=== PATIENT | female | born 1985 | race Caucasian/White ===

== ENCOUNTER 2019-05-19 08:50 | Emergency (ER) | payer SELFPAY ==
--- OUTSIDE RECORDS SUMMARY | 2019-05-19 08:54 | XMS REPORT ---
:1985 [facility] Address [address] [place] [address] Care Team Providers Name Role Phone UNKNOWN, REFFERING Primary Care Provider Unavailable PRISCA GARCIA Unavailable Unavailable Problems This patient has no known problems. Allergies, Adverse Reactions, Alerts This patient has no known allergies or adverse reactions. Medications This patient has no known medications. Results Test Description Test Time Test Comments Text Results Atomic Results Result Comments RPR, Qual 2017-03-08 22:11:00 Test Item Value Reference Range Comments RPR (test code=RPR) Non-Reactive Non-Reactive Thyroid Stimulating Hormone (TSH)2017-03-08 09:46:00 Test Item Value Reference Range Comments TSH (test code=TSH) 0.79 mIU/mL 0.270-4.200
--- NOTE | 2019-05-19 09:57 | EDPHYS ---
Physician Documentation [facility] Name: Charis Padgett Age: 33 yrs Sex: Female : 1985 Arrival Date: 05/19/2019 Time: 08:54 Bed 11 Private MD: ED Physician Ramiro Oviedo HPI: 05/19 09:51 This 33 yrs old Female presents to ER via Ambulatory with complaints of Rash. snw 09:51 The patient's rash thought to be caused by Dermatitis. The rash is located on the right snw clavicle, left clavicle, anterior aspect of right upper chest and anterior aspect of left upper chest and up posterior neck. The rash can be described as erythematous. Onset: The symptoms/episode began/occurred suddenly, 2 day(s) ago, and became persistent. Associated signs and symptoms: Pertinent positives: itching. Severity of symptoms: At their worst the symptoms were mild in the emergency department the symptoms are unchanged. Treatment given at home: Benadryl. It is unknown whether or not the patient has had similar symptoms in the past. The patient has not recently seen a physician. no new meds, products, foods. 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 - Social history:: Smoking status: Patient uses tobacco products, smokes one-half pack cigarettes per day. - Ebola Screening: : No symptoms or risks identified at this time. ROS: 09:51 Constitutional: Negative for fever, chills, and weight loss, Eyes: Negative for injury, snw pain, redness, and discharge, ENT: Negative for injury, pain, and discharge, Neck: Negative for injury, pain, and swelling, Cardiovascular: Negative for chest pain, palpitations, and edema, Respiratory: Negative for shortness of breath, cough, wheezing, and pleuritic chest pain, Abdomen/GI: Negative for abdominal pain, nausea, vomiting, diarrhea, and constipation, Back: Negative for injury and pain, : Negative for injury, bleeding, discharge, and swelling, MS/Extremity: Negative for injury and deformity, Neuro: Negative for headache, weakness, numbness, tingling, and seizure, Psych: Negative for depression, anxiety, suicide ideation, homicidal ideation, and hallucinations. 09:51 Skin: Positive for rash. Exam: 09:54 Constitutional: This is a well developed, well nourished patient who is awake, alert, snw and in no acute distress. Head/Face: Normocephalic, atraumatic. Eyes: Pupils equal round and reactive to light, extra-ocular motions intact. Lids and lashes normal. Conjunctiva and sclera are non-icteric and not injected. Cornea within normal limits. Periorbital areas with no swelling, redness, or edema. ENT: Nares patent. No nasal discharge, no septal abnormalities noted. Tympanic membranes are normal and external auditory canals are clear. Oropharynx with no redness, swelling, or masses, exudates, or evidence of obstruction, uvula midline. Mucous membranes moist. Neck: Trachea midline, no thyromegaly or masses palpated, and no cervical lymphadenopathy. Supple, full range of motion without nuchal rigidity, or vertebral point tenderness. No Meningismus. Chest/axilla: Normal chest wall appearance and motion. Nontender with no deformity. No lesions are appreciated. Cardiovascular: Regular rate and rhythm with a normal S1 and S2. No gallops, murmurs, or rubs. Normal PMI, no JVD. No pulse deficits. Respiratory: Lungs have equal breath sounds bilaterally, clear to auscultation and percussion. No rales, rhonchi or wheezes noted. No increased work of breathing, no retractions or nasal flaring. Abdomen/GI: Soft, non-tender, with normal bowel sounds. No distension or tympany. No guarding or rebound. No evidence of tenderness throughout. Back: No spinal tenderness. No costovertebral tenderness. Full range of motion. MS/ Extremity: Pulses equal, no cyanosis. Neurovascular intact. Full, normal range of motion. Neuro: Awake and alert, GCS 15, oriented to person, place, time, and situation. Cranial nerves II-XII grossly intact. Motor strength 5/5 in all extremities. Sensory grossly intact. Cerebellar exam normal. Normal gait. Psych: Awake, alert, with orientation to person, place and time. Behavior, mood, and affect are within normal limits. 09:54 Skin: Appearance: normal except for affected area, rash a mild rash is noted, rash can be described as erythematous, on the upper chest and posterior neck. Vital Signs: 09:02 BP 142 / 84; Pulse 82; Resp 16 S; Temp 98.5(O); Pulse Ox 99% on R/A; Pain 0/10; aa5 MDM: 09:47 Patient medically screened. snw 09:55 Data reviewed: vital signs, nurses notes. Data interpreted: Pulse oximetry: on room air snw is 99 %. Interpretation: normal. Counseling: I had a detailed discussion with the patient and/or guardian regarding: the historical points, exam findings, and any diagnostic results supporting the discharge/admit diagnosis, the presence of at least one elevated blood pressure reading (>120/80) during this emergency department visit, the need for outpatient follow up, to return to the emergency department if symptoms worsen or persist or if there are any questions or concerns that arise at home. Response to treatment: There is no appreciated change of the patient's symptoms at this time. Special discussion: Based on the history and exam findings, there is no indication for further emergent testing or inpatient evaluation. I discussed with the patient/guardian the need to see the data services developer for further evaluation of the symptoms. I discussed with the patient/guardian the need to see the primary care provider for further evaluation of the symptoms. Administered Medications: No medications were administered Disposition: 11:40 Co-signature as Attending Physician, Ramiro Oviedo MD. rn Disposition: 05/19/19 09:56 Discharged to Home. Impression: Irritant contact dermatitis. - Condition is Stable. - Discharge Instructions: Contact Dermatitis, Hypertension. - Prescriptions for Pepcid 20 mg Oral Tablet - take 1 tablet by ORAL route every 12 hours for 10 days; 20 tablet. Zyrtec 10 mg Oral Tablet - take 1 tablet by ORAL route once daily As needed; 20 tablet. - Work release form, Medication Reconciliation Form, Thank You Letter, Antibiotic Education, Prescription Opioid Use form. - Follow up: Private Physician; When: 2 - 3 days; Reason: Recheck today's complaints, Continuance of care, Re-evaluation by your physician. Signatures: Samara Messer, BENCH EXAMINER-C BENCH EXAMINER-Csnw Ramiro Oviedo MD MD rn Calderon, Audri, RN RN aa5 Corrections: (The following items were deleted from the chart) 10:06 09:56 05/19/2019 09:56 Discharged to Home. Impression: Irritant contact dermatitis. aa5 Condition is Stable. Forms are Medication Reconciliation Form, Thank You Letter, Antibiotic Education, Prescription Opioid Use. Follow up: Private Physician; When: 2 - 3 days; Reason: Recheck today's complaints, Continuance of care, Re-evaluation by your physician. snw
--- NOTE | 2019-05-19 09:57 | ER ---
Nurse's Notes [facility] Name: Charis Padgett Age: 33 yrs Sex: Female : 1985 Arrival Date: 05/19/2019 Time: 08:54 Bed 11 Private MD: Diagnosis: Irritant contact dermatitis Presentation: 05/19 09:01 Presenting complaint: Patient states: rash to chest and neck that began 2 days ago. Pt aa5 states "it's itchy and burning". Transition of care: patient was not received from another setting of care. Onset of symptoms was April 2019. Risk Assessment: Do you want to hurt yourself or someone else? Patient reports no desire to harm self or others. Initial Sepsis Screen: Does the patient meet any 2 criteria? No. Patient's initial sepsis screen is negative. Does the patient have a suspected source of infection? No. Patient's initial sepsis screen is negative. Care prior to arrival: None. 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 - Social history:: Smoking status: Patient uses tobacco products, smokes one-half pack cigarettes per day. - Ebola Screening: : No symptoms or risks identified at this time. Screenin:05 Abuse screen: Denies threats or abuse. Nutritional screening: No deficits noted. aa5 Tuberculosis screening: No symptoms or risk factors identified. Fall Risk None identified. Assessment: 09:05 General: Appears comfortable, Behavior is calm, cooperative. Pain: Denies pain. Neuro: aa5 Level of Consciousness is awake, alert, obeys commands, Oriented to person, place, time, situation. Cardiovascular: Patient's skin is warm and dry. Respiratory: Airway is patent Respiratory effort is even, unlabored, Respiratory pattern is regular, symmetrical. GI: No signs and/or symptoms were reported involving the gastrointestinal system. : No signs and/or symptoms were reported regarding the genitourinary system. EENT: No signs and/or symptoms were reported regarding the EENT system. Derm: Skin is pink, warm \\T\\ dry. Rash noted that is red, raised, on chest and neck Pt c/o itching and burning sensation to rash. Musculoskeletal: Range of motion: intact in all extremities. 10:05 Reassessment: Patient is alert, oriented x 3, equal unlabored respirations, skin aa5 warm/dry/pink. Vital Signs: 09:02 BP 142 / 84; Pulse 82; Resp 16 S; Temp 98.5(O); Pulse Ox 99% on R/A; Pain 0/10; aa5 ED Course: 08:54 Patient arrived in ED. as 09:00 Samara Messer F[facility]-C [facility]. snw 09:00 Ramiro Oviedo MD is Attending Physician. snw 09:02 Triage completed. aa5 09:02 Arm band placed on. aa5 09:02 Patient has correct armband on for positive identification. aa5 09:03 Crystal Sosa, RN is Primary Nurse. aa5 10:05 No provider procedures requiring assistance completed. Patient did not have IV access aa5 during this emergency room visit. Administered Medications: No medications were administered Outcome: 09:56 Discharge ordered by MD. snw 10:05 Discharged to home ambulatory. aa5 10:05 Condition: stable 10:05 Discharge instructions given to patient, Instructed on discharge instructions, follow up and referral plans. medication usage, Demonstrated understanding of instructions, follow-up care, medications, Prescriptions given X 2. 10:06 Patient left the ED. aa5 Signatures: Samara Messer FNP-C FNP-Mercedes Chowdhury as Crystal Sosa, RN RN aa5
== END 2019-05-19 10:06 | disposition home or self-care (01) ==
LOC: ER 08:50
DX: L24.9 Irritant contact dermatitis, unspecified cause (principal); Z88.0 Allergy status to penicillin; F17.210 Nicotine dependence, cigarettes, uncomplicated
CPT/HCPCS: 99282

== ENCOUNTER 2019-08-03 05:06 | Emergency (ER) | payer SELFPAY ==
[2019-08-03] MEDS ORDERED: IBUPROFEN 200 MG TAB PO ONE (06:19)
[2019-08-03] MEDS ORDERED: dexAMETHasone 4 MG TAB ONE (06:20)
--- NOTE | 2019-08-03 07:07 | ER ---
Nurse's Notes [facility] Name: Charis Padgett Age: 34 yrs Sex: Female : 1985 Arrival Date: 08/03/2019 Time: 05:09 Bed 15 Private MD: Diagnosis: Acute pharyngitis Presentation: 08/03 05:15 Presenting complaint: Patient states: I woke up about 3 hours ago and was having neck jb4 pain and trouble swallowing, the neck pain radiates to the middle of my upper back between my shoulders. 05:15 Transition of care: patient was not received from another setting of care. Onset of jb4 symptoms was August 03, 2019. Risk Assessment: Do you want to hurt yourself or someone else? Patient reports no desire to harm self or others. Initial Sepsis Screen: Does the patient meet any 2 criteria? No. Patient's initial sepsis screen is negative. Does the patient have a suspected source of infection? No. Patient's initial sepsis screen is negative. Care prior to arrival: None. 05:15 Method Of Arrival: Ambulatory jb4 05:15 Acuity: KALYANI 4 jb4 Historical: - Allergies: 05:15 Amoxicillin; jb4 05:15 PENICILLINS; jb4 05:15 peanuts; jb4 05:15 onions; jb4 - Home Meds: 05:15 None [Active]; jb4 - PMHx: 05:15 Anxiety; cervical CA; jb4 - PSHx: 05:15 (2011); Tubal ligation; Tonsillectomy; jb4 - Immunization history:: Adult Immunizations up to date. - Social history:: Smoking status: Patient uses tobacco products, smokes one-half pack cigarettes per day, Patient uses alcohol, occasionally. - Ebola Screening: : No symptoms or risks identified at this time. Screenin:15 Abuse screen: Denies threats or abuse. Nutritional screening: No deficits noted. jb4 Tuberculosis screening: No symptoms or risk factors identified. Fall Risk None identified. Assessment: 05:15 General: Appears in no apparent distress. comfortable, Behavior is calm, cooperative, jb4 appropriate for age. Pain: Complains of pain in neck Pain radiates to left scapular area, right scapular area and thoracic area Pain currently is 9 out of 10 on a pain scale. Pain began 3 hours ago. Neuro: Level of Consciousness is awake, alert, obeys commands, Oriented to person, place, time, situation. Cardiovascular: Patient's skin is warm and dry. Respiratory: Airway is patent Respiratory effort is even, unlabored, Respiratory pattern is regular, symmetrical. GI: No deficits noted. No signs and/or symptoms were reported involving the gastrointestinal system. : No deficits noted. No signs and/or symptoms were reported regarding the genitourinary system. EENT: Throat is clear is pink with gag reflex present. Derm: Skin is intact, Skin is pink, warm \T\ dry. Musculoskeletal: Circulation, motion, and sensation intact. Range of motion: intact in all extremities. 06:15 Reassessment: Patient appears in no apparent distress at this time. Patient and/or jb4 family updated on plan of care and expected duration. Pain level reassessed. Patient is alert, oriented x 3, equal unlabored respirations, skin warm/dry/pink. 07:01 Reassessment: Patient appears in no apparent distress at this time. Patient and/or jb4 family updated on plan of care and expected duration. Pain level reassessed. Patient is alert, oriented x 3, equal unlabored respirations, skin warm/dry/pink. 07:05 General: Appears in no apparent distress. comfortable, Behavior is calm, cooperative, rb1 appropriate for age. Pain: Complains of pain in neck Pain radiates to down her back Pain currently is 7 out of 10 on a pain scale. Neuro: Level of Consciousness is awake, alert, obeys commands, Oriented to person, place, time, situation. Cardiovascular: Capillary refill < 3 seconds is brisk in bilateral fingers. Respiratory: Airway is patent Respiratory effort is even, unlabored, Respiratory pattern is regular, symmetrical. Derm: Skin is pink, warm \T\ dry. Vital Signs: 05:15 BP 124 / 91; Pulse 73; Resp 16; Temp 97.6(TE); Pulse Ox 100% on R/A; Weight 65.77 kg [facility] (R); Height 5 ft. 2 in. (157.48 cm) (R); Pain 9/10; 06:30 BP 121 / 91; Pulse 67; Resp 16; Pulse Ox 100% on R/A; jb4 05:15 Body Mass Index 26.52 (65.77 kg, 157.48 cm) jb4 ED Course: 05:09 Patient arrived in ED. ds1 05:15 Arm band placed on right wrist. jb4 05:15 Patient has correct armband on for positive identification. Bed in low position. Call jb4 light in reach. Side rails up X 1. Pulse ox on. NIBP on. 05:16 Butch Rosenbaum, RN is Primary Nurse. jb4 05:31 Triage completed. jb4 05:50 Roger Ramirez PA is PHCP. jr8 05:50 Trevor Stauffer MD is Attending Physician. jr8 06:18 [place] Screen Profile Sent. jb4 06:18 Strep Sent. jb4 07:20 No provider procedures requiring assistance completed. Patient did not have IV access rb1 during this emergency room visit. Administered Medications: 06:27 Not Given (Patient Refused): Decadron 10 mg PO once jb4 06:28 Drug: Ibuprofen 600 mg Route: PO; jb4 06:56 Follow up: Response: No adverse reaction jb4 Outcome: 07:06 Discharge ordered by . jr8 07:19 Patient left the ED. rb1 07:20 Discharged to home ambulatory, with significant other. rb1 07:20 Condition: stable 07:20 Discharge instructions given to patient, Instructed on discharge instructions, follow up and referral plans. medication usage, Demonstrated understanding of instructions, follow-up care, medications, Prescriptions given X 1. Signatures: Jennifer Rosenthal ds1 Roger Ramirez PA PA jr8 Adilene Apodaca, RN RN rb1 Butch Rosenbaum, RN RN jb4
--- NOTE | 2019-08-03 07:07 | EDPHYS ---
Physician Documentation [facility] Name: Charis Padgett Age: 34 yrs Sex: Female : 1985 Arrival Date: 08/03/2019 Time: 05:09 Bed 15 Private MD: ED Physician Trevor Stauffer HPI: 08/03 06:10 This 34 yrs old Female presents to ER via Ambulatory with complaints of sore jr8 throat. 06:10 The patient presents with sore throat. The patient describes throat pain as raw, jr8 scratchy. Onset: The symptoms/episode began/occurred this morning. Severity of symptoms: At their worst the symptoms were moderate, in the emergency department the symptoms have improved. Modifying factors: the symptoms are aggravated by swallowing. Associated signs and symptoms: Pertinent negatives chest pain, cough, diarrhea, earache, fever, flu-like symptoms, headache. Pt reports onset of throat pain this morning at 0100, denies cough. Has someone living in household who has mono or is "carrier" for mono. Pt states throat pain aggravated with swallowing. Historical: - Allergies: 05:15 Amoxicillin; jb4 05:15 PENICILLINS; jb4 05:15 peanuts; jb4 05:15 onions; jb4 - Home Meds: 05:15 None [Active]; jb4 - PMHx: 05:15 Anxiety; cervical CA; jb4 - PSHx: 05:15 (2011); Tubal ligation; Tonsillectomy; jb4 - Immunization history:: Adult Immunizations up to date. - Social history:: Smoking status: Patient uses tobacco products, smokes one-half pack cigarettes per day, Patient uses alcohol, occasionally. - Ebola Screening: : No symptoms or risks identified at this time. ROS: 06:10 Constitutional: Negative for fever, chills, and weight loss, Eyes: Negative for injury, jr8 pain, redness, and discharge, Cardiovascular: Negative for chest pain, palpitations, and edema, Respiratory: Negative for shortness of breath, cough, wheezing, and pleuritic chest pain, Abdomen/GI: Negative for abdominal pain, nausea, vomiting, diarrhea, and constipation, Back: Negative for injury and pain, MS/Extremity: Negative for injury and deformity, Skin: Negative for injury, rash, and discoloration, Neuro: Negative for headache, weakness, numbness, tingling, and seizure. 06:10 ENT: Positive for sore throat, Negative for difficulty swallowing, difficulty handling secretions, hoarseness. 06:10 Neck: Negative for injury or acute deformity, mass, pain with movement, bony tenderness. Exam: 06:10 Constitutional: This is a well developed, well nourished patient who is awake, alert, jr8 and in no acute distress. Head/Face: Normocephalic, atraumatic. Eyes: Pupils equal round and reactive to light, extra-ocular motions intact. Lids and lashes normal. Conjunctiva and sclera are non-icteric and not injected. Cornea within normal limits. Periorbital areas with no swelling, redness, or edema. Chest/axilla: Normal chest wall appearance and motion. Nontender with no deformity. No lesions are appreciated. Cardiovascular: Regular rate and rhythm with a normal S1 and S2. No gallops, murmurs, or rubs. Normal PMI, no JVD. No pulse deficits. Respiratory: Lungs have equal breath sounds bilaterally, clear to auscultation and percussion. No rales, rhonchi or wheezes noted. No increased work of breathing, no retractions or nasal flaring. Abdomen/GI: Soft, non-tender, with normal bowel sounds. No distension or tympany. No guarding or rebound. No evidence of tenderness throughout. Back: No spinal tenderness. No costovertebral tenderness. Full range of motion. MS/ Extremity: Pulses equal, no cyanosis. Neurovascular intact. Full, normal range of motion. Neuro: Awake and alert, GCS 15, oriented to person, place, time, and situation. Cranial nerves II-XII grossly intact. Motor strength 5/5 in all extremities. Sensory grossly intact. Cerebellar exam normal. Normal gait. 06:10 ENT: Posterior pharynx: is normal, airway is patent, no erythema, no exudate, no peritonsilar mass, no pooling of secretions, no swelling. 06:10 Neck: Lymph nodes: lymphadenopathy is appreciated, anterior cervical nodes, posterior cervical nodes. Vital Signs: 05:15 BP 124 / 91; Pulse 73; Resp 16; Temp 97.6(TE); Pulse Ox 100% on R/A; Weight 65.77 kg jb4 (R); Height 5 ft. 2 in. (157.48 cm) (R); Pain 9/10; 06:30 BP 121 / 91; Pulse 67; Resp 16; Pulse Ox 100% on R/A; jb4 05:15 Body Mass Index 26.52 (65.77 kg, 157.48 cm) jb4 MDM: 05:59 Patient medically screened. jr8 07:04 Data reviewed: nurses notes, lab test result(s), and as a result, I will discharge jr8 patient. Data interpreted: Pulse oximetry: on room air is 100 %. Interpretation: normal. Counseling: I had a detailed discussion with the patient and/or guardian regarding: the historical points, exam findings, and any diagnostic results supporting the discharge/admit diagnosis, lab results. Medication response: motrin. Response to treatment: the patient's symptoms have markedly improved after treatment. ED course: Pt states she feels better with the motrin. Recommended increased fluid intake, sleep with fan off at night. Given return precautions, motrin and tylenol at home. 08/03 06:02 Order name: Strep; Complete Time: 06:42 8 08/03 06:02 Order name: [place] Screen Profile; Complete Time: 06:59 8 08/03 06:45 Order name: Throat Culture EDMS Administered Medications: 06:27 Not Given (Patient Refused): Decadron 10 mg PO once jb4 06:28 Drug: Ibuprofen 600 mg Route: PO; 4 06:56 Follow up: Response: No adverse reaction jb4 Disposition: 08/04 02:04 Co-signature as Attending Physician, Trevor Stauffer MD I agree with the assessment and [facility] plan of care. Disposition: 08/03/19 07:06 Discharged to Home. Impression: Acute pharyngitis. - Condition is Stable. - Discharge Instructions: Pharyngitis. - Prescriptions for Tessalon Perles 100 mg Oral Capsule - take 1 capsule by ORAL route every 8 hours As needed; 15 capsule. - Medication Reconciliation Form, Thank You Letter form. - Follow up: Private Physician; When: As needed; Reason: Recheck today's complaints, Re-evaluation by your physician. - Problem is new. - Symptoms have improved. Signatures: Dispatcher [employer] EDMS Roger Ramirez PA SD jr8 Adilene Apodaca RN RN rb1 Butch Rosenbaum RN RN jb4 Trevor Stauffer MD MD tw4 Corrections: (The following items were deleted from the chart) 08/03 07:19 07:06 08/03/2019 07:06 Discharged to Home. Impression: Acute pharyngitis. Condition is rb1 Stable. Forms are Medication Reconciliation Form, Thank You Letter, Antibiotic Education, Prescription Opioid Use. Follow up: Private Physician; When: As needed; Reason: Recheck today's complaints, Re-evaluation by your physician. Problem is new. Symptoms have improved. jr8
[2019-08-03 07:49] VITALS: TEMP 97.6; O2SAT 100
[2019-08-03 07:50] VITALS: BP 121/91
== END 2019-08-03 07:19 | disposition home or self-care (01) ==
LOC: ER 05:06
DX: J02.9 Acute pharyngitis, unspecified (principal); Z88.0 Allergy status to penicillin; Z88.1 Allergy status to other antibiotic agents; Z91.010 Allergy to peanuts; Z91.018 Allergy to other foods; F17.210 Nicotine dependence, cigarettes, uncomplicated
CPT/HCPCS: 36415; 86308; 87070; 87081; 99284; J8540

== ENCOUNTER 2019-12-18 11:46 | Emergency (ER) | payer SELFPAY ==
--- OUTSIDE RECORDS SUMMARY | 2019-12-18 11:48 | XMS REPORT ---
:1985 Author Organization [facility] Address [address] [place] [address] [address] [place] [address] Care Team Providers Name Role Phone UNKNOWN, [...]
--- NOTE | 2019-12-18 12:32 | ER ---
Nurse's Notes [facility] Name: Charis Padgett Age: 34 yrs Sex: Female : 1985 Arrival Date: 12/18/2019 Time: 11:49 Bed 23 Private MD: Diagnosis: Acute upper respiratory infection, unspecified Presentation: 12/18 12:00 Presenting complaint: Patient states: i was having cough last night, sore throat, fever mg2 and chest pain today. t-max 100.5. Transition of care: patient was not received from another setting of care. Onset of symptoms was December 17, 2019. Risk Assessment: Do you want to hurt yourself or someone else? Patient reports no desire to harm self or others. Initial Sepsis Screen: Does the patient meet any 2 criteria? No. Patient's initial sepsis screen is negative. Does the patient have a suspected source of infection? No. Patient's initial sepsis screen is negative. Care prior to arrival: None. 12:00 Method Of Arrival: Ambulatory mg2 12:00 Acuity: KALYANI 4 mg2 Triage Assessment: 12:30 General: Behavior is calm, cooperative. mg2 [employer]OR[employer]SE: 12:30 lmp unknown mg2 Historical: - Allergies: 12:06 NKA; mg2 - Home Meds: 12:06 None [Active]; mg2 - PMHx: 12:06 None; mg2 - PSHx: 12:06 ; mg2 - Immunization history:: Flu vaccine status is unknown. - Coronavirus screen:: The patient has NOT traveled to [place] in the past 14 days. Proceed with normal triage process as indicated. - Social history:: Smoking status: unknown. - Ebola Screening: : No symptoms or risks identified at this time. Screenin:06 Abuse screen: Denies threats or abuse. Denies injuries from another. Nutritional mg2 screening: No deficits noted. Tuberculosis screening: No symptoms or risk factors identified. Fall Risk No IV (0 pts). Assessment: 12:30 General: Appears in no apparent distress. comfortable. Pain: Complains of pain in chest mg2 and throat. Neuro: Level of Consciousness is awake, alert, obeys commands, Oriented to person, place, time, situation. Cardiovascular: Capillary refill < 3 seconds Patient's skin is warm and dry. Respiratory: Reports cough that is. Respiratory: Breath sounds are clear bilaterally. GI: No signs and/or symptoms were reported involving the gastrointestinal system. : No signs and/or symptoms were reported regarding the genitourinary system. EENT: Reports sore throat. Derm: Skin is intact, is healthy with good turgor, Skin is pink, warm \T\ dry. normal. Musculoskeletal: Circulation, motion, and sensation intact. Capillary refill < 3 seconds. Vital Signs: 12:02 Pulse 97; Resp 18; Temp 98.4; Pulse Ox 99% on R/A; Weight 73.03 kg; Height 5 ft. 3 in. mg2 (160.02 cm); 13:07 BP 120 / 78; Pulse 80; Resp 18; Temp 98; Pulse Ox 100% on R/A; mg2 12:02 Body Mass Index 28.52 (73.03 kg, 160.02 cm) mg2 ED Course: 11:49 Patient arrived in ED. mr 11:51 Jenny Holloway FNP-C is [facility]. kb 11:51 Berhane Rodriguez MD is Attending Physician. kb 11:56 Teofilo Paula, RN is Primary Nurse. mg2 12:02 Triage completed. mg2 12:03 Arm band placed on. mg2 12:05 Flu and/or RSV swab sent to lab. Strep swab sent to lab. jp3 12:15 Strep Sent. jp3 12:15 Flu Sent. jp3 12:30 Patient has correct armband on for positive identification. mg2 12:30 No provider procedures requiring assistance completed. Patient did not have IV access mg2 during this emergency room visit. 13:06 EKG done, by windshield technician. reviewed by Jenny KAUFMAN. at1 Administered Medications: No medications were administered Outcome: 12:32 Discharge ordered by MD. kb 13:07 Discharged to home ambulatory, with family. mg2 13:07 Condition: stable 13:07 Discharge instructions given to patient, Instructed on discharge instructions, follow up and referral plans. Demonstrated understanding of instructions, follow-up care. 13:09 Patient left the ED. mg2 Signatures: Jenny Holloway FNP-C FNP-Nicholas Lady Mcdonald Amanda, fitter's assistant EKG Tat1 Teofilo Paula, MARGO RN mg2 Natanael Yeh jp3
--- NOTE | 2019-12-18 12:33 | EDPHYS ---
Physician Documentation [facility] Name: Charis Padgett Age: 34 yrs Sex: Female : 1985 Arrival Date: 12/18/2019 Time: 11:49 Bed 23 Private MD: ED Physician Berhane Rodriguez HPI: 12/18 12:13 This 34 yrs old Female presents to ER via Ambulatory with complaints of Flu kb Symptoms. 12:13 The patient or guardian reports cough, flu symptoms, low-grade fever, myalgias. Onset: kb The symptoms/episode began/occurred this morning. Severity of symptoms: At their worst the symptoms were mild, moderate, in the emergency department the symptoms are unchanged. Modifying factors: The symptoms are alleviated by nothing, the symptoms are aggravated by nothing. Associated signs and symptoms: Pertinent positives: fever, sore throat. The patient has not experienced similar symptoms in the past. The patient has not recently seen a physician. 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 - Coronavirus screen:: The patient has NOT traveled to [place] in the past 14 days. Proceed with normal triage process as indicated. - Social history:: Smoking status: unknown. - Ebola Screening: : No symptoms or risks identified at this time. ROS: 12:10 Neck: Negative for injury, pain, and swelling, Cardiovascular: Negative for chest pain, kb palpitations, and edema, Abdomen/GI: Negative for abdominal pain, nausea, vomiting, diarrhea, and constipation, Back: Negative for injury and pain, MS/Extremity: Negative for injury and deformity, Skin: Negative for injury, rash, and discoloration, Neuro: Negative for headache, weakness, numbness, tingling, and seizure. 12:10 Constitutional: Positive for body aches, fever, malaise. 12:10 ENT: Positive for sore throat. 12:10 Respiratory: Positive for cough. Exam: 12:10 Constitutional: This is a well developed, well nourished patient who is awake, alert, kb and in no acute distress. Head/Face: Normocephalic, atraumatic. ENT: Nares patent. No nasal discharge, no septal abnormalities noted. Tympanic membranes are normal and external auditory canals are clear. Oropharynx with no redness, swelling, or masses, exudates, or evidence of obstruction, uvula midline. Mucous membranes moist. Neck: Trachea midline, no thyromegaly or masses palpated, and no cervical lymphadenopathy. Supple, full range of motion without nuchal rigidity, or vertebral point tenderness. No Meningismus. Chest/axilla: Normal chest wall appearance and motion. Nontender with no deformity. No lesions are appreciated. Cardiovascular: Regular rate and rhythm with a normal S1 and S2. No gallops, murmurs, or rubs. Normal PMI, no JVD. No pulse deficits. Respiratory: Lungs have equal breath sounds bilaterally, clear to auscultation and percussion. No rales, rhonchi or wheezes noted. No increased work of breathing, no retractions or nasal flaring. Abdomen/GI: Soft, non-tender, with normal bowel sounds. No distension or tympany. No guarding or rebound. No evidence of tenderness throughout. Skin: Warm, dry with normal turgor. Normal color with no rashes, no lesions, and no evidence of cellulitis. MS/ Extremity: Pulses equal, no cyanosis. Neurovascular intact. Full, normal range of motion. Neuro: Awake and alert, GCS 15, oriented to person, place, time, and situation. Cranial nerves II-XII grossly intact. Motor strength 5/5 in all extremities. Sensory grossly intact. Cerebellar exam normal. Normal gait. 12:47 ECG was reviewed by the Attending Physician. kb Vital Signs: 12:02 Pulse 97; Resp 18; Temp 98.4; Pulse Ox 99% on R/A; Weight 73.03 kg; Height 5 ft. 3 in. mg2 (160.02 cm); 13:07 BP 120 / 78; Pulse 80; Resp 18; Temp 98; Pulse Ox 100% on R/A; mg2 12:02 Body Mass Index 28.52 (73.03 kg, 160.02 cm) mg2 MDM: 11:56 Patient medically screened. kb 12:11 Data reviewed: vital signs, nurses notes. Data interpreted: Pulse oximetry: on room air kb is 99 %. Interpretation: normal. 12:31 Counseling: I had a detailed discussion with the patient and/or guardian regarding: the kb historical points, exam findings, and any diagnostic results supporting the discharge/admit diagnosis, lab results, the need for outpatient follow up, a family practitioner, to return to the emergency department if symptoms worsen or persist or if there are any questions or concerns that arise at home. 12/18 12:01 Order name: Flu; Complete Time: 12:31 kb 12/18 12:01 Order name: Strep; Complete Time: 12:31 kb 12/18 12:18 Order name: Urine Dipstick--Ancillary (enter results) [facility] 12/18 12:18 Order name: Urine --Ancillary (enter results) [facility] 12/18 12:37 Order name: EKG; Complete Time: 12:39 kb 12/18 12:37 Order name: Throat Culture [facility] 12/18 12:01 Order name: Urine Dipstick-Ancillary (obtain specimen); Complete Time: 12:11 kb 12/18 12:37 Order name: EKG - Nurse/Tech; Complete Time: 12:52 kb EC:47 Rate is 86 beats/min. Rhythm is regular. Right axis deviation noted. OK interval is kb normal at 140 msec. QRS interval is normal at 82 msec. QT interval is normal at 368 msec. Administered Medications: No medications were administered Disposition: 14:18 Co-signature as Attending Physician, Berhane Rodriguez MD I agree with the assessment and kdr plan of care. Disposition: 12/18/19 12:32 Discharged to Home. Impression: Acute upper respiratory infection, unspecified. - Condition is Stable. - Discharge Instructions: Upper Respiratory Infection, Adult, Pegz-[id number], Viral Respiratory Infection, [id number]. - Medication Reconciliation Form, Thank You Letter, Antibiotic Education, Prescription Opioid Use, Work release form form. - Follow up: Emergency Department; When: As needed; Reason: Worsening of condition. Follow up: Private Physician; When: 2 - 3 days; Reason: Recheck today's complaints, Continuance of care, Re-evaluation by your physician. Signatures: Dispatcher [employer] [facility] Jenny Holloway, UPHOLSTERER HELPER-C Berhane Vásquez MD MD [facility] Teofilo Paula RN RN mg2 Corrections: (The following items were deleted from the chart) 13:09 12:32 12/18/2019 12:32 Discharged to Home. Impression: Acute upper respiratory mg2 infection, unspecified. Condition is Stable. Forms are Medication Reconciliation Form, Thank You Letter, Antibiotic Education, Prescription Opioid Use. Follow up: Emergency Department; When: As needed; Reason: Worsening of condition. Follow up: Private Physician; When: 2 - 3 days; Reason: Recheck today's complaints, Continuance of care, Re-evaluation by your physician. kb
[2019-12-18 12:57] LABS: Urine Blood NEGATIVE (NEG); Urine Glucose NEGATIVE (NEG); Urine Protein NEGATIVE (NEG); Urine pH 7.5 (5.0-7.0)
--- NOTE | 2019-12-19 07:53 | EKG ---
Test Date: 2019-12-18 Test Time: 12:43:00 Psychiatric Nurse: LEIA MEASUREMENT RESULTS: Intervals: Rate: 86 CO: 140 QRSD: 82 QT: 368 QTc: 440 [place]: P: 60 CO: 140 QRS: 92 T: 36 INTERPRETIVE STATEMENTS: Normal sinus rhythm Rightward axis Borderline ECG No previous ECG available for comparison Electronically Signed On 12-19-19 07:51:50 MRI TECH by Marcel Calixto
== END 2019-12-18 13:09 | disposition home or self-care (01) ==
LOC: ER 11:46
DX: J06.9 Acute upper respiratory infection, unspecified (principal)
CPT/HCPCS: 81003; 81025; 87070; 87081; 87804; 93005; 99283

== ENCOUNTER 2019-12-28 17:47 | Emergency (ER) | payer SELFPAY ==
--- OUTSIDE RECORDS SUMMARY | 2019-12-28 17:49 | XMS REPORT ---
:1985 [facility] [address] [place] [address] Care Team Providers Name Role Phone UNKNOWN, [...]
--- NOTE | 2019-12-28 18:44 | EDPHYS ---
Physician Documentation [facility] Name: Charis Padgett Age: 34 yrs Sex: Female : 1985 Arrival Date: 12/28/2019 Time: 17:48 Bed 14 Private MD: LUDY Physician Benjie Hilliard HPI: 12/27 18:10 This 34 yrs old Female presents to ER via Ambulatory with complaints of jr8 Cough, Wheezing > 1 Year. 18:10 The patient or guardian reports cough, that is intermittent, described as mild, with no jr8 sputum, difficulty breathing. Onset: The symptoms/episode began/occurred gradually, 1 week(s) ago, and became worse and became persistent. Severity of symptoms: At their worst the symptoms were moderate, in the emergency department the symptoms are unchanged. Modifying factors: The symptoms are alleviated by nothing, the symptoms are aggravated by exertion. Associated signs and symptoms: The patient has no apparent associated signs or symptoms. The patient has not experienced similar symptoms in the past. The patient has been recently seen by a physician:. 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 - Social history:: Smoking status: Patient reports the use of cigarette tobacco products, smokes one-half pack cigarettes per day. ROS: 18:11 Eyes: Negative for injury, pain, redness, and discharge, ENT: Negative for injury, jr8 pain, and discharge, Neck: Negative for injury, pain, and swelling, Cardiovascular: Negative for chest pain, palpitations, and edema, Abdomen/GI: Negative for abdominal pain, nausea, vomiting, diarrhea, and constipation, Back: Negative for injury and pain, MS/Extremity: Negative for injury and deformity, Skin: Negative for injury, rash, and discoloration, Neuro: Negative for headache, weakness, numbness, tingling, and seizure. 18:11 Respiratory: Positive for cough, shortness of breath, wheezing. Exam: 18:11 Eyes: Pupils equal round and reactive to light, extra-ocular motions intact. Lids and jr8 lashes normal. Conjunctiva and sclera are non-icteric and not injected. Cornea within normal limits. Periorbital areas with no swelling, redness, or edema. ENT: Nares patent. No nasal discharge, no septal abnormalities noted. Tympanic membranes are normal and external auditory canals are clear. Oropharynx with no redness, swelling, or masses, exudates, or evidence of obstruction, uvula midline. Mucous membranes moist. Neck: Trachea midline, no thyromegaly or masses palpated, and no cervical lymphadenopathy. Supple, full range of motion without nuchal rigidity, or vertebral point tenderness. No Meningismus. Cardiovascular: Regular rate and rhythm with a normal S1 and S2. No gallops, murmurs, or rubs. Normal PMI, no JVD. No pulse deficits. Respiratory: Lungs have equal breath sounds bilaterally, clear to auscultation and percussion. No rales, rhonchi or wheezes noted. No increased work of breathing, no retractions or nasal flaring. Abdomen/GI: Soft, non-tender, with normal bowel sounds. No distension or tympany. No guarding or rebound. No evidence of tenderness throughout. Back: No spinal tenderness. No costovertebral tenderness. Full range of motion. Skin: Warm, dry with normal turgor. Normal color with no rashes, no lesions, and no evidence of cellulitis. MS/ Extremity: Pulses equal, no cyanosis. Neurovascular intact. Full, normal range of motion. Neuro: Awake and alert, GCS 15, oriented to person, place, time, and situation. Cranial nerves II-XII grossly intact. Motor strength 5/5 in all extremities. Sensory grossly intact. Cerebellar exam normal. Normal gait. Vital Signs: 17:53 BP 116 / 92; Pulse 101; Resp 18 S; Temp 99.1; Pulse Ox 98% on R/A; Weight 72.57 kg; iw Height 5 ft. 2 in. (157.48 cm); 18:50 BP 127 / 98; Pulse 85; Resp 16 S; Pulse Ox 99% on R/A; ca1 17:53 Body Mass Index 29.26 (72.57 kg, 157.48 cm) iw MDM: 17:59 Patient medically screened. jr8 18:41 Data reviewed: vital signs, nurses notes, radiologic studies, plain films. Data jr8 interpreted: Pulse oximetry: on room air is 98 %. Interpretation: normal. Counseling: I had a detailed discussion with the patient and/or guardian regarding: the historical points, exam findings, and any diagnostic results supporting the discharge/admit diagnosis, radiology results, the need for outpatient follow up, a family practitioner, to return to the emergency department if symptoms worsen or persist or if there are any questions or concerns that arise at home. 18:42 ED course: No identified pneumonia on CXR. Patient has had continued symptoms for 10 jr8 days now with worsening. Low grade fever and tachycardic. Will put on zithromax for atypical infection . 18:45 ED course: [facility] database was accessed. No narcotic prescriptions found. Safe to [facility] give cough medicine at this time. 12/27 17:59 Order name: XRAY Chest Pa And Lat (2 Views) jr8 Administered Medications: 18:50 Drug: Tussionex Pennkinetic ER 5 ml Route: PO; ca1 19:03 Follow up: Response: Medication administered at discharge. ca1 18:54 Not Given (Patient ): predniSONE 40 mg PO once jr8 18:56 Drug: Decadron 10 mg Route: IM; Site: right gluteus; ca1 19:03 Follow up: Response: Medication administered at discharge. ca1 Disposition: 12/28 07:19 Co-signature as Attending Physician, Benjie Hilliard MD I agree with the assessment and rosalind plan of care. Disposition: 12/28/19 18:43 Discharged to Home. Impression: Acute bacterial bronchitis. - Condition is Stable. - Discharge Instructions: Acute Bronchitis, Adult. - Prescriptions for Prednisone 20 mg Oral Tablet - take 1 tablet by ORAL route once daily for 5 days; 5 tablet. Zithromax Z- Kobe 250 mg Oral Tablet - take 1 tablet by ORAL route as directed for 5 days Day 1 - take two (2) tablets one time. Day 2, 3, 4 , 5 take one (1) tablet once daily.; 6 tablet. Guaifenesin AC 10- 100 mg/5 mL Oral Liquid - take 10 milliliter by ORAL route every 4 hours As needed; 240 milliliter. - Medication Reconciliation Form, Thank You Letter, Antibiotic Education, Prescription Opioid Use form. - Follow up: Private Physician; When: 1 week; Reason: Recheck today's complaints, Continuance of care, Re-evaluation by your physician. - Problem is new. - Symptoms have improved. Signatures: Dispatcher [employer] Benjie Colbert MD MD cha Williams, Irene, RN RN iw Roger Ramirez PA PA jr8 Mónica Lawton RN RN ca1 Corrections: (The following items were deleted from the chart) 12/27 18:55 17:55 Allergies: NKA; iw ca1 19:06 18:43 12/28/2019 18:43 Discharged to Home. Impression: Acute bacterial bronchitis. ca1 Condition is Stable. Forms are Medication Reconciliation Form, Thank You Letter, Antibiotic Education, Prescription Opioid Use. Follow up: Private Physician; When: 1 week; Reason: Recheck today's complaints, Continuance of care, Re-evaluation by your physician. Problem is new. Symptoms have improved. jr8
--- NOTE | 2019-12-28 18:44 | ER ---
Nurse's Notes [facility] Name: Charis Padgett Age: 34 yrs Sex: Female : 1985 Arrival Date: 12/28/2019 Time: 17:48 Bed 14 Private MD: Diagnosis: Acute bacterial bronchitis Presentation: 12/27 17:53 Chief complaint: Patient states: was seen here a couple weeks ago, cough is worse, iw can't breathe, worse at night, was not given any prescriptions. Coronavirus screen: The patient has NOT traveled to [place] in the past 14 days. Proceed with normal triage procedures. Ebola Screen: Patient negative for fever greater than or equal to 101.5 degrees Fahrenheit, and additional compatible Ebola Virus Disease symptoms Patient denies exposure to infectious person. Patient denies travel to an Ebola-affected area in the 21 days before illness onset. No symptoms or risks identified at this time. Initial Sepsis Screen: Does the patient meet any 2 criteria? No. Patient's initial sepsis screen is negative. Does the patient have a suspected source of infection? No. Patient's initial sepsis screen is negative. Risk Assessment: Do you want to hurt yourself or someone else? Patient reports no desire to harm self or others. 17:53 Method Of Arrival: Ambulatory iw 17:53 Acuity: KALYANI 4 iw 18:14 Onset of symptoms was December 28, 2019. ca1 Triage Assessment: 18:15 Respiratory: Onset: The symptoms/episode began/occurred Respiratory: No deficits noted. 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 - Social history:: Smoking status: Patient reports the use of cigarette tobacco products, smokes one-half pack cigarettes per day. Screenin:05 Abuse screen: Denies threats or abuse. Denies injuries from another. Nutritional ca1 screening: No deficits noted. Tuberculosis screening: No symptoms or risk factors identified. Fall Risk None identified. Assessment: 18:05 General: Appears in no apparent distress. comfortable, Behavior is calm, cooperative, ca1 appropriate for age. Pain: Denies pain. Neuro: Level of Consciousness is awake, alert, obeys commands, Oriented to person, place, time, situation, Appropriate for age. Cardiovascular: Heart tones S1 S2 present Capillary refill < 3 seconds Patient's skin is warm and dry. Rhythm is sinus rhythm. Respiratory: Reports cough that is productive, since a week ago Airway is patent Respiratory effort is even, unlabored, Respiratory pattern is regular, symmetrical, Breath sounds are clear bilaterally. GI: Abdomen is round non-distended, Bowel sounds present X 4 quads. Abd is soft and non tender X 4 quads. : No signs and/or symptoms were reported regarding the genitourinary system. EENT: No signs and/or symptoms were reported regarding the EENT system. Derm: Skin is intact, is healthy with good turgor, Skin is pink, warm \T\ dry. Musculoskeletal: Circulation, motion, and sensation intact. Capillary refill < 3 seconds. 18:50 Reassessment: Patient appears in no apparent distress at this time. Patient is alert, ca1 oriented x 3, equal unlabored respirations, skin warm/dry/pink. Vital Signs: 17:53 BP 116 / 92; Pulse 101; Resp 18 S; Temp 99.1; Pulse Ox 98% on R/A; Weight 72.57 kg; iw Height 5 ft. 2 in. (157.48 cm); 18:50 BP 127 / 98; Pulse 85; Resp 16 S; Pulse Ox 99% on R/A; ca1 17:53 Body Mass Index 29.26 (72.57 kg, 157.48 cm) iw ED Course: 17:48 Patient arrived in ED. as 17:55 Triage completed. iw 17:55 Arm band placed on. iw 17:59 Roger Ramirez PA is PHCP. jr8 17:59 Benjie Hilliard MD is Attending Physician. jr8 18:05 Patient has correct armband on for positive identification. Bed in low position. Call ca1 light in reach. Side rails up X 1. Pulse ox on. NIBP on. Warm blanket given. 18:05 No provider procedures requiring assistance completed. ca1 18:06 Mónica Lawton, RN is Primary Nurse. ca1 18:34 XRAY Chest Pa And Lat (2 Views) In Process Unspecified. EDMS 19:00 Patient did not have IV access during this emergency room visit. ca1 Administered Medications: 18:50 Drug: Tussionex Pennkinetic ER 5 ml Route: PO; ca1 19:03 Follow up: Response: Medication administered at discharge. ca1 18:54 Not Given (Patient ): predniSONE 40 mg PO once jr8 18:56 Drug: Decadron 10 mg Route: IM; Site: right gluteus; ca1 19:03 Follow up: Response: Medication administered at discharge. ca1 Outcome: 18:43 Discharge ordered by . jr8 19:00 Discharged to home ambulatory, with significant other. ca1 19:00 Condition: stable 19:00 Discharge instructions given to patient, Instructed on discharge instructions, follow up and referral plans. medication usage, Demonstrated understanding of instructions, follow-up care, medications, Prescriptions given X 2. 19:06 Patient left the ED. ca1 Signatures: Dispatcher [employer] EDMS Mercedes Benites Irene, RN RN iw Roger Ramirez PA PA jr8 Mónica Lawton RN RN ca1 Corrections: (The following items were deleted from the chart) 18:55 17:55 Allergies: NKA; iw ca1
[2019-12-28] MEDS ORDERED: dexAMETHasone 4 MG/ML VIAL ONE (19:01)
[2019-12-28] MEDS ORDERED: HYDROCODONE/CHLORPHEN 5 ML/OSYR ONE (19:01)
--- NOTE | 2019-12-28 19:16 | RAD REPORT ---
EXAM DESCRIPTION: RAD - Chest Pa And Lat (2 Views) - 12/28/2019 6:29 pm CLINICAL HISTORY: COUGH Chest pain. COMPARISON: Chest Single View dated 05/23/2016 FINDINGS: Mild interstitial pulmonary opacities are present bilaterally which may represent bronchit is or viral pneumonitis. No focal consolidation seen to indicate bacterial pneumonia. The heart is no rmal in size. No displaced fractures. Subtle upper thoracic dextroscoliosis.
[2019-12-28 19:48] VITALS: BP 127/98; O2SAT 99
[2019-12-28 19:49] VITALS: TEMP 99.1
== END 2019-12-28 19:06 | disposition home or self-care (01) ==
LOC: ER 17:47
DX: J20.8 Acute bronchitis due to other specified organisms (principal); Z88.8 Allergy status to other drugs, medicaments and biological substances; F17.210 Nicotine dependence, cigarettes, uncomplicated
CPT/HCPCS: 71046; 96372; 99284

== ENCOUNTER 2020-02-29 13:21 | Emergency (ER) | payer SELFPAY ==
--- OUTSIDE RECORDS SUMMARY | 2020-02-29 13:22 | XMS REPORT ---
:1985 Author Organization [facility] t Address [address] [place] [address] [address] [place] [address] Care Team Providers Name Role Phone UNKNOWN Primary Care Provider Unavailable Lucas GARCIA Unavailable Unavailable Problems This patient has no known problems. Allergies, Adverse Reactions, Alerts This patient has no known allergies or adverse reactions. Medications This patient has no known medications. Results Test Description Test Time Test Comments Text Results Atomic Results Result Comments RPR, Qual 2017-03-08 22:11:00 Test Item Value Reference Range Comments RPR (test code = RPR) Non-Reactive Non-Reactive Thyroid Stimulating Hormone (TSH)2017-03-08 09:46:00 Test Item Value Reference Range Comments TSH (test code = TSH) 0.79 mIU/mL 0.270-4.200
[2020-02-29 14:40] LABS: Urine Blood TRACE (NEG); Urine Glucose NEGATIVE (NEG); Urine Protein NEGATIVE (NEG); Urine pH 5.5 (5.0-7.0)
[2020-02-29] MEDS ORDERED: CYCLOBENZAPRINE 10 MG TAB ONE (14:44)
[2020-02-29] MEDS ORDERED: KETOROLAC 30 MG/ML INJ ONE (14:45)
--- NOTE | 2020-02-29 15:34 | ER ---
Nurse's Notes [facility] Name: Charis Padgett Age: 34 yrs Sex: Female : 1985 Arrival Date: 02/29/2020 Time: 13:22 Bed 6 Private MD: Diagnosis: Low back pain Presentation: 02/28 13:57 Chief complaint: Patient states: LEFT LUMBAR SCIATIC PATTERN PAIN TO LEFT KNEE. bp Coronavirus screen: Proceed with normal triage. Ebola Screen: No symptoms or risks identified at this time. Initial Sepsis Screen: Does the patient meet any 2 criteria? No. Patient's initial sepsis screen is negative. Does the patient have a suspected source of infection? No. Patient's initial sepsis screen is negative. Risk Assessment: Do you want to hurt yourself or someone else? Patient reports no desire to harm self or others. Onset of symptoms is unknown. 13:57 Method Of Arrival: Wheelchair bp 13:57 Acuity: KALYANI 4 bp Triage Assessment: 13:59 General: Appears in no apparent distress. comfortable, Behavior is cooperative, bp appropriate for age, anxious. Pain: Complains of pain in left low back. EENT: No deficits noted. Neuro: Level of Consciousness is awake, alert, obeys commands, Oriented to person, place, time, situation, Appropriate for age. Cardiovascular: No deficits noted. Respiratory: No deficits noted. GI: GI: Abdomen is obese. : No signs and/or symptoms were reported regarding the genitourinary system. Derm: No deficits noted. Musculoskeletal: Circulation, motion, and sensation intact. Range of motion: intact in all extremities. Historical: - Allergies: 13:59 Prednisone; bp - Home Meds: 13:59 None [Active]; bp - PMHx: 13:59 None; bp - Immunization history:: Adult Immunizations up to date. - Social history:: Smoking status: Patient reports the use of cigarette tobacco products, unknown amount. Screenin:06 Abuse screen: Denies threats or abuse. Denies injuries from another. Nutritional bp screening: No deficits noted. Tuberculosis screening: No symptoms or risk factors identified. Fall Risk None identified. Assessment: 14:06 General: SEE TRIAGE NOTE. bp 15:17 Reassessment: Patient appears in no apparent distress at this time. Patient and/or iw family updated on plan of care and expected duration. Pain level reassessed. Patient is alert, oriented x 3, equal unlabored respirations, skin warm/dry/pink. 15:42 Reassessment: PT D/C HOME AMBULATORY, DX WITH LOW BACK PAIN. Neuro: Level of bp Consciousness is awake, alert, obeys commands, Oriented to Appropriate for age Gait is steady. Vital Signs: 13:57 BP 132 / 94; Pulse 94; Resp 17; Temp 97.5; Pulse Ox 97% ; Weight 68.04 kg; Height 5 ft. bp 2 in. (157.48 cm); 15:42 BP 125 / 89; Pulse 87; Resp 16; Temp 97.5; Pulse Ox 98% ; bp 13:57 Body Mass Index 27.44 (68.04 kg, 157.48 cm) bp ED Course: 13:22 Patient arrived in ED. ag5 13:56 Sha Hudson, MARGO is Primary Nurse. bp 13:56 Benjie Willingham PA is PHCP. cp 13:56 Ramiro Oviedo MD is Attending Physician. cp 13:58 Triage completed. bp 14:05 Arm band placed on. bp 14:06 Patient has correct armband on for positive identification. Bed in low position. Call bp light in reach. Side rails up X2. 15:42 No provider procedures requiring assistance completed. Patient did not have IV access bp during this emergency room visit. Administered Medications: 14:15 Drug: TORadol 60 mg Route: IM; Site: right gluteus; bp 15:41 Follow up: Response: Pain is decreased bp 14:15 Drug: Flexeril 10 mg Route: PO; bp 15:41 Follow up: Response: Pain is decreased bp 15:35 Drug: traMADol 50 mg Route: PO; bp 15:41 Follow up: Response: Pain is decreased bp Outcome: 15:33 Discharge ordered by MD. cp 15:42 Discharged to home ambulatory. bp 15:42 Condition: stable 15:42 Discharge instructions given to patient, Instructed on discharge instructions, follow up and referral plans. medication usage, Demonstrated understanding of instructions, follow-up care, medications, Prescriptions given X 3. 15:43 Patient left the ED. bp Signatures: Marie Haynes RN RN Benjie Willingham PA PA cp Peltier, Brian, RN RN Violeta Fernández ag5
--- NOTE | 2020-02-29 15:34 | EDPHYS ---
Physician Documentation [facility] Name: Charis Padgett Age: 34 yrs Sex: Female : 1985 Arrival Date: 02/29/2020 Time: 13:22 Bed 6 Private MD: ED Physician Ramiro Oviedo HPI: 02/28 14:10 This 34 yrs old Female presents to ER via Wheelchair with complaints of Back cp Pain. 14:10 The patient presents with pain that is acute. The symptoms are located in the left low cp back. 14:10 Onset: The symptoms/episode began/occurred 3 day(s) ago. cp 14:10 The pain radiates to the left upper leg. Associated signs and symptoms: Pertinent cp negatives: abdominal pain, chest pain, constipation, dysuria, fever, incontinence, numbness, tingling, urinary retention, weakness. The problem was sustained from unknown cause. Modifying factors: the patient symptoms are aggravated by movement, walking. Historical: - Allergies: 13:59 Prednisone; bp - Home Meds: 13:59 None [Active]; bp - PMHx: 13:59 None; bp - Immunization history:: Adult Immunizations up to date. - Social history:: Smoking status: Patient reports the use of cigarette tobacco products, unknown amount. ROS: 14:15 Constitutional: Negative for body aches, chills, fever, poor PO intake. cp 14:15 Eyes: Negative for injury, pain, redness, and discharge. cp Exam: 14:20 Constitutional: The patient appears in no acute distress, alert, awake, non-toxic, well cp developed, well nourished. 14:20 Head/Face: Normocephalic, atraumatic. cp 14:20 Eyes: Periorbital structures: appear normal, Conjunctiva: normal, no exudate, no injection, Sclera: no appreciated abnormality, Lids and lashes: appear normal, bilaterally. 14:20 ENT: External ear(s): are unremarkable, Nose: is normal, Mouth: is normal, Posterior pharynx: Airway: no evidence of obstruction, patent. 14:20 Neck: ROM/movement: is normal, is supple, without pain, no range of motions limitations. 14:20 Chest/axilla: Inspection: normal. 14:20 Cardiovascular: Rate: normal, Rhythm: regular. 14:20 Respiratory: the patient does not display signs of respiratory distress, Respirations: normal, no use of accessory muscles, no retractions. 14:20 Abdomen/GI: Exam negative for discomfort, distension, guarding, Inspection: abdomen appears normal. 14:20 Back: pain, that is moderate, of the left low back, ROM is painful. 14:20 Neuro: Motor: moves all fours, strength is normal, Sensation: is normal, Deep tendon reflexes are 2+ (normal) in the right patellar, right Achilles, left patellar and left Achilles. Vital Signs: 13:57 BP 132 / 94; Pulse 94; Resp 17; Temp 97.5; Pulse Ox 97% ; Weight 68.04 kg; Height 5 ft. bp 2 in. (157.48 cm); 15:42 BP 125 / 89; Pulse 87; Resp 16; Temp 97.5; Pulse Ox 98% ; bp 13:57 Body Mass Index 27.44 (68.04 kg, 157.48 cm) bp MDM: 13:59 Patient medically screened. cp 15:33 Data reviewed: vital signs, nurses notes, lab test result(s), and as a result, I will cp discharge patient. 15:33 Counseling: I had a detailed discussion with the patient and/or guardian regarding: the cp historical points, exam findings, and any diagnostic results supporting the discharge/admit diagnosis, lab results, the need for outpatient follow up, a family practitioner, to return to the emergency department if symptoms worsen or persist or if there are any questions or concerns that arise at home. 02/28 14:38 Order name: Urine Dipstick--Ancillary (enter results); Complete Time: 15:22 eb 02/28 15:22 Interpretation: Normal except: UBLD TRACE. cp 02/28 14:38 Order name: Urine --Ancillary (enter results); Complete Time: 15:22 eb 02/28 13:59 Order name: Urine Dipstick-Ancillary (obtain specimen); Complete Time: 14:35 cp 02/28 13:59 Order name: Urine Test (obtain specimen); Complete Time: 14:35 cp Administered Medications: 14:15 Drug: TORadol 60 mg Route: IM; Site: right gluteus; bp 15:41 Follow up: Response: Pain is decreased bp 14:15 Drug: Flexeril 10 mg Route: PO; bp 15:41 Follow up: Response: Pain is decreased bp 15:35 Drug: traMADol 50 mg Route: PO; bp 15:41 Follow up: Response: Pain is decreased bp Disposition: 17:29 Co-signature as Attending Physician, Ramiro Oviedo MD. rn Disposition: 02/29/20 15:33 Discharged to Home. Impression: Low back pain. - Condition is Stable. - Discharge Instructions: Back Pain, Adult, Back Exercises. - Prescriptions for Cyclobenzaprine 10 mg Oral Tablet - take 1 tablet by ORAL route every 8 hours As needed; 20 tablet. Diclofenac Sodium 75 mg Oral Tablet, Delayed Release (E.C.) - take 1 tablet by ORAL route 2 times per day; 20 tablet. Tramadol 50 mg Oral Tablet - take 1 tablet by ORAL route every 8 hours as needed; 12 tablet. - Medication Reconciliation Form, Thank You Letter, Antibiotic Education, Prescription Opioid Use form. - Follow up: Private Physician; When: 2 - 3 days; Reason: Recheck today's complaints. - Problem is new. - Symptoms have improved. Signatures: Dispatcher [employer] EDRamiro Vargas MD MD rn Benjie Willingham PA PA cp Peltier, Brian, RN RN bp Corrections: (The following items were deleted from the chart) 15:43 15:33 02/29/2020 15:33 Discharged to Home. Impression: Low back pain. Condition is bp Stable. Forms are Medication Reconciliation Form, Thank You Letter, Antibiotic Education, Prescription Opioid Use. Follow up: Private Physician; When: 2 - 3 days; Reason: Recheck today's complaints. Problem is new. Symptoms have improved. cp
[2020-02-29] MEDS ORDERED: TRAMADOL HCL 50 MG TAB ONE (15:44)
[2020-02-29 16:40] VITALS: TEMP 97.5
[2020-02-29 16:41] VITALS: BP 125/89; O2SAT 98
== END 2020-02-29 15:43 | disposition home or self-care (01) ==
LOC: ER 13:21
DX: M54.5 Low back pain (principal); Z72.0 Tobacco use; Z88.8 Allergy status to other drugs, medicaments and biological substances
CPT/HCPCS: 81003; 81025; 96372; 99283

== ENCOUNTER 2021-01-31 19:58 | Emergency (ER) | payer OTHER ==
--- OUTSIDE RECORDS SUMMARY | 2021-01-31 20:02 | XMS REPORT | Continuity of Care Document ---
:1985 Author Organization [facility] t Address [address] [place] [address] Care Team Providers Name Role Phone UNKNOWN Primary Care Physician Unavailable Doctor Unassigned, Name Attending Clinician Unavailable Madhav VALDEZ Attending Clinician Lucas GARCIA Attending Clinician Unavailable Lucas GARCIA Admitting Clinician Unavailable Problems This patient has no known problems. Allergies, Adverse Reactions, Alerts This patient has no known allergies or adverse reactions. Medications This patient has no known medications. Procedures This patient has no known procedures. Encounters Start End Encounter Admission Attending Care Care Encounter Source Date/Time Date/Time Type Type Clinicians Facility Department ID 2021-01-26 2021-01-26 Orders Doctor SHAZIA [id number] 00:00:00 00:00:00 Only UnassignedDAVID [id number] [place] [id number] 2020-12-22 2020-12-22 Orders Doctor SHAZIA [id number] 00:00:00 00:00:00 Only UnassignedDAVID [id number] [place] [id number] 2020-08-06 2020-08-06 Letter Doctor SHAZIA [id number] 00:00:00 00:00:00 (Out) Unassigned, DAVID [id number] [place] [id number] 2020-08-06 2020-08-06 Letter Doctor SHAZIA [id number] 00:00:00 00:00:00 (Out) Unassigned, DAVID [id number] [place] [facility] [id number] 2019-07-07 2019-07-07 Emergency Corey, [facility] [id number] 11:16:20 12:14:00 Doc [place] [id number] [place] [id number] [place] [id number] Results Test Description Test Time Test Comments Results Result Comments Source RPR, Qual 2017-03-08 22:11:00 Test Item Value Reference Range Interpretation Comme nts RPR (test code = RPR) Non-Reactive Non-Reactive N Thyroid Stimulating Hormone (TSH)2017-03-08 09:46:00 Test Item Value Reference Range Interpretation Comments TSH (test code = TSH) 0.79 mIU/mL 0.270-4.200 N
--- NOTE | 2021-01-31 23:23 | ER ---
Nurse's Notes [facility] Name: Charis Padgett Age: 35 yrs Sex: Female : 1985 Arrival Date: 01/31/2021 Time: 20:03 Bed Waiting Private MD: Diagnosis: Presentation: 01/31 20:21 Chief complaint: Patient states: 7 teeth pulled today around 1100. 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 Entire body pain for 3 hours. Feels hot/cold, + nausea. Coronavirus screen: Client denies travel out of the [place] in the last 14 days. At this time, the client does not indicate any symptoms associated with coronavirus-19. Ebola Screen: Patient denies travel to an Ebola-affected area in the 21 days before illness onset. Initial Sepsis Screen: Does the patient meet any 2 criteria? HR > 90 bpm. No. Patient's initial sepsis screen is negative. Does the patient have a suspected source of infection? Yes: Other: tooth. Risk Assessment: Do you want to hurt yourself or someone else? Patient reports no desire to harm self or others. Onset of symptoms was January 31, 2021. 20:21 Method Of Arrival: Ambulatory ll1 20:21 Acuity: KALYANI 4 ll1 Historical: - Allergies: 20:24 Prednisone; ll1 20:24 peanuts; ll1 - PMHx: 20:24 None; ll1 - PSHx: 20:24 ; ll1 - Immunization history:: Flu vaccine is not up to date. - Social history:: Smoking status: Patient reports the use of cigarette tobacco products, denies chronic smoking, but will smoke occasionally. Vital Signs: 20:21 BP 143 / 101; Pulse 105; Resp 18; Temp 98.4; Pulse Ox 95% ; Weight 86.18 kg; Height 5 ll1 ft. 2 in. (157.48 cm); Pain 9/10; 20:21 Body Mass Index 34.75 (86.18 kg, 157.48 cm) ll1 ED Course: 20:03 Patient arrived in ED. cf2 20:24 Triage completed. ll1 20:25 Arm band placed on Patient notified of wait time. ll1 22:30 Patient's name was called from ER lobby. No response. bb 23:22 Patient's name was called from ER Music Messenger (MM). No response. Unable to locate patient. Will bb disposition as left without being seen by a provider. Administered Medications: No medications were administered Outcome: 23:23 Patient left the ED. bb Signatures: Naye Youssef RN RN bb Lauryn Etienne cf2 Connie Lama RN RN ll1
[2021-01-31 23:53] VITALS: BP 143/101; TEMP 98.4; O2SAT 95
== END 2021-01-31 23:23 | disposition left against medical advice (07) ==
LOC: ER 19:58
DX: K08.89 Other specified disorders of teeth and supporting structures (principal); F17.210 Nicotine dependence, cigarettes, uncomplicated; Z53.21 Procedure and treatment not carried out due to patient leaving prior to being seen by health care provider
CPT/HCPCS: 99281

== ENCOUNTER 2021-11-04 15:49 | Emergency (ER) | payer OTHER ==
--- OUTSIDE RECORDS SUMMARY | 2021-11-04 15:53 | XMS REPORT | Continuity of Care Document ---
:1985 Author Organization [facility] t Address [address] [place] [address] Dr. Roberts. [address] [place] [address] Care Team Providers Name Role Phone UNKNOWN Primary Care Physician Unavailable ERNIE K.H. Attending Clinician Unavailable Sudhakar ARAGON, L Attending Clinician Unavailable Ernie VALDEZ, K.H. Attending Clinician Doctor Unassigned, Name Attending Clinician Unavailable Madhav VALDEZ Attending Clinician Lucas GARCIA Attending Clinician Unavailable Lucas GARCIA Admitting Clinician Unavailable Payers Payer Name Policy Type Policy Number Effective Date Expiration Date S ty [facility] [id number] 2020 00:00:00 Problems Condition Condition Condition Status Onset Resolution Last Treating Co mments Source Name Details Category Date Date Treatment Clinician Date No known No known Disease Unive rs active active ity of problems problems [facility] Allergies, Adverse Reactions, Alerts Allergy Allergy Status Severity Reaction(s) Onset Inactive Treating Comm ents Source Name Type Date Date Clinician Peanut Propensi Active Anaphylaxis 2017-0 Onions- Un amber ty to 6-23 uncooked ity of adverse 00:00: - rash [place] reaction 00 Medical s Branch PEANUT DRUG Active Anaphylaxis 2017-0 Unive rs INGREDI 6-23 ity of 00:00: [place] 00 Medical Branch Social History Social Habit Start Date Stop Date Quantity Comments Source Exposure to Not sure [facility] SARS-CoV-2 (event) Medica l Branch Tobacco use and 2021-02-02 2021-02-02 Never used Univers y [facility] exposure 00:00:00 00:00:00 Medical Branch Sex Assigned At [birth year] [facility] 00:00:00 00:00:00 Medical Branch Smoking Status Start Date Stop Date Source Unknown if ever smoked [facility] Current some day smoker 2021-02-02 00:00:00 [facility] Medications Ordered Filled Start Stop Current Ordering Indication Dosage Frequency Signature Comments Components Source Medication Medication Date Date Medication? Clinician (SIG) Name Name buPROPion Yes 150mg Take 150 Uni vers SR 4-07 mg by ity of (WELLBUTRIN 13:56: mouth 2 Reginaldo as SR) 150 mg 12 (two) Medical SR tablet times Branch daily. buPROPion Yes 150mg Take 150 Uni vers SR 4-07 mg by ity of (WELLBUTRIN 13:56: mouth 2 Reginaldo as SR) 150 mg 12 (two) Medical SR tablet times Branch daily. buPROPion Yes 150mg Take 150 Uni vers SR 4-07 mg by ity of (WELLBUTRIN 13:56: mouth 2 Reginaldo as SR) 150 mg 12 (two) Medical SR tablet times Branch daily. methocarbam 2018- No 500mg 500 mg, U nivers ol 07-07 Oral, ity of (ROBAXIN) 17:45: 16:50 ONCE, 1 [place] tablet 500 [place] :00 dose, Mon Medi franca mg 07/07/19 at Branch 1245, VARINDER ketorolac 2018- No 30mg 30 mg, Unive rs (TORADOL) 07-07 Intramuscu ity of injection 17:45: 16:50 lar, ONCE, [place] 30 mg 00 :00 1 dose, Medical 07/07/19 Branch at 1245, VARINDER
Fa culty member approving Restricted medication : KOTA LEE methocarbam Yes [id number] 500mg Take 1 Univers ol 07-07 tablet by ity of (ROBAXIN) 00:00: mouth 4 [place] 500 mg 00 (four) Medical tablet times Branch daily. methocarbam Yes [id number] 500mg Take 1 Univers ol 07-07 tablet by ity of (ROBAXIN) 00:00: mouth 4 [place] 500 mg 00 (four) Medical tablet times Branch daily. methocarbam Yes [id number] 500mg Take 1 Univers ol 9-09 tablet by ity of (ROBAXIN) 00:00: mouth 4 [place] 500 mg 00 (four) Medical tablet times Branch daily. methocarbam Yes [id number] 500mg Take 1 Univers ol 9-09 tablet by ity of (ROBAXIN) 00:00: mouth 4 [place] 500 mg 00 (four) Medical tablet times Branch daily. methocarbam Yes [id number] 500mg Take 1 Univers ol 9-09 tablet by ity of (ROBAXIN) 00:00: mouth 4 [place] 500 mg 00 (four) Medical tablet times Branch daily. methocarbam 2020- No [id number] 500mg Take 1 Univers ol 9-09 04-07 tablet by ity of (ROBAXIN) 00:00: 00:00 mouth 4 [place] 500 mg 00 :00 (four) Medical tablet times Branch daily. methocarbam 2020- No [id number] 500mg Take 1 Univers ol 9- 04-07 tablet by ity of (ROBAXIN) 00:00: 00:00 mouth 4 [place] 500 mg 00 :00 (four) Medical tablet times Branch daily. predniSONE 2018- No [id number] 40mg Take 2 Univers 20 mg - 09-15 tablets by ity of tablet 00:00: 04:59 mouth [place] 00 :00 daily for Medical 5 days. Branch Vital Signs Vital Name Observation Time Observation Value Comments Source Systolic blood 2021-02-02 13:54:00 123 mm[Hg] [facility] Diastolic blood 2021-02-02 13:54:00 88 mm[Hg] Unive [facility] Heart rate 2021-02-02 13:54:00 81 /min [facility] Respiratory rate 2021-02-02 13:54:00 19 /min [facility] [place] [place] Body height 2021-02-02 13:54:00 158.8 cm [facility] Body weight 2021-02-02 13:54:00 85.684 kg [facility] BMI 2021-02-02 13:54:00 34.00 kg/m2 [facility] Oxygen saturation in 2021-02-02 13:54:00 98 /min University of Arterial blood by [facility] Pulse oximetry Branch Systolic blood 2019-07-07 16:13:00 132 mm[Hg] Univer sity of pressure [facility] Diastolic blood 2019-07-07 16:13:00 83 mm[Hg] Unive rsity of pressure [place] [facility] Heart rate 2019-07-07 16:13:00 99 /min Universi ty of [place] [facility] Body temperature 2019-07-07 16:13:00 36.72 Renetta Univ ersity of [place] [facility] Respiratory rate 2019-07-07 16:13:00 20 /min Univ ersity of [place] [facility] Body height 2019-07-07 16:13:00 160 cm Universi [facility] [place] [facility] Body weight 2019-07-07 16:13:00 68.04 kg Universi [facility] [place] [facility] BMI 2019-07-07 16:13:00 26.57 kg/m2 Universi ty [facility] [place] [facility] Oxygen saturation in 2019-07-07 16:13:00 100 /min University of Arterial blood by [facility] Pulse oximetry Branch Systolic blood 2019-07-07 16:13:00 132 mm[Hg] Univer sity of pressure [place] [facility] Diastolic blood 2019-07-07 16:13:00 83 mm[Hg] Unive rsity of pressure [facility] Heart rate 2019-07-07 16:13:00 99 /min Universi ty [facility] [place] [facility] Body temperature 2019-07-07 16:13:00 36.72 Renetta Univ ersity of [place] [facility] Respiratory rate 2019-07-07 16:13:00 20 /min Univ ersity of [place] [facility] Body height 2019-07-07 16:13:00 160 cm [facility]i [facility] [place] [facility] Body weight 2019-07-07 16:13:00 68.04 kg Universi ty [facility] [place] [facility] BMI 2019-07-07 16:13:00 26.57 kg/m2 [facility]i [facility] [place] [facility] Oxygen saturation in 2019-07-07 16:13:00 100 /min University of Arterial blood by [facility] Pulse oximetry Branch Procedures Procedure Date / Time Performed Performing Clinician [facility] e REFERRAL- 2021-01-26 05:01:00 Doctor Unassigned, No [facility] [place] REQUEST/RESPONSE Name Medical Branch REFERRAL- 2020-12-22 06:01:00 Doctor Unassigned, No [facility] [place] REQUEST/RESPONSE Name [facility] Branch NOTICE OF PRIVACY 2019-07-07 16:09:09 Doctor Unassigned, No [facility] PRACTICES Name [facility] Branch Encounters Start End Encounter Admission Attending Care Care Encounter Source Date/Time Date/Time Type Type Clinicians Facility Department ID 2021-03-16 2021-03-16 Outpatient Macho [facility] [id number] Univers 09:00:00 09:00:00 SENDIL [id number] ity [facility] 2021-03-16 2021-03-16 [facility] [id number] Univers 09:00:00 09:00:00 SENDIL ity [facility] 2021-03-14 2021-03-14 Telephone Sudhakar Taylor [id number] Univers 00:00:00 00:00:00 , Bryanna Gomez [id number] ity [id number] [phone] [address] 2021-03-01 2021-03-01 Outpatient Macho [facility] [id number] Univers 08:00:00 08:00:00 SENDIL [id number] ity [facility] 2021-03-01 2021-03-01 Outpatient Macho [facility] [id number] Univers 08:00:00 08:00:00 SENDIL ity [facility] 2021-02-02 2021-02-02 [facility] [id number] Univers 08:12:10 09:56:16 Visit Sendil Gricelda Duron [id number] ity [id number] Professio [phone] Wa dical [facility]9 [facility] 2021-02-02 2021-02-02 Outpatient Macho [facility] [id number] Univers 09:00:00 09:00:00 SENDIL ity [facility] 2021-02-02 2021-02-02 Outpatient Macho [facility] [id number] Univers 08:30:00 08:30:00 SENDIL [id number] ity of [facility] 2021-01-26 2021-01-26 Orders Doctor SHAZIA [id number] Univers 00:00:00 00:00:00 Only Unassigned, DAVID [id number] ity of [facility] [id number] Reginaldo as [phone] [address] 2021-01-26 2021-01-26 Orders Doctor SHAZIA [id number] 00:00:00 00:00:00 Only Unassigned, DAVID [id number] [facility] [id number] [facility] 2020-12-22 2020-12-22 Orders Doctor SHAZIA [id number] Univers 00:00:00 00:00:00 Only Unassigned, DAVID [id number] ity of [facility] [id number] Reg[place]do as [phone] [address] 2020-12-22 2020-12-22 Orders Doctor SHAZIA [id number] 00:00:00 00:00:00 Only Unassigned, DAVID [id number] [facility] [id number] 2020-08-06 2020-08-06 Letter Doctor SHAZIA Kaba.[id number] Univers 00:00:00 00:00:00 (Out) Unassigned, DAVID [id number] ity of [facility] [id number] Reginaldo as [phone] [address] 2020-08-06 2020-08-06 Letter Doctor SHAZIA Kaba.[id number] Univers 00:00:00 00:00:00 (Out) Unassigned, DAVID [id number] ity of [facility] [id number] Reg[place]do as [phone] [address] 2020-08-06 2020-08-06 Letter Doctor SHAZIA Kaba.[id number] 00:00:00 00:00:00 (Out) Unassigned, DAVID [id number] [facility] [id number] 2020-08-06 2020-08-06 Letter Doctor SHAZIA [id number] 00:00:00 00:00:00 (Out) Unassigned, DAVID [id number] [place] [facility] [id number] 2019-07-07 2019-07-07 [facility] [id number] Univers 11:16:20 12:14:00 Kota [place]erton [id number] i ty of [place] [id number] [facility] [phone] [place] [id number] [place] 2019-07-07 2019-07-07 Emergency [facility] [id number] 11:16:20 12:14:00 Kot[place]ris [place] [id number] [place] [id number] [place] [id number] [id number] Results Test Description Test Time Test Comments Results Result Comments Source RPR, Qual 2017-03-08 22:11:00 Test Item Value Reference Range Interpretation Comme nts RPR (test code = RPR) Non-Reactive Non-Reactive N Thyroid Stimulating Hormone (TSH)2017-03-08 09:46:00 Test Item Value Reference Range Interpretation Comments TSH (test code = TSH) 0.79 mIU/mL 0.270-4.200 N
[2021-11-04 19:17] LABS: SARS-COV-2 RT PCR POSITIVE (NEGATIVE)
--- NOTE | 2021-11-04 20:20 | ER ---
Nurse's Notes [facility] Name: Charis Padgett Age: 36 yrs Sex: Female : 1985 Arrival Date: 11/04/2021 Time: 15:59 Bed 15 Private MD: Diagnosis: SARS-associated coronavirus as the cause of diseases classified elsewhere Presentation: 11/04 16:35 Chief complaint: Chief complaint: Patient states: i have been feeling bad for 3 days. tw2 fever with bodyaches and sweats as well. cough and congestion. 16:36 Coronavirus screen: chills, congestion, cough unrelated to allergies, fever, nausea, tw2 runny nose, Client presents with at least one sign or symptom that may indicate coronavirus-19. Standard/surgical mask placed on the client. Provider contacted for isolation considerations. Ebola Screen: Patient denies travel to an Ebola-affected area in the 21 days before illness onset. Initial Sepsis Screen: Does the patient meet any 2 criteria? No. Patient's initial sepsis screen is negative. Does the patient have a suspected source of infection? No. Patient's initial sepsis screen is negative. Risk Assessment: Do you want to hurt yourself or someone else? Patient reports no desire to harm self or others. Onset of symptoms was November 04, 2021. 16:36 Method Of Arrival: Ambulatory tw2 16:36 Acuity: KALYANI 4 tw2 Triage Assessment: 16:39 General: Appears in no apparent distress. Behavior is. Pain: Complains of pain in body tw2 aches. 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 - Social history:: Smoking status: Reported history of juuling and/or vaping. Screenin:27 Abuse screen: Denies threats or abuse. Nutritional screening: No deficits noted. tw2 Tuberculosis screening: No symptoms or risk factors identified. Fall Risk None identified. Vital Signs: 16:36 BP 142 / 94; Pulse 95; Resp 16; Temp 97.0(TE); Pulse Ox 100% on R/A; tw2 ED Course: 15:59 Patient arrived in ED. am2 16:37 Triage completed. tw2 16:39 Arm band placed on. tw2 16:42 Benjie Willingham PA is PHCP. cp 16:42 Cara Randle MD is Attending Physician. cp 17:48 Strep Sent. tw2 19:25 Albino Porter, RN is Primary Nurse. mr2 20:00 Patient has correct armband on for positive identification. Call light in reach. mr2 20:00 No provider procedures requiring assistance completed. Patient did not have IV access mr2 during this emergency room visit. Administered Medications: 22:44 Not Given (Patient Refused): Tessalon Perle (benzonatate) 200 mg PO once; may give if mr2 not Outcome: 20:20 Discharge ordered by MD. cp 23:14 Discharged to home ambulatory. mr2 23:14 Condition: stable 23:14 Discharge instructions given to patient, Instructed on medication usage, Prescriptions given X 1. 23:15 Patient left the ED. mr2 Signatures: Benjie Willingham PA PA cp Lawanda Rodrigues RN RN tw2 Aliyah Lakhani am2 Albino Porter RN RN mr2 Corrections: (The following items were deleted from the chart) 16:37 16:35 Chief complaint: tw2 tw2
--- NOTE | 2021-11-04 20:20 | EDPHYS ---
Physician Documentation [facility] Name: Charis Padgett Age: 36 yrs Sex: Female : 1985 Arrival Date: 11/04/2021 Time: 15:59 Bed 15 Private MD: ED Physician Cara Randle HPI: 11/04 17:00 This 36 yrs old Female presents to ER via Ambulatory with complaints of Fever, chills, cp sweats, bodyaches. 17:00 The patient reports fever, not measured (subjective). Onset: The symptoms/episode cp began/occurred 3 day(s) ago. Associated signs and symptoms: Pertinent positives: chills, cough, headache, sore throat, body aches, Pertinent negatives: abdominal pain, chest pain, diarrhea, vomiting. Severity of symptoms: in the emergency department the symptoms are unchanged despite home interventions. 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 - Social history:: Smoking status: Reported history of juuling and/or vaping. ROS: 17:05 Constitutional: Positive for body aches, chills, Negative for fever, poor PO intake. cp 17:05 Eyes: Negative for injury, pain, redness, and discharge. cp 17:05 ENT: Positive for sore throat, Negative for drainage from ear(s), ear pain, difficulty swallowing, difficulty handling secretions. 17:05 Neck: Negative for pain with movement, pain at rest, stiffness. 17:05 Respiratory: Positive for cough, "sounds productive", Negative for shortness of breath, wheezing. 17:05 Abdomen/GI: Negative for abdominal pain, vomiting, diarrhea, constipation. 17:05 : Negative for urinary symptoms. 17:05 Skin: Negative for rash. 17:05 Neuro: Positive for headache, Negative for altered mental status, weakness. 17:05 All other systems are negative. Exam: 17:10 Constitutional: The patient appears in no acute distress, alert, awake, cp non-diaphoretic, non-toxic, well developed, well nourished. 17:10 Head/Face: Normocephalic, atraumatic. cp 17:10 Eyes: Periorbital structures: appear normal, Conjunctiva: normal, no exudate, no injection, Sclera: no appreciated abnormality, Lids and lashes: appear normal, bilaterally. 17:10 ENT: External ear(s): are unremarkable, Ear canal(s): are normal, clear, TM's: dullness, bilaterally, Nose: is normal, Mouth: Lips: moist, Oral mucosa: moist, Posterior pharynx: Airway: no evidence of obstruction, patent, Tonsils: with erythema, no enlargement, no exudate, erythema, that is mild, exudate, is not appreciated. 17:10 Neck: ROM/movement: is normal, is supple, no meningismus, no nuchal rigidity. 17:10 Chest/axilla: Inspection: normal. 17:10 Cardiovascular: Rate: normal, Rhythm: regular. 17:10 Respiratory: the patient does not display signs of respiratory distress, Respirations: normal, no use of accessory muscles, no retractions, labored breathing, is not present, Breath sounds: decreased breath sounds, are not appreciated, stridor, is not appreciated, + upper airway congestion. wheezing: is not appreciated. 17:10 Abdomen/GI: Exam negative for discomfort, distension, guarding, Inspection: abdomen appears normal. 17:10 Back: CVA tenderness, is absent. 17:10 Neuro: Orientation: to person, place \\T\\ time. Mentation: is normal, Motor: moves all fours, strength is normal, Sensation: is normal. Vital Signs: 16:36 BP 142 / 94; Pulse 95; Resp 16; Temp 97.0(TE); Pulse Ox 100% on R/A; tw2 MDM: 18:00 Differential diagnosis: viral Infection, bacterial infection, bronchitis, pneumonia cp UTI, gastroenteritis, meningitis. 19:34 Patient medically screened. cp 20:20 Data reviewed: vital signs, nurses notes, lab test result(s). cp 20:20 Counseling: I had a detailed discussion with the patient and/or guardian regarding: the cp historical points, exam findings, and any diagnostic results supporting the discharge/admit diagnosis, lab results, to return to the emergency department if symptoms worsen or persist or if there are any questions or concerns that arise at home. ED course: VSS. Patient appears non-toxic and no signs of respiratory distress. Will discharge to home for continued monitoring and to quarantine. 11/04 16:43 Order name: COVID-19/FLU A+B (Document "Date of Onset" if Symptomatic) cp 11/04 16:43 Order name: Strep cp 11/04 16:44 Order name: COVID-19/FLU A+B; Complete Time: 19:26 EDMS 11/04 19:27 Interpretation: Reviewed. cp 11/04 16:44 Order name: Group A Streptococcus Rapid Sc; Complete Time: 19:26 EDMS 11/04 18:17 Order name: Throat Culture EDMS Administered Medications: 22:44 Not Given (Patient Refused): Tessalon Perle (benzonatate) 200 mg PO once; may give if mr2 not Disposition Summary: 11/04/21 20:20 Discharge Ordered Location: Home cp Problem: new cp Symptoms: have improved cp Condition: Stable cp Diagnosis - SARS-associated coronavirus as the cause of diseases classified elsewhere cp Followup: cp - With: Private Physician - When: 2 - 3 days - Reason: Worsening of condition Discharge Instructions: - Discharge Summary Sheet cp - Aspirin and Your Heart cp - COVID-19 cp - Things to Know about the COVID-19 Pandemic - [facility] cp - 10 Things You Can Do to Manage Your COVID-19 Symptoms at Home - [facility] cp - Form - Return To Work cp - COVID-19: Quarantine vs. Isolation - [facility] cp - Prevent the Spread of COVID-19 if You Are Sick - [facility] cp Forms: - Medication Reconciliation Form cp - Thank You Letter cp - Antibiotic Education cp - Prescription Opioid Use cp Prescriptions: - Ibuprofen 800 mg Oral Tablet - take 1 tablet by ORAL route every 8 hours As needed take with food; 30 tablet; cp Refills: 0, Product Selection Permitted - Tessalon Perles 100 mg Oral Capsule - take 2 capsule by ORAL route every 8 hours As needed; 20 capsule; Refills: 0, cp Product Selection Permitted - Lidocaine Viscous - take 5 milliliter by ORAL route every 4-6 hours As needed; 1 bottle; Refills: cp 0, Product Selection Permitted Addendum: 11/06/2021 16:23 Co-signature as Attending Physician, Cara Randle MD I agree with the assessment and s p3 plan of care. 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
[2021-11-04 23:29] VITALS: BP 142/94; TEMP 97; O2SAT 100
== END 2021-11-04 23:15 | disposition home or self-care (01) ==
LOC: ER 15:49
DX: U07.1 COVID-19 (principal); Z88.0 Allergy status to penicillin; Z88.1 Allergy status to other antibiotic agents; Z91.010 Allergy to peanuts; F17.290 Nicotine dependence, other tobacco product, uncomplicated
CPT/HCPCS: 87070; 87081; 0240U; 99283

== ENCOUNTER 2022-01-14 18:40 | Emergency (ER) | payer OTHER ==
--- OUTSIDE RECORDS SUMMARY | 2022-01-14 19:14 | XMS REPORT | Continuity of Care Document ---
:1985 Author Organization [facility] t Address [address] [place] [address] Dr. [address]. [address] [place] [address] Care Team Providers Name Role Phone UNKNOWN Primary Care Physician Unavailable Eusebia KLEIN.Erich Attending Clinician Unavailable Sudhakar ARAGON, L Attending Clinician Unavailable Dakota VALDEZ, K.H. Attending Clinician Doctor Unassigned, Name Attending Clinician Unavailable Madhav VALDEZ Attending Clinician Lucas GARCIA Attending Clinician Unavailable Lucas GARCIA Admitting Clinician Unavailable Payers Payer Name Policy Type Policy Number Effective Date Expiration Date S ty [facility] STAR [id number] 2020 00:00:00 Problems Condition Condition Condition Status Onset Resolution Last Treating Co mments Source Name Details Category Date Date Treatment Clinician Date No known No known Disease Unive rs active active ity of problems problems [facility] Allergies, Adverse Reactions, Alerts Allergy Allergy Status [...] Quantity Comments Source Exposure to Not sure [facility] SARS-CoV-2 (event) Medica l Branch Tobacco use and 2021-02-02 2021-02-02 [facility]00 Medical Branch Sex Ass[birth year] At [birth year] [facility] 00:00:00 00:00:00 Medical Branch Smoking Status Start Date Stop Date Source Unknown if ever smoked [facility] Current some day smoker 2021-02-02 00:00:00 [facility] Medications Ordered Filled Start Stop Current Ordering [...] Restricted medication : KOTA LEE methocarbam Yes [id number] 500mg Take 1 Univers ol 07-07 tablet by ity of (ROBAXIN) 00:00: mouth 4 [place] 500 mg 00 (four) Medical tablet times Branch daily. methocarbam Yes [id number] 500mg Take 1 Univers ol 07-07 tablet by ity of (ROBAXIN) 00:00: mouth 4 [place] 500 mg 00 (four) Medical tablet times Branch daily. methocarbam Yes [id number] 500mg Take 1 Univers ol 9-09 tablet by ity of (ROBAXIN) 00:00: mouth 4 [place] 500 mg 00 (four) Medical tablet times Branch daily. methocarbam Yes [id number] 500mg Take 1 Univers ol 9-09 tablet by ity of (ROBAXIN) 00:00: mouth 4 [place] 500 mg 00 (four) Medical tablet times Branch daily. methocarbam Yes [id number] 500mg Take 1 Univers ol 9-09 tablet by ity of (ROBAXIN) 00:00: mouth 4 [place] 500 mg 00 (four) Medical tablet times Branch daily. methocarbam 2020- No [id number] 500mg Take 1 Univers ol 9-09 04-07 tablet by ity of (ROBAXIN) 00:00[place] 00[place] :00 (four) Medical tablet times Branch daily. methocarbam 2020- No [id number] 500mg Take 1 Univers ol 9- 04-07 tablet by ity of (ROBAXIN) 00:00[place] 00[place] 00 :00 (four) Medical tablet times Branch daily. predniSONE 2018- No [id number] 40mg Take 2 Univers 20 mg - 09-15 tablets by ity of tablet 00:00: 04:59 mouth [place] 00 :00 daily for Medical 5 days. Branch Vital Signs Vital Name Observation Time Observation Value Comments Source Systolic blood 2021-02-02 13:54:00 123 mm[Hg] Univer s[facility] Diastolic blood 2021-02-02 13:54:00 88 mm[Hg] [facility] Heart rate 2021-02-02 13:54:00 81 /min [facility] Respiratory rate 2021-02-02 13:54:00 19 /min [facility] Body height 2021-02-02 13:54:00 158.8 cm [facility] Body weight 2021-02-02 13:54:00 85.684 kg [facility] BMI 2021-02-02 13:54:00 34.00 kg/m2 [facility] Oxygen saturation in 2021-02-02 13:54:00 98 /min University of Arterial blood by [facility] Pulse oximetry Branch Systolic blood 2019-07-07 16:13:00 132 mm[Hg] Univer sity of pressure [place] [facility] Diastolic blood 2019-07-07 16:13:00 83 mm[Hg] Unive rsity [facility] [place] [facility] Heart rate 2019-07-07 16:13:00 99 /min [facility] [place] [facility] Body temperature 2019-07-07 16:13:00 36.72 Renetta [facility] [place] [facility] Respiratory rate 2019-07-07 16:13:00 20 /min [facility] [place] [facility] Body height 2019-07-07 16:13:00 160 cm [facility] [place] [facility] Body weight 2019-07-07 16:13:00 68.04 kg [facility] [place] [facility] BMI 2019-07-07 16:13:00 26.57 kg/m2 [facility] [place] [facility] Oxygen saturation in 2019-07-07 16:13:00 100 /min [facility] of Arterial blood by [facility] Pulse oximetry Branch Systolic blood 2019-07-07 16:13:00 132 mm[Hg] Univer sity [facility] [place] [facility] Diastolic blood 2019-07-07 16:13:00 83 mm[Hg] Unive rsity [facility] [place] [facility] Heart rate 2019-07-07 16:13:00 99 /min [facility] [place] [facility] Body temperature 2019-07-07 16:13:00 36.72 Renetta [facility] [place] [facility] Respiratory rate 2019-07-07 16:13:00 20 /min [facility] [place] [facility] Body height 2019-07-07 16:13:00 160 cm [facility] [place] [facility] Body weight 2019-07-07 16:13:00 68.04 kg [facility] [place] [facility] BMI 2019-07-07 16:13:00 26.57 kg/m2 [facility] [place] [facility] Oxygen saturation in 2019-07-07 16:13:00 100 /min [facility] Arterial blood by [facility] Pulse oximetry Branch Procedures Procedure Date / Time Performed Performing Clinician [facility] e REFERRAL- 2021-01-26 05:01:00 Doctor Unassigned, No [facility] [place] REQUEST/RESPONSE Name Medical Branch REFERRAL- 2020-12-22 06:01:00 Doctor Unassigned, No [facility] [place] REQUEST/RESPONSE Name [facility] Branch NOTICE OF PRIVACY 2019-07-07 16:09:09 Doctor Unassigned, No [facility] PRACTICES Name [facility] Branch Encounters Start End Encounter Admission Attending Care Care Encounter Source Date/Time Date/Time Type Type Clinicians Facility Department ID 2021-03-16 2021-03-16 Outpatient Macho [facility] [id number] Univers 09:00:00 09:00:00 SENDIL [id number] ity [facility] 2021-03-16 2021-03-16 Outpatient Macho [facility] [id number] Univers 09:00:00 09:00:00 SENDIL ity [place] [facility] 2021-03-14 2021-03-14 Telephone Sudhakar Taylor [id number] Univers 00:00:00 00:00:00 , Bryanna Gomez [id number] [id number] [address] 2021-03-01 2021-03-01 Outpatient Macho [facility] [id number] Univers 08:00:00 08:00:00 SENDIL [id number] ity [facility] 2021-03-01 2021-03-01 Outpatient Macho [facility] [id number] Univers 08:00:00 08:00:00 SENDIL ity [facility] 2021-02-02 2021-02-02 [facility] [id number] Univers 08:12:10 09:56:16 Visit Sendil Gricelda Duron [id number] ity [place] Professio [phone] Nh dical [address] 2021-02-02 2021-02-02 Outpatient Macho [facility] [id number] Univers 09:00:00 09:00:00 SENDIL ity [facility] 2021-02-02 2021-02-02 Outpatient Macho [facility] [id number] Univers 08:30:00 08:30:[id number] it[address] of [facility] 2021-01-26 2021-01-26 Orders Doctor MCCRAY [id number] Univers 00:00:00 00:00:00 Only Unassigned, DAVID [id number] ity of [place] [facility] [id number] Reginaldo as [phone] [address] 2021-01-26 2021-01-26 Orders Doctor SHAZIA [id number] 00:00:00 00:00:00 Only Unassigned, DAVID [id number] [place] [id number] [id number] [facility] 2020-12-22 2020-12-22 Orders Doctor SHAZIA [id number] Univers 00:00:00 00:00:00 Only Unassigned, DAVID [id number] ity of [place] [facility] [id number] Reginaldo as [phone] [address] 2020-12-22 2020-12-22 Orders Doctor SHAZIA [id number] 00:00:00 00:00:00 Only Unassigned, DAVID [id number] [place] 4.2.7.2.686 [id number] 2020-08-06 2020-08-06 Letter Doctor MCCRAY [id number] 00:00:00 00:00:00 (Out) Unassigned, DAVID [id number] [place] [id number] [id number] 2020-08-06 2020-08-06 Letter Doctor SHAZIA Kaba.[id number] Univers 00:00:00 00:00:00 (Out) Unassigned, DAVID [id number] ity of [place] [facility] 4.2.7.2.686 Reginaldo as [phone] [address] 2020-08-06 2020-08-06 Letter Doctor SHAZIA Kaba.[id number] Univers 00:00:00 00:00:00 (Out) Unassigned, DAVID [id number] ity of [place] [facility] [id number] Reginaldo as [phone] [facility] 044 Branch 2020-08-06 2020-08-06 Letter Doctor SHAZIA [id number] 00:00:00 00:00:00 (Out) Unassigned, DAVID [id number] [place] [facility] [id number] [id number] 2019-07-07 2019-07-07 Emergency [facility] [id number] 11:16:20 12:14:00 Kota Duron [id number] [place] 4.2.7.2.686 [place] [id number] 2019-07-07 2019-07-07 [facility] [id number] [facility] 11:16:20 12:14:00 Kota Duron [id number] i ty of [place] 4.2.7.2.686 [facility] [phone] [address] Results Test Description Test Time Test Comments Results Result Comments Source SARS-CoV-2 (COVID-19), RT-PCR/TMA 2022-01-14 08:18:51 Test Item Value Reference Range Interpretation Comme nts SARS-CoV-2 INTERPRETATION NEGATIVE SEE NOTE S ARS-CoV-2 RNA NOT (test code = 30468) DETECTED Negative results do not preclude SARS-C oV-2 infection and should notbe us ed as the sole basis for patie nt management decisions. Nega tiveresults must be combined wit h clinical observations, p atient history,and epidemiological information. Optimum specime n types and timingfor peak viral levels during infectio ns caused by SARS-CoV-2 have notbeen determined. Col lection of multiple specim ens or types ofspecimens may be necessary to detect virus. I mproper specimencollect ion and handling, sequence variab ility under primers/probes, or organism present below t he limit of detection may l ead to falsenegative r esults. Positive and negative pr edictive values oftesting are h ighly dependent on prevalence. Fal se negative testresults are more likely when prevalence is h igh. EFFECTIVE 01/09/2022, SPU JEANE SPECIMENS CAN NO LONGER BE TE STED WITHTHIS ORDER CODE. FO R SALIVA, ORAL FLUID TESTING A ND SPECIMENREQUIRE MENTS, PLEASE REFER TO ORDER CODE 3509. SOURCE (test code = 80843) NOT SPECIFIED Note: Methodology is Dixie Laurie Real-Time RT-PC R. The expected result or ref erence range is NEGATIVE (Not D etected). For more information reg arding COVID-19 testing to incl ude clinicalinforma tion, methodology detail, intende d use, FDA authorization a ndrecommended fact sheets for lavonne ents or healthcare providers, see [facility] Announcement: S ARS-CoV-2 (COVID-19) by N MICHAEL at URL below (note,fact shee ts are provided by method given in report:https:// www.[employer]/cl inicians/client -communications/ Alternatively, see downloadable PDF fact sheet at:https://www. [employer]/COVID- 19-RT-PCR UNLESS OTHERWISE INDICATED, ALL TESTING PERFORMED ATCLINICAL PATH [facility] LABORATORIES, [facility]. [address] [place] [address] 4 LABORATORY DIRE CTOR: BERENICE ANN M.D. CLIA NUMBER [id number] [place]. [id number] SARS-CoV-2 (COVID-19), RT-PCR/[id number] 06:38:45 Test Item Value Reference Interpretation Comments Range SARS-CoV-2 NEGATIVE SEE NOTE SARS-CoV-2 RNA NOT INTERPRETATION DETECTEDNegat francoise (test code = 34334) results do not preclude SARS-CoV-2 infe ction and should notb e used as the sole bas is for patient managem ent decisions. Negativeresults must be combined with c linical observations, p atient history,and epidemiological information. Op timum specimen types and timingfor peak viral levels during infections caus ed by SARS-CoV-2 have notbeen determined. Col lection of multiple spe cimens or types ofspec imens may be necessar y to detect virus. I mproper specimencollect ion and handling, seque nce variability und er primers/probes, or organism presen t below the limit of de tection may lead to falsenegative r esults. Positive and ne gative predictive valu es oftesting are h ighly dependent on prevalence. Fal se negative testre sults are more likely when prevalence is h igh. EFFECTIVE 01/09, SPUTUM SPECIMEN S CAN NO LONGER BE TESTE D WITHTHIS ORDER CODE. FOR SALIVA, ORA L FLUID TESTING AND SPECIMENREQUIRE MENTS, PLEASE REFER TO ORDER CODE 3509. SOURCE (test code = NASOPHARYNGEAL Note: [place] [address]) Dixie Laurie Bernadine l-Time RT-PCR. The exp ected result or ref erence range is NEGATI VE (Not Detected). For more information reg arding COVID-19 testin g to include clinicalinforma tion, methodology det ail, intended use, F DA authorization andrecommended fact sheets for lavonne ents or healthcare prov iders, see [employer] Announcement: SARS-CoV-2 (COV ID-19) by NAAT at URL below (note,fact shee ts are provided by met hod given in report:https:// www.[employer].com/clinici ans/clie nt-communicatio ns/ Alternatively, see downloadable PD F fact sheet at:https://www. [employer]/COVID-19-RT -PCR UNLESS OTHERW ISE INDICATED, ALL TESTING PERFORMED [facility] NICND PATHOLOGY LABOR [facility] [employer] [address] [place] [address] 4 LABORATORY DI MICHAEL: Jonathan GUEVARAIA NUMBTiago R [id number] CAP [place]CREDITATION N O. [id number] RPR, [id number] 22:11:00 Test Item Value Reference Range Interpretation Comments RPR (test code = RPR) Non-Reactive Non-Reactive N Thyroid Stimulating Hormone (TSH)2017-03-08 09:46:00 Test Item Value Reference Range Interpretation Comments TSH (test code = TSH) 0.79 mIU/mL 0.270-4.200 N
[2022-01-14 21:10] LABS: SARS-COV-2 RT PCR NEGATIVE (NEGATIVE)
--- NOTE | 2022-01-14 22:03 | ER ---
Nurse's Notes [facility] Name: Charis Padgett Age: 36 yrs Sex: Female : 1985 Arrival Date: 01/14/2022 Time: 18:43 Bed Waiting Private MD: Diagnosis: Viral illness;myalgias Presentation: 01/14 19:20 Chief complaint: Patient states: sore throat, fever, nausea, diarrhea, and body aches x vg1 3 days. Coronavirus screen: Vaccine status: Patient reports receiving the 2nd dose of the covid vaccine. Client denies travel out of the [place] in the last 14 days. diarrhea, fever, muscle pain, Client presents with at least one sign or symptom that may indicate coronavirus-19. Standard/surgical mask placed on the client. Ebola Screen: Patient negative for fever greater than or equal to 101.5 degrees Fahrenheit, and additional compatible Ebola Virus Disease symptoms. Initial Sepsis Screen: Does the patient meet any 2 criteria? No. Patient's initial sepsis screen is negative. Does the patient have a suspected source of infection? No. Patient's initial sepsis screen is negative. Risk Assessment: Do you want to hurt yourself or someone else? Patient reports no desire to harm self or others. Onset of symptoms was January 11, 2022. 19:20 Method Of Arrival: Ambulatory vg1 19:20 Acuity: KALYANI 4 vg1 Triage Assessment: 19:21 General: Appears in no apparent distress. uncomfortable, Behavior is calm, cooperative. vg1 Pain: Complains of pain in generalize body. EENT: Throat is reddened. 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 - Social history:: Smoking status: Patient denies any tobacco usage or history of. Screenin:12 Abuse screen: Denies threats or abuse. Denies injuries from another. Nutritional ld1 screening: No deficits noted. Tuberculosis screening: No symptoms or risk factors identified. Fall Risk None identified. Assessment: 22:11 Reassessment: See triage assessment. Respiratory: Airway is patent Respiratory effort ld1 is even, unlabored, Respiratory pattern is regular, symmetrical, Breath sounds are clear bilaterally. Vital Signs: 19:20 BP 111 / 82; Pulse 82; Resp 16; Temp 98.1; Pulse Ox 100% ; Weight 90.72 kg; Height 5 vg1 ft. 2 in. (157.48 cm); Pain 8/10; 22:11 BP 116 / 88; Pulse 79; Resp 17; Pulse Ox 100% on R/A; ld1 19:20 Body Mass Index 36.58 (90.72 kg, 157.48 cm) vg1 ED Course: 18:43 Patient arrived in ED. ja2 18:51 Vinod Gonzales DO is Attending Physician. ms3 19:21 Triage completed. vg1 19:21 Arm band placed on. vg1 19:27 COVID swab sent to lab. Flu and/or RSV swab sent to lab. Strep swab sent to lab. vg1 21:58 Dru Wong MD is Referral Physician. ms3 22:12 Patient has correct armband on for positive identification. Call light in reach. Pulse ld1 ox on. NIBP on. Door closed. Noise minimized. 22:12 No provider procedures requiring assistance completed. Patient did not have IV access ld1 during this emergency room visit. Administered Medications: No medications were administered Outcome: 22:02 Discharge ordered by . ms3 22:12 Discharged to home ambulatory. ld1 22:12 Condition: stable 22:12 Discharge instructions given to patient, Instructed on discharge instructions, follow up and referral plans. Demonstrated understanding of instructions, follow-up care. 22:12 Patient left the ED. ld1 Signatures: Saundra Valverde RN RN vg1 Vinod Gonzales DO DO ms3 Rosenda Proctor RN RN ld1 Suzi Brothers Corrections: (The following items were deleted from the chart) 19:24 19:21 Allergies: Amoxicillin; vg1 vg1 19:24 19:21 Allergies: peanuts; vg1 vg1 19:24 19:21 Allergies: PENICILLINS; vg1 vg1 19:24 19:21 Allergies: Prednisone; vg1 vg1
--- NOTE | 2022-01-14 22:03 | EDPHYS ---
Physician Documentation [facility] Name: Charis Padgett Age: 36 yrs Sex: Female : 1985 Arrival Date: 01/14/2022 Time: 18:43 Bed Waiting Private MD: ED Physician Vinod Gonzales HPI: 01/14 19:30 This 36 yrs old Female presents to ER via Ambulatory with complaints of Sore Throat, ms3 Fever, Nausea, Pain All Over. 19:30 The patient presents with sore throat. The patient describes throat pain as constant. ms3 Onset: The symptoms/episode began/occurred last night. Severity of symptoms: At their worst the symptoms were moderate, in the emergency department the symptoms are unchanged. Modifying factors: The symptoms are alleviated by nothing, the symptoms are aggravated by nothing. Associated signs and symptoms: Pertinent positives: flu-like symptoms. 6-year-old female presents for sore throat, dry cough, body aches that are rated an 8/10 that began last night. Patient denies alleviating or inciting factors. Patient states she took taxis clear medication without relief. Patient states her son does have flu a.. 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 - Social history:: Smoking status: Patient denies any tobacco usage or history of. ROS: 19:30 Neck: Negative for injury, pain, and swelling, Cardiovascular: Negative for chest pain, ms3 and palpitations. Abdomen/GI: Negative for abdominal pain, nausea, vomiting, diarrhea, and constipation, MS/Extremity: Negative for injury and deformity, Skin: Negative for injury, rash, and discoloration. 19:30 Constitutional: Positive for body aches, chills, fever. 19:30 Cardiovascular: Positive for 19:30 Cardiovascular: 19:30 Respiratory: Positive for cough. 19:30 All other systems are negative. Exam: 19:30 Constitutional: This is a well developed, well nourished patient who is awake, alert, ms3 and in no acute distress. Head/Face: Normocephalic, atraumatic. Neck: Trachea midline, no cervical lymphadenopathy. Supple, full range of motion without nuchal rigidity, or vertebral point tenderness. No Meningismus. Chest/axilla: Normal chest wall appearance and motion. Nontender with no deformity. Cardiovascular: Regular rate and rhythm with a normal S1 and S2. No gallops, murmurs, or rubs. Normal PMI, no JVD. No pulse deficits. Respiratory: Lungs have equal breath sounds bilaterally, clear to auscultation and percussion. No rales, rhonchi or wheezes noted. No increased work of breathing, no retractions or nasal flaring. Abdomen/GI: Soft, non-tender, with normal bowel sounds. No distension or tympany. No guarding or rebound. No evidence of tenderness throughout. Skin: Warm, dry with normal turgor. Normal color with no rashes, no lesions, and no evidence of cellulitis. MS/ Extremity: Pulses equal, no cyanosis. Neurovascular intact. Full, normal range of motion. Psych: Awake, alert, with orientation to person, place and time. Behavior, mood, and affect are within normal limits. Vital Signs: 19:20 BP 111 / 82; Pulse 82; Resp 16; Temp 98.1; Pulse Ox 100% ; Weight 90.72 kg; Height 5 vg1 ft. 2 in. (157.48 cm); Pain 8/10; 22:11 BP 116 / 88; Pulse 79; Resp 17; Pulse Ox 100% on R/A; ld1 19:20 Body Mass Index 36.58 (90.72 kg, 157.48 cm) vg1 MDM: 19:06 Patient medically screened. ms3 19:30 Differential diagnosis: Allergic rhinitis, upper respiratory infection, COVID vs Flu. ms3 22:02 Data reviewed: vital signs, nurses notes, lab test result(s). Counseling: I had a ms3 detailed discussion with the patient and/or guardian regarding: the historical points, exam findings, and any diagnostic results supporting the discharge/admit diagnosis, lab results, the need for outpatient follow up, to return to the emergency department if symptoms worsen or persist or if there are any questions or concerns that arise at home. 01/14 19:07 Order name: COVID-19/FLU A+B (Document "Date of Onset" if Symptomatic) ms3 01/14 19:08 Order name: COVID-19/FLU A+B; Complete Time: 21:39 EDMS 01/14 19:18 Order name: Strep; Complete Time: 21:39 vg1 01/14 20:50 Order name: Throat Culture EDMS Administered Medications: No medications were administered Disposition Summary: 01/14/22 22:02 Discharge Ordered Location: Home ms3 Condition: Stable ms3 Diagnosis - Viral illness ms3 - myalgias ms3 Followup: ms3 - With: Dru Wong MD - When: 2 - 3 days - Reason: Discharge Instructions: - Discharge Summary Sheet ld1 Forms: - Medication Reconciliation Form ms3 - Thank You Letter ms3 - Antibiotic Education ms3 - Prescription Opioid Use ms3 - Work release form ld1 Signatures: Dispatcher [employer] EDMS Saundra Valverde RN RN vg1 Vinod Gonzales DO DO ms3 Corrections: (The following items were deleted from the chart) 19:24 19:21 Allergies: Amoxicillin; vg1 vg1 19:24 19:21 Allergies: peanuts; vg1 vg1 19:24 19:21 Allergies: PENICILLINS; vg1 vg1 19:24 19:21 Allergies: Prednisone; vg1 vg1
[2022-01-14 22:26] VITALS: TEMP 98.1; O2SAT 100
[2022-01-14 22:27] VITALS: BP 116/88
== END 2022-01-14 22:12 | disposition home or self-care (01) ==
LOC: ER 18:40
DX: B34.9 Viral infection, unspecified (principal); Z20.822 Contact with and (suspected) exposure to COVID-19; F32.A Depression, unspecified; Z91.018 Allergy to other foods
CPT/HCPCS: 87070; 87081; 0240U; 99283

== ENCOUNTER 2022-03-16 08:04 | Emergency (ER) | payer OTHER ==
--- OUTSIDE RECORDS SUMMARY | 2022-03-16 08:07 | XMS REPORT | Continuity of Care Document ---
:1985 Author Organization [facility] t Address [address] [place] [address] Care Team Providers Name Role Phone UNKNOWN Primary Care Physician Unavailable ERNIE K.HAyanna Attending Clinician Unavailable Sudhakar RAAGON, L Attending Clinician Unavailable Ernie VALDEZ, K.H. Attending Clinician Doctor Unassigned, Name Attending Clinician Unavailable Madhav VALDEZ Attending Clinician Lucas GARCIA Attending Clinician Unavailable Lucas GARCIA Admitting Clinician Unavailable Payers Payer Name Policy Type Policy Number Effective Date Expiration Date Sarah crawford [facility] [id number] 2020 00:00:00 Problems Condition Condition Condition Status Onset Resolution Last Treating Co mments Source Name Details Category Date Date Treatment Clinician Date No known No known Disease Unive rs active active ity of problems problems [facility] Allergies, Adverse Reactions, Alerts Allergy Allergy Status Severity Reaction(s) Onset Inactive Treating Comm ents Source Name Type Date Date Clinician Peanut Propensi Active Anaphylaxis Onions- Un amber ty to 6-23 uncooked ity of adverse 00:00: - rash [place] reaction 00 Medical s Branch PEANUT DRUG Active Anaphylaxis Unive rs INGREDI 6-23 ity of 00:00: [place] 00 Medical Branch Social History Social Habit Start Date Stop Date Quantity Comments Source Exposure to Not sure [facility] SARS-CoV-2 (event) Medica l Branch Tobacco use and 2021-02-02 2021-02-02 Never used [facility] exposure 00:00:00 00:00:00 Medical Branch Sex Ass[birth year] [facility] 00:00:00 00:00:00 Medical Branch Smoking Status Start Date Stop Date Source Unknown if ever smoked [facility] Current some day smoker 2021-02-02 00:00:00 [facility] Medications Ordered Filled Start Stop Current [...] mg 07/07/19 at Branch 1245, VARINDER ketorolac 2019- No 30mg 30 mg, Unive rs (TORADOL) 07-07 Intramuscu ity of injection 17:45: 16:50 [place], ONCE, [place] 30 mg 00 :00 1 dose, Medical 07/07/19 Branch at 1245, VARINDER
Fa culty member approving Restricted medication : KOTA LEE methocarbam Yes [id number] 500mg Take 1 Univers ol 07-07 tablet by ity of (ROBAXIN) 00:00: mouth 4 [place] 500 mg 00 (four) Medical tablet times Branch daily. methocarbam Yes [id number] 500mg Take 1 Univers ol 07-07 tablet by ity of (ROBAXIN) 00:00: mouth 4 [place] 500 mg 00 (four) Medical tablet times Branch daily. methocarbam Yes [id number] 500mg Take 1 Univers ol 9-09 tablet by ity of (ROBAXIN) 00:00: mouth 4 [place] 500 mg 00 (four) Medical tablet times Branch daily. methocarbam 2018- Yes [id number] 500mg Take 1 Univers ol 9-09 tablet by ity of (ROBAXIN) 00:00: mouth 4 [place] 500 mg 00 (four) Medical tablet times Branch daily. methocarbam 2018- Yes [id number] 500mg Take 1 Univers ol 9-09 tablet by ity of (ROBAXIN) 00:00: mouth 4 [place] 500 mg 00 (four) Medical tablet times Branch daily. methocarbam 2020- No [id number] 500mg Take 1 Univers ol 9-09 04-07 tablet by ity of (ROBAXIN) 00:00: 00:00 [place] 4 [place] 500 [place] 00 :00 (four) Medical tablet times Branch daily. methocarbam 2020- No [id number] 500mg Take 1 Univers ol - 04-07 tablet by ity of (ROBAXIN) 00:00: 00:[place] 500 [place] 00 :00 (four) Medical tablet times Branch daily. predniSONE 2019- No [id number] 40mg Take 2 Univers 20 mg 07-07 09-15 tablets by ity of tablet 00:00: 04:59 mouth [place] 00 :00 daily for Medical 5 days. Branch Vital Signs Vital Name Observation Time Observation Value Comments Source Systolic blood 2021-02-02 13:54:00 123 mm[Hg] [facility] [place] [facility] Diastolic blood 2021-02-02 13:54:00 88 mm[Hg] [facility] [place] Heart rate 2021-02-02 13:54:00 81 /min [facility] Respiratory rate 2021-02-02 13:54:00 19 /min [facility] [place] [facility] Body height 2021-02-02 13:54:00 158.8 cm [facility] Body weight 2021-02-02 13:54:00 85.684 kg [facility] BMI 2021-02-02 13:54:00 34.00 kg/m2 [facility] Oxygen saturation in 2021-02-02 13:54:00 98 /min University of Arterial blood by [facility] Pulse oximetry Branch Systolic blood 2019-07-07 16:13:00 132 mm[Hg] Univer sity of pressure [facility] Diastolic blood 2019-07-07 16:13:00 83 mm[Hg] Unive rsity of pressure [facility] Heart rate 2019-07-07 16:13:00 99 /min [facility] [place] [facility] Body temperature 2019-07-07 16:13:00 36.72 Renetta Univ ers[facility] [place] [facility] Respiratory rate 2019-07-07 16:13:00 20 /min Univ [facility] [place] [facility] Body height 2019-07-07 16:13:00 160 cm [facility] [place] [facility] Body weight 2019-07-07 16:13:00 68.04 kg [facility] [place] [facility] BMI 2019-07-07 16:13:00 26.57 kg/m2 [facility] [place] [facility] Oxygen saturation in 2019-07-07 16:13:00 100 /min University of Arterial blood by [facility] Pulse oximetry Branch Systolic blood 2019-07-07 16:13:00 132 mm[Hg] Univer sity of pressure [facility] Diastolic blood 2019-07-07 16:13:00 83 mm[Hg] Unive rsity of pressure [facility] Heart rate 2019-07-07 16:13:00 99 /min [facility] [place] [facility] Body temperature 2019-07-07 16:13:00 36.72 Renetta Univ [facility] [place] [facility] Respiratory rate 2019-07-07 16:13:00 20 /min Univ [facility] [place] [facility] Body height 2019-07-07 16:13:00 160 cm [facility] [place] [facility] Body weight 2019-07-07 16:13:00 68.04 kg [facility] [place] [facility] BMI 2019-07-07 16:13:00 26.57 kg/m2 [facility] [place] [facility] Oxygen saturation in 2019-07-07 16:13:00 100 /min University of Arterial blood by [facility] Pulse oximetry Branch Procedures Procedure Date / Time Performed Performing Clinician [facility] e REFERRAL- 2021-01-26 05:01:00 Doctor Unassigned, No [facility] Name Medical Branch REFERRAL- 2020-12-22 06:01:00 Doctor Unassigned, No Júnior [facility] REQUEST/RESPONSE Name Medical Branch NOTICE OF PRIVACY 2019-07-07 16:09:09 Doctor Unassigned, No Univ [facility] PRACTICES Name Medical Branch Encounters Start End Encounter Admission Attending Care Care Encounter Source Date/Time Date/Time Type Type Clinicians Facility Department ID 2022-01-20 Outpatient [facility] [id number] [place] 19:59:[facility] 2021-03-16 2021-03-[address] [facility] [id number] Univers 09:00:00 09:00:00 SENDIL [id number] ity [facility] [place] 2021-03-16 2021-03-[address] [facility] [id number] Univers 09:00:00 09:00:00 SENDIL ity [facility] [place] 2021-03-14 2021-03-14 Telephone Sudhakar Taylor [id number] Univers 00:00:00 00:00:00 , Bryanna Gomez [id number] ity [id number] [phone] [facility] 086 Branch 2021-03-01 2021-03-[address] [facility] [id number] Univers 08:00:00 08:00:00 SENDIL [id number] ity [facility] [place] 2021-03-01 2021-03-[address] [facility] [id number] Univers 08:00:00 08:00:00 SENDIL ity [facility] [place] 2021-02-02 2021-02-02 Office Ernie [facility] [id number] Univers 08:12:10 09:56:16 Visit Sendil Gricelda Duron [id number] [id number] Professio [phone] Ms dical [facility]9 Branch [facility] 2021-02-02 2021-02-[address] [facility] [id number] Univers 09:00:00 09:00:00 SENDIL ity [facility] [place] 2021-02-02 2021-02-02 Outpatient R ERNIE, [facility] [id number] Univers 08:30:00 08:30:00 SENDIL [id number] ity [facility] [place] 2021-01-26 2021-01-26 Orders Doctor SHAZIA [place]2.840.114 [id number] Univers 00:00:00 00:00:00 Only Unassigned, DAVID [id number] ity of [facility] [id number] Reginaldo as [phone] [address] 2021-01-26 2021-01-26 Orders Doctor SHAZIA Kaba.[id number] 00:00:00 00:00:00 Only Unassigned, DAVID [id number] [facility] 4.2.7.2.686 [id number] 2020-12-22 2020-12-22 Orders Doctor SHAZIA Kaba.[id number] Univers 00:00:00 00:00:00 Only Unassigned, DAVID [id number] ity of [facility] 4.2.7.2.686 Reginaldo as [phone] [address] 2020-12-22 2020-12-22 Orders Doctor SHAZIA Kaba.2.840.114 [id number] 00:00:00 00:00:00 Only Unassigned, DAVID [id number] [facility] [id number] [id number] 2020-08-06 2020-08-06 Letter Doctor SHAZIA [place]2.840.114 [id number] 00:00:00 00:00:00 (Out) Unassigned, DAVID [id number] [facility] [id number] [id number] 2020-08-06 2020-08-06 Letter Doctor SHAZIA [place]2.840.114 [id number] 00:00:00 00:00:00 (Out) Unassigned, DAVID [id number] [facility] [id number] [id number] 2020-08-06 2020-08-06 Letter Doctor SHAZIA [place]2.840.114 [id number] Univers 00:00:00 00:00:00 (Out) Unassigned, DAVID [id number] ity of [place] [facility] [id number] Reg[place] as [phone] [address] 2020-08-06 2020-08-06 Letter Doctor SHAZIA [id number] Univers 00:00:00 00:00:00 (Out) Unassigned, DAVID [id number] ity of [place] [facility] [id number] Reg[place]do as [phone] [address] 2019-07-07 2019-07-07 [facility] [id number] 11:16:20 12:14:00 Kota Duron [id number] [place] 4.2.7.2.686 [place] [id number] [facility] 2019-07-07 2019-07-07 [facility] [id number] [facility] 11:16:20 12:14:00 Kota Duron [id number] i ty of [place] [id number] [address] Results Test Description Test Time Test Comments Results Result Comments Source SARS-CoV-2 (COVID-19), RT-PCR/TMA 2022-01-14 08:18:51 Test Item Value Reference Range Interpretation Comme nts SARS-CoV-2 INTERPRETATION NEGATIVE SEE NOTE S ARS-CoV-2 RNA NOT (test code = 22442) DETECTED Negative results do not preclude SARS-C [...] ORDER CODE 3509. SOURCE (test code = 48271) NOT SPECIFIED Note: Methodology is Richard Pauer - 3Pas Real-Time RT-PC R. The expected result or ref erence range is NEGATIVE (Not D etected). For more information reg arding COVID-19 testing to incl ude clinicalinforma tion, methodology detail, intende d use, FDA authorization a ndrecommended fact sheets for lavonne ents or healthcare providers, see NewTest Announcement: S ARS-CoV-2 (COVID-19) by N MICHAEL at URL below (note,fact shee ts are provided by method given in report:https:// www.[employer]/cl inicians/client -communications/ Alternatively, see downloadable PDF fact sheet at:https://www. [employer]/COVID- 19-RT-PCR UNLESS OTHERWISE INDICATED, ALL TESTING PERFORMED ATCLINICAL PATH [facility], [facility]. [address] [place] [address] 4 LABORATORY DIRE CTOR: BERENICE ANN M.D. CLIA NUMBER [id number] [place]. [id number] SARS-CoV-2 (COVID-19), RT-PCR/[id number] 06:38:45 Test Item Value Reference Interpretation Comments Range SARS-CoV-2 NEGATIVE SEE NOTE SARS-CoV-2 RNA NOT INTERPRETATION DETECTEDNegat francoise (test code = 42703) results do not preclude SARS-CoV-2 infe ction [...] (test code = NASOPHARY[place] [address]) Dixie Laurie Bernadine l-Time RT-PCR. The exp [...] provided by met hod given in report:https:// www.Eyesquad.com/clinici ans/clie nt-communicatio ns/ Alternatively, see downloadable PD F fact sheet at:https://www. [employer]/COVID-19-RT -PCR UNLESS OTHERW ISE INDICATED, ALL TESTING PERFORMED [facility], [facility]. [address] [place] [address] 4 LABORATORY DI MICHAEL: Jonathan GUEVARA R [id number] CAP ACCREDITATION N O. [id number] RPR, [id number] 22:11:00 Test Item Value Reference Range Interpretation Comments RPR (test code = RPR) Non-Reactive Non-Reactive N Thyroid Stimulating Hormone (TSH)2017-03-08 09:46:00 Test Item Value Reference Range Interpretation Comments TSH (test code = TSH) 0.79 mIU/mL 0.270-4.200 N
[2022-03-16] MEDS ORDERED: ONDANSETRON 4 MG (ODT) TAB ONE (09:16)
[2022-03-16] MEDS ORDERED: IBUPROFEN 200 MG TAB PO ONE (09:16)
--- NOTE | 2022-03-16 11:11 | RAD REPORT ---
EXAM DESCRIPTION: RAD - Chest Single View - 03/16/2022 10:59 am CLINICAL HISTORY: COUGH COMPARISON: Two view chest December 2019 TECHNIQUE: AP portable chest image was obtained 03/16/2022 10:59 am . FINDINGS: Lungs are clear. Interstitial pattern matches comparison. Heart and vasculature are normal . No measurable pleural effusion and no pneumothorax. No acute bony abnormality seen. No acute aortic findings suspected. IMPRESSION: No acute cardiopulmonary process. No significant change from comparison study.
--- NOTE | 2022-03-16 11:12 | ER ---
Nurse's Notes [facility] Name: Charis Padgett Age: 36 yrs Sex: Female : 1985 Arrival Date: 03/16/2022 Time: 08:06 Bed 19 Private MD: Diagnosis: Acute upper respiratory infection, unspecified Presentation: 03/16 08:56 Chief complaint: Patient states: cough, congestion, body aches , vomited twice this iw morning, chills. Coronavirus screen: Client presents with at least one sign or symptom that may indicate coronavirus-19. Ebola Screen: Patient negative for fever greater than or equal to 101.5 degrees Fahrenheit, and additional compatible Ebola Virus Disease symptoms Patient denies exposure to infectious person. Patient denies travel to an Ebola-affected area in the 21 days before illness onset. No symptoms or risks identified at this time. Initial Sepsis Screen: Does the patient meet any 2 criteria? No. Patient's initial sepsis screen is negative. Does the patient have a suspected source of infection? No. Patient's initial sepsis screen is negative. Risk Assessment: Do you want to hurt yourself or someone else? Patient reports no desire to harm self or others. Onset of symptoms was March 16, 2022. 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 Screenin:28 Abuse screen: Denies threats or abuse. Nutritional screening: No deficits noted. ap3 Tuberculosis screening: No symptoms or risk factors identified. Fall Risk None identified. Assessment: 09:27 General: Appears uncomfortable, Behavior is calm, cooperative. General: Reports chills ap3 for fever for feeling ill for fatigue for. Pain: Complains of pain in generalized body aches. Neuro: Level of Consciousness is awake, alert, obeys commands, Oriented to person, place, time, situation. Cardiovascular: Patient's skin is warm and dry. Respiratory: Airway is patent Respiratory effort is even, unlabored, Respiratory pattern is regular, symmetrical, Breath sounds are clear bilaterally. GI: Reports nausea, vomiting. Vital Signs: 08:57 BP 126 / 89; Pulse 98; Resp 16; Temp 97.1; Pulse Ox 99% on R/A; iw 09:34 BP 124 / 81; Pulse 91; Pulse Ox 98% on R/A; ap3 11:46 BP 113 / 77; Pulse Ox 99% ; ap3 ED Course: 08:06 Patient arrived in ED. as 08:13 [facility] 08:13 Benjie Hilliard MD is Attending Physician. [facility] 08:57 Triage completed. iw 08:57 Arm band placed on. iw 09:07 Aliyah Clark, RN is Primary Nurse. ap3 09:29 Patient has correct armband on for positive identification. Bed in low position. Call ap3 light in reach. Side rails up X 1. Pulse ox on. NIBP on. Door closed. Noise minimized. 11:01 XRAY Chest (1 view) In Process Unspecified. EDMS 11:52 No provider procedures requiring assistance completed. Patient did not have IV access ap3 during this emergency room visit. Administered Medications: 09:29 Drug: Ondansetron 4 mg Route: PO; ap3 11:28 Follow up: Response: No adverse reaction ap3 09:30 Drug: Ibuprofen 600 mg Route: PO; ap3 11:28 Follow up: Response: No adverse reaction ap3 Medication: 09:29 VIS not applicable for this client. ap3 Outcome: 11:12 Discharge ordered by . [facility] 11:52 Discharged to home ambulatory. ap3 11:52 Condition: good 11:52 Discharge instructions given to patient, Instructed on discharge instructions, follow up and referral plans. medication usage, Demonstrated understanding of instructions, follow-up care, medications, Prescriptions given X 3. 11:58 Patient left the ED. ap3 Signatures: Dispatcher [employer] EDMS Mercedes Benites Irene, RN RN Aliyah Clark RN RN ap3 Nora Mckeon FNP [place] [id number] Corrections: (The following items were deleted from the chart) 08:57 08:56 Acuity: KALYANI 4 iw iw 08:57 08:57 Pulse 98bpm; Resp 16bpm; Pulse Ox 99% RA; Temp 97.1F; iw iw
--- NOTE | 2022-03-16 11:13 | EDPHYS ---
Physician Documentation [facility] Name: Charis Padgett Age: 36 yrs Sex: Female : 1985 Arrival Date: 03/16/2022 Time: 08:06 Bed 19 Private MD: ED Physician Benjie Hilliard HPI: 03/16 09:02 This 36 yrs old Female presents to ER via Ambulatory with complaints of Cough, jh7 Congestion, body aches, and Vomiting. 09:02 Onset: The symptoms/episode began/occurred this morning. Patient presents for cough, jh7 congestion, body aches, chills, and 2 episodes of vomiting starting this morning. Patient has no medical problems or allergies. Denies fever. Denies taking any medication for the current symptoms.. 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 ROS: 09:08 Eyes: Negative for injury, pain, redness, and discharge, Cardiovascular: Negative for jh7 chest pain, palpitations, and edema, Back: Negative for injury and pain, MS/Extremity: Negative for injury and deformity, Skin: Negative for injury, rash, and discoloration, Neuro: Negative for headache, weakness, numbness, tingling, and seizure. 09:08 Constitutional: Positive for body aches, chills, fatigue, Negative for fever. 09:08 ENT: Positive for hoarseness, nasal discharge, sinus congestion, sore throat, Negative for ear pain, Teeth pain dental pain, difficulty swallowing. 09:08 Respiratory: Positive for cough, with clear sputum, Negative for shortness of breath, wheezing. 09:08 Abdomen/GI: Positive for vomiting, Negative for abdominal pain, diarrhea, constipation, black/tarry stool. 09:08 All other systems are negative. Exam: 09:08 Constitutional: This is a well developed, well nourished patient who is awake, alert, jh7 and in no acute distress. Eyes: Pupils equal round and reactive to light, extra-ocular motions intact. Lids and lashes normal. Conjunctiva and sclera are non-icteric and not injected. Cornea within normal limits. Periorbital areas with no swelling, redness, or edema. Cardiovascular: Regular rate and rhythm with a normal S1 and S2. No gallops, murmurs, or rubs. Normal PMI, no JVD. No pulse deficits. Abdomen/GI: Soft, non-tender, with normal bowel sounds. No distension or tympany. No guarding or rebound. No evidence of tenderness throughout. Skin: Warm, dry with normal turgor. Normal color with no rashes, no lesions, and no evidence of cellulitis. Neuro: Awake and alert, GCS 15, oriented to person, place, time, and situation. Normal gait. 09:08 ENT: Mouth: is normal, no abscess, no drooling, no lesion(s), Posterior pharynx: Tonsils: are normal in appearance, swelling, is not appreciated, erythema, is not appreciated, exudate, is not appreciated, peritonsillar mass, is not appreciated, post nasal drainage. 09:08 Respiratory: the patient does not display signs of respiratory distress, Respirations: normal, Breath sounds: are clear throughout, Respiratory rate: 16 hacking cough noted on exam. Vital Signs: 08:57 BP 126 / 89; Pulse 98; Resp 16; Temp 97.1; Pulse Ox 99% on R/A; iw 09:34 BP 124 / 81; Pulse 91; Pulse Ox 98% on R/A; ap3 11:46 BP 113 / 77; Pulse Ox 99% ; ap3 MDM: 08:59 [facility]. [facility] 11:24 Differential Diagnosis: Allergic Rhinitis Viral Syndrome Pneumonia. Data reviewed: [facility] vital signs, nurses notes, lab test result(s), radiologic studies, plain films. Data interpreted: Pulse oximetry: is 98 %. Interpretation: normal. Counseling: I had a detailed discussion with the patient and/or guardian regarding: the historical points, exam findings, and any diagnostic results supporting the discharge/admit diagnosis, to return to the emergency department if symptoms worsen or persist or if there are any questions or concerns that arise at home. ED course: The patient remained stable throughout the ER visit. Chest x-ray was negative, and she was negative for strep and flu. Discussed medications with the patient, and agreed to give her a work note. Advised her to return to the ER for symptoms worsen, she develops any new concerning symptoms. The patient understood the plan of care.. 03/16 09:01 Order name: Strep; Complete Time: 11:03 7 03/16 09:01 Order name: XRAY Chest (1 view); Complete Time: 11:12 7 03/16 09:58 Order name: Flu; Complete Time: 11:03 em1 03/16 09:58 Order name: SARS-COV-2 RT PCR (Document "Date of Onset" if Symptomatic); Complete Time: em1 13:25 03/16 10:42 Order name: Throat Culture EDKY Administered Medications: 09:29 Drug: Ondansetron 4 mg Route: PO; ap3 11:28 Follow up: Response: No adverse reaction ap3 09:30 Drug: Ibuprofen 600 mg Route: PO; ap3 11:28 Follow up: Response: No adverse reaction ap3 Disposition Summary: 03/16/22 11:12 Discharge [facility] Problem[facility] Symptoms: have improved [facility] Condition: Stable [facility] Diagnosis - Acute upper respiratory infection, unspecified [facility] - With: Private Physician - When: 2 - 3 days - Reason: Recheck today's complaints Discharge Instructions: - Discharge Summary Sheet [facility] - Upper Respiratory Infection, Adult [facility] - Viral Respiratory Infection [facility] - Cough, Adult, [id number] [facility] Forms: - Medication Reconciliation Form [facility] - Thank You Letter [facility] - Antibiotic Education [facility] - Prescription Opioid Use [facility] - Work release form ap3 Prescriptions: - Flonase Allergy Relief 50 mcg/actuation Nasal spray,suspension - inhale 1 spray by INTRANASAL route once daily; 1 bottle; Refills: 0, Product [facility] Selection Permitted - ProAir HFA 90 mcg/actuation Inhalation HFA aerosol inhaler - inhale 2 puff by INHALATION route every 4-6 hours As needed; 1 Inhaler; [facility] Refills: 0, Product Selection Permitted - vyqoqcsncqufitj-eigfhrrjn-AA 2-30-10 mg/5 mL Oral syrup - take 10 milliliter by ORAL route every 4 hours; 240 milliliter; Refills: 0, [facility] Product Selection Permitted Signatures: Dispatcher [employer] EDMarie Reno RN RN iw Aliyah Clark RN RN ap3 Nora Mckeon FNP SUPERVISOR [employer]OR PASTE MIXING jh7 Corrections: (The following items were deleted from the chart) 10:03 09:01 COVID-19/FLU A+B+MOL.LAB.BRZ ordered. EDMS EDMS
[2022-03-16 12:12] VITALS: TEMP 97.1
[2022-03-16 12:22] VITALS: BP 113/77; O2SAT 99
== END 2022-03-16 11:58 | disposition home or self-care (01) ==
LOC: ER 08:04
DX: J06.9 Acute upper respiratory infection, unspecified (principal); R11.10 Vomiting, unspecified; Z20.822 Contact with and (suspected) exposure to COVID-19; Z91.018 Allergy to other foods
CPT/HCPCS: 87070; 87081; 87804 ×2; 71045; 99284; U0003

== ENCOUNTER 2022-05-02 18:05 | Emergency (ER) | payer OTHER ==
--- NOTE | 2022-05-02 18:27 | EDPHYS ---
Physician Documentation [facility] Name: Charis Padgett Age: 36 yrs Sex: Female : 1985 Arrival Date: 05/02/2022 Time: 18:06 Bed Waiting Private MD: ED Physician Vinod Gonzales HPI: 05/02 18:24 This 36 yrs old Female presents to ER via Ambulatory with complaints of Rash. kb 18:24 The patient's rash thought to be caused by an unknown cause. The rash is located on the kb right vela and left vela. The rash can be described as papular. Onset: The symptoms/episode began/occurred yesterday. Associated signs and symptoms: Pertinent positives: Pain Pertinent negatives: burning sensation, difficulty breathing, fever. Severity of symptoms: At their worst the symptoms were moderate in the emergency department the symptoms are unchanged. The patient has not experienced similar symptoms in the past. The patient has not recently seen a physician. 18:25 woke up with rash yesterday morning. 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 - Social history:: Smoking status: Patient reports the use of cigarette tobacco products, smokes one-half pack cigarettes per day, Patient/guardian denies using alcohol. ROS: 18:23 Constitutional: Negative for fever, chills, and weight loss. kb 18:23 Skin: Positive for of the right vela and left vela. 18:23 All other systems are negative. Exam: 18:23 Constitutional: This is a well developed, well nourished patient who is awake, alert, kb and in no acute distress. Head/Face: Normocephalic, atraumatic. Respiratory: Respirations even and unlabored. No increased work of breathing. Talking in full sentences MS/ Extremity: Pulses equal, no cyanosis. Neurovascular intact. Full, normal range of motion. Neuro: Awake and alert, GCS 15, oriented to person, place, time, and situation. Moves all extremities. Normal gait. Psych: Awake, alert, with orientation to person, place and time. Behavior, mood, and affect are within normal limits. 18:23 Skin: rash can be described as papular, consistent with contact dermatitis, on the right vela and left vela. Vital Signs: 18:21 BP 116 / 85; Pulse 98; Resp 18; Temp 97.6(TE); Pulse Ox 100% on R/A; Weight 94.35 kg; ld1 Height 5 ft. 2 in. (157.48 cm); Pain 0/10; 18:21 Body Mass Index 38.04 (94.35 kg, 157.48 cm) ld1 MDM: 18:23 Data reviewed: vital signs, nurses notes. Data interpreted: Pulse oximetry: on room air kb is 100 %. Interpretation: normal. Counseling: I had a detailed discussion with the patient and/or guardian regarding: the historical points, exam findings, and any diagnostic results supporting the discharge/admit diagnosis, the need for outpatient follow up, a labeling associate, a family practitioner, to return to the emergency department if symptoms worsen or persist or if there are any questions or concerns that arise at home. 18:26 Patient medically screened. kb Administered Medications: No medications were administered Disposition Summary: 05/02/22 18:26 Discharge Ordered Location: Home kb Condition: Stable kb Diagnosis - Rash and other nonspecific skin eruption kb Followup: kb - With: Emergency Department - When: As needed - Reason: Worsening of condition Followup: kb - With: Private Physician - When: 2 - 3 days - Reason: Recheck today's complaints, Continuance of care, Re-evaluation by your physician Discharge Instructions: - Discharge Summary Sheet kb - Rash, Adult, [id number] kb Forms: - Medication Reconciliation Form kb - Thank You Letter kb - Antibiotic Education kb - Prescription Opioid Use kb Prescriptions: - Cephalexin 500 mg Oral Capsule - take 1 capsule by ORAL route every 8 hours for 10 days; 30 capsule; Refills: 0, kb Product Selection Permitted - Prednisone 20 mg Oral Tablet - take 1 tablet by ORAL route once daily for 5 days; 5 tablet; Refills: 0, kb Product Selection Permitted Signatures: Jenny Holloway, Rosenda Cuenca RN RN ld1
--- NOTE | 2022-05-02 18:27 | ER ---
Nurse's Notes [facility] Name: Charis Padgett Age: 36 yrs Sex: Female : 1985 Arrival Date: 05/02/2022 Time: 18:06 Bed Waiting Private MD: Diagnosis: Rash and other nonspecific skin eruption Presentation: 05/02 18:21 Chief complaint: Patient states: Rash to lower legs, began yesterday morning. ld1 Coronavirus screen: At this time, the client does not indicate any symptoms associated with coronavirus-19. Ebola Screen: No symptoms or risks identified at this time. Initial Sepsis Screen: Does the patient meet any 2 criteria? No. Patient's initial sepsis screen is negative. Does the patient have a suspected source of infection? No. Patient's initial sepsis screen is negative. Risk Assessment: Do you want to hurt yourself or someone else? Patient reports no desire to harm self or others. Onset of symptoms was May 02, 2022 at 18:22. 18:21 Method Of Arrival: Ambulatory ld1 18:21 Acuity: KALYANI 4 ld1 Triage Assessment: 18:22 General: Appears in no apparent distress. comfortable, Behavior is calm, cooperative, ld1 appropriate for age. Pain: Denies pain. EENT: No signs and/or symptoms were reported regarding the EENT system. Neuro: Level of Consciousness is awake, alert, obeys commands, Oriented to person, place, time, situation. Cardiovascular: Capillary refill < 3 seconds Patient's skin is warm and dry. Respiratory: Airway is patent Respiratory effort is even, unlabored. GI: Abdomen is round non-distended, : No signs and/or symptoms were reported regarding the genitourinary system. Derm: Rash noted that is on right leg and left leg. Musculoskeletal: No signs and/or symptoms reported regarding the musculoskeletal system. 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 - Social history:: Smoking status: Patient reports the use of cigarette tobacco products, smokes one-half pack cigarettes per day, Patient/guardian denies using alcohol. Screenin:23 Abuse screen: Denies threats or abuse. Denies injuries from another. Nutritional ld1 screening: No deficits noted. Tuberculosis screening: No symptoms or risk factors identified. Fall Risk None identified. Assessment: 18:23 Reassessment: See triage assessment. ld1 Vital Signs: 18:21 BP 116 / 85; Pulse 98; Resp 18; Temp 97.6(TE); Pulse Ox 100% on R/A; Weight 94.35 kg; ld1 Height 5 ft. 2 in. (157.48 cm); Pain 0/10; 18:21 Body Mass Index 38.04 (94.35 kg, 157.48 cm) ld1 ED Course: 18:06 Patient arrived in ED. rg4 18:14 [facility]C [facility] kb 18:14 Vinod Gonzales DO is Attending Physician. kb 18:22 Triage completed. ld1 18:22 Arm band placed on right wrist. ld1 18:23 Patient has correct armband on for positive identification. Bed in low position. Call ld1 light in reach. Side rails up X2. Pulse ox on. NIBP on. Door closed. Noise minimized. Warm blanket given. 18:23 No provider procedures requiring assistance completed. Patient did not have IV access ld1 during this emergency room visit. Administered Medications: No medications were administered Medication: 18:23 VIS not applicable for this client. ld1 Outcome: 18:26 Discharge ordered by . kb 18:42 Discharged to home ambulatory, with family. ld1 18:42 Condition: stable 18:42 Discharge instructions given to patient, Instructed on discharge instructions, follow up and referral plans. medication usage, Demonstrated understanding of instructions, follow-up care, medications, Prescriptions given X 2. 18:42 Patient left the ED. ld1 Signatures: Jenny Holloway FNP-C FNP-Ckb Garcia, Rubi rg4 Rosenda Proctor RN RN ld1 Corrections: (The following items were deleted from the chart) 18:23 18:21 Pulse 98bpm; Resp 18bpm; Pulse Ox 100% RA; Temp 97.6F Temporal; 94.35 kg; Height ld1 5 ft. 2 in.; BMI: 38.0; Pain 0/10; ld1
[2022-05-02 19:12] VITALS: BP 116/85; TEMP 97.6; O2SAT 100
== END 2022-05-02 18:42 | disposition home or self-care (01) ==
LOC: ER 18:05
DX: R21 Rash and other nonspecific skin eruption (principal); F17.210 Nicotine dependence, cigarettes, uncomplicated; Z91.018 Allergy to other foods

== ENCOUNTER 2022-08-29 12:27 | Emergency (ER) | payer OTHER ==
--- OUTSIDE RECORDS SUMMARY | 2022-08-29 12:43 | XMS REPORT | Continuity of Care Document ---
:1985 Author Organization [facility] t Address [address] [place] [address] Care Team Providers Name Role Phone UNKNOWN, REFFERING Primary Care Physician Unavailable DAYO OV Attending Clinician Unavailable Dayo Vo MD Attending Clinician MADI KLEIN K.H. Attending Clinician Unavailable Bryanna De La Fuente RN Attending Clinician Unavailable Ernie VALDEZ, Sendkate K.H. Attending Clinician Doctor Unassigned, [place] Attending Clinician Unavailable Kota Corey MD Attending Clinician PRISCA GARCIA Attending Clinician Unavailable PRISCA GARCIA Admitting Clinician Unavailable Payers Payer Name Policy Type Policy Number Effective Date Expiration Date [facility] STAR [id number] 2020 00:00:00 Problems Condition Condition Condition Status Onset Resolution Last Treating Co mments Source Name Details Category Date Date Treatment Clinician Date No known No known Disease Unive rs active active ity of problems problems [facility] Allergies, Adverse Reactions, Alerts Allergy Allergy Status Severity Reaction(s) Onset Inactive Treating Comm ents Source Name Type Date Date Clinician Peanut Propensi Active Anaphylaxis Onions- Un amber ty to 04-20 uncooked ity of adverse 00:00: - rash [place] reaction [address] [place] [address] PEANUT DRUG Active Anaphylaxis Unive rs INGREDI 04-20 ity of 00:00: [address] Social History Social Habit Start Date Stop Date Quantity Comments Source Exposure to 2022-04-22 2022-05-02 Unable to assess Univers ity of SARS-CoV-2 00:00:00 12:29:00 [facility] (event) [place] Tobacco use and 2021-02-02 2021-02-02 Never used Universit y of exposure 00:00:00 00:00:00 [facility] Sex Assigned At [birth year] Universit y of 00:00:00 00:00:00 [facility] Smoking Status Start Date Stop Date Source Unknown if ever smoked [facility] [place] [facility] [place] Current some day smoker 2021-02-02 00:00:00 [facility] Medications Ordered Filled Start Stop Current Ordering Indication Dosage Frequency Signature Comments Components Source Medication Medication Date Date Medication? Clinician (SIG) Name Name Dose 2021- No Unknown 7-19 00:00: 00 Dose 2021-0 No Unknown 7-19 00:00: 00 Dose 2-0 No Unknown 7-13 00:00: 00 Wellbutrin 2-0 No 1mg XL 150 mg 5-17 24 hr 00:00: tablet, 00 extended release hydroxyzine 2-0 No 1mg HCl 50 mg 5-17 tablet 00:00: 00 escitalopra 2-0 No 1mg m 10 mg 5-17 tablet 00:00: 00 mirtazapine 2-0 No 1mg 7.5 mg 5-17 tablet 00:00: 00 Dose 2-0 No Unknown 4-22 00:00: 00 Dose 2022-0 No Unknown 4-22 00:00: 00 Dose 2022-0 No Unknown 4-21 00:00: 00 Dose 2022-0 No Unknown 4-21 00:00: 00 Dose 2022-0 No Unknown 4-21 00:00: 00 hydroxyzine 2022-0 No 1mg HCl 50 mg 4-19 tablet 00:00: 00 Wellbutrin 2-0 No 1mg XL 150 mg 4-19 24 hr 00:00: tablet, 00 extended release escitalopra 2022-0 No 1mg m 10 mg 4-19 tablet 00:00: 00 Rozerem 8 2-0 No 1mg mg tablet 4-19 00:00: 00 Dose 2022-0 No Unknown 4-19 00:00: 00 Dose 2022-0 No Unknown 4-19 00:00: 00 Dose 2022-0 No Unknown 4-19 00:00: 00 Dose 2022-0 No Unknown 4-19 00:00: 00 Dose 2022-0 No Unknown 4-19 00:00: 00 Dose 2-0 No Unknown 4-19 00:00: 00 Claritin 10 2-0 No 1mg mg tablet 4- 00:00: 00 azithromyci 2021-0 No mg n 250 mg 4-13 tablet 00:00: 00 fluticasone 2021-0 No 2mcg/ac propionate 4-13 tuation 50 00:00: mcg/actuati 00 on nasal spray,suspe nsion Dose 2021-0 No Unknown 4-13 00:00: 00 Dose 2-0 No Unknown 4-13 00:00: 00 Dose 2-0 No Unknown 4-13 00:00: 00 Dose 2-0 No Unknown 4-13 00:00: 00 Bromfed DM 2021-0 No 10mg/5 2 mg-30 3-18 mL mg-10 mg/5 00:00: mL oral 00 syrup Dose 2021-0 No Unknown 3-18 00:00: 00 Dose 2022-0 No Unknown 3-18 00:00: 00 Dose 2-0 No Unknown 3-18 00:00: 00 Dose 2-0 No Unknown 3-18 00:00: 00 Dose 2022-0 No Unknown 3-18 00:00: 00 Dose 2022-0 No Unknown 3-18 00:00: 00 Dose 2022-0 No Unknown 3-18 00:00: 00 Dose 2022-0 No Unknown 3-18 00:00: 00 Dose 2022-0 No Unknown 3-18 00:00: 00 Dose 2022-0 No Unknown 3-18 00:00: 00 Dose 2022-0 No Unknown 3-18 00:00: 00 Dose 2022-0 No Unknown 3-18 00:00: 00 Dose 2022-0 No Unknown 3-18 00:00: 00 Dose 2022-0 No Unknown 3-18 00:00: 00 Dose 2022-0 No Unknown 3-18 00:00: 00 Dose 2022-0 No Unknown 3-18 00:00: 00 Dose 2022-0 No Unknown 3-16 00:00: 00 Dose 2022-0 No Unknown 3-16 00:00: 00 Dose 2022-0 No Unknown 3-16 00:00: 00 Dose 2022-0 No Unknown 3-16 00:00: 00 Dose 2022-0 No Unknown 3-16 00:00: 00 Dose 2022-0 No Unknown 3-16 00:00: 00 Dose 2022-0 No Unknown 3-16 00:00: 00 Dose 2022-0 No Unknown 3-16 00:00: 00 Dose 2022-0 No Unknown 3-16 00:00: 00 Dose 2022-0 No Unknown 3-16 00:00: 00 Dose 2022-0 No Unknown 3-16 00:00: 00 Dose 2022-0 No Unknown 3-16 00:00: 00 Dose 2022-0 No Unknown 3-16 00:00: 00 Dose 2022-0 No Unknown 3-16 00:00: 00 Dose 2022-0 No Unknown 3-16 00:00: 00 Dose 2022-0 No Unknown 3-16 00:00: 00 Dose 2022-0 No Unknown 3-16 00:00: 00 Dose 2022-0 No Unknown 3-16 00:00: 00 Dose 2022-0 No Unknown 3-16 00:00: 00 Dose 2022-0 No Unknown 3-16 00:00: 00 Dose 2022-0 No Unknown 3-16 00:00: 00 Dose 2022-0 No Unknown 3-16 00:00: 00 trazodone 2022-0 No 12mg 50 mg 3-16 tablet 00:00: 00 Dose 2022-0 No Unknown 3-16 00:00: 00 Dose 2022-0 No Unknown 3-16 00:00: 00 Dose 2022-0 No Unknown 3-16 00:00: 00 Dose 2022-0 No Unknown 3-04 00:00: 00 Dose 2022-0 No Unknown 3-04 00:00: 00 Dose 2022-0 No Unknown 3-04 00:00: 00 Dose 2022-0 No Unknown 3-04 00:00: 00 Dose 2022-0 No Unknown 3-04 00:00: 00 Dose 2022-0 No Unknown 3-04 00:00: 00 Dose 2022-0 No Unknown 3-04 00:00: 00 Dose 2022-0 No Unknown 3-04 00:00: 00 Dose 2022-0 No Unknown 3-04 00:00: 00 Dose 2022-0 No Unknown 3-04 00:00: 00 Dose 2022-0 No Unknown 3-04 00:00: 00 Dose 2022-0 No Unknown 3-04 00:00: 00 Dose 2022-0 No Unknown 3-04 00:00: 00 Dose 2022-0 No Unknown 3-04 00:00: 00 Dose 2022-0 No Unknown 3-04 00:00: 00 Dose 2022-0 No Unknown 3-04 00:00: 00 Dose 2022-0 No Unknown 3-04 00:00: 00 Dose 2022-0 No Unknown 3-04 00:00: 00 Dose 2022-0 No Unknown 3-04 00:00: 00 Dose 2022-0 No Unknown 3-04 00:00: 00 Dose 2022-0 No Unknown 3-04 00:00: 00 Dose 2022-0 No Unknown 3-04 00:00: 00 Dose 2022-0 No Unknown 3-04 00:00: 00 Dose 2022-0 No Unknown 3-04 00:00: 00 Dose 2022-0 No Unknown 3-04 00:00: 00 Dose 2022-0 No Unknown 3-04 00:00: 00 Dose 2022-0 No Unknown 3-04 00:00: 00 Dose 2022-0 No Unknown 3-04 00:00: 00 Dose 2022-0 No Unknown 3-04 00:00: 00 Dose 2022-0 No Unknown 3-04 00:00: 00 Dose 2022-0 No Unknown 3-04 00:00: 00 Dose 2022-0 No Unknown 3-04 00:00: 00 Dose 2022-0 No Unknown 3-04 00:00: 00 Dose 2022-0 No Unknown 3-04 00:00: 00 Dose 2022-0 No Unknown 3-04 00:00: 00 Dose 2022-0 No Unknown 3-04 00:00: 00 Dose 2022-0 No Unknown 3-03 00:00: 00 Dose 2022-0 No Unknown 3-03 00:00: 00 Dose 2022-0 No Unknown 3-03 00:00: 00 Dose 2022-0 No Unknown 3-03 00:00: 00 Dose 2022-0 No Unknown 3-03 00:00: 00 Dose 2022-0 No Unknown 3-03 00:00: 00 Dose 2022-0 No Unknown 3-03 00:00: 00 Dose 2022-0 No Unknown 3-03 00:00: 00 Dose 2022-0 No Unknown 3-03 00:00: 00 Dose 2022-0 No Unknown 3-03 00:00: 00 Dose 2022-0 No Unknown 3-03 00:00: 00 Dose 2022-0 No Unknown 3-03 00:00: 00 Dose 2022-0 No Unknown 3-03 00:00: 00 Dose 2022-0 No Unknown 3-03 00:00: 00 Dose 2022-0 No Unknown 3-03 00:00: 00 Dose 2022-0 No Unknown 3-03 00:00: 00 Dose 2022-0 No Unknown 3-03 00:00: 00 Dose 2022-0 No Unknown 3-03 00:00: 00 metronidazo 2022-0 No 1mg le 500 mg 3-02 tablet 00:00: 00 dicyclomine 2022-0 No 1mg 20 mg 3-02 tablet 00:00: 00 Dose 2022-0 No Unknown 2-16 00:00: 00 Dose 2022-0 No Unknown 2-16 00:00: 00 trazodone 2022-0 No 1mg 100 mg 2-16 tablet 00:00: 00 benzonatate 2022-0 No 1mg 100 mg 2-14 capsule 00:00: 00 hydroxyzine 2022-0 No mg HCl 50 mg 1-14 tablet 00:00: 00 Wellbutrin 2022-0 No 1mg XL 150 mg 1-12 24 hr 00:00: tablet, 00 extended release Dose 2022-0 No Unknown 1-12 00:00: 00 Dose 2022-0 No Unknown 1-12 00:00: 00 escitalopra 2022-0 No 1mg m 10 mg 1-12 tablet 00:00: 00 promethazin 2022-0 No 1mg e 12.5 mg 1-09 tablet 00:00: 00 prednisone 2022-0 No mg 20 mg 1-09 tablet 00:00: 00 benzonatate 2022-0 No 1mg 200 mg 1-09 capsule 00:00: 00 Wellbutrin 2021-1 No 1mg XL 150 mg 2-16 24 hr 00:00: tablet, 00 extended release escitalopra 2021-1 No 1mg m 10 mg 2-16 tablet 00:00: 00 Dose 2020- No Unknown 2-16 00:00: 00 Dose 2020- No Unknown 2-02 00:00: 00 escitalopra 2020-10 No 1mg m 10 mg 2-02 tablet 00:00: 00 Wellbutrin 2020-10 No 1mg SR 150 mg 1-22 tablet, 12 00:00: hr 00 sustained-r elease ibuprofen 2020-10 No 1mg 600 mg 1-11 tablet 00:00: 00 Wellbutrin 2020-10 No 1mg SR 150 mg 0-18 tablet, 12 00:00: hr 00 sustained-r elease Zofran 4 mg 2020-0 No 12mg tablet 9-27 00:00: 00 amoxicillin 2020-0 No 2mg 500 mg 9-27 capsule 00:00: 00 Wellbutrin 2020-0 No 1mg SR 150 mg 9-13 tablet, 12 00:00: hr 00 sustained-r elease hydroxyzine 0 No 1mg HCl 50 mg 9-08 tablet 00:00: 00 benzonatate 2020-0 No 1mg 200 mg 9-08 capsule 00:00: 00 Wellbutrin 0 No 1mg SR 150 mg 6-17 tablet, 12 00:00: hr 00 sustained-r elease Wellbutrin 0 No 1mg SR 150 mg 4-19 tablet, 12 00:00: hr 00 sustained-r elease buPROPion 2020-0 Yes 150mg Take 150 Uni vers SR 4-07 mg by ity of (WELLBUTRIN 13:56: mouth 2 Reg[place] as SR) 150 mg 12 (two) Medical SR tablet times Branch daily. buPROPion 2020-0 Yes 150mg Take 150 Uni vers SR 4-07 mg by ity of (WELLBUTRIN 13:56: mouth 2 [place] as SR) 150 mg 12 (two) Medical SR tablet times Branch daily. buPROPion 2020-0 Yes 150mg Take 150 Uni vers SR 4-07 mg by ity of (WELLBUTRIN 13:56: mouth 2 [place] as SR) 150 mg 12 (two) Medical SR tablet times Branch daily. buPROPion 2020-0 Yes 150mg Take 150 Uni vers SR 4-07 mg by ity of (WELLBUTRIN 08:56: mouth 2 Reg[place] as SR) 150 mg 12 (two) Medical SR tablet times Branch daily. Diflucan 0 No 1mg 150 mg 2-24 tablet 00:00: 00 clindamycin 0 No 1mg HCl 300 mg 2-24 capsule 00:00: 00 Wellbutrin 0 No 1mg SR 150 mg 2-22 tablet, 12 00:00: hr 00 sustained-r elease Flagyl 500 0 No 1mg mg tablet 1-16 00:00: 00 Diflucan 0 No 1mg 150 mg 1-16 tablet 00:00: 00 Flagyl 500 2019-10 No 1mg mg tablet - 00:00: 00 Wellbutrin 2019-10 No 1mg XL 150 mg 1-20 24 hr 00:00: tablet, 00 extended release methocarbam 2018- No 500mg 500 mg, U [...] culty member approving Restricted medication : KOTA COREY methocarbam Yes [id number] 500mg Take 1 Univers ol - tablet by ity of (ROBAXIN) 00:00: mouth 4 [place] 500 mg 00 (four) Medical tablet times Branch daily. methocarbam Yes [id number] 500mg Take 1 Univers ol 9-09 tablet by ity of (ROBAXIN) 00:00: mouth 4 [place] 500 mg 00 (four) Medical tablet times Branch daily. methocarbam Yes [id number] 500mg Take 1 Univers ol 9- tablet by ity of (ROBAXIN) 00:00: mouth 4 [place] 500 mg 00 (four) Medical tablet times Branch daily. methocarbam Yes [id number] 500mg Take 1 Univers ol 9-09 tablet by ity of (ROBAXIN) 00:00: mouth 4 [place] 500 mg 00 (four) Medical tablet times Branch daily. methocarbam Yes [id number] 500mg Take 1 Univers ol 9-09 tablet by ity of (ROBAXIN) 00:00: mouth 4 [place] 500 mg 00 (four) Medical tablet times Branch daily. methocarbam 2020- No [id number] 500mg Take 1 Univers ol - 04-07 tablet by ity of (ROBAXIN) 00:00: 00:00 [place] 4 [place] 500 [place] 00 :00 (four) Medical tablet times Branch daily. methocarbam 2020- No [id number] 500mg Take 1 Univers ol - 04- tablet by ity of (ROBAXIN) 00:00: 00:00 [place] 4 [place] 500 [place] 00 :00 (four) Medical tablet times Branch daily. predniSONE 2019- No [id number] 40mg Take 2 Univers 20 mg 07-07 09-15 tablets by ity of tablet 00:00: 04:59 mouth [place] 00 :00 daily for Medical 5 days. Branch Vital Signs Vital Name Observation Time Observation Value Comments Source Body weight 2022-05-02 17:32:00 94.348 kg [facility] BMI 2022-05-02 17:32:00 36.85 kg/m2 [facility] Oxygen saturation in 2022-05-02 17:32:00 99 /min [facility] Arterial blood by [facility] Pulse oximetry Branch Systolic blood 2022-05-02 17:32:00 137 mm[Hg] [facility] Diastolic blood 2022-05-02 17:32:00 91 mm[Hg] [facility] Heart rate 2022-05-02 17:32:00 100 /min [facility] Body temperature 2022-05-02 17:32:00 37.33 Renetta [facility] Res[facility] rate 2022-05-02 17:32:00 18 /min [facility] Body height 2022-05-02 17:32:00 160 cm [facility] Systolic blood 2021-02-02 13:54:00 123 mm[Hg] [facility] Branch Diastolic blood 2021-02-02 13:54:00 88 mm[Hg] Unive rsity of pressure [place] [facility] Heart rate 2021-02-02 13:54:00 81 /min [facility]i [facility] [place] [facility] Respiratory rate 2021-02-02 13:54:00 19 /min Univ ersity [facility] [place] [facility] Body height 2021-02-02 13:54:00 158.8 cm [facility] [place] [facility] Body weight 2021-02-02 13:54:00 85.684 kg [facility] [place] [facility] BMI 2021-02-02 13:54:00 34.00 kg/m2 [facility] [place] [facility] Oxygen saturation in 2021-02-02 13:54:00 98 /min University of Arterial blood by [facility] franca Pulse oximetry Branch Systolic blood 2019-07-07 16:13:00 132 mm[Hg] Univer sity of pressure [place] [facility] Diastolic blood 2019-07-07 16:13:00 83 mm[Hg] Unive rsity of pressure [place] [facility] Heart rate 2019-07-07 16:13:00 99 /min [facility] [place] [facility] Body temperature 2019-07-07 16:13:00 36.72 Renetta Univ [facility] [place] [facility] Respiratory rate 2019-07-07 16:13:00 20 /min Univ [facility] [place] [facility] Body height 2019-07-07 16:13:00 160 cm [facility] [place] [facility] Body weight 2019-07-07 16:13:00 68.04 kg [facility] [place] [facility] BMI 2019-07-07 16:13:00 26.57 kg/m2 [facility] [place] [facility] Oxygen saturation in 2019-07-07 16:13:00 100 /min University of Arterial blood by [place] [facility] franca Pulse oximetry Branch Systolic blood 2019-07-07 16:13:00 132 mm[Hg] Univer sity of pressure [place] [facility] Diastolic blood 2019-07-07 16:13:00 83 mm[Hg] Unive rsity of pressure [facility] Heart rate 2019-07-07 16:13:00 99 /min [facility] [place] [facility] Body temperature 2019-07-07 16:13:00 36.72 Renetta [facility] [place] [facility] Respiratory rate 2019-07-07 16:13:00 20 /min [facility] Body height 2019-07-07 16:13:00 160 cm [facility] Body weight 2019-07-07 16:13:[address] [facility] BMI 2019-07-07 16:13:00 26.57 kg/m2 [facility] Oxygen saturation in 2019-07-07 16:13:00 100 /min University [facility] blood by [facility] Pulse oximetry Branch BP Systolic 2022-05-16 15:37:00 BP Diastolic 2022-05-16 15:37:00 Weight Measured 2022-05-16 15:37:00 206.00 pounds Height Measured 2022-05-16 15:37:00 63.00 inches Body Temperature 2022-05-16 15:37:00 Heart Rate 2022-05-16 15:37:00 Respiratory Rate 2022-05-16 15:37:00 BP Systolic 2021-09-16 11:32:00 138 mm[Hg] BP Diastolic 2021-09-16 11:32:00 88 mm[Hg] Weight Measured 2021-09-16 11:32:00 208.20 pounds Height Measured 2021-09-16 11:32:00 63.00 inches Body Temperature 2021-09-16 11:32:00 98.40 degrees Heart Rate 2021-09-16 11:32:00 98.00 /min Respiratory Rate 2021-09-16 11:32:00 18.00 /min BP Systolic 2021-01-19 11:39:00 145 mm[Hg] BP Diastolic 2021-01-19 11:39:00 103 mm[Hg] Weight Measured 2021-01-19 11:39:00 191.40 pounds Height Measured 2021-01-19 11:39:00 63.00 inches Body Temperature 2021-01-19 11:39:00 98.60 degrees Heart Rate 2021-01-19 11:39:00 90.00 /min Respiratory Rate 2021-01-19 11:39:00 17.00 /min BP Systolic 2020-12-22 07:59:00 126 mm[Hg] BP Diastolic 2020-12-22 07:59:00 86 mm[Hg] Weight Measured 2020-12-22 07:59:00 193.60 pounds Height Measured 2020-12-22 07:59:00 63.00 inches Body Temperature 2020-12-22 07:59:00 98.30 degrees Heart Rate 2020-12-22 07:59:00 91.00 /min Respiratory Rate 2020-12-22 07:59:00 17.00 /min BP Systolic 2020-11-11 13:56:00 123 mm[Hg] BP Diastolic 2020-11-11 13:56:00 82 mm[Hg] Weight Measured 2020-11-11 13:56:00 189.20 pounds Height Measured 2020-11-11 13:56:00 63.00 inches Body Temperature 2020-11-11 13:56:00 98.60 degrees Heart Rate 2020-11-11 13:56:00 100.00 /min Respiratory Rate 2020-11-11 13:56:00 17.00 /min BP Systolic 2020-09-20 10:12:00 128 mm[Hg] BP Diastolic 2020-09-20 10:12:00 87 mm[Hg] Weight Measured 2020-09-20 10:12:00 185.00 pounds Height Measured 2020-09-20 10:12:00 63.00 inches Body Temperature 2020-09-20 10:12:00 98.90 degrees Heart Rate 2020-09-20 10:12:00 79.00 /min Respiratory Rate 2020-09-20 10:12:00 17.00 /min BP Systolic 2020-09-17 15:28:00 143 mm[Hg] BP Diastolic 2020-09-17 15:28:00 98 mm[Hg] Weight Measured 2020-09-17 15:28:00 185.60 pounds Height Measured 2020-09-17 15:28:00 63.00 inches Body Temperature 2020-09-17 15:28:00 99.20 degrees Heart Rate 2020-09-17 15:28:00 85.00 /min Respiratory Rate 2020-09-17 15:28:00 16.00 /min Procedures Procedure Date / Time Performed Performing Clinician [facility] NOTICE OF PRIVACY 2022-05-02 17:29:12 Doctor Unassigned, No Univ [facility] PRACTICES Name Medical Branch CONSENT/REFUSAL FOR 2022-05-02 17:28:58 Doctor Unassigned, No [facility] [place] DIAGNOSIS AND Name Medical Branch TREATMENT REFERRAL- 2021-01-26 05:01:00 Doctor Unassigned, No [facility] [place] REQUEST/RESPONSE Name Medical Branch REFERRAL- 2020-12-22 06:01:00 Doctor Unassigned, No [facility] [place] REQUEST/RESPONSE Name Medical Branch NOTICE OF PRIVACY 2019-07-07 16:09:09 Doctor Unassigned, No Univ [facility] [place] PRACTICES Name Medical Branch Plan of Care Planned Activity Planned Date Details Comments Source Goal Plan of Care Note [code = 92340-5] Goal Plan of Care Note [code = 83005-2] Goal Plan of Care Note [code = 50971-1] Goal Plan of Care Note [code = 70283-0] Goal Plan of Care Note [code = 32819-0] Goal Plan of Care Note [code = 60905-8] Goal Plan of Care Note [code = 67529-7] Goal Plan of Care Note [code = 20589-3] Goal Plan of Care Note [code = 90656-2] Goal Plan of Care Note [code = 60514-4] Goal Plan of Care Note [code = 44960-1] Goal Plan of Care Note [code = 29175-5] Goal Plan of Care Note [code = 38080-4] Goal Plan of Care Note [code = 01174-8] Goal Plan of Care Note [code = 57138-0] Goal Plan of Care Note [code = 13281-6] Goal Plan of Care Note [code = 21472-9] Goal Plan of Care Note [code = 39003-9] Goal Plan of Care Note [code = 57430-8] Goal Plan of Care Note [code = 49782-9] Goal Plan of Care Note [code = 58073-9] Goal Plan of Care Note [code = 22111-5] Goal Plan of Care Note [code = 02422-7] Goal Plan of Care Note [code = 81878-8] Goal Plan of Care Note [code = 84605-1] Goal Plan of Care Note [code = 59182-9] Goal Plan of Care Note [code = 06455-2] Goal Plan of Care Note [code = 46407-0] Goal Plan of Care Note [code = 42726-9] Goal Plan of Care Note [code = 56053-8] Goal Plan of Care Note [code = 19195-6] Goal Plan of Care Note [code = 47423-9] Goal Plan of Care Note [code = 29274-3] Encounters Start End Encounter Admission Attending Care Care Encounter Source Date/Time Date/Time Type Type Clinicians Facility Department ID 2022-01-20 Outpatient [facility] [id number] [place] 19:59:16 [facility] [address] 2022-05-16 2022-05-16 Outpatient [id number] 00:00:00 00:00:00 Visit [id number] 2022-05-02 2022-05-[address] [facility] [id number] Univers 12:34:00 18:22:00 DAYO mckeon [facility] 2022-05-02 2022-05-02 [facility] [id number] Univers 12:34:00 18:22:00 Dayo L[place] [id number] i ty of [place] 4.2.7.2.686 [facility] [phone] [address] 2021-03-16 2021-03-[address] [facility] [id number] Univers 09:00:00 09:00:00 SENDIL [facility] 2021-03-14 2021-03-14 Telephone Sudhakar Taylor [id number] Univers 00:00:00 00:00:00 , Bryanna Gomez [id number] ity [place] 4.2.7.2.686 [facility] [phone] [address] 2021-03-01 2021-03-01 Outpatient [facility] [id number] Univers 08:00:00 08:00:00 SENDIL abel [facility] 2021-02-02 2021-02-[address] [facility] [id number] Univers 08:12:10 09:56:16 Visit Sendil EusebiaAyannaDivineAyanna [place] [id number] ity [place] 4[place]2.7.2.686 [place] [id number] [place] [id number] [facility] 2021-02-02 2021-02-02 Outpatient R ERNIE, [facility] [id number] [facility] 09:00:00 09:00:00 SENDIL ity of [place] [facility] 2021-01-26 2021-01-26 Orders Doctor SHAZIA [id number] Univers 00:00:00 00:00:00 Only Unassigned, DAVID [id number] ity of [place] [facility] 4.2.7.2.686 Reg[place]do as [id number] [address] 2021-01-26 2021-01-26 Orders Doctor SHAZIA Kaba.[id number] 00:00:00 00:00:00 Only Unassigned, DAVID [id number] [facility] 4.2.7.2.686 [id number] 2020-12-22 2020-12-22 Orders Doctor MCCRAY [id number] Univers 00:00:00 00:00:00 Only Unassigned, DAVID [id number] ity of [place] [facility] 4.2.7.2.686 [place] as [phone] [address] 2020-12-22 2020-12-22 Orders Doctor SHAZIA Kaba.2.840.114 [id number] 00:00:00 00:00:00 Only Unassigned, DAVID [id number] [facility] 4.2.7.2.686 [id number] [id number] 2020-08-06 2020-08-06 Letter Doctor SHAZIA [place]2.840.114 [id number] 00:00:00 00:00:00 (Out) Unassigned, DAVID [id number] [facility] 4.2.7.2.686 [id number] 2020-08-06 2020-08-06 Letter Doctor SHAZIA [place]2.840.114 [id number] 00:00:00 00:00:00 (Out) Unassigned, DAVID [id number] [facility] 4.2.7.2.686 [id number] [facility] 2020-08-06 2020-08-06 Letter Doctor SHAZIA [id number] Univers 00:00:00 00:00:00 (Out) Unassigned, DAVID [id number] ity of [place] [facility] 4.2.7.2.686 [place] as [phone] [address] 2020-08-06 2020-08-06 Letter Doctor SHAZIA [id number] Univers 00:00:00 00:00:00 (Out) Unassigned, DAVID [id number] ity of [place] [facility] 4.2.7.2.686 Reg[place]do as [id number] [address] 2019-07-07 2019-07-07 [facility] [id number] 11:16:20 12:14:00 [place] [id number] [place] 4.2.7.2.686 [place] [phone] [facility] 2019-07-07 2019-07-07 [facility] [id number] [facility] 11:16:20 12:14:00 [place] 350.1.13.10 i [place] 4[place]7.2.[place] [phone] [address] Results Test Description Test Time Test Comments Results Result Comments Source SARS-CoV-2 (COVID-19), RT-PCR/TMA 2022-01-14 08:18:51 Test Item Value Reference Range Interpretation Comme nts SARS-CoV-2 INTERPRETATION NEGATIVE SEE NOTE S ARS-CoV-2 RNA NOT (test code = 12695) DETECTED Negative results do not preclude SARS-C [...] LONGER BE TE STED WITHTHIS ORDER CODE. FOR SALIVA, ORAL FLUID TESTING A ND SPECIMENREQUIRE MENTS, PLEASE REFER TO ORDER CODE 3509. SOURCE (test code = 40884) NOT SPECIFIED Note: Methodology is [employer] Real-Time RT-PC R. The expected result or refer ence range is NEGATIVE (Not D etected). For more information reg arding COVID-19 testing to incl ude clinicalinforma tion, methodology detail, intende d use, FDA authorization a ndrecommended fact sheets for [place] ents or healthcare providers, see [facility] Announcement: S ARS-CoV-2 (COVID-19) by N AAT at URL below (note,fact shee ts are provided by method given in report:https:// www.[employer]/cl [email or web address]/client -communications/ Alternatively, see downloadable PDF fact sheet at:https://www. [employer]/COVID- 19-RT-PCR UNLES S OTHERWISE INDICATED, ALL TESTING PERFORMED ATCLINICAL PATH [facility], [facility]. [address] [place] [address] 4 VOICE SYSTEMS ENGINEER: BERENICE ANN M.D. CLIA NUMBER [id number] CAP ACCREDITATION N O. [id number] SARS-CoV-2 (COVID-19) by RT-PCR (HIGH RISK)2022-01-14 00:00:00 Test Item Value Reference Range Interpretation Comments SARS-CoV-2 INTERPRETATION (test NEGATIVE code = 80549) SOURCE (test code = 02105) NOT SPECIFIED SARS-CoV-2 (COVID-19), RT-PCR/[id number] 06:38:45 Test Item Value Reference Interpretation Comments Range SARS-CoV-2 NEGATIVE SEE NOTE SARS-CoV-2 RNA NOT INTERPRETATION DETECTEDNegat francoise (test code = 20949) results do not preclude SARS-C oV-2 infection and s hould notbe used as t he sole basis for patie nt management deci sions. Negativeresults must be combined wit h clinical observ ations, patient history ,and epidemiological information. Op timum specimen types and timingfor peak viral levels during infections caus ed by SARS-CoV-2 have notbeen determi john. Collection of m ultiple specimens or ty pes ofspecimens may be necessary to de tect virus. Improper specimencollect ion and handling, seque nce variability und er primers/probes, or organism presen t below the limit of de tection may lead to falsenegative r esults. Positive and ne gative predictive valu es oftesting are h ighly dependent on prevalence. Fal se negative testre sults are more likely when prevalence is h igh. EFFECTIVE 01/09, SPUTUM SPECIMEN S CAN NO LONGER BE TE STED WITHTHIS ORDER CODE. FOR SALIVA, ORA L FLUID TESTING AND SPECIMENREQUIRE MENTS, PLEASE REFER TO ORDER CODE 3509. SOURCE (test code = NASOPHARYNGEAL [place]: [place] [address]) Dixie Laurie Bernadine l-Time RT-PCR. The exp ected result or refer ence range is NEGATI VE (Not Detected). For more information reg arding COVID-19 testin g to include clinicalinforma tion, methodology det ail, intended use, F DA authorization andrecommended fact sheets for lavonne ents or healthcare prov iders, see NewTest Announcement: SARS-CoV-2 (COV ID-19) by NAAT at URL below (note,fact shee ts are provided by met hod given in report:https:// www.[employer].com/clinic ians/cl ient-communicat ions/ Alternatively, see downloadable PD F fact sheet at:https://www. [employer] .Runrun.it/COVID-19-R T-PCR UNLESS OTHERWIS E INDICATED, ALL TESTING PERFORMED [facility], [place] [facility] [place] [address] [facility] DIRECTOR: BERENICE ANN M.D. CLIA NUMBER [id number] CAP ACCREDITATION N O. [id number] SARS-CoV-2 (COVID-19) by RT-PCR (HIGH RISK)2021-12-29 00:00:00 Test Item Value Reference Range Interpretation Comments SARS-CoV-2 INTERPRETATION NEGATIVE (test code = 65719) SOURCE (test code = 45988) NASOPHARYNGEAL [id number] 00:00:00 Test Item Value Reference Range Interpretation Comments TSH, THIRD GENERATION (test code 1.250 UIU/ML = 2821) [id number] 00:00:00 Test Item Value Reference Range Interpretation Comments TSH, THIRD GENERATION (test code 1.250 UIU/ML = 2821) CBC W/AUTO [id number] 00:00:00 Test Item Value Reference Range Interpretation Comments WBC (test code = 1001) 13.6 K/UL RBC (test code = 1002) 4.14 M/UL HEMOGLOBIN (test code = 1003) 13.5 G/DL HEMATOCRIT (test code = 1004) 38.8 % MCV (test code = 1005) 93.7 fL MCH (test code = 1006) 32.6 PG MCHC (test code = 1007) 34.8 G/DL RDW (test code = 1038) 12.0 % NEUTROPHILS (test code = 1008) 83.5 % LYMPHOCYTES (test code = 1010) 12.2 % MONOCYTES (test code = 1011) 3.9 % EOSINOPHILS (test code = 1012) 0.1 % BASOPHILS (test code = 1013) 0.3 % PLATELET COUNT (test code = 1015) 207 K/UL CBC W/AUTO [id number] 00:00:00 Test Item Value Reference Range Interpretation Comments WBC (test code = 1001) 13.6 K/UL RBC (test code = 1002) 4.14 M/UL HEMOGLOBIN (test code = 1003) 13.5 G/DL HEMATOCRIT (test code = 1004) 38.8 % MCV (test code = 1005) 93.7 fL MCH (test code = 1006) 32.6 PG MCHC (test code = 1007) 34.8 G/DL RDW (test code = 1038) 12.0 % NEUTROPHILS (test code = 1008) 83.5 % LYMPHOCYTES (test code = 1010) 12.2 % MONOCYTES (test code = 1011) 3.9 % EOSINOPHILS (test code = 1012) 0.1 % BASOPHILS (test code = 1013) 0.3 % PLATELET COUNT (test code = 1015) 207 K/UL COMPREHENSIVE METABOLIC [id number] 00:00:00 Test Item Value Reference Range Interpretation Comments GLUCOSE (test code = 2217) 108 MG/DL BUN (test code = 2208) 8 MG/DL CREATININE (test code = 2214) 0.80 MG/DL eGFR AMER. (test code 112 ML/MIN/1.73 = 09590) eGFR NON- AMER. (test 97 ML/MIN/1.73 code = 39477) CALC BUN/CREAT (test code = 10 RATIO 2235) SODIUM (test code = 2231) 139 MEQ/L POTASSIUM (test code = 2228) 4.3 MEQ/L CHLORIDE (test code = 2215) 107 MEQ/L CARBON DIOXIDE (test code = 25 MEQ/L 2206) CALCIUM (test code = 2209) 9.4 MG/DL PROTEIN, TOTAL (test code = 7.2 G/DL 2228) ALBUMIN (test code = 2201) 4.8 G/DL CALC GLOBULIN (test code = 2.4 G/DL 2240) CALC A/G RATIO (test code = 2.0 RATIO 2234) BILIRUBIN, TOTAL (test code = 0.3 MG/DL 2206) ALKALINE PHOSPHATASE (test 78 U/L code = 2204) AST (test code = 2218) 12 U/L ALT (test code = 2219) 12 U/L VAGINAL PATHOGENS DNA [id number] 00:00:00 Test Item Value Reference Range Interpretation Comments YORDY SPECIES (test code = ) NEGATIVE G. VAGINALIS (test code = ) POSITIVE T. VAGINALIS (test code = ) NEGATIVE [id number] 00:00:00 Test Item Value Reference Range Interpretation Comments TESTOSTERONE (test code = 2830) 23 NG/DL FSH + LH [id number] 00:00:00 Test Item Value Reference Range Interpretation Comments FOLLICLE STIM HORMONE (test code = 5.4 IU/L 2700) LUTEINIZING HORMONE (test code = 9.5 IU/L 2776) [id number] 00:00:00 Test Item Value Reference Range Interpretation Comments PROLACTIN (test code = 2800) 8.5 NG/ML [id number] 00:00:00 Test Item Value Reference Range Interpretation Comments ESTRADIOL (test code = 2505) 59.4 PG/ML [id number] 00:00:00 Test Item Value Reference Range Interpretation Comments ESTRADIOL (test code = 2505) 59.4 PG/ML PAP TEST, THINPREP, [id number] 00:00:00 Test Item Value Reference Range Interpretation Comments SOURCE: (test code = 8001) Cervical/Endocervi franca SLIDES: (test code = 8011) 1 LMP: (test code = 8021) 09/02/2020 SPECIMEN ADEQUACY: (test (NOTE) code = 31411) INTERPRETATION: (test code ASCUS/EPITH. = 59843) ABNORMALITY; SEE BELOW PEOPLESOFT: (test Daisy code = 8101) GABRIELA Kay(ASCP)IAC PATHOLOGIST INTERPRETATION Aleksander Chen M.D. BY: (test code = 8122) LOCATION: (test code = (NOTE) 75367) CPT: (test code = 8140) (NOTE) HIV 1/2 4TH GEN, RFLX CONF [ADDED]2020-09-21 00:00:00 Test Item Value Reference Range Interpretation Comments HIV 1/2 4TH GEN, RFLX CONF (test NON-REACTIVE code = 3514) GC AND CHLAMYDIA AMPLIFIED, [id number] 00:00:00 Test Item Value Reference Range Interpretation Comments GONORRHEA, TMA (test code = 29934) NEGATIVE CHLAMYDIA, TMA (test code = 09896) NEGATIVE RPR [ADDED]2020-09-21 00:00:00 Test Item Value Reference Range Interpretation Comments RPR RESULT (test code = NON-REACTIVE 3501) RPR TITER (test code = 3500) NOT INDIC. TITER RPR [ADDED]2020-09-21 00:00:00 Test Item Value Reference Range Interpretation Comments RPR RESULT (test code = NON-REACTIVE 3501) RPR TITER (test code = 3500) NOT INDIC. TITER VAGINAL PATHOGENS DNA PANEL [ADDED]2020-09-21 00:00:00 Test Item Value Reference Range Interpretation Comments YORDY SPECIES (test code = ) NEGATIVE G. VAGINALIS (test code = ) POSITIVE T. VAGINALIS (test code = ) NEGATIVE ADELA (ANTI-NUCLEAR AB) WITH REFLEX [id number] 00:00:00 Test Item Value Reference Range Interpretation Comments ANTI-NUCLEAR ANTIBODIES (test code = NEGATIVE 3506) HPV HIGH RISK WITH GENOTYPE, [id number] 00:00:00 Test Item Value Reference Range Interpretation Comments HPV HIGH RISK INTERP (test code = NEGATIVE 25971) HPV 16 (test code = 38222) NEGATIVE HPV 18 (test code = 15828) NEGATIVE HPV, HR, OTHER GENOTYPES (test code NEGATIVE = 30992) [id number] 00:00:00 Test Item Value Reference Range Interpretation Comments TSH, THIRD GENERATION (test code 2.110 UIU/ML = 2821) [id number] 00:00:00 Test Item Value Reference Range Interpretation Comments TSH, THIRD GENERATION (test code 2.110 UIU/ML = 2821) COMPREHENSIVE METABOLIC [id number] 00:00:00 Test Item Value Reference Range Interpretation Comments GLUCOSE (test code = 2217) 90 MG/DL BUN (test code = 2208) 11 MG/DL CREATININE (test code = 2214) 0.89 MG/DL eGFR AMER. (test code 99 ML/MIN/1.73 = 71347) eGFR NON- AMER. (test 85 ML/MIN/1.73 code = 05728) CALC BUN/CREAT (test code = 12 RATIO 2235) SODIUM (test code = 2231) 140 MEQ/L POTASSIUM (test code = 2228) 4.1 MEQ/L CHLORIDE (test code = 2215) 103 MEQ/L CARBON DIOXIDE (test code = 24 MEQ/L 2205) CALCIUM (test code = 2209) 9.7 MG/DL PROTEIN, TOTAL (test code = 7.5 G/DL 2228) ALBUMIN (test code = 2201) 4.9 G/DL CALC GLOBULIN (test code = 2.6 G/DL 2240) CALC A/G RATIO (test code = 1.9 RATIO 2234) BILIRUBIN, TOTAL (test code = 0.3 MG/DL 2206) ALKALINE PHOSPHATASE (test 93 U/L code = 2204) AST (test code = 2218) 20 U/L ALT (test code = 2219) 58 U/L LIPID [id number] 00:00:00 Test Item Value Reference Range Interpretation Comments CHOLESTEROL (test code = 2210) 221 MG/DL TRIGLYCERIDES (test code = 2232) 180 MG/DL HDL CHOLESTEROL (test code = 2220) 51 MG/DL CALC LDL CHOL (test code = 2237) 138 MG/DL RISK RATIO LDL/HDL (test code = 2.71 RATIO 2238) CBC W/AUTO [id number] 00:00:00 Test Item Value Reference Range Interpretation Comments WBC (test code = 1001) 11.9 K/UL RBC (test code = 1002) 4.16 M/UL HEMOGLOBIN (test code = 1003) 13.4 G/DL HEMATOCRIT (test code = 1004) 39.6 % MCV (test code = 1005) 95.2 fL MCH (test code = 1006) 32.2 PG MCHC (test code = 1007) 33.8 G/DL RDW (test code = 1038) 12.0 % NEUTROPHILS (test code = 1008) 70.9 % LYMPHOCYTES (test code = 1010) 22.3 % MONOCYTES (test code = 1011) 4.9 % EOSINOPHILS (test code = 1012) 1.3 % BASOPHILS (test code = 1013) 0.6 % PLATELET COUNT (test code = 1015) 233 K/UL CBC W/AUTO [id number] 00:00:00 Test Item Value Reference Range Interpretation Comments WBC (test code = 1001) 11.9 K/UL RBC (test code = 1002) 4.16 M/UL HEMOGLOBIN (test code = 1003) 13.4 G/DL HEMATOCRIT (test code = 1004) 39.6 % MCV (test code = 1005) 95.2 fL MCH (test code = 1006) 32.2 PG MCHC (test code = 1007) 33.8 G/DL RDW (test code = 1038) 12.0 % NEUTROPHILS (test code = 1008) 70.9 % LYMPHOCYTES (test code = 1010) 22.3 % MONOCYTES (test code = 1011) 4.9 % EOSINOPHILS (test code = 1012) 1.3 % BASOPHILS (test code = 1013) 0.6 % PLATELET COUNT (test code = 1015) 233 K/UL RPR, [id number] 22:11:00 Test Item Value Reference Range Interpretation Comments RPR (test code = RPR) Non-Reactive Non-Reactive N Thyroid Stimulating Hormone (TSH)2017-03-08 09:46:00 Test Item Value Reference Range Interpretation Comments TSH (test code = TSH) 0.79 mIU/mL 0.270-4.200 N
[2022-08-29 13:12] LABS: Absolute Lymphocytes (CBC) 3.1 K/uL (0.7-4.9); Hematocrit 40.8 % (36.0-45.0); Lymphocytes % 34.2 % (15.3-44.8); MCV 91.1 fL (80-100); MPV 9.3 fL (7.6-11.3); RBC Red Blood Cell Count 4.48 M/uL (3.86-4.86)
[2022-08-29] MEDS ORDERED: FAMOTIDINE 20 MG/2 ML VIAL IV ONE (13:12)
[2022-08-29] MEDS ORDERED: KETOROLAC 30 MG/ML INJ ONE (13:12)
[2022-08-29] MEDS ORDERED: ONDANSETRON 4 MG/2 ML VIAL ONE (13:12)
[2022-08-29] MEDS ORDERED: NA CHLORIDE 0.9% 1,000 ML ONE (13:12)
[2022-08-29 13:14] LABS: Urine Blood Negative (Negative); Urine Glucose Negative (Negative); Urine Protein Negative (Negative); Urine Specific Gravity 1.015 (1.005-1.030); Urine pH 5.5 (5.0-7.0)
[2022-08-29 13:28] LABS: Urine Specific Gravity/Preg 1.015 (1.005-1.030)
[2022-08-29 13:28] LABS: Albumin 4.2 g/dL (3.4-5.0); Bilirubin Total 0.4 mg/dL (0.2-1.0); Potassium 3.7 mmol/L (3.5-5.1); Protein, Total 7.8 g/dL (6.4-8.2)
--- NOTE | 2022-08-29 13:59 | RAD REPORT ---
EXAM DESCRIPTION: CT - Abdomen Pelvis W Contrast - 08/29/2022 1:42 pm CLINICAL HISTORY: Abdominal pain COMPARISON: 2016 TECHNIQUE: Computed axial tomography of the abdomen pelvis was obtained. 100 cc Isovue-300 was admin istered intravenously. Oral contrast was not requested which limits evaluation of bowel and appendix All CT scans are performed using dose optimization technique as appropriate and may include automated exposure control or mA/KV adjustment according to patient size. FINDINGS: Multiple, bilateral subpleural nodules have developed within the right and left lower lobe s. Some of the nodules are calcified. The nodules measure up to 7 millimeters. The liver, spleen, pancreas, adrenal and kidneys appear unremarkable. There is no evidence of diverticulitis. Normal appendix Ovaries are upper limits normal caliber. No adnexal mass. Tiny umbilical hernia IMPRESSION: Multiple, bilateral subpleural lung nodules have developed since 2016. These may represe nt granulomas. Metastases and inflammatory processes are a another considerations. Followup CT chest in 3 months recommended
[2022-08-29] MEDS ORDERED: DICYCLOMINE HCL 10 MG CAP ONE (14:05)
--- NOTE | 2022-08-29 14:19 | ER ---
Nurse's Notes [facility] Name: Charis Padgett Age: 37 yrs Sex: Female : 1985 Arrival Date: 08/29/2022 Time: 12:30 Bed 13 Private MD: Diagnosis: Left upper quadrant abdominal tenderness Presentation: 08/29 12:45 Chief complaint: Patient states: feels like she has knots in her stomach , feels like iw spasms X 3-4 days, vomiting started this morning. Coronavirus screen: Client presents with at least one sign or symptom that may indicate coronavirus-19. Ebola Screen: Patient negative for fever greater than or equal to 101.5 degrees Fahrenheit, and additional compatible Ebola Virus Disease symptoms Patient denies exposure to infectious person. Patient denies travel to an Ebola-affected area in the 21 days before illness onset. No symptoms or risks identified at this time. Initial Sepsis Screen: Does the patient meet any 2 criteria? No. Patient's initial sepsis screen is negative. Does the patient have a suspected source of infection? No. Patient's initial sepsis screen is negative. Risk Assessment: Do you want to hurt yourself or someone else? Patient reports no desire to harm self or others. Onset of symptoms was August 27, 2022. 12:45 Method Of Arrival: Ambulatory iw 12:45 Acuity: KALYANI 3 iw Triage Assessment: 14:29 General: Appears in no apparent distress. comfortable, Behavior is calm, cooperative, ko1 appropriate for age. [employer]: 12:48 LMP 08/07/2022 iw Historical: - Allergies: 12:47 Onion; iw - Home Meds: 12:47 Paxil Oral once daily [Active]; Wellbutrin XL 150 mg Oral Tb24 1 tab once daily iw [Active]; Hydroxyzine Oral twice a day [Active]; - PMHx: 12:47 depressive disorder; PTSD; iw - PSHx: 12:47 section; iw - Immunization history:: Adult Immunizations unknown. - Social history:: Smoking status: . Screenin:05 Abuse screen: Denies threats or abuse. Denies injuries from another. Nutritional iw screening: No deficits noted. Tuberculosis screening: No symptoms or risk factors identified. Fall Risk IV access (20 points). Assessment: 13:20 Pain: Complains of pain in abdomen. GI: Bowel sounds present X 4 quads. Abd is soft ko1 Abdomen is tender to palpation X 4 quads. Vital Signs: 12:45 BP 142 / 94; Pulse 70; Resp 16; Temp 97.8; Pulse Ox 100% on R/A; Weight 90.72 kg; iw Height 5 ft. 2 in. (157.48 cm); Pain 10/10; 14:28 BP 138 / 96; Pulse 74; Pulse Ox 99% on R/A; ko1 12:45 Body Mass Index 36.58 (90.72 kg, 157.48 cm) iw ED Course: 12:30 Patient arrived in ED. as 12:40 Jenny Holloway FNP-C is PHCP. kb 12:40 Vinod Gonzales DO is Attending Physician. kb 12:47 Triage completed. iw 12:48 Arm band placed on. iw 13:04 Sarah Rea, RN is Primary Nurse. ko1 13:04 Initial lab(s) drawn, by me, sent to lab. Inserted saline lock: 20 gauge in left iw antecubital area, using aseptic technique. Blood collected. 13:20 Patient has correct armband on for positive identification. Placed in gown. Bed in low ko1 position. Call light in reach. Side rails up X 1. Pulse ox on. NIBP on. 13:20 No provider procedures requiring assistance completed. ko1 13:44 CT Abd/Pelvis - IV Contrast Only In Process Unspecified. EDMS 14:28 IV discontinued, intact, bleeding controlled, No redness/swelling at site. Pressure ko1 dressing applied. Administered Medications: 13:20 Drug: NS 0.9% 1000 ml Route: IV; Rate: 1 bolus; Site: left antecubital; iw 13:20 Drug: Pepcid (famotidine) 20 mg Route: IVP; Site: left antecubital; iw 13:20 Drug: Zofran (Ondansetron) 4 mg Route: IVP; Site: left antecubital; iw 13:20 Drug: Ketorolac 15 mg Route: IVP; Site: left antecubital; iw 14:06 Drug: Bentyl (dicyclomine) 20 mg Route: PO; ko1 Medication: 13:20 VIS not applicable for this client. ko1 Outcome: 14:18 Discharge ordered by . kb 14:28 Discharged to home ambulatory, with family. ko1 14:28 Condition: good 14:28 Discharge instructions given to patient, family, Instructed on discharge instructions, follow up and referral plans. medication usage, Demonstrated understanding of instructions, follow-up care, medications, Prescriptions given X 2. 14:29 Patient left the ED. ko1 Signatures: Dispatcher [employer] EDMS Jenny Holloway, MANDEEP ESCAMILLA-Mercedes Jon Irene, MARGO RN Sarah Renteria RN RN ko1
--- NOTE | 2022-08-29 14:19 | EDPHYS ---
Physician Documentation [facility] Name: Charis Padgett Age: 37 yrs Sex: Female : 1985 Arrival Date: 08/29/2022 Time: 12:30 Bed 13 Private MD: ED Physician Vinod Gonzales HPI: 08/29 14:06 This 37 yrs old Female presents to ER via Ambulatory with complaints of Abdominal Pain, kb Vomiting. 14:06 The patient presents with abdominal pain in the left upper quadrant. Onset: The kb symptoms/episode began/occurred 1 week(s) ago. The symptoms do not radiate. Associated signs and symptoms: Pertinent positives: nausea and vomiting, Pertinent negatives: fever. The symptoms are described as constant. Modifying factors: The symptoms are alleviated by nothing, the symptoms are aggravated by nothing. Severity of pain: At its worst the pain was moderate in the emergency department the pain is unchanged. The patient has not experienced similar symptoms in the past. The patient has not recently seen a physician. Pt reports LUQ pain for one week with nausea and vomiting. Denies fever. . 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 - Social history:: Smoking status: . ROS: 14:05 Constitutional: Negative for fever, chills, and weight loss. kb 14:05 Abdomen/GI: Positive for abdominal pain, nausea and vomiting. 14:05 All other systems are negative. Exam: 14:05 Constitutional: This is a well developed, well nourished patient who is awake, alert, kb and in no acute distress. Head/Face: Normocephalic, atraumatic. ENT: Moist Mucous membranes Cardiovascular: Regular rate and rhythm with a normal S1 and S2. No gallops, murmurs, or rubs. No pulse deficits. Respiratory: Respirations even and unlabored. No increased work of breathing. Talking in full sentences Skin: Warm, dry with normal turgor. Normal color. MS/ Extremity: Pulses equal, no cyanosis. Neurovascular intact. Full, normal range of motion. Neuro: Awake and alert, GCS 15, oriented to person, place, time, and situation. Moves all extremities. Normal gait. Psych: Awake, alert, with orientation to person, place and time. Behavior, mood, and affect are within normal limits. 14:05 Abdomen/GI: Inspection: abdomen appears normal, Bowel sounds: normal, Palpation: soft, in all quadrants, mild abdominal tenderness, in the left upper quadrant. Vital Signs: 12:45 BP 142 / 94; Pulse 70; Resp 16; Temp 97.8; Pulse Ox 100% on R/A; Weight 90.72 kg; iw Height 5 ft. 2 in. (157.48 cm); Pain 10/10; 14:28 BP 138 / 96; Pulse 74; Pulse Ox 99% on R/A; ko1 12:45 Body Mass Index 36.58 (90.72 kg, 157.48 cm) iw MDM: 12:40 Patient medically screened. kb 14:01 Data reviewed: vital signs, nurses notes. Data interpreted: Pulse oximetry: on room air kb is 100 %. Interpretation: normal. Counseling: I had a detailed discussion with the patient and/or guardian regarding: the historical points, exam findings, and any diagnostic results supporting the discharge/admit diagnosis, lab results, radiology results, the need for outpatient follow up, a family practitioner, to return to the emergency department if symptoms worsen or persist or if there are any questions or concerns that arise at home. 08/29 12:43 Order name: CBC with Diff; Complete Time: 13:25 kb 08/29 12:43 Order name: CMP; Complete Time: 13:31 kb 08/29 12:43 Order name: Lipase; Complete Time: 13:31 kb 08/29 12:43 Order name: CT Abd/Pelvis - IV Contrast Only; Complete Time: 14:00 kb 08/29 13:15 Order name: Urine --Ancillary (enter results); Complete Time: 13:31 em1 08/29 13:15 Order name: Urine Dipstick-Ancillary; Complete Time: 13:25 EDMS 08/29 12:43 Order name: IV Saline Lock; Complete Time: 13:04 kb 08/29 12:43 Order name: Labs collected and sent; Complete Time: 13:04 kb 08/29 12:43 Order name: Urine Dipstick-Ancillary (obtain specimen); Complete Time: 13:15 kb 08/29 12:43 Order name: Urine Test (obtain specimen); Complete Time: 13:15 kb Administered Medications: 13:20 Drug: NS 0.9% 1000 ml Route: IV; Rate: 1 bolus; Site: left antecubital; iw 13:20 Drug: Pepcid (famotidine) 20 mg Route: IVP; Site: left antecubital; iw 13:20 Drug: Zofran (Ondansetron) 4 mg Route: IVP; Site: left antecubital; iw 13:20 Drug: Ketorolac 15 mg Route: IVP; Site: left antecubital; iw 14:06 Drug: Bentyl (dicyclomine) 20 mg Route: PO; ko1 Disposition: 17:19 Co-signature as Attending Physician, Vinod Gonzales DO I was immediately available on-site ms3 in the Emergency Department for consultation in the care of the patient. Disposition Summary: 08/29/22 14:18 Discharge Ordered Location: Home kb Condition: Stable kb Diagnosis - Left upper quadrant abdominal tenderness kb Followup: kb - With: Emergency Department - When: As needed - Reason: Worsening of condition Followup: kb - With: Private Physician - When: 2 - 3 days - Reason: Recheck today's complaints, Continuance of care, Re-evaluation by your physician Discharge Instructions: - Discharge Summary Sheet kb - Abdominal Pain, Adult, [id number]-Mnza kb Forms: - Medication Reconciliation Form kb - Thank You Letter kb - Antibiotic Education kb - Prescription Opioid Use kb Prescriptions: - Zofran 4 mg Oral Tablet - take 1 tablet by ORAL route every 6 hours As needed; 15 tablet; Refills: 0, kb Product Selection Permitted - dicyclomine 20 mg Oral Tablet - take 1 tablet by ORAL route 4 times per day As needed; 20 tablet; Refills: 0, kb Product Selection Permitted Signatures: Dispatcher [employer] Jenny Burnett, MANDEEP ESCAMILLA-Marie Saini, RN MARGO iw iVnod Gonzales DO DO ms3 Sarah Rea RN RN ko1
[2022-08-29 15:09] VITALS: TEMP 97.8
[2022-08-29 15:15] VITALS: BP 138/96; O2SAT 99
== END 2022-08-29 14:29 | disposition home or self-care (01) ==
LOC: ER 12:27
DX: R10.812 Left upper quadrant abdominal tenderness (principal); R11.2 Nausea with vomiting, unspecified; Z91.018 Allergy to other foods
CPT/HCPCS: 85025; 36415; 81025; 81003; 83690; 80053; 74177; Q9967; J7030; J2405; 96374; 96375; 99284

== ENCOUNTER 2022-10-03 18:07 | Emergency (ER) | payer OTHER ==
--- OUTSIDE RECORDS SUMMARY | 2022-10-03 18:12 | XMS REPORT | Continuity of Care Document ---
:1985 Author Organization [facility] t Address [address] [place] [address] Care Team Providers Name Role Phone UNKNOWN, REFFERING Primary Care Physician Unavailable DAYO VO Attending Clinician Unavailable Dayo Vo MD Attending Clinician MADI KLEIN K.H. Attending Clinician Unavailable Bryanna De La Fuente RN Attending Clinician Unavailable Ernie VALDEZ, Sendkate K.H. Attending Clinician Doctor Unassigned, [place] Attending Clinician Unavailable Kota Corey MD Attending Clinician PRISCA GARCIA Attending Clinician Unavailable PRISCA GARCIA Admitting Clinician Unavailable Payers Payer Name Policy Type Policy Number Effective Date Expiration Date [facility] STAR [id number] 2020 00:00:00 Problems Condition Condition Condition Status Onset Resolution Last Treating Co mments Source Name Details Category Date Date Treatment Clinician Date No known No known Disease Unive rs active active ity of problems problems [facility] Allergies, Adverse Reactions, Alerts Allergy Allergy Status Severity Reaction(s) Onset Inactive Treating Comm ents Source Name Type Date Date Clinician Peanut Propensi Active Anaphylaxis Onions- Un amber ty to 04-20 uncooked ity of adverse 00:00: - rash [place] reaction [address] [place] [address] PEANUT DRUG Active Anaphylaxis Unive rs INGREDI 04-20 ity of 00:00: [address] Social History Social Habit Start Date Stop Date Quantity Comments Source Exposure to 2022-04-22 2022-05-02 Unable to assess Univers ity of SARS-CoV-2 00:00:00 12:29:00 [facility] (event) [place] Tobacco use and 2021-02-02 2021-02-02 Never used Universit y of exposure 00:00:00 00:00:00 [facility] Sex Assigned At [birth year] Universit y of 00:00:00 00:00:00 [facility] Smoking Status Start Date Stop Date Source Unknown if ever smoked [facility] Current some day smoker 2021-02-02 00:00:00 [facility] Medications Ordered Filled Start Stop Current Ordering Indication Dosage Frequency Signature Comments Components Source Medication Medication Date Date Medication? Clinician (SIG) Name Name BENZONATATE 0 No 200 MG CAPS 920 00:00: 00 BENZONATATE 2021-0 No 200 200 MG CAPS 817 00:00: 00 TAKE 1 2021-0 No 50 TABLET 8-11 NEEDED. 00:00: 00 TAKE 2 2021-0 No 250 TABLETS BY 8-09 MOUTH ON 00:00: DAY 1, THEN 00 1 TABLET DAILY ON DAYS 2 TO 5. TAKE 1 2021-0 No 125 TABLET 8-08 EVERY 6 TO 00:00: 8 HOURS 00 NEEDED NAUSEA. &lt 2021-0 No 250 8-08 00:00: 00 &lt 2021-0 No 100 8-08 00:00: 00 INSTILL TWO 2021-0 No (2) SPRAYS 8-08 IN THE 00:00: NOSTRILS 00 DAILY. &lt 2021-0 No 10 8-08 00:00: 00 TAKE ONE 2021-0 No 50 (1) 8-08 TABLET(S) 00:00: BY MOUTH 00 DAILY NEEDED FOR ANXIETY. &lt 2021-0 No 8-08 00:00: 00 TAKE 1 AND 2021-0 No 10 1/2 TABLETS 8-08 DAILY. 00:00: 00 Dose 2-0 No 250 Unknown 8-08 00:00: 00 &lt 2-0 No 8-04 00:00: 00 TAKE 1 2021-0 No 125 TABLET 8-04 EVERY 6 TO 00:00: 8 HOURS 00 NEEDED NAUSEA. TAKE 2 2021-0 No 250 TABLETS BY 8-04 MOUTH ON 00:00: DAY 1, THEN 00 1 TABLET DAILY ON DAYS 2 TO 5. Dose 2022-0 No 20 Unknown 06-01 00:00: 00 TAKE 2 2022-0 No 250 TABLETS BY 8- MOUTH ON 00:00: DAY 1, THEN 00 1 TABLET DAILY ON DAYS 2 TO 5. &lt 2022-0 No 100 8- 00:00: 00 &lt 2022-0 No 150 8- 00:00: 00 &lt 2022-0 No 10 8- 00:00: 00 &lt 2022-0 No 150 8- 00:00: 00 &lt 2022-0 No 20 8- 00:00: 00 Dose 2022-0 No Unknown 7-19 00:00: 00 Dose 2022-0 No Unknown 7-19 00:00: 00 Dose 2022-0 No Unknown 7-19 00:00: 00 Dose 2022-0 No Unknown 7-19 00:00: 00 Dose 2022-0 No Unknown 7-13 00:00: 00 Dose 2022-0 No Unknown 7-13 00:00: 00 Wellbutrin 2022-0 No 1mg XL 150 mg 6-15 24 hr 00:00: tablet, 00 extended release hydroxyzine 2022-0 No 1mg HCl 50 mg 6-15 tablet 00:00: 00 mirtazapine 2022-0 No 1mg 7.5 mg 6-15 tablet 00:00: 00 escitalopra 2022-0 No 1mg m 10 mg 6-15 tablet 00:00: 00 Wellbutrin 2022-0 No 1mg XL 150 mg 5-17 24 hr 00:00: tablet, 00 extended release hydroxyzine 2022-0 No 1mg HCl 50 mg 5-17 tablet 00:00: 00 escitalopra 2022-0 No 1mg m 10 mg 5-17 tablet 00:00: 00 mirtazapine 2022-0 No 1mg 7.5 mg 5-17 tablet 00:00: 00 Wellbutrin 2022-0 No 1mg XL 150 mg 5-17 24 hr 00:00: tablet, 00 extended release hydroxyzine 2022-0 No 1mg HCl 50 mg 5-17 tablet 00:00: 00 escitalopra 2022-0 No 1mg m 10 mg 5-17 tablet 00:00: 00 mirtazapine 2022-0 No 1mg 7.5 mg 5-17 tablet 00:00: 00 Dose 2022-0 No Unknown 4-22 [...] 50 mg 4-19 tablet 00:00: 00 Wellbutrin 2022-0 No 1mg XL 150 mg 4-19 24 hr 00:00: tablet, 00 extended release escitalopra 2-0 No 1mg m 10 mg 4-19 tablet 00:00: 00 Rozerem 8 2-0 No 1mg mg tablet 4-19 00:00: 00 Dose 2022-0 No Unknown 4-19 00:00: 00 Dose 2022-0 No Unknown 4-19 00:00: 00 Dose 2022-0 No Unknown 4-19 00:00: 00 Dose 2022-0 No Unknown 4-19 00:00: 00 Dose 2022-0 No Unknown 4-19 00:00: 00 Dose 2022-0 No Unknown 4-19 00:00: 00 hydroxyzine 2022-0 No 1mg HCl 50 mg 4-19 tablet 00:00: 00 Wellbutrin 2022-0 No 1mg XL 150 mg 4-19 24 hr 00:00: tablet, 00 extended release escitalopra 2022-0 No 1mg m 10 mg 4-19 tablet 00:00: 00 Rozerem 8 2022-0 No 1mg mg tablet 4-19 00:00: 00 Dose 2022-0 No Unknown 4-19 00:00: 00 Dose 2022-0 No Unknown 4-19 00:00: 00 Dose 2022-0 No Unknown 4-19 00:00: 00 Dose 2022-0 No Unknown 4-19 00:00: 00 Dose 2-0 No Unknown 4-19 00:00: 00 Dose 2-0 No Unknown 4-19 00:00: 00 Claritin 10 2-0 No 1mg mg tablet 4-13 00:00: 00 azithromyci 2-0 No mg n 250 mg 4-13 tablet 00:00: 00 fluticasone 2-0 No 2mcg/ac propionate 4-13 tuation 50 00:00: mcg/actuati 00 on nasal spray,suspe nsion Dose 2021-0 No Unknown 4-13 00:00: 00 Dose 2-0 No Unknown 4-13 00:00: 00 Dose 2-0 No Unknown 4-13 00:00: 00 Dose 2-0 No Unknown 4-13 00:00: 00 Claritin 10 2021-0 No 1mg mg tablet 4-13 00:00: 00 azithromyci 2021-0 No mg n 250 mg 4-13 tablet 00:00: 00 fluticasone 2-0 No 2mcg/ac propionate 4-13 tuation 50 00:00: mcg/actuati 00 on nasal spray,suspe nsion Dose 2021-0 No Unknown 4-13 00:00: 00 Dose 2-0 No Unknown 4-13 00:00: 00 Dose 2-0 No Unknown 4-13 00:00: 00 Dose 2-0 No Unknown 4-13 00:00: 00 Bromfed DM 2-0 No 10mg/5 2 mg-30 3-18 mL mg-10 mg/5 00:00: mL oral 00 syrup Dose 2-0 No Unknown 3-18 00:00: 00 [...] Dose 2022-0 No Unknown 3-18 00:00: 00 Bromfed DM 2-0 No 10mg/5 2 mg-30 3-18 mL mg-10 mg/5 00:00: mL oral 00 syrup Dose 2022-0 No Unknown 3-18 00:00: 00 [...] 1mg 20 mg 3-02 tablet 00:00: 00 metronidazo 2022-0 No 1mg le 500 mg 3-02 tablet 00:00: 00 dicyclomine 2022-0 No 1mg 20 mg 3-02 tablet 00:00: 00 Dose 2022-0 No Unknown 2-16 00:00: 00 Dose 2022-0 No Unknown 2-16 00:00: 00 trazodone 2022-0 No 1mg 100 mg 2-16 tablet 00:00: 00 Dose 2022-0 No Unknown 2-16 00:00: 00 Dose 2022-0 No Unknown 2-16 00:00: 00 trazodone 2022-0 No 1mg 100 mg 2-16 tablet 00:00: 00 benzonatate 2022-0 No 1mg 100 mg 2-14 capsule 00:00: 00 benzonatate 2022-0 No 1mg 100 mg 2-14 capsule 00:00: 00 hydroxyzine 2022-0 No mg HCl 50 mg 1-14 tablet 00:00: 00 hydroxyzine 2022-0 No mg HCl 50 mg 1-14 tablet 00:00: 00 Wellbutrin 2022-0 No 1mg XL 150 mg 1-12 24 hr 00:00: tablet, 00 extended release Dose 2-0 No Unknown 1-12 00:00: 00 Dose 2-0 No Unknown 1-12 00:00: 00 Wellbutrin 2-0 No 1mg XL 150 mg 1-12 24 hr 00:00: tablet, 00 extended release Dose 2-0 No Unknown 1-12 00:00: 00 Dose 2-0 No Unknown 1-12 00:00: 00 escitalopra 2022-0 No 1mg m 10 mg 1-12 tablet 00:00: 00 escitalopra 2-0 No 1mg m 10 mg 1-12 tablet 00:00: 00 promethazin 2022-0 No 1mg e 12.5 mg 1-09 tablet 00:00: 00 prednisone 2022-0 No mg 20 mg 1-09 tablet 00:00: 00 benzonatate 2-0 No 1mg 200 mg 1-09 capsule 00:00: 00 promethazin 2022-0 No 1mg e 12.5 mg 1-09 tablet 00:00: 00 prednisone 2022-0 No mg 20 mg 1-09 tablet 00:00: 00 benzonatate 2022-0 No 1mg 200 mg 1-09 capsule 00:00: 00 Wellbutrin 1-1 No 1mg XL 150 mg 2-16 24 hr 00:00: tablet, 00 extended release escitalopra 1-1 No 1mg m 10 mg 2-16 tablet 00:00: 00 Dose 1-1 No Unknown 2-16 00:00: 00 Wellbutrin 1-1 No 1mg XL 150 mg 2-16 24 hr 00:00: tablet, 00 extended release escitalopra 1-1 No 1mg m 10 mg 2-16 tablet 00:00: 00 Dose 1-1 No Unknown 2-16 00:00: 00 Dose 1-1 No Unknown 2-02 00:00: 00 escitalopra 1-1 No 1mg m 10 mg 2-02 tablet 00:00: 00 Dose 1-1 No Unknown 2-02 00:00: 00 escitalopra 1-1 No 1mg m 10 mg 2-02 tablet 00:00: 00 Wellbutrin 1-1 No 1mg SR 150 mg 1-22 tablet, 12 00:00: hr 00 sustained-r elease Wellbutrin 1-1 No 1mg SR 150 mg 1-22 tablet, 12 00:00: hr 00 sustained-r elease ibuprofen 1-1 No 1mg 600 mg 1-11 tablet 00:00: 00 ibuprofen 1-1 No 1mg 600 mg 1-11 tablet 00:00: 00 Wellbutrin 1-1 No 1mg SR 150 mg 0-18 tablet, 12 00:00: hr 00 sustained-r elease Wellbutrin 2020-1 No 1mg SR 150 mg 0-18 tablet, 12 00:00: hr 00 sustained-r elease Zofran 4 mg 1-0 No 12mg tablet 927 00:00: 00 amoxicillin 2021-0 No 2mg 500 mg 9-27 capsule 00:00: 00 Dose 1-0 No Unknown 9-27 00:00: 00 amoxicillin 2021-0 No 2mg 500 mg 9-27 capsule 00:00: 00 Wellbutrin 1-0 No 1mg SR 150 mg 9-13 tablet, 12 00:00: hr 00 sustained-r elease Wellbutrin 1-0 No 1mg SR 150 mg 9-13 tablet, 12 00:00: hr 00 sustained-r elease hydroxyzine 2021-0 No 1mg HCl 50 mg 9-08 tablet 00:00: 00 benzonatate 2021-0 No 1mg 200 mg 9-08 capsule 00:00: 00 hydroxyzine 2021-0 No 1mg HCl 50 mg 9-08 tablet 00:00: 00 benzonatate 2021-0 No 1mg 200 mg 9-08 capsule 00:00: 00 Wellbutrin 2021-0 No 1mg SR 150 mg 6-17 tablet, 12 00:00: hr 00 sustained-r elease Wellbutrin 2021-0 No 1mg SR 150 mg 6-17 tablet, 12 00:00: hr 00 sustained-r elease Wellbutrin 2021-0 No 1mg SR 150 mg 4-19 tablet, 12 00:00: hr 00 sustained-r elease Wellbutrin 2020-0 No 1mg SR 150 mg 4-19 tablet, [...] Medical SR tablet times Branch daily. Diflucan 1-0 No 1mg 150 mg 2-24 tablet 00:00: 00 clindamycin 1-0 No 1mg HCl 300 mg 2-24 capsule 00:00: 00 Diflucan 1-0 No 1mg 150 mg 2-24 tablet 00:00: 00 clindamycin 1-0 No 1mg HCl 300 mg 2-24 capsule 00:00: 00 Wellbutrin 1-0 No 1mg SR 150 mg 2-22 tablet, 12 00:00: hr 00 sustained-r elease Wellbutrin 2020-0 No 1mg SR 150 mg 2-22 tablet, 12 00:00: hr 00 sustained-r elease Flagyl 500 1-0 No 1mg mg tablet -16 00:00: 00 Diflucan 2021-0 No 1mg 150 mg 1-16 tablet 00:00: 00 Flagyl 500 2020-0 No 1mg mg tablet -16 00:00: 00 Diflucan 1-0 No 1mg 150 mg 1-16 tablet 00:00: 00 Flagyl 500 2019-10 No 1mg mg tablet 1-25 00:00: 00 Flagyl 500 2019-10 No 1mg mg tablet 11-22 00:00: 00 Wellbutrin 2019-10 No 1mg XL 150 mg -20 24 hr 00:00: tablet, 00 extended release Wellbutrin 2019-10 No 1mg XL 150 mg [...] Restricted medication : KOTA COREY methocarbam Yes [id number] 500mg Take 1 Univers ol 9- tablet by ity of (ROBAXIN) 00:00: mouth 4 [place] 500 mg 00 (four) Medical tablet times Branch daily. methocarbam Yes [id number] 500mg Take 1 Univers ol 9- tablet by ity of (ROBAXIN) 00:00: mouth 4 [place] 500 mg 00 (four) Medical tablet times Branch daily. methocarbam Yes [id number] 500mg Take 1 Univers ol 9-09 tablet by ity of (ROBAXIN) 00:00: mouth 4 [place] 500 mg 00 (four) Medical tablet times Branch daily. methocarbam Yes [id number] 500mg Take 1 Univers ol 9-09 tablet by ity of (ROBAXIN) 00:00: mouth 4 [place] 500 mg 00 (four) Medical tablet times Branch daily. methocarbam Yes [id number] 500mg Take 1 Univers ol 9-09 tablet by ity of (ROBAXIN) 00:00: mouth 4 [place] 500 mg 00 (four) Medical tablet times Branch daily. methocarbam 2020- No [id number] 500mg Take 1 Univers ol 9- 04-07 tablet by ity of (ROBAXIN) 00:00: 00:00 [place] 4 [place] 500 [place] :00 (four) Medical tablet times [place] daily. methocarbam 2020- No [id number] 500mg Take 1 Univers ol 07-07 tablet by ity of (ROBAXIN) 00:00: 00:00 [place] 4 [place] 500 [place] :00 (four) Medical tablet times [place] daily. predniSONE 2019- No [id number] 40mg Take 2 Univers 20 mg 07-07 tablets by ity of tablet 00:00: 04:59 mouth [place] 00 :00 daily for Medical 5 days. Branch Vital Signs Vital Name Observation Time Observation Value Comments Source Body weight 2022-05-02 17:32:00 94.348 kg Universi ty [facility] BMI 2022-05-02 17:32:00 36.85 kg/m2 [facility] Oxygen saturation in 2022-05-02 17:32:00 99 /min [facility] Arterial blood by [facility] Pulse oximetry Branch Systolic blood 2022-05-02 17:32:00 137 mm[Hg] Univer sity of pressure [facility] Diastolic blood 2022-05-02 17:32:00 91 mm[Hg] [facility] Heart rate 2022-05-02 17:32:00 100 /min [facility] Body temperature 2022-05-02 17:32:00 37.33 [facility] Res[facility] rate 2022-05-02 17:32:00 18 /min [facility] Body height 2022-05-02 17:32:00 160 cm Universi [facility] Diastolic blood 2021-02-02 13:54:00 88 mm[Hg] [facility] Heart rate 2021-02-02 13:54:00 81 /min Universi ty [facility] Respiratory rate 2021-02-02 13:54:00 19 /min [facility] Body height 2021-02-02 13:54:00 158.8 cm Universi [facility] Body weight 2021-02-02 13:54:00 85.684 kg [facility] BMI 2021-02-02 13:54:00 34.00 kg/m2 Universi ty [facility] [place] [facility] Oxygen saturation in 2021-02-02 13:54:00 98 /min University of Arterial blood by [facility] Pulse oximetry Branch Systolic blood 2021-02-02 13:54:00 123 mm[Hg] Univer sity of pressure [place] [facility] Systolic blood 2019-07-07 16:13:00 132 mm[Hg] Univer sity of pressure [place] [facility] Diastolic blood 2019-07-07 16:13:00 83 mm[Hg] Unive rsity of pressure [place] [facility] Heart rate 2019-07-07 16:13:00 99 /min Universi ty [facility] [place] [facility] Body temperature 2019-07-07 16:13:00 36.72 Renetta Univ ers[facility] [place] [facility] Respiratory rate 2019-07-07 16:13:00 20 /min Univ [facility] [place] [facility] Body height 2019-07-07 16:13:00 160 cm [facility]i [facility] [place] [facility] Body weight 2019-07-07 16:13:00 68.04 kg Universi ty [facility] [place] [facility] BMI 2019-07-07 16:13:00 26.57 kg/m2 Universi ty [facility] [place] [facility] Oxygen saturation in 2019-07-07 16:13:00 100 /min University of Arterial blood by [facility] Pulse oximetry Branch Systolic blood 2019-07-07 16:13:00 132 mm[Hg] Univer sity of pressure [place] [facility] Diastolic blood 2019-07-07 16:13:00 83 mm[Hg] Unive rsity of pressure [place] [facility] Heart rate 2019-07-07 16:13:00 99 /min Universi ty [facility] [place] [facility] Body temperature 2019-07-07 16:13:00 36.72 Renetta Univ ersity [facility] [place] [facility] Respiratory rate 2019-07-07 16:13:00 20 /min Univ ersity [facility] [place] [facility] Body height 2019-07-07 16:13:00 160 cm [facility]i [facility] [place] [facility] Body weight 2019-07-07 16:13:00 68.04 kg Universi ty [facility] [place] [facility] BMI 2019-07-07 16:13:00 26.57 kg/m2 [facility] [place] [facility] Oxygen saturation in 2019-07-07 16:13:00 100 /min University of Arterial blood by [facility] Pulse oximetry Branch BP Systolic 2022-08-30 11:22:00 118 mm[Hg] BP Diastolic 2022-08-30 11:22:00 79 mm[Hg] Weight Measured 2022-08-30 11:22:00 213.20 pounds Height Measured 2022-08-30 11:22:00 63.00 inches Body Temperature 2022-08-30 11:22:00 97.60 degrees Heart Rate 2022-08-30 11:22:00 82.00 /min Respiratory Rate 2022-08-30 11:22:00 BP Systolic 2022-05-16 15:37:00 BP Diastolic 2022-05-16 [...] Procedure Date / Time Performed Performing Clinician [facility] e NOTICE OF PRIVACY 2022-05-02 17:29:12 Doctor Unassigned, No Univ ersity [facility] CONSENT/REFUSAL FOR 2022-05-02 17:28:58 Doctor Unassigned, No [facility] [place] DIAGNOSIS AND Name Medical Branch TREATMENT REFERRAL- 2021-01-26 05:01:00 Doctor Unassigned, No [facility] [place] REQUEST/RESPONSE Name Medical Branch REFERRAL- 2020-12-22 06:01:00 Doctor Unassigned, No [facility]iver [facility] [place] REQUEST/RESPONSE Name Medical Branch NOTICE OF PRIVACY 2019-07-07 16:09:09 Doctor Unassigned, No Univ ersity of [facility] Name Medical [place] Plan of Care Planned Activity Planned Date Details Comments Source Goal Plan of Care Note [code = 13753-8] Goal Plan of Care Note [code = 09774-6] Goal Plan of Care Note [code = 65259-5] Goal Plan of Care Note [code = 58837-1] Goal Plan of Care Note [code = 49154-2] Goal Plan of Care Note [code = 78804-4] Goal Plan of Care Note [code = 34107-3] Goal Plan of Care Note [code = 36036-6] Goal Plan of Care Note [code = 64595-1] Goal Plan of Care Note [code = 67505-7] Goal Plan of Care Note [code = 39786-9] Goal Plan of Care Note [code = 68897-0] Goal Plan of Care Note [code = 46270-8] Goal Plan of Care Note [code = 22594-6] Goal Plan of Care Note [code = 65817-5] Goal Plan of Care Note [code = 75570-0] Goal Plan of Care Note [code = 59442-9] Goal Plan of Care Note [code = 72938-2] Goal Plan of Care Note [code = 23322-9] Goal Plan of Care Note [code = 56060-3] Goal Plan of Care Note [code = 21425-4] Goal Plan of Care Note [code = 53206-2] Goal Plan of Care Note [code = 94984-9] Goal Plan of Care Note [code = 94048-2] Goal Plan of Care Note [code = 29632-1] Goal Plan of Care Note [code = 30368-8] Goal Plan of Care Note [code = 66557-4] Goal Plan of Care Note [code = 32635-9] Goal Plan of Care Note [code = 46659-6] Goal Plan of Care Note [code = 68161-1] Goal Plan of Care Note [code = 04424-6] Goal Plan of Care Note [code = 58347-2] Goal Plan of Care Note [code = 91633-9] Goal Plan of Care Note [code = 92281-2] Goal Plan of Care Note [code = 98300-5] Goal Plan of Care Note [code = 28776-1] Goal Plan of Care Note [code = 19736-7] Goal Plan of Care Note [code = 61198-1] Goal Plan of Care Note [code = 14171-7] Goal Plan of Care Note [code = 52912-0] Goal Plan of Care Note [code = 91248-2] Goal Plan of Care Note [code = 53650-6] Goal Plan of Care Note [code = 56221-1] Goal Plan of Care Note [code = 48102-8] Goal Plan of Care Note [code = 89816-8] Goal Plan of Care Note [code = 42587-4] Goal Plan of Care Note [code = 45165-1] Goal Plan of Care Note [code = 97478-1] Goal Plan of Care Note [code = 27020-5] Goal Plan of Care Note [code = 58952-0] Goal Plan of Care Note [code = 77100-3] Goal Plan of Care Note [code = 67145-7] Goal Plan of Care Note [code = 39460-4] Goal Plan of Care Note [code = 48358-3] Goal Plan of Care Note [code = 20538-0] Goal Plan of Care Note [code = 03599-9] Goal Plan of Care Note [code = 88963-3] Goal Plan of Care Note [code = 92291-2] Goal Plan of Care Note [code = 28656-7] Goal Plan of Care Note [code = 94760-0] Goal Plan of Care Note [code = 67714-8] Goal Plan of Care Note [code = 99940-3] Goal Plan of Care Note [code = 67728-9] Goal Plan of Care Note [code = 66317-8] Goal Plan of Care Note [code = 62163-6] Goal Plan of Care Note [code = 75942-4] Goal Plan of Care Note [code = 82384-3] Goal Plan of Care Note [code = 22826-3] Goal Plan of Care Note [code = 77965-8] Goal Plan of Care Note [code = 56045-5] Goal Plan of Care Note [code = 73637-8] Encounters Start End Encounter Admission Attending Care Care Encounter Source Date/Time Date/Time Type Type Clinicians Facility Department ID 2022-01-20 Outpatient [facility] [id number] [place] 19:59:16 [facility] 2022-10-03 2022-10-03 Outpatient SFA SFA [id number] [place] 16:27:26 16:27:26 1206 F [place] 2022-09-05 2022-09-05 Outpatient SFA SFA [id number] [place] 10:56:55 10:56:55 1108 F [place] 2022-08-30 2022-08-30 Outpatient SFA SFA [id number] Od[place] 11:05:02 11:05:02 1102 F [place] 2022-08-30 2022-08-30 Outpatient [id number] 00:00:00 00:00:00 Visit [id number]-b -[id number]-af3 [id number] 2022-05-16 2022-05-16 Outpatient [id number] 00:00:00 00:00:00 Visit [id number]-[id number] -877b-[id number] [id number] 2022-05-02 2022-05-02 Emergency X YULISSA VO ERT [id number] Univers 12:34:00 18:22:00 DAYO mckeon [facility] 2022-05-02 2022-05-02 [facility] [id number] Univers 12:34:00 18:22:00 Dayo [place] [id number] i hilaria [facility] 4.2.7.2.686 [facility] [id number] [address] 2021-03-16 2021-03-16 [facility] [id number] Univers 09:00:00 09:00:00 SENDIL ity [facility] 2021-03-14 2021-03-14 Telephone [place] [id number] Univers 00:00:00 00:00:00 , Bryanna Zohreh Gomez [id number] ity [place] [id number] [place] [id number] [place] 2021-03-01 2021-03-01 Outpatient Macho [facility] [id number] Univers 08:00:00 08:00:00 [facility]-02-02 2021-02-02 [facility] [id number] Univers 08:12:10 09:56:16 Visit Sendil Gricelda [place] [id number] ity [place] 4[place] [facility] [phone] [facility] 2021-02-02 2021-02-02 Outpatient Macho [facility] [id number] Univers 09:00:00 09:00:00 SENDIL ity [facility] 2021-01-26 2021-01-26 Orders Doctor MCCRAY [id number] 00:00:00 00:00:00 Only Unassigned, DAVID [id number] [place] [facility] 4.2.7.2.686 [id number] 2021-01-26 2021-01-26 Orders Doctor MCCRAY [id number] Univers 00:00:00 00:00:00 Only Unassigned, DAVID [id number] ity of [place] [facility] 4.2.7.2.686 Reginaldo as [phone] [facility] 009 [place] 2020-12-22 2020-12-22 Orders Doctor MCCRAY 1.2.840.114 [id number] 00:00:00 00:00:00 Only Unassigned, DAVID [id number] [place] [facility] 4.2.7.2.686 [id number] [id number] 2020-12-22 2020-12-22 Orders Doctor SHAZIA 1.2.840.114 [id number] Univers 00:00:00 00:00:00 Only Unassigned, DAVID [id number] ity of [place] [facility] 4.2.7.2.686 Reginaldo as [phone] [address] 2020-08-06 2020-08-06 Letter Doctor MCCRAY 1.2.840.114 [id number] 00:00:00 00:00:00 (Out) Unassigned, DAVID [id number] [place] [facility] 4.2.7.2.686 [id number] [facility] 2020-08-06 2020-08-06 Letter Doctor SHAZIA 1.2.840.114 [id number] 00:00:00 00:00:00 (Out) Unassigned, DAVID [id number] [facility] 4.2.7.2.686 [id number] [facility] 2020-08-06 2020-08-06 Letter Doctor SHAZIA 1.2.840.114 [id number] Univers 00:00:00 00:00:00 (Out) Unassigned, DAVID [id number] ity of [place] [facility] 4.2.7.2.686 Reginaldo as [phone] [address] 2020-08-06 2020-08-06 Letter Doctor MCCRAY 1.2.840.114 [id number] Univers 00:00:00 00:00:00 (Out) Unassigned, DAVID [id number] ity of [place] [facility] 4.2.7.2.686 Reginaldo as [id number] [address] 2019-07-07 2019-07-07 Emergency Madhav [facility] [id number] 11:16:20 12:14:00 [place] [id number] [place] 4.2.7.2.686 [place] [phone] [phone] 2019-07-07 Emergency Madhav [facility] [id number] [facility] 11:16:20 12:14:00 [place] 350.1.13.10 i ty of [place] 4.2.7.2.686 [facility] [phone] [facility] [address] Results Test Description Test Time Test Comments Results Result Comments Source SARS-CoV-2 (COVID-19), RT-PCR/TMA 2022-01-14 08:18:51 Test Item Value Reference Range Interpretation Comme nts SARS-CoV-2 INTERPRETATION NEGATIVE SEE NOTE S ARS-CoV-2 RNA NOT (test code = 71170) DETECTED Negative results do not preclude SARS-C [...] ORDER CODE 3509. SOURCE (test code = 88253) NOT SPECIFIED Note: Methodology is Dixie Laurie Real-Time RT-PC R. The expected result or refer ence range is NEGATIVE (Not D etected). For more information reg arding COVID-19 testing to incl ude clinicalinforma tion, methodology detail, intende d use, FDA authorization a ndrecommended fact sheets for lav[place] ents or healthcare providers, see NewTest Announcement: S ARS-CoV-2 (COVID-19) by N AAT at URL below (note,fact shee ts are provided by method given in report:https:// www.[employer]/cl inicians/client -communications/ Alternatively, see downloadable PDF fact sheet at:[email or web address]://[email or web address]. [email or web address]/[email or web address]- 19-RT-PCR UNLES S OTHERWISE INDICATED, ALL TESTING PERFORMED MERGED WITH [facility], [facility]. [address] [place] [address] 4 WEB DESIGN INTERN: BERENICE ANN M.D. CLIA NUMBER [id number] CAP ACCREDITATION N O. [id number] SARS-CoV-2 (COVID-19) by RT-PCR (HIGH RISK)2022-01-14 00:00:00 Test Item Value Reference Range Interpretation Comments SARS-CoV-2 INTERPRETATION (test NEGATIVE code = 72820) SOURCE (test code = 58582) NOT SPECIFIED SARS-CoV-2 (COVID-19) by RT-PCR (HIGH RISK)2022-01-14 00:00:00 Test Item Value Reference Range Interpretation Comments SARS-CoV-2 INTERPRETATION (test NEGATIVE code = 08634) SOURCE (test code = 46734) NOT SPECIFIED SARS-CoV-2 (COVID-19) by RT-PCR (HIGH RISK)2022-01-14 00:00:00 Test Item Value Reference Range Interpretation Comments SARS-CoV-2 INTERPRETATION (test NEGATIVE code = 00290) SOURCE (test code = 85129) NOT SPECIFIED SARS-CoV-2 (COVID-19), RT-PCR/[id number] 06:38:45 Test Item Value Reference Interpretation Comments Range SARS-CoV-2 NEGATIVE SEE NOTE SARS-CoV-2 RNA NOT INTERPRETATION DETECTEDNegat francoise (test code = 79854) results do not preclude SARS-C oV-2 infection [...] (test code = NASOPHARYNGEAL Note: [place] [address]) Dixie Laurie [place] l-Time RT-PCR. The exp ected result or refer ence range is NEGATI VE (Not Detected). For more information reg arding COVID-19 testin g to include clinicalinforma tion, methodology det ail, intended use, F DA authorization andrecommended fact sheets for lav[place] ents or healthcare prov iders, see Atilekt Announcement: SARS-CoV-2 (COV ID-19) by NAAT at URL below (note,fact shee ts are provided by met hod given in report:https:// [email or web address]/[email or web address] ians/cl ient-communicat ions/ Alternatively, see downloadable PD F fact sheet at:https://www. [employer]/COVID-19-R T-PCR UNLESS OTHERWIS E INDICATED, ALL TESTING PERFORMED [facility], [facility]. [address] [place] [id number] [place] [address] DIRECTOR: BERENICE ANN M.D. CLIA NUMBER [id number] CAP ACCREDITATION N O. [id number] SARS-CoV-2 (COVID-19) by RT-PCR (HIGH RISK)2021-12-29 00:00:00 Test Item Value Reference Range Interpretation Comments SARS-CoV-2 INTERPRETATION NEGATIVE (test code = 35304) SOURCE (test code = 73908) NASOPHARYNGEAL SARS-CoV-2 (COVID-19) by RT-PCR (HIGH RISK)2021-12-29 00:00:00 Test Item Value Reference Range Interpretation Comments SARS-CoV-2 INTERPRETATION NEGATIVE (test code = 12772) SOURCE (test code = 34654) NASOPHARYNGEAL SARS-CoV-2 (COVID-19) by RT-PCR (HIGH RISK)2021-12-29 00:00:00 Test Item Value Reference Range Interpretation Comments SARS-CoV-2 INTERPRETATION NEGATIVE (test code = 16058) SOURCE (test code = 97549) NASOPHARYNGEAL [id number] 00:00:00 Test Item Value Reference Range Interpretation Comments TSH, THIRD GENERATION (test code 1.250 UIU/ML = 2821) [id number] 00:00:00 Test Item Value Reference Range Interpretation Comments TSH, THIRD GENERATION (test code 1.250 UIU/ML = 2821) [id number] 00:00:00 Test Item Value Reference Range Interpretation Comments TSH, THIRD GENERATION (test code 1.250 UIU/ML = 2821) [id number] 00:00:00 Test Item Value Reference Range Interpretation Comments TSH, THIRD GENERATION (test code 1.250 UIU/ML = 2821) [id number] 00:00:00 Test Item Value Reference Range Interpretation Comments TSH, THIRD GENERATION (test code 1.250 UIU/ML = 2821) CBC W/AUTO [id number] 00:00:00 Test Item Value Reference Range Interpretation [...] code = 1015) 207 K/UL CBC W/AUTO [id number] 00:00:00 Test Item Value Reference Range Interpretation [...] code = 1015) 207 K/UL COMPREHENSIVE METABOLIC [id number] 00:00:00 Test Item Value Reference Range Interpretation Comments GLUCOSE (test code = 2217) 108 MG/DL BUN (test code = 2208) 8 MG/DL CREATININE (test code = 2214) 0.80 MG/DL eGFR AMER. (test code 112 ML/MIN/1.73 = 88899) eGFR NON- AMER. (test 97 ML/MIN/1.73 code = 05771) CALC BUN/CREAT (test code = 10 RATIO 2235) SODIUM (test code = 2231) 139 MEQ/L POTASSIUM (test code = 2228) 4.3 MEQ/L CHLORIDE (test code = 2215) 107 MEQ/L CARBON DIOXIDE (test code = 25 MEQ/L 2206) CALCIUM (test code = 2209) 9.4 MG/DL PROTEIN, TOTAL (test code = 7.2 G/DL 222) ALBUMIN (test code = 2201) 4.8 G/DL CALC GLOBULIN (test code = 2.4 G/DL 2240) CALC A/G RATIO (test code = 2.0 RATIO 2234) BILIRUBIN, TOTAL (test code = 0.3 MG/DL 2207) ALKALINE PHOSPHATASE (test 78 U/L code = 2204) AST (test code = 2218) 12 U/L ALT (test code = 2219) 12 U/L CBC W/AUTO [id number] 00:00:00 Test Item Value Reference Range Interpretation [...] code = 1015) 207 K/UL CBC W/AUTO [id number] 00:00:00 Test Item Value Reference Range Interpretation [...] code = 1015) 207 K/UL CBC W/AUTO [id number] 00:00:00 Test Item Value Reference Range Interpretation [...] code = 1015) 207 K/UL COMPREHENSIVE METABOLIC [id number] 00:00:00 Test Item Value Reference Range Interpretation Comments GLUCOSE (test code = 2217) 108 MG/DL BUN (test code = 2208) 8 MG/DL CREATININE (test code = 2214) 0.80 MG/DL eGFR AMER. (test code 112 ML/MIN/1.73 = 79200) eGFR NON- AMER. (test 97 ML/MIN/1.73 code = 57503) CALC BUN/CREAT (test code = 10 RATIO 2235) SODIUM (test code = 2231) 139 MEQ/L POTASSIUM (test code = 2228) 4.3 MEQ/L CHLORIDE (test code = 2215) 107 MEQ/L CARBON DIOXIDE (test code = 25 MEQ/L 2205) CALCIUM (test code = 2209) 9.4 MG/DL [...] ALT (test code = 2219) 12 U/L COMPREHENSIVE METABOLIC [id number] 00:00:00 Test Item Value Reference Range Interpretation Comments GLUCOSE (test code = 2217) 108 MG/DL BUN (test code = 2208) 8 MG/DL CREATININE (test code = 2214) 0.80 MG/DL eGFR AMER. (test code 112 ML/MIN/1.73 = 04694) eGFR NON- AMER. (test 97 ML/MIN/1.73 code = 58530) CALC BUN/CREAT (test code = 10 RATIO 2235) SODIUM (test code = 2231) 139 MEQ/L POTASSIUM (test code = 2228) 4.3 MEQ/L CHLORIDE (test code = 2215) 107 MEQ/L CARBON DIOXIDE (test code = 25 MEQ/L 2205) CALCIUM (test code = 2209) 9.4 MG/DL PROTEIN, TOTAL (test code = 7.2 G/DL 2228) ALBUMIN (test code = 2201) 4.8 G/DL CALC GLOBULIN (test code = 2.4 G/DL 2240) CALC A/G RATIO (test code = 2.0 RATIO 2234) BILIRUBIN, TOTAL (test code = 0.3 MG/DL 7) ALKALINE PHOSPHATASE (test 78 U/L code = 2204) AST (test code = 2218) 12 U/L ALT (test code = 2219) 12 U/L VAGINAL PATHOGENS DNA [id number] 00:00:00 Test Item Value Reference Range Interpretation Comments YORDY SPECIES (test code = ) NEGATIVE G. VAGINALIS (test code = 21883) POSITIVE T. VAGINALIS (test code = 73537) NEGATIVE [id number] 00:00:00 Test Item Value Reference Range Interpretation Comments TESTOSTERONE (test code = 2830) 23 NG/DL FSH + LH [id number] 00:00:00 Test Item Value Reference Range Interpretation Comments FOLLICLE STIM HORMONE (test code = 5.4 IU/L 2700) LUTEINIZING HORMONE (test code = 9.5 IU/L 2776) [id number] 00:00:00 Test Item Value Reference Range Interpretation Comments PROLACTIN (test code = 2800) 8.5 NG/ML [id number] 00:00:00 Test Item Value Reference Range Interpretation Comments ESTRADIOL (test code = 2505) 59.4 PG/ML [id number] 00:00:00 Test Item Value Reference Range Interpretation Comments ESTRADIOL (test code = 2505) 59.4 PG/ML VAGINAL PATHOGENS DNA [id number] 00:00:00 Test Item Value Reference Range Interpretation Comments YORDY SPECIES (test code = ) NEGATIVE G. VAGINALIS (test code = 17734) POSITIVE T. VAGINALIS (test code = ) NEGATIVE VAGINAL PATHOGENS DNA [id number] 00:00:00 Test Item Value Reference Range Interpretation Comments YORDY SPECIES (test code = ) NEGATIVE G. VAGINALIS (test code = 64067) POSITIVE T. VAGINALIS (test code = 99426) NEGATIVE [id number] 00:00:00 Test Item Value Reference Range Interpretation Comments TESTOSTERONE (test code = 2830) 23 NG/DL [id number] 00:00:00 Test Item Value Reference Range Interpretation Comments TESTOSTERONE (test code = 2830) 23 NG/DL FSH + LH [id number] 00:00:00 Test Item Value Reference Range Interpretation Comments FOLLICLE STIM HORMONE (test code = 5.4 IU/L 2700) LUTEINIZING HORMONE (test code = 9.5 IU/L 2776) FSH + LH [id number] 00:00:00 Test Item Value Reference Range Interpretation Comments FOLLICLE STIM HORMONE (test code = 5.4 IU/L 2700) LUTEINIZING HORMONE (test code = 9.5 IU/L 2776) [id number] 00:00:00 Test Item Value Reference Range Interpretation Comments PROLACTIN (test code = 2800) 8.5 NG/ML [id number] 00:00:00 Test Item Value Reference Range Interpretation Comments PROLACTIN (test code = 2800) 8.5 NG/ML [id number] 00:00:00 Test Item Value Reference Range Interpretation Comments ESTRADIOL (test code = 2505) 59.4 PG/ML [id number] 00:00:00 Test Item Value Reference Range Interpretation Comments ESTRADIOL (test code = 2505) 59.4 PG/ML [id number] 00:00:00 Test Item Value Reference Range Interpretation Comments ESTRADIOL (test code = 2505) 59.4 PG/ML PAP TEST, THINPREP, [id number] 00:00:00 Test Item Value Reference Range Interpretation Comments SOURCE: (test code = 8001) Cervical/Endocervi franca SLIDES: (test code = 8011) 1 LMP: (test code = 8021) 09/02/2020 SPECIMEN ADEQUACY: (test (NOTE) code = 80937) INTERPRETATION: (test code ASCUS/EPITH. = 94921) ABNORMALITY; SEE BELOW BANK SECRECY ACT OFFICER: (test Daisy code = 8101) GABRIELA Kay(ASCP)IAC PATHOLOGIST INTERPRETATION Aleksander Chen M.D. BY: (test code = 8122) LOCATION: (test code = (NOTE) 11978) CPT: (test code = 8140) (NOTE) PAP TEST, THINPREP, [id number] 00:00:00 Test Item Value Reference Range Interpretation Comments SOURCE: (test code = 8001) Cervical/Endocervi franca SLIDES: (test code = 8011) 1 LMP: (test code = 8021) 09/02/2020 SPECIMEN ADEQUACY: (test (NOTE) code = 07412) INTERPRETATION: (test code ASCUS/EPITH. = 47658) ABNORMALITY; SEE BELOW BANK SECRECY ACT OFFICER: (test Daisy code = 8101) GABRIELA Kay(ASCP)IAC PATHOLOGIST INTERPRETATION Aleksander Chen M.D. BY: (test code = 8122) LOCATION: (test code = (NOTE) 14684) CPT: (test code = 8140) (NOTE) PAP TEST, THINPREP, [id number] 00:00:00 Test Item Value Reference Range Interpretation Comments SOURCE: (test code = 8001) Cervical/Endocervi franca SLIDES: (test code = 8011) 1 LMP: (test code = 8021) 09/02/2020 SPECIMEN ADEQUACY: (test (NOTE) code = 17335) INTERPRETATION: (test code ASCUS/EPITH. = 18035) ABNORMALITY; SEE BELOW BANK SECRECY ACT OFFICER: (test Daisy code = 8101) GABRIELA Kay(ASCP)[facility] PATHOLOGIST INTERPRETATION Aleksander Chen M.D. BY: (test code = 8122) LOCATION: (test code = (NOTE) 61865) CPT: (test code = 8140) (NOTE) HIV 1/2 4TH GEN, RFLX CONF [ADDED]2020-09-21 00:00:00 Test Item Value Reference Range Interpretation Comments HIV 1/2 4TH GEN, RFLX CONF (test NON-REACTIVE code = 3514) GC AND CHLAMYDIA AMPLIFIED, [id number] 00:00:00 Test Item Value Reference Range Interpretation Comments GONORRHEA, TMA (test code = 77007) NEGATIVE CHLAMYDIA, TMA (test code = 51231) NEGATIVE RPR [ADDED]2020-09-21 00:00:00 Test Item Value [...] ) NEGATIVE ADELA (ANTI-NUCLEAR AB) WITH REFLEX [id number] 00:00:00 Test Item Value Reference Range Interpretation Comments ANTI-NUCLEAR ANTIBODIES (test code = NEGATIVE 3506) HPV HIGH RISK WITH GENOTYPE, [id number] 00:00:00 Test Item Value Reference Range Interpretation Comments HPV HIGH RISK INTERP (test code = NEGATIVE 72855) HPV 16 (test code = 14446) NEGATIVE HPV 18 (test code = 06332) NEGATIVE HPV, HR, OTHER GENOTYPES (test code NEGATIVE = 54228) HIV 1/2 4TH GEN, RFLX CONF [ADDED]2020-09-21 00:00:00 Test Item Value Reference Range Interpretation Comments HIV 1/2 4TH GEN, RFLX CONF (test NON-REACTIVE code = 3514) GC AND CHLAMYDIA AMPLIFIED, [id number] 00:00:00 Test Item Value Reference Range Interpretation Comments GONORRHEA, TMA (test code = 05011) NEGATIVE CHLAMYDIA, TMA (test code = 56519) NEGATIVE HIV 1/2 4TH GEN, RFLX CONF [ADDED]2020-09-21 00:00:00 Test Item Value Reference Range Interpretation Comments HIV 1/2 4TH GEN, RFLX CONF (test NON-REACTIVE code = 3514) GC AND CHLAMYDIA AMPLIFIED, [id number] 00:00:00 Test Item Value Reference Range Interpretation Comments GONORRHEA, TMA (test code = 08756) NEGATIVE CHLAMYDIA, TMA (test code = 65416) NEGATIVE RPR [ADDED]2020-09-21 00:00:00 Test Item Value [...] (test code = 3500) NOT INDIC. TITER ADELA (ANTI-NUCLEAR AB) WITH REFLEX [id number] 00:00:00 Test Item Value Reference Range Interpretation Comments ANTI-NUCLEAR ANTIBODIES (test code = NEGATIVE 3506) HPV HIGH RISK WITH GENOTYPE, [id number] 00:00:00 Test Item Value Reference Range Interpretation Comments HPV HIGH RISK INTERP (test code = NEGATIVE 39537) HPV 16 (test code = 29862) NEGATIVE HPV 18 (test code = 82909) NEGATIVE HPV, HR, OTHER GENOTYPES (test code NEGATIVE = 16140) VAGINAL PATHOGENS DNA PANEL [ADDED]2020-09-21 00:00:00 Test Item Value Reference Range Interpretation Comments YORDY SPECIES (test code = ) NEGATIVE G. VAGINALIS (test code = 36332) POSITIVE T. VAGINALIS (test code = 68534) NEGATIVE ADELA (ANTI-NUCLEAR AB) WITH REFLEX [id number] 00:00:00 Test Item Value Reference Range Interpretation Comments ANTI-NUCLEAR ANTIBODIES (test code = NEGATIVE 3506) HPV HIGH RISK WITH GENOTYPE, [id number] 00:00:00 Test Item Value Reference Range Interpretation Comments HPV HIGH RISK INTERP (test code = NEGATIVE 80186) HPV 16 (test code = 87085) NEGATIVE HPV 18 (test code = 53295) NEGATIVE HPV, HR, OTHER GENOTYPES (test code NEGATIVE = 48704) VAGINAL PATHOGENS DNA PANEL [ADDED]2020-09-21 00:00:00 Test Item Value Reference Range Interpretation Comments YORDY SPECIES (test code = ) NEGATIVE G. VAGINALIS (test code = 61665) POSITIVE T. VAGINALIS (test code = ) NEGATIVE [id number] 00:00:00 Test Item Value Reference Range Interpretation Comments TSH, THIRD GENERATION (test code 2.110 UIU/ML = 2821) [id number] 00:00:00 Test Item Value Reference Range Interpretation Comments TSH, THIRD GENERATION (test code 2.110 UIU/ML = 2821) [id number] 00:00:00 Test Item Value Reference Range Interpretation Comments TSH, THIRD GENERATION (test code 2.110 UIU/ML = 2821) [id number] 00:00:00 Test Item Value Reference Range Interpretation Comments TSH, THIRD GENERATION (test code 2.110 UIU/ML = 2821) [id number] 00:00:00 Test Item Value Reference Range Interpretation Comments TSH, THIRD GENERATION (test code 2.110 UIU/ML = 2821) COMPREHENSIVE METABOLIC [id number] 00:00:00 Test Item Value Reference Range Interpretation Comments GLUCOSE (test code = 2217) 90 MG/DL BUN (test code = 2208) 11 MG/DL CREATININE (test code = 2214) 0.89 MG/DL eGFR AMER. (test code 99 ML/MIN/1.73 = 92266) eGFR NON- AMER. (test 85 ML/MIN/1.73 code = 94957) CALC BUN/CREAT (test code = 12 RATIO [...] CALC GLOBULIN (test code = 2.6 G/DL 2239) CALC A/G RATIO (test code = 1.9 RATIO 2233) BILIRUBIN, TOTAL (test code = 0.3 MG/DL 2206) ALKALINE PHOSPHATASE (test 93 U/L code = 2204) AST (test code = 2218) 20 U/L ALT (test code = 2219) 58 U/L LIPID [id number] 00:00:00 Test Item Value Reference Range Interpretation Comments CHOLESTEROL (test code = 2210) 221 MG/DL TRIGLYCERIDES (test code = 2232) 180 MG/DL HDL CHOLESTEROL (test code = 2220) 51 MG/DL CALC LDL CHOL (test code = 2237) 138 MG/DL RISK RATIO LDL/HDL (test code = 2.71 RATIO 2238) CBC W/AUTO [id number] 00:00:00 Test Item Value Reference Range Interpretation [...] code = 1015) 233 K/UL CBC W/AUTO [id number] 00:00:00 Test Item Value Reference Range Interpretation [...] COUNT (test code = 1015) 233 K/UL COMPREHENSIVE METABOLIC [id number] 00:00:00 Test Item Value Reference Range Interpretation Comments GLUCOSE (test code = 2217) 90 MG/DL BUN (test code = 2208) 11 MG/DL CREATININE (test code = 2214) 0.89 MG/DL eGFR AMER. (test code 99 ML/MIN/1.73 = 62967) eGFR NON- AMER. (test 85 ML/MIN/1.73 code = 12416) CALC BUN/CREAT (test code = 12 RATIO [...] CALC GLOBULIN (test code = 2.6 G/DL 224) CALC A/G RATIO (test code = 1.9 RATIO 2234) BILIRUBIN, TOTAL (test code = 0.3 MG/DL 2206) ALKALINE PHOSPHATASE (test 93 U/L code = 2204) AST (test code = 2218) 20 U/L ALT (test code = 2219) 58 U/L COMPREHENSIVE METABOLIC [id number] 00:00:00 Test Item Value Reference Range Interpretation Comments GLUCOSE (test code = 2217) 90 MG/DL BUN (test code = 2208) 11 MG/DL CREATININE (test code = 2214) 0.89 MG/DL eGFR AMER. (test code 99 ML/MIN/1.73 = 67280) eGFR NON- AMER. (test 85 ML/MIN/1.73 code = 62302) CALC BUN/CREAT (test code = 12 RATIO [...] (test code = 2219) 58 U/L LIPID [id number] 00:00:00 Test Item Value Reference Range Interpretation Comments CHOLESTEROL (test code = 2210) 221 MG/DL TRIGLYCERIDES (test code = 2232) 180 MG/DL HDL CHOLESTEROL (test code = 2220) 51 MG/DL CALC LDL CHOL (test code = 2237) 138 MG/DL RISK RATIO LDL/HDL (test code = 2.71 RATIO 2238) LIPID [id number] 00:00:00 Test Item Value Reference Range Interpretation Comments CHOLESTEROL (test code = 2210) 221 MG/DL TRIGLYCERIDES (test code = 2232) 180 MG/DL HDL CHOLESTEROL (test code = 2220) 51 MG/DL CALC LDL CHOL (test code = 2237) 138 MG/DL RISK RATIO LDL/HDL (test code = 2.71 RATIO 2238) CBC W/AUTO [id number] 00:00:00 Test Item Value Reference Range Interpretation [...] code = 1015) 233 K/UL CBC W/AUTO [id number] 00:00:00 Test Item Value Reference Range Interpretation [...] code = 1015) 233 K/UL CBC W/AUTO [id number] 00:00:00 Test Item Value Reference Range Interpretation [...] (test code = 1015) 233 K/UL RPR, [id number] 22:11:00 Test Item Value Reference Range Interpretation Comments RPR (test code = RPR) Non-Reactive Non-Reactive N Thyroid Stimulating Hormone (TSH)2017-03-08 09:46:00 Test Item Value Reference Range Interpretation Comments TSH (test code = TSH) 0.79 mIU/mL 0.270-4.200 N
[2022-10-03] MEDS ORDERED: HYDROCODONE/APAP 7.5/325 MG TAB ONE (20:34)
[2022-10-03] MEDS ORDERED: IBUPROFEN 400 MG TAB ONE (20:34)
--- NOTE | 2022-10-03 21:01 | RAD REPORT ---
EXAM DESCRIPTION: RAD - Hand Right 3 View - 10/03/2022 8:55 pm CLINICAL HISTORY: Right hand pain FINDINGS: No fracture or dislocation is seen. No bone or joint abnormality noted
--- NOTE | 2022-10-03 21:01 | RAD REPORT ---
EXAM DESCRIPTION: RAD - Forearm Right - 10/03/2022 8:55 pm CLINICAL HISTORY: Right arm pain FINDINGS: No fracture is seen. No bony abnormality noted
--- NOTE | 2022-10-03 21:08 | ER ---
Nurse's Notes [facility] Name: Charis Padgett Age: 37 yrs Sex: Female : 1985 Arrival Date: 10/03/2022 Time: 18:09 Bed 23 Private MD: Diagnosis: Pain in joints of right hand;Pain in right wrist Presentation: 10/03 18:30 Chief complaint: Patient states: today around 10am my hand cramped up and now I cant ss move it; its shooting pains up into my elbow and is now slightly swollen .. my doctor is the one who told me to come to ED. Coronavirus screen: Vaccine status: Patient reports receiving the 2nd dose of the covid vaccine. Client denies travel out of the [place] in the last 14 days. Ebola Screen: Patient negative for fever greater than or equal to 101.5 degrees Fahrenheit, and additional compatible Ebola Virus Disease symptoms Patient denies exposure to infectious person. Patient denies travel to an Ebola-affected area in the 21 days before illness onset. Initial Sepsis Screen: Does the patient meet any 2 criteria? No. Patient's initial sepsis screen is negative. Does the patient have a suspected source of infection? No. Patient's initial sepsis screen is negative. Risk Assessment: Do you want to hurt yourself or someone else? Patient reports no desire to harm self or others. 18:30 Method Of Arrival: Ambulatory ss 18:30 Acuity: KALYANI 4 ss Triage Assessment: 18:31 General: Appears uncomfortable, well groomed, well developed, Behavior is calm, ss cooperative, appropriate for age. Pain: Complains of pain in right hand. 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 - Social history:: Smoking status: Patient reports the use of cigarette tobacco products, Patient/guardian denies using tobacco, Stopped _ months ago 8. Screenin:33 Abuse screen: Denies threats or abuse. Denies injuries from another. Nutritional tw5 screening: No deficits noted. Tuberculosis screening: No symptoms or risk factors identified. Fall Risk None identified. Assessment: 20:33 General: "I was driving and this hand cramped up real bad. I was sore after that, but tw5 then the pain got worse and now it feels like it is on fire. It also looks like it is swelling.". Neuro: Level of Consciousness is awake, alert, obeys commands, Oriented to person, place, time, situation. 20:33 Pain: Complains of pain in right wrist Pain currently is 7 out of 10 on a pain scale. tw5 Respiratory: No deficits noted. GI: No deficits noted. Derm:. Musculoskeletal: Range of motion: intact in all extremities. 21:30 Reassessment: Patient states feeling better. Patient states symptoms have improved. tw5 General: Reports "Right now I dont have any pain anymore unless i try and lift my thumb.". Vital Signs: 18:30 BP 133 / 106; Pulse 92; Resp 18; Temp 98.3; Pulse Ox 98% ; Weight 92.99 kg; Height 5 ss ft. 2 in. (157.48 cm); Pain 10/10; 20:33 Pulse 73; Resp 18; Pulse Ox 100% ; Pain 7/10; tw5 21:30 Pulse 71; Resp 18; Pulse Ox 100% ; Pain 0/10; tw5 18:30 Body Mass Index 37.49 (92.99 kg, 157.48 cm) ED Course: 18:09 Patient arrived in ED. mr 18:12 Benjie Willingham PA is PHCP. cp 18:12 Berhane Rodriguez MD is Attending Physician. cp 18:31 Triage completed. ss 18:31 Arm band placed on left wrist. ss 19:11 Benjie Hilliard MD is Attending Physician. cp 20:31 Rosanna Daily is Primary Nurse. tw5 20:33 Patient has correct armband on for positive identification. Bed in low position. Call tw5 light in reach. Side rails up X 1. Pulse ox on. Door closed. Noise minimized. Moved to private room. Warm blanket given. Verbal reassurance given. 20:33 No provider procedures requiring assistance completed. Patient did not have IV access tw5 during this emergency room visit. 20:57 XRAY Hand RIGHT 3 View In Process Unspecified. EDMS 20:57 XRAY Forearm RIGHT In Process Unspecified. EDMS 21:30 Orthoglass splint: Thumb spica splint applied on left forearm. tw5 Administered Medications: 20:39 Drug: Ibuprofen 800 mg Route: PO; tw5 21:29 Follow up: Response: No adverse reaction; RASS: Alert and Calm (0) tw5 20:39 Drug: Hydrocodone-Acetaminophen (7.5 mg-325 mg) 1 tabs Route: PO; tw5 21:29 Follow up: Response: No adverse reaction; Pain is decreased; RASS: Alert and Calm (0) tw5 Medication: 20:33 VIS not applicable for this client. tw5 Outcome: 21:08 Discharge ordered by . yony 21:30 Discharged to home ambulatory, with family. tw5 21:30 Condition: improved 21:30 Discharge instructions given to patient, Instructed on discharge instructions, follow up and referral plans. Demonstrated understanding of instructions, follow-up care, medications, Prescriptions given X 1. 21:32 Patient left the ED. tw5 Signatures: Dispatcher [employer] [facility] Lady Mcdonald mr Nicole Torres RN RN Benjie Garcia PA PA cp Wood, Tiffany tw5
--- NOTE | 2022-10-03 21:08 | EDPHYS ---
Physician Documentation [facility] Name: Charis Padgett Age: 37 yrs Sex: Female : 1985 Arrival Date: 10/03/2022 Time: 18:09 Bed 23 Private MD: ED Physician Benjie Hilliard HPI: 10/03 19:35 This 37 yrs old Female presents to ER via Ambulatory with complaints of Wrist Pain, cp Hand Pain, Elbow pain. 19:35 The patient or guardian complains of pain, that is acute. The complaints affect the cp right wrist and right hand. Context: resulted from unknown cause, started with cramping today at 10. Treatment prior to arrival includes: no previous treatment. Associated signs and symptoms: Pertinent positives: swelling, Pertinent negatives: fever, numbness, warmth, weakness. Severity of symptoms: in the emergency department the symptoms are unchanged. Patient reports she was referred to ED by pcp for evaluation. 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 - Social history:: Smoking status: Patient reports the use of cigarette tobacco products, Patient/guardian denies using tobacco, Stopped _ months ago 8. ROS: 19:40 Constitutional: Negative for body aches, chills, fever, poor PO intake. cp 19:40 Eyes: Negative for injury, pain, redness, and discharge. cp 19:40 ENT: Negative for drainage from ear(s), ear pain, sore throat, difficulty swallowing, difficulty handling secretions. 19:40 Neck: Negative for pain with movement, pain at rest. 19:40 Cardiovascular: Negative for chest pain, palpitations. 19:40 Respiratory: Negative for cough, shortness of breath, wheezing. 19:40 Abdomen/GI: Negative for abdominal pain, nausea, vomiting, and diarrhea. 19:40 Back: Negative for pain at rest, pain with movement. 19:40 MS/extremity: Positive for pain, swelling, of the right wrist and right hand, Negative for injury or acute deformity, paresthesias. 19:40 Skin: Negative for cellulitis, rash. 19:40 Neuro: Negative for altered mental status, dizziness, headache, weakness. 19:40 All other systems are negative. Exam: 19:45 Constitutional: The patient appears in no acute distress, alert, awake, non-toxic, well cp developed, well nourished. 19:45 Head/Face: Normocephalic, atraumatic. cp 19:45 Eyes: Periorbital structures: appear normal, Conjunctiva: normal, no exudate, no injection, Sclera: no appreciated abnormality, Lids and lashes: appear normal, bilaterally. 19:45 ENT: External ear(s): are unremarkable, Nose: is normal, Mouth: Lips: moist, Posterior pharynx: Airway: no evidence of obstruction, patent. 19:45 Neck: C-spine: vertebral tenderness, is not appreciated, crepitus, is not appreciated, ROM/movement: is normal, is supple, without pain, no range of motions limitations. 19:45 Chest/axilla: Inspection: normal. 19:45 Cardiovascular: Rate: normal, Rhythm: regular, Pulses: Pulses are 2+ in right radial artery. 19:45 Respiratory: the patient does not display signs of respiratory distress, Respirations: normal, no use of accessory muscles, no retractions, labored breathing, is not present. 19:45 Back: pain, is absent, ROM is normal. 19:45 Musculoskeletal/extremity: Extremities: grossly normal except: noted in the right wrist and right hand: pain, tenderness, mild swelling, no deformities noted, skin warm/dry/intact, ROM: limited passive range of motion due to pain, in the right wrist and right hand, Perfusion: the extremity is normally perfused throughout, the right hand Sensation intact. Vital Signs: 18:30 BP 133 / 106; Pulse 92; Resp 18; Temp 98.3; Pulse Ox 98% ; Weight 92.99 kg; Height 5 ss ft. 2 in. (157.48 cm); Pain 10/10; 20:33 Pulse 73; Resp 18; Pulse Ox 100% ; Pain 7/10; tw5 21:30 Pulse 71; Resp 18; Pulse Ox 100% ; Pain 0/10; tw5 18:30 Body Mass Index 37.49 (92.99 kg, 157.48 cm) ss MDM: 18:42 Patient medically screened. cp 19:30 Differential diagnosis: tendonitis, fracture, cellulitis. cp 21:08 Data reviewed: vital signs, nurses notes, radiologic studies, plain films. cp 21:08 Test interpretation: by ED physician or midlevel provider: plain radiologic studies. cp Counseling: I had a detailed discussion with the patient and/or guardian regarding: the historical points, exam findings, and any diagnostic results supporting the discharge/admit diagnosis, radiology results, the need for outpatient follow up, a family practitioner, to return to the emergency department if symptoms worsen or persist or if there are any questions or concerns that arise at home. Response to treatment: the patient's symptoms have markedly improved after treatment, and as a result, I will discharge patient. 10/03 19: Order name: XRAY Hand RIGHT 3 View; Complete Time: 21: cp 10/03 19: Order name: XRAY Forearm RIGHT; Complete Time: : cp 10/03 21: Order name: Splint - Thumb Spica; Complete Time: 21:30 cp Administered Medications: 20:39 Drug: Ibuprofen 800 mg Route: PO; tw5 21:29 Follow up: Response: No adverse reaction; RASS: Alert and Calm (0) tw5 20:39 Drug: Hydrocodone-Acetaminophen (7.5 mg-325 mg) 1 tabs Route: PO; tw5 21:29 Follow up: Response: No adverse reaction; Pain is decreased; RASS: Alert and Calm (0) tw5 Disposition Summary: 10/03/22 21:08 Discharge Ordered Location: Home cp Problem: new cp Symptoms: have improved cp Condition: Stable cp Diagnosis - Pain in joints of right hand cp - Pain in right wrist cp Followup: cp - With: Private Physician - When: 2 - 3 days - Reason: Recheck today's complaints Discharge Instructions: - Discharge Summary Sheet cp - Wrist Pain, Adult cp - Hand Pain cp Forms: - Medication Reconciliation Form cp - Thank You Letter cp - Antibiotic Education cp - Prescription Opioid Use cp Prescriptions: - Diclofenac Sodium 75 mg Oral Tablet Sustained Release - take 1 tablet by ORAL route 2 times per day; 30 tablet; Refills: 0, Product cp Selection Permitted Signatures: Dispatcher [employer] Nicole Mckinley RN RN Benjie Garcia PA PA cp Wood, Tiffany tw5
[2022-10-04 05:09] VITALS: BP 133/106; TEMP 98.3
[2022-10-04 05:10] VITALS: O2SAT 100
== END 2022-10-03 21:32 | disposition home or self-care (01) ==
LOC: ER 18:07
DX: M25.541 Pain in joints of right hand (principal); M25.531 Pain in right wrist; Z91.018 Allergy to other foods
CPT/HCPCS: 99284

== ENCOUNTER 2023-04-09 18:06 | Emergency (ER) | payer OTHER ==
--- OUTSIDE RECORDS SUMMARY | 2023-04-09 18:13 | XMS REPORT | Continuity of Care Document ---
:1985 Author Organization [facility] t Address [address] [facility] [address] [place] [address] Care Team Providers Name Role Phone UNKNOWN, REFFERING Primary Care Physician Unavailable DAYO VO Attending Clinician Unavailable Dayo Vo MD Attending Clinician MADI KLEIN K.H. Attending Clinician Unavailable Bryanna De La Fuente RN Attending Clinician Unavailable Ernie VALDEZ, Sendkate K.H. Attending Clinician Doctor Unassigned, [place] Attending Clinician Unavailable Kota Corey MD Attending Clinician PRISCA GARCIA Attending Clinician Unavailable PRISCA GARCIA Admitting Clinician Unavailable Payers Payer Name Policy Type Policy Number Effective Date Expiration Date [facility] STAR [id number] 2020 00:00:00 Problems Condition Condition Condition Status Onset Resolution Last Treating Co mments Source Name Details Category Date Date Treatment Clinician Date No known No known Disease Unive rs active active ity of problems problems [facility] Allergies, Adverse Reactions, Alerts Allergy Allergy Status Severity Reaction(s) Onset Inactive Treating Comm ents Source Name Type Date Date Clinician Peanut Propensi Active Anaphylaxis Onions- Un amber ty to 6 uncooked ity of adverse 00:00: - rash [place] reaction [address] [place] [address] PEANUT DRUG Active Anaphylaxis Unive rs INGREDI 04-20 ity of 00:00: [address] Social History Social Habit Start Date Stop Date Quantity Comments Source Exposure to 2022-04-22 2022-05-02 Unable to assess Univers ity of SARS-CoV-2 00:00:00 12:29:00 [facility] (event) Mobile Tobacco use and 2021-02-02 2021-02-02 Never used Universit y of exposure 00:00:00 00:00:00 [facility] Sex Assigned At [birth year] Universit y of 00:00:00 00:00:00 [facility] Smoking Status Start Date Stop Date Source Unknown if ever smoked [facility] Mobile Current some day smoker 2021-02-02 00:00:00 [facility] Medications Ordered Filled Start Stop Current Ordering Indication Dosage Frequency Signature Comments Components Source Medication Medication Date Date Medication? Clinician (SIG) Name Name TAKE 2021-10 No 50 TABLET -07 TWICE 00:00: DAILY. 00 MIRTAZAPINE 2021-10 No 75 7.5 MG TABS 12-05 00:00: 00 TAKE 2021-10 No 50 TABLET -07 TWICE 00:00: DAILY. 00 MIRTAZAPINE 2021-10 No 75 7.5 MG TABS 12-05 00:00: 00 BENZONATATE 2-0 No 200 MG CAPS 9-20 00:00: 00 BENZONATATE 2021-0 No 200 MG CAPS 9-20 00:00: 00 BENZONATATE 2021-0 No 200 MG CAPS 9-20 00:00: 00 BENZONATATE 2-0 No 200 200 MG CAPS 8-17 00:00: 00 BENZONATATE 2021-0 No 200 200 MG CAPS 8-17 00:00: 00 BENZONATATE 2021-0 No 200 200 MG CAPS 8-17 00:00: 00 TAKE 2021-0 No 50 TABLET 8-11 NEEDED. 00:00: 00 TAKE 1 2021-0 No 50 TABLET 8-11 NEEDED. 00:00: 00 TAKE 1 2021-0 No 50 TABLET 8-11 NEEDED. 00:00: 00 TAKE 2 2021-0 No 250 TABLETS BY 8-09 MOUTH ON 00:00: DAY 1, THEN 00 1 TABLET DAILY ON DAYS 2 TO 5. TAKE 2 2021-0 No 250 TABLETS BY 8-09 MOUTH ON 00:00: DAY 1, THEN 00 1 TABLET DAILY ON DAYS 2 TO 5. TAKE 2 2022-0 No 250 TABLETS BY 8-09 MOUTH ON 00:00: DAY 1, THEN 00 1 TABLET DAILY ON DAYS 2 TO 5. TAKE 1 2022-0 No 125 TABLET 8-08 EVERY 6 TO 00:00: 8 HOURS 00 NEEDED NAUSEA. &lt 2022-0 No 250 8-08 00:00: 00 &lt 2022-0 No 100 8-08 00:00: 00 INSTILL TWO 2022-0 No (2) SPRAYS 8-08 IN THE 00:00: NOSTRILS 00 DAILY. &lt 2022-0 No 10 8-08 00:00: 00 TAKE ONE 2022-0 No 50 (1) 8-08 TABLET(S) 00:00: BY MOUTH 00 DAILY NEEDED FOR ANXIETY. &lt 2022-0 No 8-08 00:00: 00 TAKE 1 AND 2022-0 No 10 1/2 TABLETS 8-08 DAILY. 00:00: 00 Dose 2022-0 No 250 Unknown 8-08 00:00: 00 TAKE 1 2022-0 No 125 TABLET 8-08 EVERY 6 TO 00:00: 8 HOURS 00 NEEDED NAUSEA. &lt 2022-0 No 250 8-08 00:00: 00 &lt 2022-0 No 100 8-08 00:00: 00 INSTILL TWO 2022-0 No (2) SPRAYS 8-08 IN THE 00:00: NOSTRILS 00 DAILY. &lt 2022-0 No 10 8-08 00:00: 00 TAKE ONE 2022-0 No 50 (1) 8-08 TABLET(S) 00:00: BY MOUTH 00 DAILY NEEDED FOR ANXIETY. &lt 2022-0 No 8-08 00:00: 00 TAKE 1 AND 2022-0 No 10 1/2 TABLETS 8-08 DAILY. 00:00: 00 Dose 2022-0 No 250 Unknown 8-08 00:00: 00 TAKE 1 2022-0 No 125 TABLET 8-08 EVERY 6 TO 00:00: 8 HOURS 00 NEEDED NAUSEA. &lt 2022-0 No 250 8-08 00:00: 00 &lt 2022-0 No 100 8-08 00:00: 00 INSTILL TWO 2022-0 No (2) SPRAYS 8-08 IN THE 00:00: NOSTRILS 00 DAILY. &lt 2022-0 No 10 8-08 00:00: 00 TAKE ONE 2022-0 No 50 (1) 06-05 TABLET(S) 00:00: BY MOUTH 00 DAILY NEEDED FOR ANXIETY. &lt 2022-0 No 8-08 00:00: 00 TAKE 1 AND 2022-0 No 10 1/2 TABLETS 8-08 DAILY. 00:00: 00 Dose 2022-0 No 250 Unknown 06-05 00:00: 00 &lt 2022-0 No 8- 00:00: 00 TAKE 1 2022-0 No 125 TABLET 8-04 EVERY 6 TO 00:00: 8 HOURS 00 NEEDED NAUSEA. TAKE 2 2022-0 No 250 TABLETS BY 8- MOUTH ON 00:00: DAY 1, THEN 00 1 TABLET DAILY ON DAYS 2 TO 5. Dose 2022-0 No 20 Unknown 06-01 00:00: 00 &lt 2022-0 No 8- 00:00: 00 TAKE 1 2022-0 No 125 TABLET 8-04 EVERY 6 TO 00:00: 8 HOURS 00 NEEDED NAUSEA. TAKE 2 2022-0 No 250 TABLETS BY 8- MOUTH ON 00:00: DAY 1, THEN 00 1 TABLET DAILY ON DAYS 2 TO 5. Dose 2022-0 No 20 Unknown 06-01 00:00: 00 &lt 2022-0 No 8- 00:00: 00 TAKE 1 2022-0 No 125 TABLET 8- EVERY 6 TO 00:00: 8 HOURS 00 NEEDED NAUSEA. TAKE 2 2022-0 No 250 TABLETS BY 8- MOUTH ON 00:00: DAY 1, THEN 00 1 TABLET DAILY ON DAYS 2 TO 5. Dose 2022-0 No 20 Unknown 06-01 00:00: 00 TAKE 2 2022-0 No 250 TABLETS BY 8- MOUTH ON 00:00: DAY 1, THEN 00 1 TABLET DAILY ON DAYS 2 TO 5. &lt 2022-0 No 100 05-31 00:00: 00 &lt 2022-0 No 150 05-31 00:00: 00 &lt 2022-0 No 10 05-31 00:00: 00 &lt 2022-0 No 150 8 00:00: 00 &lt 2022-0 No 20 05-31 00:00: 00 TAKE 2 2022-0 No 250 TABLETS BY 8- MOUTH ON 00:00: DAY 1, THEN 00 1 TABLET DAILY ON DAYS 2 TO 5. &lt 2022-0 No 100 8- 00:00: 00 &lt 2022-0 No 150 8- 00:00: 00 &lt 2022-0 No 10 - 00:00: 00 &lt 2022-0 No 150 - 00:00: 00 &lt 2022-0 No 20 - 00:00: 00 TAKE 2 2-0 No 250 TABLETS BY 05-31 MOUTH ON 00:00: DAY 1, THEN 00 1 TABLET DAILY ON DAYS 2 TO 5. &lt 2022-0 No 100 - 00:00: 00 &lt 2022-0 No 150 - 00:00: 00 &lt 2022-0 No 10 05-31 00:00: 00 &lt 2022-0 No 150 - 00:00: 00 &lt 2022-0 No 20 - 00:00: 00 Dose 2022-0 No Unknown 7-19 [...] hydroxyzine 2-0 No 1mg HCl 50 mg 6-15 tablet [...] 2022-0 No Unknown 4-22 00:00: 00 Dose 2-0 No Unknown 4-22 00:00: 00 Dose 2-0 No Unknown 4-22 00:00: 00 Dose 2-0 No Unknown 4-22 00:00: 00 Dose 2-0 No Unknown 4-21 00:00: 00 Dose 2022-0 No Unknown 4-21 00:00: 00 Dose 2022-0 No Unknown 4-21 00:00: 00 Dose 2022-0 No Unknown 4-21 00:00: 00 Dose 2-0 No Unknown 4-21 00:00: 00 Dose 2022-0 No Unknown 4-21 00:00: 00 Dose 2-0 No Unknown 4-21 00:00: 00 Dose 2-0 No Unknown 4-21 00:00: 00 Dose 2-0 No Unknown 4-21 00:00: 00 Dose 2022-0 No Unknown 4-21 00:00: 00 Dose 2022-0 No Unknown 4-21 00:00: 00 Dose 2-0 No Unknown 4-21 00:00: 00 Rozerem 8 2-0 No 1mg mg tablet 4-19 00:00: 00 Dose 2022-0 No Unknown 4-19 00:00: 00 Dose 2022-0 No Unknown 4-19 00:00: 00 Dose 2-0 No Unknown 4-19 00:00: 00 Dose 2022-0 No Unknown 4-19 00:00: 00 Dose 2022-0 No Unknown 4-19 00:00: 00 Dose 2022-0 No Unknown 4-19 00:00: 00 hydroxyzine 2-0 No 1mg HCl 50 mg 4-19 tablet [...] 2022-0 No Unknown 4-19 00:00: 00 hydroxyzine 2-0 No 1mg HCl 50 mg 4-19 tablet 00:00: 00 Wellbutrin 2-0 No 1mg XL 150 mg 4-19 24 hr 00:00: tablet, 00 extended release escitalopra 2-0 No 1mg m 10 mg 4-19 tablet 00:00: 00 Claritin 10 2021-0 No 1mg mg tablet 4- 00:00: 00 azithromyci 2-0 No mg n [...] No Unknown 4-13 00:00: 00 Claritin 10 2-0 No 1mg mg tablet 4-13 00:00: 00 azithromyci 2-0 No mg n 250 mg 4-13 tablet 00:00: 00 fluticasone 2-0 No 2mcg/ac propionate 4-13 tuation 50 00:00: mcg/actuati 00 on nasal spray,suspe nsion Dose 2-0 No Unknown 4-13 00:00: 00 Dose 2-0 No Unknown 4-13 00:00: 00 Dose 2-0 No Unknown 4-13 00:00: 00 Dose 2-0 No Unknown 4-13 00:00: 00 Claritin 10 2021-0 No 1mg mg tablet 4-13 00:00: 00 azithromyci 2021-0 No mg n 250 mg - tablet 00:00: 00 fluticasone 2021-0 No 2mcg/ac [...] No Unknown 3-18 00:00: 00 Bromfed DM 2022-0 No 10mg/5 2 mg-30 3-18 mL mg-10 [...] No Unknown 3-18 00:00: 00 Bromfed DM 2022-0 No 10mg/5 2 mg-30 3-18 mL mg-10 [...] Dose 2022-0 No Unknown 1-12 00:00: 00 Wellbutrin 2022-0 No 1mg XL 150 mg 1-12 24 hr 00:00: tablet, 00 extended release Dose 2022-0 No Unknown 1-12 00:00: 00 Dose 2022-0 No Unknown 1-12 00:00: 00 escitalopra 2022-0 No 1mg m 10 mg 1-12 tablet 00:00: 00 escitalopra 2022-0 No 1mg m 10 mg 1-12 tablet 00:00: 00 Wellbutrin 2022-0 No 1mg XL 150 mg 1-12 24 hr 00:00: tablet, 00 extended release Dose 2022-0 No Unknown 1-12 00:00: 00 Dose 2022-0 No Unknown 1-12 00:00: 00 escitalopra 2022-0 No 1mg m 10 mg 1-12 tablet 00:00: 00 Wellbutrin 2022-0 No 1mg [...] 200 mg 1-09 capsule 00:00: 00 promethazin 2-0 No 1mg e 12.5 mg 1-09 tablet 00:00: 00 prednisone 2022-0 No mg 20 mg 1-09 tablet 00:00: 00 benzonatate 2-0 No 1mg 200 mg 1-09 capsule 00:00: 00 promethazin 2-0 No 1mg e 12.5 mg 1-09 tablet 00:00: 00 prednisone 2022-0 No mg 20 mg 1-09 tablet 00:00: 00 benzonatate 2-0 No 1mg 200 mg 1-09 capsule 00:00: 00 promethazin 2-0 No 1mg e 12.5 mg 1-09 tablet 00:00: 00 prednisone 2022-0 No mg 20 mg 1-09 tablet 00:00: 00 benzonatate 2-0 No 1mg 200 mg 1-09 capsule 00:00: 00 Wellbutrin 2020-1 No 1mg XL 150 mg 2-16 24 hr 00:00: tablet, 00 extended release escitalopra 2020-1 No 1mg m 10 mg 2-16 tablet 00:00: 00 Dose 2020-1 No Unknown 2-16 00:00: 00 Wellbutrin 2020-1 No 1mg XL 150 mg 2-16 24 hr 00:00: tablet, 00 extended release escitalopra 2020-1 No 1mg m 10 mg 2-16 tablet 00:00: 00 Dose 2020-1 No Unknown 2-16 00:00: 00 Wellbutrin 2020-1 No 1mg XL 150 mg 2-16 24 hr 00:00: tablet, 00 extended release escitalopra 2020-1 No 1mg m 10 mg 2-16 tablet 00:00: 00 Dose 2020-1 No Unknown 2-16 00:00: 00 Wellbutrin 2020-1 No 1mg XL 150 mg 2-16 24 hr 00:00: tablet, 00 extended release escitalopra 2020-1 No 1mg m 10 mg 2-16 tablet 00:00: 00 Dose 2020-1 No Unknown 2-16 00:00: 00 Dose 2020-1 No Unknown 2-02 00:00: 00 escitalopra 2020-1 No 1mg m 10 mg 2-02 tablet 00:00: 00 Dose 2020-1 No Unknown 2-02 00:00: 00 escitalopra 2020-1 No 1mg m 10 mg 2-02 tablet 00:00: 00 Dose 2020-1 No Unknown 2-02 00:00: 00 escitalopra 2020-1 No 1mg m 10 mg 2-02 tablet 00:00: 00 Dose 2020-1 No Unknown 2-02 00:00: 00 escitalopra 2020-1 No 1mg m 10 mg 2-02 tablet 00:00: 00 Wellbutrin 2020-1 No 1mg SR 150 mg 1-22 tablet, 12 00:00: hr 00 sustained-r elease Wellbutrin 2020- No 1mg SR 150 mg 1-22 tablet, 12 00:00: hr 00 sustained-r elease Wellbutrin 2020-10 No 1mg SR 150 mg 1-22 tablet, 12 00:00: hr 00 sustained-r elease Wellbutrin 2020- No 1mg SR 150 mg 1-22 tablet, 12 00:00: hr 00 sustained-r elease ibuprofen 2020-1 No 1mg 600 mg 1-11 tablet 00:00: 00 ibuprofen 2020-1 No 1mg 600 mg 1-11 tablet 00:00: 00 ibuprofen 2020-1 No 1mg 600 mg 1-11 tablet 00:00: 00 ibuprofen 2020-1 No 1mg 600 mg 1-11 tablet 00:00: 00 Wellbutrin 2020-1 No 1mg SR 150 mg 0-18 tablet, 12 00:00: hr 00 sustained-r elease Wellbutrin 2020-1 No 1mg SR 150 mg 0-18 tablet, 12 00:00: hr 00 sustained-r elease Wellbutrin 1 No 1mg SR 150 mg 0-18 tablet, 12 00:00: hr 00 sustained-r elease Wellbutrin 2020-1 No 1mg SR 150 mg 0-18 tablet, 12 00:00: hr 00 sustained-r elease Zofran 4 mg 2020-0 No 12mg tablet 07-25 00:00: 00 amoxicillin 1-0 No 2mg 500 mg 9-27 capsule 00:00: 00 Dose 2020-0 No Unknown 07-25 00:00: 00 amoxicillin 1-0 No 2mg 500 mg 9-27 capsule 00:00: 00 Dose 2021-0 No Unknown 9-27 00:00: 00 amoxicillin 2021-0 No 2mg 500 mg 9-27 capsule 00:00: 00 Dose 2021-0 No Unknown 9-27 00:00: 00 amoxicillin 2021-0 No 2mg 500 mg 9-27 capsule 00:00: 00 Wellbutrin 2021-0 No 1mg SR 150 mg 9-13 tablet, 12 00:00: hr 00 sustained-r elease Wellbutrin 2021-0 No 1mg SR 150 mg 9-13 tablet, 12 00:00: hr 00 sustained-r elease Wellbutrin 2021-0 No 1mg SR 150 mg 9-13 tablet, 12 00:00: hr 00 sustained-r elease Wellbutrin 2021-0 No 1mg SR 150 mg 9-13 tablet, [...] Wellbutrin 1-0 No 1mg SR 150 mg 4-19 tablet, 12 00:00: hr 00 sustained-r elease Wellbutrin 1-0 No 1mg SR 150 mg 4-19 tablet, 12 00:00: hr 00 sustained-r elease Wellbutrin 1-0 No 1mg SR 150 mg 4-19 tablet, 12 00:00: hr 00 sustained-r elease buPROPion 1-0 Yes 150mg Take 150 Uni vers SR [...] 150 mg 2-24 tablet 00:00: 00 clindamycin 2021-0 No 1mg HCl 300 mg 2-24 capsule 00:00: 00 Diflucan 2021-0 No 1mg 150 mg 2-24 tablet 00:00: 00 Diflucan 2021-0 No 1mg 150 mg 2-24 tablet 00:00: 00 clindamycin 2021-0 No 1mg HCl 300 mg 2-24 capsule 00:00: 00 clindamycin 1-0 No 1mg HCl [...] No 1mg mg tablet -16 00:00: 00 Flagyl 500 2020-0 No 1mg mg tablet -16 00:00: 00 Diflucan 2020-0 No 1mg 150 mg 1-16 tablet 00:00: 00 Diflucan 2020-0 No 1mg 150 mg 1-16 tablet 00:00: 00 Flagyl 500 2020-0 No 1mg mg tablet -16 00:00: 00 Diflucan 2020-0 No 1mg 150 mg 1-16 tablet 00:00: 00 Flagyl 500 2019-1 No 1mg mg tablet 1-25 00:00: 00 Flagyl 500 2019-1 No 1mg mg tablet 1-25 00:00: 00 Flagyl 500 2019-1 No 1mg mg tablet -25 00:00: 00 Flagyl 500 2019-1 No 1mg mg tablet -25 00:00: 00 Wellbutrin 2019- No 1mg XL 150 mg 1-20 24 hr 00:00: tablet, 00 extended release Wellbutrin 2019-10 No 1mg XL 150 mg 1-20 24 hr 00:00: tablet, 00 extended release Wellbutrin 2019-1 No 1mg XL 150 mg 1-20 24 hr 00:00: tablet, 00 extended release Wellbutrin 2019-1 No 1mg XL 150 mg 1-20 24 hr 00:00: tablet, 00 extended release methocarbam 0 2019- No 500mg 500 mg, U nivers ol 07-07 Oral, ity of (ROBAXIN) 17:45: 16:50 ONCE, [place] 500 00 :00 dose, Mon Medi [place] mg 07/07/19 at Branch 1245, VARINDER ketorolac 2018- No 30mg 30 mg, Unive rs (TORADOL) 07-07- Intramuscu ity of injection 17:45: 16:50 [place], ONCE, [place] 30 mg 00 :00 1 dose, Medical 07/07/19 Branch at 1245, VARINDER
[facility] Restricted medication : KOTA COREY methocarbam Yes [id number] 500mg Take 1 Univers ol 9-09 tablet by ity of (ROBAXIN) 00:00: mouth 4 [place] 500 mg 00 (four) Medical tablet times Branch daily. methocarbam Yes [id number] 500mg Take 1 Univers ol 9-09 tablet by ity of (ROBAXIN) 00:00: mouth 4 [place] 500 mg 00 (four) Medical tablet times Branch daily. methocarbam Yes [id number] 500mg Take 1 Univers ol 9- tablet by ity of (ROBAXIN) 00:00: mouth 4 [place] 500 mg 00 (four) Medical tablet times Branch daily. methocarbam Yes [id number] 500mg Take 1 Univers ol 9- tablet by ity of (ROBAXIN) 00:00: mouth 4 [place] 500 mg 00 (four) Medical tablet times Branch daily. methocarbam Yes [id number] 500mg Take 1 Univers ol 9-09 tablet by ity of (ROBAXIN) 00:00: mouth 4 [place] 500 mg 00 (four) Medical tablet times Branch daily. methocarbam 2020- No [id number] 500mg Take 1 Univers ol 07-07- tablet by ity of (ROBAXIN) 00:00: 00:[place] mouth 4 [place] 500 mg 00 :00 (four) Medical tablet times Branch daily. methocarbam 2020- No [id number] 500mg Take 1 Univers ol -07 02- tablet by ity of (ROBAXIN) 00:00: 00:[place] 500 mg 00 :00 (four) Medical tablet times Branch daily. predniSONE 2019- No [id number] 40mg Take 2 Univers 20 mg 07-07-15 tablets by ity of tablet 00:00: 04:59 mouth [place] 00 :00 daily for Medical 5 days. Branch Vital Signs Vital Name Observation Time Observation Value Comments Source Body weight 2022-05-02 17:32:00 94.348 kg [facility] [place] [facility] BMI 2022-05-02 17:32:00 36.85 kg/m2 [facility] [place] [facility] Oxygen saturation in 2022-05-02 17:32:00 99 /min University of Arterial blood by [facility] Pulse oximetry Branch Systolic blood 2022-05-02 17:32:00 137 mm[Hg] [facility] [place] [facility] Diastolic blood 2022-05-02 17:32:00 91 mm[Hg] Unive rsity of [facility] [place] [facility] Heart rate 2022-05-02 17:32:00 100 /min [facility] [place] [facility] Body temperature 2022-05-02 17:32:00 37.33 Renetta [facility] [place] [facility] Respiratory rate 2022-05-02 17:32:00 18 /min Univ ersity of [facility] Body height 2022-05-02 17:32:00 160 cm [facility] [place] [facility] Systolic blood 2021-02-02 13:54:00 123 mm[Hg] [facility] [place] [facility] Diastolic blood 2021-02-02 13:54:00 88 mm[Hg] Unive rsity [facility] [place] [facility] Heart rate 2021-02-02 13:54:00 81 /min [facility] [place] [facility] Respiratory rate 2021-02-02 13:54:00 19 /min Univ ersity of [facility] Branch Body height 2021-02-02 13:54:00 158.8 cm [facility] [place] [facility] Body weight 2021-02-02 13:54:00 85.684 kg [facility] [place] [facility] BMI 2021-02-02 13:54:00 34.00 kg/m2 [facility] [place] [facility] Oxygen saturation in 2021-02-02 13:54:00 98 /min University of Arterial blood by [facility] Pulse oximetry Branch Systolic blood 2019-07-07 16:13:00 132 mm[Hg] [facility] [place] [facility] Diastolic blood 2019-07-07 16:13:00 83 mm[Hg] Unive rsity [facility] [place] [facility] Heart rate 2019-07-07 16:13:00 99 /min [facility] [place] [facility] Body temperature 2019-07-07 16:13:00 36.72 Renetta [facility] [place] [facility] Respiratory rate 2019-07-07 16:13:00 20 /min [facility] [place] [facility] Body height 2019-07-07 16:13:00 160 cm [facility] [place] [facility] Body weight 2019-07-07 16:13:00 68.04 kg [facility] [place] [facility] BMI 2019-07-07 16:13:00 26.57 kg/m2 [facility] [place] [facility] Oxygen saturation in 2019-07-07 16:13:00 100 /min [facility] [place]terial blood by [place] [facility] [place] Pulse oximetry Branch Systolic blood 2019-07-07 16:13:00 132 mm[Hg] [facility] [place] [facility] Diastolic blood 2019-07-07 16:13:00 83 mm[Hg] [facility] [place] [facility] [place] Heart rate 2019-07-07 16:13:00 99 /min [facility] [place] [facility] Body temperature 2019-07-07 16:13:[address] [facility] [place] [facility] Respiratory rate 2019-07-07 16:13:00 20 /min [facility] [place] [facility] Body height 2019-07-07 16:13:00 160 cm [facility] [place] [facility] Body weight 2019-07-07 16:13:00 68.04 kg [facility] [place] [facility] BMI 2019-07-07 16:13:00 26.57 kg/m2 [facility] [place] [facility] Oxygen saturation in 2019-07-07 16:13:00 100 /min University of Arterial blood by [facility] franca Pulse oximetry Branch BP Systolic 2022-10-04 13:42:00 114 mm[Hg] BP Diastolic 2022-10-04 13:42:00 78 mm[Hg] Weight Measured 2022-10-04 13:42:00 205.60 pounds Height Measured 2022-10-04 13:42:00 63.00 inches Body Temperature 2022-10-04 13:42:00 98.70 degrees Heart Rate 2022-10-04 13:42:00 99.00 /min Respiratory Rate 2022-10-04 13:42:00 18.00 /min BP Systolic 2022-10-03 15:41:00 125 mm[Hg] BP Diastolic 2022-10-03 15:41:00 90 mm[Hg] Weight Measured 2022-10-03 15:41:00 205.60 pounds Height Measured 2022-10-03 15:41:00 63.00 inches Body Temperature 2022-10-03 15:41:00 97.40 degrees Heart Rate 2022-10-03 15:41:00 105.00 /min Respiratory Rate 2022-10-03 15:41:00 16.00 /min BP Systolic 2022-08-30 11:22:00 118 mm[Hg] BP [...] Procedure Date / Time Performed Performing Clinician Sour e NOTICE OF PRIVACY 2022-05-02 17:29:12 Doctor Unassigned, No [facility] PRACTICES Name Medical Branch CONSENT/REFUSAL FOR 2022-05-02 17:28:58 Doctor Unassigned, No [facility] DIAGNOSIS AND Name Medical Branch TREATMENT REFERRAL- 2021-01-26 05:01:00 Doctor Unassigned, No [facility] [place] REQUEST/RESPONSE Name Medical Branch REFERRAL- 2020-12-22 06:01:00 Doctor Unassigned, No [facility] [place] REQUEST/RESPONSE Name Medical Branch NOTICE OF PRIVACY 2019-07-07 16:09:09 Doctor Unassigned, No [facility] [place] PRACTICES Name Medical Branch Plan of Care Planned Activity Planned Date Details Comments Source Goal Plan of Care Note [code = 92678-3] Goal Plan of Care Note [code = 18751-8] Goal Plan of Care Note [code = 84356-1] Goal Plan of Care Note [code = 09891-7] Goal Plan of Care Note [code = 30185-5] Goal Plan of Care Note [code = 92316-7] Goal Plan of Care Note [code = 84490-4] Goal Plan of Care Note [code = 36462-5] Goal Plan of Care Note [code = 27129-1] Goal Plan of Care Note [code = 90577-2] Goal Plan of Care Note [code = 44492-5] Goal Plan of Care Note [code = 93170-5] Goal Plan of Care Note [code = 29401-2] Goal Plan of Care Note [code = 99281-7] Goal Plan of Care Note [code = 35138-2] Goal Plan of Care Note [code = 71695-5] Goal Plan of Care Note [code = 95622-1] Goal Plan of Care Note [code = 73421-1] Goal Plan of Care Note [code = 57186-7] Goal Plan of Care Note [code = 62241-2] Goal Plan of Care Note [code = 31273-5] Goal Plan of Care Note [code = 35790-6] Goal Plan of Care Note [code = 34618-6] Goal Plan of Care Note [code = 30474-1] Goal Plan of Care Note [code = 33088-8] Goal Plan of Care Note [code = 29593-2] Goal Plan of Care Note [code = 57991-2] Goal Plan of Care Note [code = 63163-8] Goal Plan of Care Note [code = 48370-4] Goal Plan of Care Note [code = 12254-9] Goal Plan of Care Note [code = 34436-9] Goal Plan of Care Note [code = 97773-5] Goal Plan of Care Note [code = 23249-6] Goal Plan of Care Note [code = 83051-3] Goal Plan of Care Note [code = 03066-2] Goal Plan of Care Note [code = 54534-9] Goal Plan of Care Note [code = 31310-2] Goal Plan of Care Note [code = 16753-7] Goal Plan of Care Note [code = 77243-6] Goal Plan of Care Note [code = 79808-3] Goal Plan of Care Note [code = 61586-5] Goal Plan of Care Note [code = 91804-0] Goal Plan of Care Note [code = 44427-9] Goal Plan of Care Note [code = 31470-0] Goal Plan of Care Note [code = 75667-5] Goal Plan of Care Note [code = 22405-0] Goal Plan of Care Note [code = 16749-1] Goal Plan of Care Note [code = 91444-7] Goal Plan of Care Note [code = 58477-5] Goal Plan of Care Note [code = 46462-8] Goal Plan of Care Note [code = 83192-2] Goal Plan of Care Note [code = 49642-9] Goal Plan of Care Note [code = 02749-3] Goal Plan of Care Note [code = 81763-8] Goal Plan of Care Note [code = 80866-3] Goal Plan of Care Note [code = 91843-8] Goal Plan of Care Note [code = 02864-7] Goal Plan of Care Note [code = 40743-6] Goal Plan of Care Note [code = 83971-5] Goal Plan of Care Note [code = 18994-5] Goal Plan of Care Note [code = 15605-6] Goal Plan of Care Note [code = 81483-0] Goal Plan of Care Note [code = 52654-3] Goal Plan of Care Note [code = 39498-6] Goal Plan of Care Note [code = 07952-7] Goal Plan of Care Note [code = 39372-3] Goal Plan of Care Note [code = 57119-0] Goal Plan of Care Note [code = 90193-1] Goal Plan of Care Note [code = 04438-2] Goal Plan of Care Note [code = 63142-1] Goal Plan of Care Note [code = 05054-9] Goal Plan of Care Note [code = 59037-9] Goal Plan of Care Note [code = 64161-0] Goal Plan of Care Note [code = 09235-9] Goal Plan of Care Note [code = 55752-3] Goal Plan of Care Note [code = 58195-7] Goal Plan of Care Note [code = 92606-7] Goal Plan of Care Note [code = 49280-8] Goal Plan of Care Note [code = 29350-5] Goal Plan of Care Note [code = 98187-9] Goal Plan of Care Note [code = 18941-1] Goal Plan of Care Note [code = 26862-1] Goal Plan of Care Note [code = 61775-2] Goal Plan of Care Note [code = 42714-0] Goal Plan of Care Note [code = 21316-6] Goal Plan of Care Note [code = 23348-7] Goal Plan of Care Note [code = 76753-2] Goal Plan of Care Note [code = 38231-2] Goal Plan of Care Note [code = 59187-9] Goal Plan of Care Note [code = 48381-7] Goal Plan of Care Note [code = 28453-5] Goal Plan of Care Note [code = 26311-7] Goal Plan of Care Note [code = 40437-8] Goal Plan of Care Note [code = 21064-0] Goal Plan of Care Note [code = 28851-7] Goal Plan of Care Note [code = 53813-9] Goal Plan of Care Note [code = 29830-5] Goal Plan of Care Note [code = 34538-6] Goal Plan of Care Note [code = 89637-8] Goal Plan of Care Note [code = 93589-3] Goal Plan of Care Note [code = 33102-2] Goal Plan of Care Note [code = 61924-8] Goal Plan of Care Note [code = 04143-2] Goal Plan of Care Note [code = 41648-6] Goal Plan of Care Note [code = 17894-5] Goal Plan of Care Note [code = 56559-1] Goal Plan of Care Note [code = 38570-7] Goal Plan of Care Note [code = 20870-9] Goal Plan of Care Note [code = 65701-6] Goal Plan of Care Note [code = 72525-8] Goal Plan of Care Note [code = 44398-6] Goal Plan of Care Note [code = 91132-4] Goal Plan of Care Note [code = 95848-8] Goal Plan of Care Note [code = 21080-8] Goal Plan of Care Note [code = 98459-2] Goal Plan of Care Note [code = 91264-0] Goal Plan of Care Note [code = 22149-1] Goal Plan of Care Note [code = 93576-2] Goal Plan of Care Note [code = 94226-6] Goal Plan of Care Note [code = 75363-9] Goal Plan of Care Note [code = 28779-9] Goal Plan of Care Note [code = 94570-4] Goal Plan of Care Note [code = 84490-6] Goal Plan of Care Note [code = 35613-8] Goal Plan of Care Note [code = 05750-6] Goal Plan of Care Note [code = 37341-2] Goal Plan of Care Note [code = 50655-8] Goal Plan of Care Note [code = 24909-6] Goal Plan of Care Note [code = 84714-5] Goal Plan of Care Note [code = 91557-0] Goal Plan of Care Note [code = 85915-2] Goal Plan of Care Note [code = 16777-0] Goal Plan of Care Note [code = 34393-6] Goal Plan of Care Note [code = 11958-1] Goal Plan of Care Note [code = 28038-3] Goal Plan of Care Note [code = 00829-1] Goal Plan of Care Note [code = 31147-5] Goal Plan of Care Note [code = 62834-3] Goal Plan of Care Note [code = 95787-0] Goal Plan of Care Note [code = 45211-9] Goal Plan of Care Note [code = 82181-7] Goal Plan of Care Note [code = 45947-2] Goal Plan of Care Note [code = 97503-9] Goal Plan of Care Note [code = 85908-5] Goal Plan of Care Note [code = 02314-6] Goal Plan of Care Note [code = 61555-4] Goal Plan of Care Note [code = 53657-7] Goal Plan of Care Note [code = 06946-2] Goal Plan of Care Note [code = 58775-7] Goal Plan of Care Note [code = 18696-9] Goal Plan of Care Note [code = 22694-0] Encounters Start End Encounter Admission Attending Care Care Encounter Source Date/Time Date/Time Type Type Clinicians Facility Department ID 2023-01-31 2023-01-31 Outpatient SFA DAV [id number] [place] 13:06:35 13:06:35 0405 F Arthur 2022-11-23 2022-11-23 Outpatient SFA SFA [id number] 023 [place] 15:03:05 15:03:05 0126 F Arthur 2022-10-04 2022-10-04 Outpatient mg743p1z- [id number] aa 941x4y-6 00:00:00 00:00:00 Visit 3267-4c5b 267-4c5b-9 -5pu9-873 bc8-009af0 ai4z1j36c d1e93f 2022-10-03 2022-10-03 Outpatient SFA SFA [id number] 022 [place] 16:27:26 16:27:26 1206 F Arthur 2022-10-03 2022-10-03 Outpatient 3v4j97r3- [id number] 3c 7x44o2-0 00:00:00 00:00:00 Visit 8e05-9bl3 q29-4qh0-v -bed2-8d4 ed2-8d4dfc cvv318329 436081 1417-11-08 2022-09-05 Outpatient [facility] [id number] 022 [place] 10:56:55 10:56:55 1108 F Arthur 2022-08-30 2022-08-30 Outpatient SFA [facility] [id number] 022 [place]ilon 11:05:02 11:05:02 1102 F Arthur 2022-08-30 2022-08-30 Outpatient v9p162b3- [id number] b2 a149d0-4 00:00:00 00:00:00 Visit 84b0-02t5 2x7-35p5-a -pv7c-zo3 h2c-gf0i1h c4qv5k4bz f5e4ee 2022-05-16 2022-05-16 Outpatient 0f48o0k3- [id number] 1a 96x1t3-3 00:00:00 00:00:00 Visit 746b-4fb4 46b-4fb4-8 -877b-c0a 77b-r6n620 721o66485 n70892 2022-05-02 2022-05-02 Emergency [facility] [id number] Univers 12:34:00 18:22:00 DAYO itabel [facility] 2022-05-02 2022-05-02 [facility] [id number] Univers 12:34:00 18:22:00 Dayo L[place] 350.1.13.10 [address] [facility] [place] [phone] [address] 2021-03-16 2021-03-16 Outpatient Macho KLEIN [facility] [id number] Univers 09:00:00 09:00:00 SENDIL ity of [facility] 2021-03-14 2021-03-14 Telephone Sudhakar Taylor 1.2.840.114 [id number] Univers 00:00:00 00:00:00 , Bryanna Gomez 350.1.13.10 [place] [phone] [address] 2021-03-01 2021-03-01 [facility] [id number] Univers 08:00:00 08:00:00 SENDIL ity [facility] 2021-02-02 2021-02-02 Office Ernie [facility] 1.2.840.114 [id number] Univers 08:12:10 09:56:16 Visit Sendil Gricelda [place] 350.1.13.10 ity of [place] [id number] Pr dical [facility] [facility] [place] 2021-02-02 2021-02-02 Outpatient R ERNIE [facility] [id number] Univers 09:00:00 09:00:00 SENDIL ity [facility] 2021-01-26 2021-01-26 Orders Doctor SHAZIA [place]2.840.114 [id number] 00:00:00 00:00:00 Only Unassigned, DAVID 350.1.13.10 [facility] 4.2.7.2.686 [id number] 2021-01-26 2021-01-26 Orders Doctor SHAZIA [place]2.840.114 [id number] Univers 00:00:00 00:00:00 Only Unassigned, DAVID 350.1.13.10 ity of [facility] 4.2.7.2.686 [place] as [phone] [address] 2020-12-22 2020-12-22 Orders Doctor SHAZIA Kaba.2.840.114 [id number] 00:00:00 00:00:00 Only Unassigned, DAVID 350.1.13.10 [facility] 4.2.7.2.686 [id number] 2020-12-22 2020-12-22 Orders Doctor SHAZIA Kaba.2.840.114 [id number] Univers 00:00:00 00:00:00 Only Unassigned, DAVID 350.1.13.10 ity of [facility] 4.2.7.2.686 [place] as [phone] [address] 2020-08-06 2020-08-06 Letter Doctor SHAZIA Montana2.840.114 [id number] 00:00:00 00:00:00 (Out) Unassigned, DAVID 350.1.13.10 [facility] 4.2.7.2.686 [id number] 044 2020-08-06 2020-08-06 Letter Doctor SHAZIA 1.2.840.114 [id number] 00:00:00 00:00:00 (Out) Unassigned, DAVID 350.1.13.10 [facility] 4.2.7.2.686 [id number] 044 2020-08-06 2020-08-06 Letter Doctor MCCRAY 1.2.840.114 [id number] Univers 00:00:00 00:00:00 (Out) Unassigned, DAVID 350.1.13.10 ity of [facility] 4.2.7.2.686 [place] [phone] [address] 2020-08-06 2020-08-06 Letter Doctor MCCRAY 1.2.840.114 [id number] Univers 00:00:00 00:00:00 (Out) Unassigned, DAVID 350.1.13.10 ity of [facility] 4.2.7.2.686 [place] [phone] [address] 2019-07-07 2019-07-07 Emergency [place], [facility] 1.2.081.483 [id number] 11:16:20 12:14:00 [place] 350.1.13.10 [place] 4.2.7.2.686 [place] [phone] [facility] 2019-07-07 2019-07-07 Emergency [place], [facility] 1.2.590.741 [id number] [facility] 11:16:20 12:14:00 [place] 350.1.13.10 i ty of [place] 4.2.7.2.686 [facility] [phone] [address] Results Test Description Test Time Test Comments Results Result Comments Source CULTURE, URINE 2022-09-01 00:00:00 Test Item Value Reference Range Interpretation Comme nts CULTURE, URINE (test code = 80370) SPECIMEN NUMBER: [id number] CULTURE, [id number] 00:00:00 Test Item Value Reference Range Interpretation Comments CULTURE, URINE (test SPECIMEN NUMBER: code = 54319) [id number] CULTURE, [id number] 00:00:00 Test Item Value Reference Range Interpretation Comments CULTURE, URINE (test SPECIMEN NUMBER: code = 17272) [id number] CULTURE, [id number] 00:00:00 Test Item Value Reference Range Interpretation Comments CULTURE, URINE (test SPECIMEN NUMBER: code = 46852) [id number] SARS-CoV-2 (COVID-19), RT-PCR/[id number] 08:18:51 Test Item Value Reference Interpretation Comments Range SARS-CoV-2 NEGATIVE SEE NOTE SARS-CoV-2 RNA NOT INTERPRETATION DETECTEDNegat francoise (test code = 15483) results do not preclude SARS-CoV-2 infe ction [...] ORDER CODE 3509. SOURCE (test code = [place]: [place] [address]) Dixie Laurie [place] l-Time RT-PCR. The exp ected result or [...] provided by met hod given in report:https:// www.cpll abs.com/clinici ans/rajiv nt-communicatio ns/ Alternatively, see downloadable PD F fact sheet at:https://www. [employer] INTERNATIONAL/COVID-19-RT -PCR UNLESS OTHERWIS E INDICATED, ALL TESTING PERFORMED [facility] [address] [place] [address] 4 LABORATORY DIRE CTOR: BERENICE COX M.D. CLIA NUMBER [id number] [facility] [place] [id number] SARS-CoV-2 (COVID-19) by RT-PCR (HIGH RISK)2022-01-14 00:00:00 Test Item Value Reference Range Interpretation Comments SARS-CoV-2 INTERPRETATION (test NEGATIVE code = 57372) SOURCE (test code = 30158) NOT SPECIFIED SARS-CoV-2 (COVID-19) by RT-PCR (HIGH RISK)2022-01-14 00:00:00 Test Item Value Reference Range Interpretation Comments SARS-CoV-2 INTERPRETATION (test NEGATIVE code = 28933) SOURCE (test code = 93350) NOT SPECIFIED SARS-CoV-2 (COVID-19) by RT-PCR (HIGH RISK)2022-01-14 00:00:00 Test Item Value Reference Range Interpretation Comments SARS-CoV-2 INTERPRETATION (test NEGATIVE code = 24979) SOURCE (test code = 53622) NOT SPECIFIED SARS-CoV-2 (COVID-19) by RT-PCR (HIGH RISK)2022-01-14 00:00:00 Test Item Value Reference Range Interpretation Comments SARS-CoV-2 INTERPRETATION (test NEGATIVE code = 23029) SOURCE (test code = 49216) NOT SPECIFIED SARS-CoV-2 (COVID-19) by RT-PCR (HIGH RISK)2022-01-14 00:00:00 Test Item Value Reference Range Interpretation Comments SARS-CoV-2 INTERPRETATION (test NEGATIVE code = 19048) SOURCE (test code = 11239) NOT SPECIFIED SARS-CoV-2 (COVID-19) by RT-PCR (HIGH RISK)2022-01-14 00:00:00 Test Item Value Reference Range Interpretation Comments SARS-CoV-2 INTERPRETATION (test NEGATIVE code = 11063) SOURCE (test code = 37854) NOT SPECIFIED SARS-CoV-2 (COVID-19) by RT-PCR (HIGH RISK)2022-01-14 00:00:00 Test Item Value Reference Range Interpretation Comments SARS-CoV-2 INTERPRETATION (test NEGATIVE code = 27129) SOURCE (test code = 94791) NOT SPECIFIED SARS-CoV-2 (COVID-19), RT-PCR/[id number] 06:38:45 Test Item Value Reference Interpretation Comments Range SARS-CoV-2 NEGATIVE SEE NOTE SARS-CoV-2 RNA NOT INTERPRETATION DETECTEDNegat francoise (test code = 75368) results do not preclude SARS-C oV-2 infection [...] (test code = NASOPHARYNGEAL Note: [place] [address]) Dixie Laurie [place] l-Time RT-PCR. The exp ected result or [...] provided by met hod given in report:https:// www.[facility].com/clinic ians/cl ient-communicat ions/ Alternatively, see downloadable PD F fact sheet at:https://www. [employer]/COVID-19-R T-PCR UNLESS OTHERWIS E INDICATED, ALL TESTING PERFORMED [facility]. [address] [place] [address] [facility] DIRECTOR: BERENICE ANN M.D. CLIA NUMBER [id number] CAP ACCREDITATION N O. [id number] SARS-CoV-2 (COVID-19) by RT-PCR (HIGH RISK)2021-12-29 00:00:00 Test Item Value Reference Range Interpretation Comments SARS-CoV-2 INTERPRETATION NEGATIVE (test code = 01400) SOURCE (test code = 38718) NASOPHARYNGEAL SARS-CoV-2 (COVID-19) by RT-PCR (HIGH RISK)2021-12-29 00:00:00 Test Item Value Reference Range Interpretation Comments SARS-CoV-2 INTERPRETATION NEGATIVE (test code = 69346) SOURCE (test code = 26360) NASOPHARYNGEAL SARS-CoV-2 (COVID-19) by RT-PCR (HIGH RISK)2021-12-29 00:00:00 Test Item Value Reference Range Interpretation Comments SARS-CoV-2 INTERPRETATION NEGATIVE (test code = 84622) SOURCE (test code = 86458) NASOPHARYNGEAL SARS-CoV-2 (COVID-19) by RT-PCR (HIGH RISK)2021-12-29 00:00:00 Test Item Value Reference Range Interpretation Comments SARS-CoV-2 INTERPRETATION NEGATIVE (test code = 97938) SOURCE (test code = 86232) NASOPHARYNGEAL SARS-CoV-2 (COVID-19) by RT-PCR (HIGH RISK)2021-12-29 00:00:00 Test Item Value Reference Range Interpretation Comments SARS-CoV-2 INTERPRETATION NEGATIVE (test code = 76421) SOURCE (test code = 14341) NASOPHARYNGEAL SARS-CoV-2 (COVID-19) by RT-PCR (HIGH RISK)2021-12-29 00:00:00 Test Item Value Reference Range Interpretation Comments SARS-CoV-2 INTERPRETATION NEGATIVE (test code = 58920) SOURCE (test code = 45794) NASOPHARYNGEAL SARS-CoV-2 (COVID-19) by RT-PCR (HIGH RISK)2021-12-29 00:00:00 Test Item Value Reference Range Interpretation Comments SARS-CoV-2 INTERPRETATION NEGATIVE (test code = 43696) SOURCE (test code = 36342) NASOPHARYNGEAL [id number] 00:00:00 Test Item Value Reference Range Interpretation Comments TSH, THIRD GENERATION (test code 1.250 UIU/ML = 2821) [id number] 00:00:00 Test Item Value Reference Range Interpretation Comments TSH, THIRD GENERATION (test code 1.250 UIU/ML = 2821) [id number] 00:00:00 Test Item Value Reference Range Interpretation Comments TSH, THIRD GENERATION (test code 1.250 UIU/ML = 2821) [id number] 00:00:00 Test Item Value Reference Range Interpretation Comments TSH, THIRD GENERATION (test code 1.250 UIU/ML = 2821) [id number] 00:00:00 Test Item Value Reference Range Interpretation Comments TSH, THIRD GENERATION (test code 1.250 UIU/ML = 2821) [id number] 00:00:00 Test Item Value Reference Range Interpretation Comments TSH, THIRD GENERATION (test code 1.250 UIU/ML = 2821) [id number] 00:00:00 Test Item Value Reference Range Interpretation Comments TSH, THIRD GENERATION (test code 1.250 UIU/ML = 2821) [id number] 00:00:00 Test Item Value Reference Range Interpretation Comments TSH, THIRD GENERATION (test code 1.250 UIU/ML = 2821) [id number] 00:00:00 Test Item Value Reference Range Interpretation Comments TSH, THIRD GENERATION (test code 1.250 UIU/ML = 2821) [id number] 00:00:00 Test Item Value Reference Range Interpretation Comments TSH, THIRD GENERATION (test code 1.250 UIU/ML = 2821) [id number] 00:00:00 Test Item Value Reference Range Interpretation Comments TSH, THIRD GENERATION (test code 1.250 UIU/ML = 2821) CBC W/AUTO [id number] 00:00:00 Test Item Value Reference Range Interpretation [...] code = 1015) 207 K/UL CBC W/AUTO [id number] 00:00:00 Test Item Value Reference Range Interpretation [...] code = 1015) 207 K/UL CBC W/AUTO [id number] 00:00:00 Test Item Value Reference Range Interpretation [...] code = 1015) 207 K/UL COMPREHENSIVE METABOLIC [id number] 00:00:00 Test Item Value Reference Range Interpretation Comments GLUCOSE (test code = 2217) 108 MG/DL BUN (test code = 2208) 8 MG/DL CREATININE (test code = 2214) 0.80 MG/DL eGFR AMER. (test code 112 ML/MIN/1.73 = 04936) eGFR NON- AMER. (test 97 ML/MIN/1.73 code = 79341) CALC BUN/CREAT (test code = 10 RATIO [...] CALC GLOBULIN (test code = 2.4 G/DL 224) CALC A/G RATIO (test code = 2.0 RATIO 2234) BILIRUBIN, TOTAL (test code = 0.3 MG/DL 2206) ALKALINE PHOSPHATASE (test 78 U/L code = 2204) AST (test code = 2218) 12 U/L ALT (test code = 2219) 12 U/L COMPREHENSIVE METABOLIC [id number] 00:00:00 Test Item Value Reference Range Interpretation Comments GLUCOSE (test code = 2217) 108 MG/DL BUN (test code = 2208) 8 MG/DL CREATININE (test code = 2214) 0.80 MG/DL eGFR AMER. (test code 112 ML/MIN/1.73 = 66783) eGFR NON- AMER. (test 97 ML/MIN/1.73 code = 92070) CALC BUN/CREAT (test code = 10 RATIO 2235) SODIUM (test code = 2231) 139 MEQ/L POTASSIUM (test code = 2228) 4.3 MEQ/L CHLORIDE (test code = 2215) 107 MEQ/L CARBON DIOXIDE (test code = 25 MEQ/L 220) CALCIUM (test code = 2209) 9.4 MG/DL [...] code = 2219) 12 U/L CBC W/AUTO [id number] 00:00:00 Test Item Value Reference Range Interpretation [...] code = 1015) 207 K/UL CBC W/AUTO [id number] 00:00:00 Test Item Value Reference Range Interpretation [...] code = 1015) 207 K/UL COMPREHENSIVE METABOLIC [id number] 00:00:00 Test Item Value Reference Range Interpretation Comments GLUCOSE (test code = 2217) 108 MG/DL BUN (test code = 2208) 8 MG/DL CREATININE (test code = 2214) 0.80 MG/DL eGFR AMER. (test code 112 ML/MIN/1.73 = 09248) eGFR NON- AMER. (test 97 ML/MIN/1.73 code = 28766) CALC BUN/CREAT (test code = 10 RATIO 2235) SODIUM (test code = 2231) 139 MEQ/L POTASSIUM (test code = 2228) 4.3 MEQ/L CHLORIDE (test code = 2215) 107 MEQ/L CARBON DIOXIDE (test code = 25 MEQ/L 220) CALCIUM (test code = 2209) 9.4 MG/DL [...] code = 2219) 12 U/L CBC W/AUTO [id number] 00:00:00 Test Item Value Reference Range Interpretation [...] code = 1015) 207 K/UL CBC W/AUTO [id number] 00:00:00 Test Item Value Reference Range Interpretation [...] code = 1015) 207 K/UL CBC W/AUTO [id number] 00:00:00 Test Item Value Reference Range Interpretation [...] code = 1015) 207 K/UL COMPREHENSIVE METABOLIC [id number] 00:00:00 Test Item Value Reference Range Interpretation Comments GLUCOSE (test code = 2217) 108 MG/DL BUN (test code = 2208) 8 MG/DL CREATININE (test code = 2214) 0.80 MG/DL eGFR AMER. (test code 112 ML/MIN/1.73 = 80248) eGFR NON- AMER. (test 97 ML/MIN/1.73 code = 13466) CALC BUN/CREAT (test code = 10 RATIO [...] code = 2219) 12 U/L COMPREHENSIVE METABOLIC [id number] 00:00:00 Test Item Value Reference Range Interpretation Comments GLUCOSE (test code = 2217) 108 MG/DL BUN (test code = 2208) 8 MG/DL CREATININE (test code = 2214) 0.80 MG/DL eGFR AMER. (test code 112 ML/MIN/1.73 = 51554) eGFR NON- AMER. (test 97 ML/MIN/1.73 code = 54345) CALC BUN/CREAT (test code = 10 RATIO [...] code = 2219) 12 U/L CBC W/AUTO [id number] 00:00:00 Test Item Value Reference Range Interpretation [...] code = 1015) 207 K/UL CBC W/AUTO [id number] 00:00:00 Test Item Value Reference Range Interpretation [...] code = 1015) 207 K/UL CBC W/AUTO [id number] 00:00:00 Test Item Value Reference Range Interpretation [...] code = 1015) 207 K/UL COMPREHENSIVE METABOLIC [id number] 00:00:00 Test Item Value Reference Range Interpretation Comments GLUCOSE (test code = 2217) 108 MG/DL BUN (test code = 2208) 8 MG/DL CREATININE (test code = 2214) 0.80 MG/DL eGFR AMER. (test code 112 ML/MIN/1.73 = 37884) eGFR NON- AMER. (test 97 ML/MIN/1.73 code = 54059) CALC BUN/CREAT (test code = 10 RATIO [...] code = 2219) 12 U/L COMPREHENSIVE METABOLIC [id number] 00:00:00 Test Item Value Reference Range Interpretation Comments GLUCOSE (test code = 2217) 108 MG/DL BUN (test code = 2208) 8 MG/DL CREATININE (test code = 2214) 0.80 MG/DL eGFR AMER. (test code 112 ML/MIN/1.73 = 07178) eGFR NON- AMER. (test 97 ML/MIN/1.73 code = 56898) CALC BUN/CREAT (test code = 10 RATIO [...] A/G RATIO (test code = 2.0 RATIO 2233) BILIRUBIN, TOTAL (test code = 0.3 MG/DL 2206) ALKALINE PHOSPHATASE (test 78 U/L code = 2204) AST (test code = 2218) 12 U/L ALT (test code = 2219) 12 U/L VAGINAL PATHOGENS DNA [id number] 00:00:00 Test Item Value Reference Range Interpretation Comments YORDY SPECIES (test code = ) NEGATIVE G. VAGINALIS (test code = 88767) POSITIVE T. VAGINALIS (test code = 18087) NEGATIVE VAGINAL PATHOGENS DNA [id number] 00:00:00 Test Item Value Reference Range Interpretation Comments YORDY SPECIES (test code = ) NEGATIVE G. VAGINALIS (test code = 20988) POSITIVE T. VAGINALIS (test code = 76707) NEGATIVE [id number] 00:00:00 Test Item Value Reference Range Interpretation Comments TESTOSTERONE (test code = 2830) 23 NG/DL [id number] 00:00:00 Test Item Value Reference Range Interpretation Comments TESTOSTERONE (test code = 2830) 23 NG/DL FSH + LH [id number] 00:00:00 Test Item Value Reference Range Interpretation Comments FOLLICLE STIM HORMONE (test code = 5.4 IU/L 2700) LUTEINIZING HORMONE (test code = 9.5 IU/L 2776) FSH + LH [id number] 00:00:00 Test Item Value Reference Range Interpretation Comments FOLLICLE STIM HORMONE (test code = 5.4 IU/L 2700) LUTEINIZING HORMONE (test code = 9.5 IU/L 2776) [id number] 00:00:00 Test Item Value Reference Range Interpretation Comments PROLACTIN (test code = 2800) 8.5 NG/ML [id number] 00:00:00 Test Item Value Reference Range Interpretation Comments PROLACTIN (test code = 2800) 8.5 NG/ML [id number] 00:00:00 Test Item Value Reference Range Interpretation Comments ESTRADIOL (test code = 2505) 59.4 PG/ML [id number] 00:00:00 Test Item Value Reference Range Interpretation Comments ESTRADIOL (test code = 2505) 59.4 PG/ML [id number] 00:00:00 Test Item Value Reference Range Interpretation Comments ESTRADIOL (test code = 2505) 59.4 PG/ML VAGINAL PATHOGENS DNA [id number] 00:00:00 Test Item Value Reference Range Interpretation Comments YORDY SPECIES (test code = ) NEGATIVE G. VAGINALIS (test code = 23499) POSITIVE T. VAGINALIS (test code = ) NEGATIVE [id number] 00:00:00 Test Item Value Reference Range Interpretation Comments TESTOSTERONE (test code = 2830) 23 NG/DL FSH + LH [id number] 00:00:00 Test Item Value Reference Range Interpretation Comments FOLLICLE STIM HORMONE (test code = 5.4 IU/L 2700) LUTEINIZING HORMONE (test code = 9.5 IU/L 2776) [id number] 00:00:00 Test Item Value Reference Range Interpretation Comments PROLACTIN (test code = 2800) 8.5 NG/ML [id number] 00:00:00 Test Item Value Reference Range Interpretation Comments ESTRADIOL (test code = 2505) 59.4 PG/ML [id number] 00:00:00 Test Item Value Reference Range Interpretation Comments ESTRADIOL (test code = 2505) 59.4 PG/ML VAGINAL PATHOGENS DNA [id number] 00:00:00 Test Item Value Reference Range Interpretation Comments YORDY SPECIES (test code = ) NEGATIVE G. VAGINALIS (test code = 80350) POSITIVE T. VAGINALIS (test code = 88331) NEGATIVE VAGINAL PATHOGENS DNA [id number] 00:00:00 Test Item Value Reference Range Interpretation Comments YORDY SPECIES (test code = 50721) NEGATIVE G. VAGINALIS (test code = 79070) POSITIVE T. VAGINALIS (test code = 21222) NEGATIVE [id number] 00:00:00 Test Item Value Reference Range Interpretation Comments TESTOSTERONE (test code = 2830) 23 NG/DL [id number] 00:00:00 Test Item Value Reference Range Interpretation Comments TESTOSTERONE (test code = 2830) 23 NG/DL FSH + LH [id number] 00:00:00 Test Item Value Reference Range Interpretation Comments FOLLICLE STIM HORMONE (test code = 5.4 IU/L 2700) LUTEINIZING HORMONE (test code = 9.5 IU/L 2776) FSH + LH [id number] 00:00:00 Test Item Value Reference Range Interpretation Comments FOLLICLE STIM HORMONE (test code = 5.4 IU/L 2700) LUTEINIZING HORMONE (test code = 9.5 IU/L 2776) [id number] 00:00:00 Test Item Value Reference Range Interpretation Comments PROLACTIN (test code = 2800) 8.5 NG/ML [id number] 00:00:00 Test Item Value Reference Range Interpretation Comments PROLACTIN (test code = 2800) 8.5 NG/ML [id number] 00:00:00 Test Item Value Reference Range Interpretation Comments ESTRADIOL (test code = 2505) 59.4 PG/ML [id number] 00:00:00 Test Item Value Reference Range Interpretation Comments ESTRADIOL (test code = 2505) 59.4 PG/ML [id number] 00:00:00 Test Item Value Reference Range Interpretation Comments ESTRADIOL (test code = 2505) 59.4 PG/ML VAGINAL PATHOGENS DNA [id number] 00:00:00 Test Item Value Reference Range Interpretation Comments YORDY SPECIES (test code = ) NEGATIVE G. VAGINALIS (test code = 33761) POSITIVE T. VAGINALIS (test code = 86568) NEGATIVE VAGINAL PATHOGENS DNA [id number] 00:00:00 Test Item Value Reference Range Interpretation Comments YORDY SPECIES (test code = 01222) NEGATIVE G. VAGINALIS (test code = 31997) POSITIVE T. VAGINALIS (test code = 50649) NEGATIVE [id number] 00:00:00 Test Item Value Reference Range Interpretation Comments TESTOSTERONE (test code = 2830) 23 NG/DL [id number] 00:00:00 Test Item Value Reference Range Interpretation Comments TESTOSTERONE (test code = 2830) 23 NG/DL FSH + LH [id number] 00:00:00 Test Item Value Reference Range Interpretation Comments FOLLICLE STIM HORMONE (test code = 5.4 IU/L 2700) LUTEINIZING HORMONE (test code = 9.5 IU/L 2776) FSH + LH [id number] 00:00:00 Test Item Value Reference Range Interpretation Comments FOLLICLE STIM HORMONE (test code = 5.4 IU/L 2700) LUTEINIZING HORMONE (test code = 9.5 IU/L 2776) [id number] 00:00:00 Test Item Value Reference Range Interpretation Comments PROLACTIN (test code = 2800) 8.5 NG/ML [id number] 00:00:00 Test Item Value Reference Range Interpretation Comments PROLACTIN (test code = 2800) 8.5 NG/ML [id number] 00:00:00 Test Item Value Reference Range Interpretation Comments ESTRADIOL (test code = 2505) 59.4 PG/ML [id number] 00:00:00 Test Item Value Reference Range Interpretation Comments ESTRADIOL (test code = 2505) 59.4 PG/ML [id number] 00:00:00 Test Item Value Reference Range Interpretation Comments ESTRADIOL (test code = 2505) 59.4 PG/ML PAP TEST, THINPREP, [id number] 00:00:00 Test Item Value Reference Range Interpretation Comments SOURCE: (test code = 8001) Cervical/Endocervi franca SLIDES: (test code = 8011) 1 LMP: (test code = 8021) 09/02/2020 SPECIMEN ADEQUACY: (test (NOTE) code = 71011) INTERPRETATION: (test code ASCUS/EPITH. = 04595) ABNORMALITY; SEE BELOW ICE CREAM VAN VENDOR: (test Daisy code = 8101) GABRIELA Kay(ASCP)IAC PATHOLOGIST INTERPRETATION Aleksander Chen M.D. BY: (test code = 8122) LOCATION: (test code = (NOTE) 28034) CPT: (test code = 8140) (NOTE) PAP TEST, THINPREP, [id number] 00:00:00 Test Item Value Reference Range Interpretation Comments SOURCE: (test code = 8001) Cervical/Endocervi franca SLIDES: (test code = 8011) 1 LMP: (test code = 8021) 09/02/2020 SPECIMEN ADEQUACY: (test (NOTE) code = 47699) INTERPRETATION: (test code ASCUS/EPITH. = 56920) ABNORMALITY; SEE BELOW ICE CREAM VAN VENDOR: (test Daisy code = 8101) GABRIELA Kay(ASCP)IAC PATHOLOGIST INTERPRETATION Aleksander Chen M.D. BY: (test code = 8122) LOCATION: (test code = (NOTE) 35246) CPT: (test code = 8140) (NOTE) PAP TEST, THINPREP, [id number] 00:00:00 Test Item Value Reference Range Interpretation Comments SOURCE: (test code = 8001) Cervical/Endocervi franca SLIDES: (test code = 8011) 1 LMP: (test code = 8021) 09/02/2020 SPECIMEN ADEQUACY: (test (NOTE) code = 18828) INTERPRETATION: (test code ASCUS/EPITH. = 76422) ABNORMALITY; SEE BELOW ICE CREAM VAN VENDOR: (test Daisy code = 8101) GABRIELA Kay(ASCP)[facility] PATHOLOGIST INTERPRETATION Aleksander Chen M.D. BY: (test code = 8122) LOCATION: (test code = (NOTE) 36697) CPT: (test code = 8140) (NOTE) PAP TEST, THINPREP, [id number] 00:00:00 Test Item Value Reference Range Interpretation Comments SOURCE: (test code = 8001) Cervical/Endocervi franca SLIDES: (test code = 8011) 1 LMP: (test code = 8021) 09/02/2020 SPECIMEN ADEQUACY: (test (NOTE) code = 13713) INTERPRETATION: (test code ASCUS/EPITH. = 72364) ABNORMALITY; SEE BELOW ICE CREAM VAN VENDOR: (test Daisy code = 8101) GABRIELA Kay(ASCP)IAC PATHOLOGIST INTERPRETATION Aleksander Chen M.D. BY: (test code = 8122) LOCATION: (test code = (NOTE) 11965) CPT: (test code = 8140) (NOTE) PAP TEST, THINPREP, [id number] 00:00:00 Test Item Value Reference Range Interpretation Comments SOURCE: (test code = 8001) Cervical/Endocervi franca SLIDES: (test code = 8011) 1 LMP: (test code = 8021) 09/02/2020 SPECIMEN ADEQUACY: (test (NOTE) code = 37559) INTERPRETATION: (test code ASCUS/EPITH. = 59654) ABNORMALITY; SEE BELOW ICE CREAM VAN VENDOR: (test Daisy code = 8101) GABRIELA Kay(ASCP)IAC PATHOLOGIST INTERPRETATION Aleksander Chen M.D. BY: (test code = 8122) LOCATION: (test code = (NOTE) 42092) CPT: (test code = 8140) (NOTE) PAP TEST, THINPREP, [id number] 00:00:00 Test Item Value Reference Range Interpretation Comments SOURCE: (test code = 8001) Cervical/Endocervi franca SLIDES: (test code = 8011) 1 LMP: (test code = 8021) 09/02/2020 SPECIMEN ADEQUACY: (test (NOTE) code = 02185) INTERPRETATION: (test code ASCUS/EPITH. = 16556) ABNORMALITY; SEE BELOW ICE CREAM VAN VENDOR: (test Daisy code = 8101) GABRIELA Kay(ASCP)IAC PATHOLOGIST INTERPRETATION Aleksander Chen M.D. BY: (test code = 8122) LOCATION: (test code = (NOTE) 36903) CPT: (test code = 8140) (NOTE) PAP TEST, THINPREP, [id number] 00:00:00 Test Item Value Reference Range Interpretation Comments SOURCE: (test code = 8001) Cervical/Endocervi franca SLIDES: (test code = 8011) 1 LMP: (test code = 8021) 09/02/2020 SPECIMEN ADEQUACY: (test (NOTE) code = 63410) INTERPRETATION: (test code ASCUS/EPITH. = 07360) ABNORMALITY; SEE BELOW ICE CREAM VAN VENDOR: (test Daisy code = 8101) GABRIELA Kay(ASCP)IAC PATHOLOGIST INTERPRETATION Aleksander Chen M.D. BY: (test code = 8122) LOCATION: (test code = (NOTE) 15459) CPT: (test code = 8140) (NOTE) HIV 1/2 4TH GEN, RFLX CONF [ADDED]2020-09-21 00:00:00 Test Item Value Reference Range Interpretation Comments HIV 1/2 4TH GEN, RFLX CONF (test NON-REACTIVE code = 3514) HIV 1/2 4TH GEN, RFLX CONF [ADDED]2020-09-21 00:00:00 Test Item Value Reference Range Interpretation Comments HIV 1/2 4TH GEN, RFLX CONF (test NON-REACTIVE code = 3514) GC AND CHLAMYDIA AMPLIFIED, [id number] 00:00:00 Test Item Value Reference Range Interpretation Comments GONORRHEA, TMA (test code = 01321) NEGATIVE CHLAMYDIA, TMA (test code = 75049) NEGATIVE GC AND CHLAMYDIA AMPLIFIED, [id number] 00:00:00 Test Item Value Reference Range Interpretation Comments GONORRHEA, TMA (test code = 79523) NEGATIVE CHLAMYDIA, TMA (test code = 40083) NEGATIVE RPR [ADDED]2020-09-21 00:00:00 Test Item Value [...] ) NEGATIVE G. VAGINALIS (test code = 19599) POSITIVE T. VAGINALIS (test code = 74479) NEGATIVE VAGINAL PATHOGENS DNA PANEL [ADDED]2020-09-21 00:00:00 Test Item Value Reference Range Interpretation Comments YORDY SPECIES (test code = ) NEGATIVE G. VAGINALIS (test code = 72395) POSITIVE T. VAGINALIS (test code = 90313) NEGATIVE ADELA (ANTI-NUCLEAR AB) WITH REFLEX [id number] 00:00:00 Test Item Value Reference Range Interpretation Comments ANTI-NUCLEAR ANTIBODIES (test code = NEGATIVE 3506) HPV HIGH RISK WITH GENOTYPE, [id number] 00:00:00 Test Item Value Reference Range Interpretation Comments HPV HIGH RISK INTERP (test code = NEGATIVE 38039) HPV 16 (test code = 41124) NEGATIVE HPV 18 (test code = 74615) NEGATIVE HPV, HR, OTHER GENOTYPES (test code NEGATIVE = 69803) ADELA (ANTI-NUCLEAR AB) WITH REFLEX [id number] 00:00:00 Test Item Value Reference Range Interpretation Comments ANTI-NUCLEAR ANTIBODIES (test code = NEGATIVE 3506) HPV HIGH RISK WITH GENOTYPE, [id number] 00:00:00 Test Item Value Reference Range Interpretation Comments HPV HIGH RISK INTERP (test code = NEGATIVE 72738) HPV 16 (test code = 88904) NEGATIVE HPV 18 (test code = 20083) NEGATIVE HPV, HR, OTHER GENOTYPES (test code NEGATIVE = 36406) HIV 1/2 4TH GEN, RFLX CONF [ADDED]2020-09-21 00:00:00 Test Item Value Reference Range Interpretation Comments HIV 1/2 4TH GEN, RFLX CONF (test NON-REACTIVE code = 3514) GC AND CHLAMYDIA AMPLIFIED, [id number] 00:00:00 Test Item Value Reference Range Interpretation Comments GONORRHEA, TMA (test code = 16147) NEGATIVE CHLAMYDIA, TMA (test code = 86915) NEGATIVE RPR [ADDED]2020-09-21 00:00:00 Test Item Value [...] ) NEGATIVE ADELA (ANTI-NUCLEAR AB) WITH REFLEX [id number] 00:00:00 Test Item Value Reference Range Interpretation Comments ANTI-NUCLEAR ANTIBODIES (test code = NEGATIVE 3506) HPV HIGH RISK WITH GENOTYPE, [id number] 00:00:00 Test Item Value Reference Range Interpretation Comments HPV HIGH RISK INTERP (test code = NEGATIVE 44825) HPV 16 (test code = 27176) NEGATIVE HPV 18 (test code = 98262) NEGATIVE HPV, HR, OTHER GENOTYPES (test code NEGATIVE = 45210) HIV 1/2 4TH GEN, RFLX CONF [ADDED]2020-09-21 00:00:00 Test Item Value Reference Range Interpretation Comments HIV 1/2 4TH GEN, RFLX CONF (test NON-REACTIVE code = 3514) GC AND CHLAMYDIA AMPLIFIED, [id number] 00:00:00 Test Item Value Reference Range Interpretation Comments GONORRHEA, TMA (test code = 07330) NEGATIVE CHLAMYDIA, TMA (test code = 69628) NEGATIVE HIV 1/2 4TH GEN, RFLX CONF [ADDED]2020-09-21 00:00:00 Test Item Value Reference Range Interpretation Comments HIV 1/2 4TH GEN, RFLX CONF (test NON-REACTIVE code = 3514) GC AND CHLAMYDIA AMPLIFIED, [id number] 00:00:00 Test Item Value Reference Range Interpretation Comments GONORRHEA, TMA (test code = 36294) NEGATIVE CHLAMYDIA, TMA (test code = 77548) NEGATIVE RPR [ADDED]2020-09-21 00:00:00 Test Item Value [...] INDIC. TITER ADELA (ANTI-NUCLEAR AB) WITH REFLEX [id number] 00:00:00 Test Item Value Reference Range Interpretation Comments ANTI-NUCLEAR ANTIBODIES (test code = NEGATIVE 3506) HPV HIGH RISK WITH GENOTYPE, [id number] 00:00:00 Test Item Value Reference Range Interpretation Comments HPV HIGH RISK INTERP (test code = NEGATIVE 26019) HPV 16 (test code = 08355) NEGATIVE HPV 18 (test code = 65287) NEGATIVE HPV, HR, OTHER GENOTYPES (test code NEGATIVE = 01967) VAGINAL PATHOGENS DNA PANEL [ADDED]2020-09-21 00:00:00 Test Item Value Reference Range Interpretation Comments YORDY SPECIES (test code = ) NEGATIVE G. VAGINALIS (test code = ) POSITIVE T. VAGINALIS (test code = ) NEGATIVE ADELA (ANTI-NUCLEAR AB) WITH REFLEX [id number] 00:00:00 Test Item Value Reference Range Interpretation Comments ANTI-NUCLEAR ANTIBODIES (test code = NEGATIVE 3506) HPV HIGH RISK WITH GENOTYPE, [id number] 00:00:00 Test Item Value Reference Range Interpretation Comments HPV HIGH RISK INTERP (test code = NEGATIVE 00586) HPV 16 (test code = 89211) NEGATIVE HPV 18 (test code = 24569) NEGATIVE HPV, HR, OTHER GENOTYPES (test code NEGATIVE = 23338) VAGINAL PATHOGENS DNA PANEL [ADDED]2020-09-21 00:00:00 Test Item Value Reference Range Interpretation Comments YORDY SPECIES (test code = ) NEGATIVE G. VAGINALIS (test code = ) POSITIVE T. VAGINALIS (test code = ) NEGATIVE HIV 1/2 4TH GEN, RFLX CONF [ADDED]2020-09-21 00:00:00 Test Item Value Reference Range Interpretation Comments HIV 1/2 4TH GEN, RFLX CONF (test NON-REACTIVE code = 3514) HIV 1/2 4TH GEN, RFLX CONF [ADDED]2020-09-21 00:00:00 Test Item Value Reference Range Interpretation Comments HIV 1/2 4TH GEN, RFLX CONF (test NON-REACTIVE code = 3514) GC AND CHLAMYDIA AMPLIFIED, [id number] 00:00:00 Test Item Value Reference Range Interpretation Comments GONORRHEA, TMA (test code = 69525) NEGATIVE CHLAMYDIA, TMA (test code = 52434) NEGATIVE GC AND CHLAMYDIA AMPLIFIED, [id number] 00:00:00 Test Item Value Reference Range Interpretation Comments GONORRHEA, TMA (test code = 00074) NEGATIVE CHLAMYDIA, TMA (test code = 05923) NEGATIVE RPR [ADDED]2020-09-21 00:00:00 Test Item Value [...] code = ) NEGATIVE VAGINAL PATHOGENS DNA PANEL [ADDED]2020-09-21 00:00:00 Test Item Value Reference Range Interpretation Comments YORDY SPECIES (test code = ) NEGATIVE G. VAGINALIS (test code = ) POSITIVE T. VAGINALIS (test code = ) NEGATIVE ADELA (ANTI-NUCLEAR AB) WITH REFLEX [id number] 00:00:00 Test Item Value Reference Range Interpretation Comments ANTI-NUCLEAR ANTIBODIES (test code = NEGATIVE 3506) HPV HIGH RISK WITH GENOTYPE, [id number] 00:00:00 Test Item Value Reference Range Interpretation Comments HPV HIGH RISK INTERP (test code = NEGATIVE 92680) HPV 16 (test code = 47886) NEGATIVE HPV 18 (test code = 88580) NEGATIVE HPV, HR, OTHER GENOTYPES (test code NEGATIVE = 73581) ADELA (ANTI-NUCLEAR AB) WITH REFLEX [id number] 00:00:00 Test Item Value Reference Range Interpretation Comments ANTI-NUCLEAR ANTIBODIES (test code = NEGATIVE 3506) HPV HIGH RISK WITH GENOTYPE, [id number] 00:00:00 Test Item Value Reference Range Interpretation Comments HPV HIGH RISK INTERP (test code = NEGATIVE 77280) HPV 16 (test code = 41438) NEGATIVE HPV 18 (test code = 96844) NEGATIVE HPV, HR, OTHER GENOTYPES (test code NEGATIVE = 13031) [id number] 00:00:00 Test Item Value Reference Range Interpretation Comments TSH, THIRD GENERATION (test code 2.110 UIU/ML = 2821) [id number] 00:00:00 Test Item Value Reference Range Interpretation Comments TSH, THIRD GENERATION (test code 2.110 UIU/ML = 2821) [id number] 00:00:00 Test Item Value Reference Range Interpretation Comments TSH, THIRD GENERATION (test code 2.110 UIU/ML = 2821) [id number] 00:00:00 Test Item Value Reference Range Interpretation Comments TSH, THIRD GENERATION (test code 2.110 UIU/ML = 2821) [id number] 00:00:00 Test Item Value Reference Range Interpretation Comments TSH, THIRD GENERATION (test code 2.110 UIU/ML = 2821) [id number] 00:00:00 Test Item Value Reference Range Interpretation Comments TSH, THIRD GENERATION (test code 2.110 UIU/ML = 2821) [id number] 00:00:00 Test Item Value Reference Range Interpretation Comments TSH, THIRD GENERATION (test code 2.110 UIU/ML = 2821) [id number] 00:00:00 Test Item Value Reference Range Interpretation Comments TSH, THIRD GENERATION (test code 2.110 UIU/ML = 2821) [id number] 00:00:00 Test Item Value Reference Range Interpretation Comments TSH, THIRD GENERATION (test code 2.110 UIU/ML = 2821) [id number] 00:00:00 Test Item Value Reference Range Interpretation Comments TSH, THIRD GENERATION (test code 2.110 UIU/ML = 2821) [id number] 00:00:00 Test Item Value Reference Range Interpretation Comments TSH, THIRD GENERATION (test code 2.110 UIU/ML = 2821) COMPREHENSIVE METABOLIC [id number] 00:00:00 Test Item Value Reference Range Interpretation Comments GLUCOSE (test code = 2217) 90 MG/DL BUN (test code = 2208) 11 MG/DL CREATININE (test code = 2214) 0.89 MG/DL eGFR AMER. (test code 99 ML/MIN/1.73 = 31204) eGFR NON- AMER. (test 85 ML/MIN/1.73 code = 32608) CALC BUN/CREAT (test code = 12 RATIO [...] code = 2219) 58 U/L COMPREHENSIVE METABOLIC [id number] 00:00:00 Test Item Value Reference Range Interpretation Comments GLUCOSE (test code = 2217) 90 MG/DL BUN (test code = 2208) 11 MG/DL CREATININE (test code = 2214) 0.89 MG/DL eGFR AMER. (test code 99 ML/MIN/1.73 = 52842) eGFR NON- AMER. (test 85 ML/MIN/1.73 code = 08219) CALC BUN/CREAT (test code = 12 RATIO [...] (test code = 2219) 58 U/L LIPID [id number] 00:00:00 Test Item Value Reference Range Interpretation Comments CHOLESTEROL (test code = 2210) 221 MG/DL TRIGLYCERIDES (test code = 2232) 180 MG/DL HDL CHOLESTEROL (test code = 2220) 51 MG/DL CALC LDL CHOL (test code = 2237) 138 MG/DL RISK RATIO LDL/HDL (test code = 2.71 RATIO 2238) LIPID [id number] 00:00:00 Test Item Value Reference Range Interpretation Comments CHOLESTEROL (test code = 2210) 221 MG/DL TRIGLYCERIDES (test code = 2232) 180 MG/DL HDL CHOLESTEROL (test code = 2220) 51 MG/DL CALC LDL CHOL (test code = 2237) 138 MG/DL RISK RATIO LDL/HDL (test code = 2.71 RATIO 2238) CBC W/AUTO [id number] 00:00:00 Test Item Value Reference Range Interpretation [...] code = 1015) 233 K/UL CBC W/AUTO [id number] 00:00:00 Test Item Value Reference Range Interpretation [...] code = 1015) 233 K/UL CBC W/AUTO [id number] 00:00:00 Test Item Value Reference Range Interpretation [...] code = 1015) 233 K/UL COMPREHENSIVE METABOLIC [id number] 00:00:00 Test Item Value Reference Range Interpretation Comments GLUCOSE (test code = 2217) 90 MG/DL BUN (test code = 2208) 11 MG/DL CREATININE (test code = 2214) 0.89 MG/DL eGFR AMER. (test code 99 ML/MIN/1.73 = 72337) eGFR NON- AMER. (test 85 ML/MIN/1.73 code = 47070) CALC BUN/CREAT (test code = 12 RATIO 2235) SODIUM (test code = 2231) 140 MEQ/L POTASSIUM (test code = 2228) 4.1 MEQ/L CHLORIDE (test code = 2215) 103 MEQ/L CARBON DIOXIDE (test code = 24 MEQ/L 2206) CALCIUM (test code = 2209) 9.7 MG/DL PROTEIN, TOTAL (test code = 7.5 G/DL 2228) ALBUMIN (test code = 2201) 4.9 G/DL CALC GLOBULIN (test code = 2.6 G/DL 2240) CALC A/G RATIO (test code = 1.9 RATIO 2234) BILIRUBIN, TOTAL (test code = 0.3 MG/DL 220) ALKALINE PHOSPHATASE (test 93 U/L code = 2204) AST (test code = 2218) 20 U/L ALT (test code = 2219) 58 U/L LIPID [id number] 00:00:00 Test Item Value Reference Range Interpretation Comments CHOLESTEROL (test code = 2210) 221 MG/DL TRIGLYCERIDES (test code = 2232) 180 MG/DL HDL CHOLESTEROL (test code = 2220) 51 MG/DL CALC LDL CHOL (test code = 2237) 138 MG/DL RISK RATIO LDL/HDL (test code = 2.71 RATIO 2238) CBC W/AUTO [id number] 00:00:00 Test Item Value Reference Range Interpretation [...] code = 1015) 233 K/UL CBC W/AUTO [id number] 00:00:00 Test Item Value Reference Range Interpretation [...] code = 1015) 233 K/UL COMPREHENSIVE METABOLIC [id number] 00:00:00 Test Item Value Reference Range Interpretation Comments GLUCOSE (test code = 2217) 90 MG/DL BUN (test code = 2208) 11 MG/DL CREATININE (test code = 2214) 0.89 MG/DL eGFR AMER. (test code 99 ML/MIN/1.73 = 85286) eGFR NON- AMER. (test 85 ML/MIN/1.73 code = 92469) CALC BUN/CREAT (test code = 12 RATIO 2235) SODIUM (test code = 2231) 140 MEQ/L POTASSIUM (test code = 2228) 4.1 MEQ/L CHLORIDE (test code = 2215) 103 MEQ/L CARBON DIOXIDE (test code = 24 MEQ/L 220) CALCIUM (test code = 2209) 9.7 MG/DL PROTEIN, TOTAL (test code = 7.5 G/DL 222) ALBUMIN (test code = 2201) 4.9 G/DL CALC GLOBULIN (test code = 2.6 G/DL 2240) CALC A/G RATIO (test code = 1.9 RATIO 2234) BILIRUBIN, TOTAL (test code = 0.3 MG/DL 2206) ALKALINE PHOSPHATASE (test 93 U/L code = 2204) AST (test code = 2218) 20 U/L ALT (test code = 2219) 58 U/L COMPREHENSIVE METABOLIC [id number] 00:00:00 Test Item Value Reference Range Interpretation Comments GLUCOSE (test code = 2217) 90 MG/DL BUN (test code = 2208) 11 MG/DL CREATININE (test code = 2214) 0.89 MG/DL eGFR AMER. (test code 99 ML/MIN/1.73 = 48108) eGFR NON- AMER. (test 85 ML/MIN/1.73 code = 97235) CALC BUN/CREAT (test code = 12 RATIO [...] (test code = 2219) 58 U/L LIPID [id number] 00:00:00 Test Item Value Reference Range Interpretation Comments CHOLESTEROL (test code = 2210) 221 MG/DL TRIGLYCERIDES (test code = 2232) 180 MG/DL HDL CHOLESTEROL (test code = 2220) 51 MG/DL CALC LDL CHOL (test code = 2237) 138 MG/DL RISK RATIO LDL/HDL (test code = 2.71 RATIO 2238) LIPID [id number] 00:00:00 Test Item Value Reference Range Interpretation Comments CHOLESTEROL (test code = 2210) 221 MG/DL TRIGLYCERIDES (test code = 2232) 180 MG/DL HDL CHOLESTEROL (test code = 2220) 51 MG/DL CALC LDL CHOL (test code = 2237) 138 MG/DL RISK RATIO LDL/HDL (test code = 2.71 RATIO 2238) CBC W/AUTO [id number] 00:00:00 Test Item Value Reference Range Interpretation [...] code = 1015) 233 K/UL CBC W/AUTO [id number] 00:00:00 Test Item Value Reference Range Interpretation [...] code = 1015) 233 K/UL CBC W/AUTO [id number] 00:00:00 Test Item Value Reference Range Interpretation [...] code = 1015) 233 K/UL COMPREHENSIVE METABOLIC [id number] 00:00:00 Test Item Value Reference Range Interpretation Comments GLUCOSE (test code = 2217) 90 MG/DL BUN (test code = 2208) 11 MG/DL CREATININE (test code = 2214) 0.89 MG/DL eGFR AMER. (test code 99 ML/MIN/1.73 = 32782) eGFR NON- AMER. (test 85 ML/MIN/1.73 code = 65956) CALC BUN/CREAT (test code = 12 RATIO 2235) SODIUM (test code = 2231) 140 MEQ/L POTASSIUM (test code = 2228) 4.1 MEQ/L CHLORIDE (test code = 2215) 103 MEQ/L CARBON DIOXIDE (test code = 24 MEQ/L 2206) CALCIUM (test code = 2209) 9.7 MG/DL [...] code = 2219) 58 U/L COMPREHENSIVE METABOLIC [id number] 00:00:00 Test Item Value Reference Range Interpretation Comments GLUCOSE (test code = 2217) 90 MG/DL BUN (test code = 2208) 11 MG/DL CREATININE (test code = 2214) 0.89 MG/DL eGFR AMER. (test code 99 ML/MIN/1.73 = 29511) eGFR NON- AMER. (test 85 ML/MIN/1.73 code = 46853) CALC BUN/CREAT (test code = 12 RATIO [...] (test code = 2219) 58 U/L LIPID [id number] 00:00:00 Test Item Value Reference Range Interpretation Comments CHOLESTEROL (test code = 2210) 221 MG/DL TRIGLYCERIDES (test code = 2232) 180 MG/DL HDL CHOLESTEROL (test code = 2220) 51 MG/DL CALC LDL CHOL (test code = 2237) 138 MG/DL RISK RATIO LDL/HDL (test code = 2.71 RATIO 2238) LIPID [id number] 00:00:00 Test Item Value Reference Range Interpretation Comments CHOLESTEROL (test code = 2210) 221 MG/DL TRIGLYCERIDES (test code = 2232) 180 MG/DL HDL CHOLESTEROL (test code = 2220) 51 MG/DL CALC LDL CHOL (test code = 2237) 138 MG/DL RISK RATIO LDL/HDL (test code = 2.71 RATIO 2238) CBC W/AUTO [id number] 00:00:00 Test Item Value Reference Range Interpretation [...] code = 1015) 233 K/UL CBC W/AUTO [id number] 00:00:00 Test Item Value Reference Range Interpretation [...] code = 1015) 233 K/UL CBC W/AUTO [id number] 00:00:00 Test Item Value Reference Range Interpretation [...] (test code = 1015) 233 K/UL RPR, [id number] 22:11:00 Test Item Value Reference Range Interpretation Comments RPR (test code = RPR) Non-Reactive Non-Reactive N Thyroid Stimulating Hormone (TSH)2017-03-08 09:46:00 Test Item Value Reference Range Interpretation Comments TSH (test code = TSH) 0.79 mIU/mL 0.270-4.200 N
[2023-04-09 19:00] LABS: SARS-CoV-2 Antigen Rapid Res Negative (Negative)
--- NOTE | 2023-04-09 20:48 | RAD REPORT ---
[facility] CLINICAL HISTORY: Chest pain COMPARISON: 2019 and 2021 FINDINGS: Bilateral pulmonary nodules are without obvious change. Heart is normal size
--- NOTE | 2023-04-09 21:05 | EDPHYS ---
Physician Documentation [facility] Name: Charis Padgett Age: 37 yrs Sex: Female : 1985 Arrival Date: 04/09/2023 Time: 18:06 Bed 11 Private MD: ED Physician Berhane Rodriguez HPI: 04/09 21:15 This 37 yrs old Female presents to ER via Ambulatory with complaints of Cough, Sore kb Throat, Breathing Difficulty. 21:15 The patient or guardian reports cough, flu symptoms, low-grade fever, myalgias. The kb patient has not recently seen a physician. 21:15 Onset: The symptoms/episode began/occurred 3 day(s) ago. Severity of symptoms: At their kb worst the symptoms were moderate, in the emergency department the symptoms are unchanged. Modifying factors: The symptoms are alleviated by nothing, the symptoms are aggravated by nothing. Associated signs and symptoms: Pertinent positives: fever, rhinorrhea, sore throat. The patient has not experienced similar symptoms in the past. 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 - Social history:: Smoking status: Reported history of juuling and/or vaping. ROS: 21:13 Abdomen/GI: Negative for abdominal pain, nausea, vomiting, diarrhea, and constipation. kb 21:13 Constitutional: Positive for body aches, chills, fatigue, fever, malaise. 21:13 ENT: Positive for rhinorrhea, sinus congestion, sore throat. 21:13 Respiratory: Positive for cough. Exam: 21:15 Constitutional: This is a well developed, well nourished patient who is awake, alert, kb and in no acute distress. Head/Face: Normocephalic, atraumatic. ENT: Moist Mucous membranes Cardiovascular: Regular rate and rhythm with a normal S1 and S2. No gallops, murmurs, or rubs. No pulse deficits. Respiratory: Respirations even and unlabored. No increased work of breathing. Talking in full sentences Abdomen/GI: Soft, non-tender. No distention Skin: Warm, dry with normal turgor. Normal color. MS/ Extremity: Pulses equal, no cyanosis. Neurovascular intact. Full, normal range of motion. Neuro: Awake and alert, GCS 15, oriented to person, place, time, and situation. Moves all extremities. Normal gait. Vital Signs: 18:40 BP 122 / 65; Pulse 75; Resp 17; Temp 98.2; Pulse Ox 94% ; Weight 85.73 kg; Height 5 ft. jl7 2 in. ; Pain 6/10; 18:40 Body Mass Index 34.57 (85.73 kg, 157.48 cm) jl7 18:40 Pain Scale: Adult jl7 MDM: 18:17 Patient medically screened. kb 21:14 Differential Diagnosis: Bronchitis Influenza Upper Respiratory Infection Pharyngitis kb Pneumonia. Data reviewed: vital signs, nurses notes. Counseling: I had a detailed discussion with the patient and/or guardian regarding: the historical points, exam findings, and any diagnostic results supporting the discharge/admit diagnosis, lab results, radiology results, the need for outpatient follow up, a family practitioner, to return to the emergency department if symptoms worsen or persist or if there are any questions or concerns that arise at home. 04/09 18:22 Order name: Flu; Complete Time: 19:10 kb 04/09 18:22 Order name: SARS RAPID; Complete Time: 19:01 kb 04/09 18:22 Order name: Strep 04/09 19:03 Order name: Throat Culture EDOR 04/09 18:22 Order name: Chest Single View XRAY; Complete Time: 20:55 kb Administered Medications: No medications were administered Disposition Summary: 04/09/23 21:04 Discharge Ordered Location: Home kb Condition: Stable kb Diagnosis - Acute upper respiratory infection, unspecified kb Followup: kb - With: Emergency Department - When: As needed - Reason: Worsening of condition Followup: kb - With: Private Physician - When: 2 - 3 days - Reason: Recheck today's complaints, Continuance of care, Re-evaluation by your physician Discharge Instructions: - Discharge Summary Sheet kb - Upper Respiratory Infection, Adult kb Forms: - Medication Reconciliation Form kb - Thank You Letter kb - Antibiotic Education kb - Prescription Opioid Use kb Prescriptions: - Prednisone 20 mg Oral Tablet - take 1 tablet by ORAL route once daily for 5 days; 5 tablet; Refills: 0, kb Product Selection Permitted Signatures: Dispatcher [employer] Jenny Burnett, BULL GANG WORKER-C BULL GANG WORKER-Geeta Story, RN RN jl7
--- NOTE | 2023-04-09 21:05 | ER ---
Nurse's Notes [facility] Name: Charis Padgett Age: 37 yrs Sex: Female : 1985 Arrival Date: 04/09/2023 Time: 18:06 Bed 11 Private MD: Diagnosis: Acute upper respiratory infection, unspecified Presentation: 04/09 18:40 Chief complaint: Patient states: Sore throat, cough, shortness of breath x 3 weeks. jl7 18:40 Method Of Arrival: Ambulatory [facility] 18:40 Coronavirus screen: Client presents with at least one sign or symptom that may indicate jl7 coronavirus-19. Ebola Screen: No symptoms or risks identified at this time. Initial Sepsis Screen: Does the patient meet any 2 criteria? No. Patient's initial sepsis screen is negative. Does the patient have a suspected source of infection? No. Patient's initial sepsis screen is negative. Risk Assessment: Do you want to hurt yourself or someone else? Patient reports no desire to harm self or others. Onset of symptoms was March 25, 2023. 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 - Social history:: Smoking status: Reported history of juuling and/or vaping. Screenin:45 [facility] ED Fall Risk Assessment (Adult) Score/Fall Risk Level 0 - 2 = Low Risk. Abuse eh3 screen: Denies threats or abuse. Denies injuries from another. Nutritional screening: No deficits noted. Tuberculosis screening: No symptoms or risk factors identified. Assessment: 18:45 General: Appears in no apparent distress. uncomfortable, Behavior is calm, cooperative, eh3 appropriate for age. Pain: Complains of pain in throat. Neuro: Level of Consciousness is awake, alert, obeys commands, Oriented to person, place, time, situation. Cardiovascular: Capillary refill < 3 seconds Patient's skin is warm and dry. Respiratory: Airway is patent Respiratory effort is even, unlabored, Breath sounds are clear bilaterally. EENT: Throat is reddened. Vital Signs: 18:40 BP 122 / 65; Pulse 75; Resp 17; Temp 98.2; Pulse Ox 94% ; Weight 85.73 kg; Height 5 ft. jl7 2 in. ; Pain 6/10; 18:40 Body Mass Index 34.57 (85.73 kg, 157.48 cm) 7 18:40 Pain Scale: Adult [facility] ED Course: 18:06 Patient arrived in ED. rg4 18:17 Jenny Holloway FNP-C [facility]. kb 18:17 Berhane Rodriguez MD is Attending Physician. kb 18:45 Patient has correct armband on for positive identification. Bed in low position. Call 3 light in reach. Side rails up X2. 18:50 COVID swab sent to lab. Flu and/or RSV swab sent to lab. Strep swab sent to lab. jl7 18:57 Triage completed. jl7 18:57 Arm band placed on right wrist. 7 19:39 Kristina Webster, RN is Primary Nurse. eh3 19:56 Chest Single View XRAY In Process Unspecified. EDMS 21:13 No provider procedures requiring assistance completed. IV discontinued, intact, eh3 bleeding controlled, No redness/swelling at site. Pressure dressing applied. Administered Medications: No medications were administered Medication: 21:13 VIS not applicable for this client. eh3 Outcome: 21:04 Discharge ordered by . kb 21:13 Discharged to home ambulatory. eh3 21:13 Condition: stable 21:13 Discharge instructions given to patient, Instructed on discharge instructions, follow up and referral plans. Demonstrated understanding of instructions, follow-up care, medications, Prescriptions given X 1. 21:16 Patient left the ED. eh3 Signatures: Dispatcher [employer] [facility] Jenny Holloway FNP-C FNP-Ckb Garcia, Rubi rg4 Geeta Mensah RN RN 7 Kristina Webster, MARGO RN 3
[2023-04-09 23:32] VITALS: BP 122/65; TEMP 98.2; O2SAT 94
== END 2023-04-09 21:16 | disposition home or self-care (01) ==
LOC: ER 18:06
DX: J06.9 Acute upper respiratory infection, unspecified (principal); Z20.822 Contact with and (suspected) exposure to COVID-19; Z91.010 Allergy to peanuts; Z91.018 Allergy to other foods
CPT/HCPCS: 36415; 71045; 87070; 87081; 87804; 87811; 99283

== ENCOUNTER 2023-04-18 00:55 | Emergency (ER) | payer OTHER ==
--- OUTSIDE RECORDS SUMMARY | 2023-04-18 01:03 | XMS REPORT | Continuity of Care Document ---
:1985 Author Organization [facility] t Address [address] [facility] [address] [place] [address] Care Team Providers Name Role Phone UNKNOWN, REFFERING Primary Care Physician Unavailable DAYO VO Attending Clinician Unavailable Dayo Vo MD Attending Clinician MADI KLEIN K.H. Attending Clinician Unavailable Bryanna De La Fuente RN Attending Clinician Unavailable Ernie VALDEZ, Sendkate K.H. Attending Clinician Doctor Unassigned, Ai Attending Clinician Unavailable Kota Corey MD Attending Clinician PRISCA GARCIA Attending Clinician Unavailable PRISCA GARCIA Admitting Clinician Unavailable Payers Payer Name Policy Type Policy Number Effective Date Expiration Date [facility] ST[facility] [id number] 2020 00:00:00 Problems Condition Condition Condition Status Onset Resolution Last Treating Co mments Source Name Details Category Date Date Treatment Clinician Date No known No known Disease Unive rs active active ity of problems problems [facility] Allergies, Adverse Reactions, Alerts Allergy Allergy Status Severity Reaction(s) Onset Inactive Treating Comm ents Source Name Type Date Date Clinician Peanut Propensi Active Anaphylaxis Onions- Un amber ty to 623 uncooked ity of adverse 00:00: - rash [place] reaction [address] [place] [address] PEANUT DRUG Active Anaphylaxis Unive rs INGREDI 04-20 ity of 00:00: [address] Social History Social Habit Start Date Stop Date Quantity Comments Source Exposure to 2022-04-22 2022-05-02 Unable to assess Univers ity of SARS-CoV-2 00:00:00 12:29:00 [facility] (event) [place] Tobacco use and 2021-02-02 2021-02-02 Never used Universit y of exposure 00:00:00 00:00:00 [facility] Sex Assigned At [birth year] Universit y of 00:00:00 00:00:00 [facility] Smoking Status Start Date Stop Date Source Unknown if ever smoked [facility] [place] Current some day smoker 2021-02-02 00:00:00 [facility] Medications Ordered Filled Start Stop Current [...] Medical 07/07/19 Branch at 1245, VARINDER
[facility] Restricted medication : KOTA COREY methocarbam Yes [id number] 500mg Take 1 Univers ol 9-09 tablet by ity of (ROBAXIN) 00:00: mouth 4 [place] 500 mg 00 (four) Medical tablet times Branch daily. methocarbam Yes [id number] 500mg Take 1 Univers ol 9-09 tablet by ity of (ROBAXIN) 00:00: mouth 4 [place] 500 mg 00 (four) Medical tablet times Branch daily. methocarbam Yes [id number] 500mg Take 1 Univers ol 9- tablet by ity of (ROBAXIN) 00:00: mouth 4 [place] 500 mg 00 (four) Medical tablet times Branch daily. methocarbam Yes [id number] 500mg Take 1 Univers ol 9- tablet by ity of (ROBAXIN) 00:00: mouth 4 [place] 500 mg 00 (four) Medical tablet times Branch daily. methocarbam Yes [id number] 500mg Take 1 Univers ol 9-09 tablet by ity of (ROBAXIN) 00:00: mouth 4 [place] 500 mg 00 (four) Medical tablet times Branch daily. methocarbam 2020- No [id number] 500mg Take 1 Univers ol 07-07- tablet by ity of (ROBAXIN) 00:00[place] 00:[place] 500 [place] :00 (four) Medical tablet times Branch daily. methocarbam 2020- No [id number] 500mg Take 1 Univers ol -07 02- tablet by ity of (ROBAXIN) 00:00: 00:[place] 500 [place] 00 :00 (four) Medical tablet times Branch daily. predniSONE 2019- No [id number] 40mg Take 2 Univers 20 mg 07-07-15 tablets by ity of tablet 00:00: 04:59 mouth [place] 00 :00 daily for Medical 5 days. Branch Vital Signs Vital Name Observation Time Observation Value Comments Source Body weight 2022-05-02 17:32:00 94.348 kg [facility] [place] [facility] BMI 2022-05-02 17:32:00 36.85 kg/m2 [facility] [place] [facility] Oxygen saturation in 2022-05-02 17:32:00 99 /min University of Arterial blood by [facility] Pulse oximetry Branch Systolic blood 2022-05-02 17:32:00 137 mm[Hg] [facility] [place] [facility] Diastolic blood 2022-05-02 17:32:00 91 mm[Hg] Unive rsity [facility] [place] [facility] Heart rate 2022-05-02 17:32:00 100 /min [facility] [place] [facility] Body temperature 2022-05-02 17:32:00 37.33 Renetta [facility] [place] [facility] Respiratory rate 2022-05-02 17:32:00 18 /min Univ ersity of [facility] Body height 2022-05-02 17:32:00 160 cm [facility] [place] [facility] Systolic blood 2021-02-02 13:54:00 123 mm[Hg] [facility] [place] [facility] Diastolic blood 2021-02-02 13:54:00 88 mm[Hg] Unive rsity [facility] [place] [facility] Heart rate 2021-02-02 13:54:00 81 /min [facility] [place] [facility] Respiratory rate 2021-02-02 13:54:00 19 /min Univ ersity of [facility] Branch Body height 2021-02-02 13:54:00 158.8 cm [facility] [place] [facility] Body weight 2021-02-02 13:54:00 85.684 kg [facility] [place] [facility] BMI 2021-02-02 13:54:00 34.00 kg/m2 [facility] [place] [facility] Oxygen saturation in 2021-02-02 13:54:00 98 /min University of Arterial blood by [facility] [place] [facility] Pulse oximetry Branch Systolic blood 2019-07-07 16:13:00 132 mm[Hg] [facility] [place] [facility] Diastolic blood 2019-07-07 16:13:00 83 mm[Hg] [facility]ive [facility] [place] [facility] Heart rate 2019-07-07 16:13:00 99 /min [facility] [place] [facility] Body temperature 2019-07-07 16:13:00 36.72 Renetta [facility] [place] [facility] Respiratory rate 2019-07-07 16:13:00 20 /min [facility] [place] [facility] Body height 2019-07-07 16:13:00 160 cm [facility] [place] [facility] Body weight 2019-07-07 16:13:00 68.04 kg [facility] [place] [facility] BMI 2019-07-07 16:13:00 26.57 kg/m2 [facility] [place] [facility] Oxygen saturation in 2019-07-07 16:13:00 100 /min University of Arterial blood by [place] [employer] franca Pulse oximetry Branch Systolic blood 2019-07-07 16:13:00 132 mm[Hg] [facility] [place] [facility] Diastolic blood 2019-07-07 16:13:00 83 mm[Hg] [facility]ive [facility]ity [facility] [place] [facility] [place] Heart rate 2019-07-07 16:13:00 99 /min [facility] [place] [facility] Body temperature 2019-07-07 16:13:00 36.72 Renetta [facility] ersity [facility] [place] [facility] Respiratory rate 2019-07-07 16:13:00 20 /min Univ [facility] [place] [facility] Body height 2019-07-07 16:13:00 160 cm [facility] [place] [facility] Body weight 2019-07-07 16:13:00 68.04 kg [facility] [place] [facility] BMI 2019-07-07 16:13:00 26.57 kg/m2 [facility] [place] [facility] Oxygen saturation in 2019-07-07 16:13:00 100 /min University of Arterial blood by [facility] franca Pulse oximetry Branch BP Systolic [...] 2022-05-02 17:29:12 Doctor Unassigned, No Univ ersity [facility] PRACTICES Name Medical Branch CONSENT/REFUSAL FOR 2022-05-02 17:28:58 Doctor Unassigned, No Un iversity [facility] DIAGNOSIS AND Name Medical Branch TREATMENT REFERRAL- 2021-01-26 05:01:00 Doctor Unassigned, No [facility] [place] REQUEST/RESPONSE Name Medical Branch REFERRAL- 2020-12-22 06:01:00 Doctor Unassigned, No [facility] [place] REQUEST/RESPONSE Name Medical Branch NOTICE OF PRIVACY 2019-07-07 16:09:09 Doctor Unassigned, No [facility] [place] PRACTICES Name Medical Branch Plan of Care Planned Activity Planned Date Details Comments Source Goal Plan of Care Note [code = 52072-8] Goal Plan of Care Note [code = 33291-5] Goal Plan of Care Note [code = 16984-3] Goal Plan of Care Note [code = 25412-7] Goal Plan of Care Note [code = 32767-3] Goal Plan of Care Note [code = 10618-5] Goal Plan of Care Note [code = 07048-9] Goal Plan of Care Note [code = 65539-5] Goal Plan of Care Note [code = 73275-2] Goal Plan of Care Note [code = 82511-3] Goal Plan of Care Note [code = 89269-1] Goal Plan of Care Note [code = 33784-8] Goal Plan of Care Note [code = 31659-9] Goal Plan of Care Note [code = 76411-1] Goal Plan of Care Note [code = 66490-9] Goal Plan of Care Note [code = 36531-8] Goal Plan of Care Note [code = 48486-8] Goal Plan of Care Note [code = 56584-9] Goal Plan of Care Note [code = 85431-1] Goal Plan of Care Note [code = 71955-3] Goal Plan of Care Note [code = 89025-8] Goal Plan of Care Note [code = 91605-1] Goal Plan of Care Note [code = 87744-3] Goal Plan of Care Note [code = 01992-4] Goal Plan of Care Note [code = 79806-9] Goal Plan of Care Note [code = 55640-2] Goal Plan of Care Note [code = 09415-3] Goal Plan of Care Note [code = 27791-4] Goal Plan of Care Note [code = 37147-0] Goal Plan of Care Note [code = 95866-8] Goal Plan of Care Note [code = 60937-5] Goal Plan of Care Note [code = 26151-2] Goal Plan of Care Note [code = 34291-0] Goal Plan of Care Note [code = 47049-0] Goal Plan of Care Note [code = 83058-5] Goal Plan of Care Note [code = 26942-9] Goal Plan of Care Note [code = 54400-1] Goal Plan of Care Note [code = 23259-5] Goal Plan of Care Note [code = 92069-3] Goal Plan of Care Note [code = 76097-0] Goal Plan of Care Note [code = 19606-4] Goal Plan of Care Note [code = 82173-9] Goal Plan of Care Note [code = 09899-7] Goal Plan of Care Note [code = 64394-9] Goal Plan of Care Note [code = 54913-3] Goal Plan of Care Note [code = 86582-3] Goal Plan of Care Note [code = 04270-1] Goal Plan of Care Note [code = 18743-0] Goal Plan of Care Note [code = 11459-2] Goal Plan of Care Note [code = 50482-1] Goal Plan of Care Note [code = 71270-7] Goal Plan of Care Note [code = 15429-3] Goal Plan of Care Note [code = 12573-5] Goal Plan of Care Note [code = 83281-8] Goal Plan of Care Note [code = 14602-0] Goal Plan of Care Note [code = 52047-6] Goal Plan of Care Note [code = 24596-0] Goal Plan of Care Note [code = 72354-5] Goal Plan of Care Note [code = 27154-0] Goal Plan of Care Note [code = 98590-9] Goal Plan of Care Note [code = 00060-2] Goal Plan of Care Note [code = 52273-7] Goal Plan of Care Note [code = 23247-5] Goal Plan of Care Note [code = 09501-2] Goal Plan of Care Note [code = 46314-0] Goal Plan of Care Note [code = 00237-8] Goal Plan of Care Note [code = 95264-8] Goal Plan of Care Note [code = 47764-2] Goal Plan of Care Note [code = 15375-3] Goal Plan of Care Note [code = 81940-7] Goal Plan of Care Note [code = 57871-2] Goal Plan of Care Note [code = 64913-8] Goal Plan of Care Note [code = 32115-5] Goal Plan of Care Note [code = 13281-0] Goal Plan of Care Note [code = 50287-0] Goal Plan of Care Note [code = 75131-3] Goal Plan of Care Note [code = 07291-4] Goal Plan of Care Note [code = 10859-0] Goal Plan of Care Note [code = 22599-0] Goal Plan of Care Note [code = 52371-0] Goal Plan of Care Note [code = 21480-2] Goal Plan of Care Note [code = 21638-5] Goal Plan of Care Note [code = 87649-7] Goal Plan of Care Note [code = 63507-1] Goal Plan of Care Note [code = 03360-2] Goal Plan of Care Note [code = 13236-2] Goal Plan of Care Note [code = 71373-4] Goal Plan of Care Note [code = 80522-4] Goal Plan of Care Note [code = 94694-6] Goal Plan of Care Note [code = 74250-1] Goal Plan of Care Note [code = 86684-1] Goal Plan of Care Note [code = 89296-1] Goal Plan of Care Note [code = 79172-6] Goal Plan of Care Note [code = 85986-6] Goal Plan of Care Note [code = 26003-1] Goal Plan of Care Note [code = 00307-5] Goal Plan of Care Note [code = 40341-4] Goal Plan of Care Note [code = 78351-2] Goal Plan of Care Note [code = 47262-5] Goal Plan of Care Note [code = 89414-7] Goal Plan of Care Note [code = 11317-4] Goal Plan of Care Note [code = 21460-1] Goal Plan of Care Note [code = 90999-2] Goal Plan of Care Note [code = 58799-6] Goal Plan of Care Note [code = 53053-3] Goal Plan of Care Note [code = 08589-7] Goal Plan of Care Note [code = 50964-3] Goal Plan of Care Note [code = 88254-0] Goal Plan of Care Note [code = 96239-4] Goal Plan of Care Note [code = 38519-6] Goal Plan of Care Note [code = 18385-2] Goal Plan of Care Note [code = 01787-0] Goal Plan of Care Note [code = 72795-6] Goal Plan of Care Note [code = 90513-1] Goal Plan of Care Note [code = 22222-7] Goal Plan of Care Note [code = 20876-2] Goal Plan of Care Note [code = 49209-4] Goal Plan of Care Note [code = 02984-6] Goal Plan of Care Note [code = 97027-3] Goal Plan of Care Note [code = 87296-5] Goal Plan of Care Note [code = 74848-6] Goal Plan of Care Note [code = 70692-1] Goal Plan of Care Note [code = 61788-4] Goal Plan of Care Note [code = 79579-3] Goal Plan of Care Note [code = 94304-6] Goal Plan of Care Note [code = 74221-0] Goal Plan of Care Note [code = 55699-0] Goal Plan of Care Note [code = 68709-7] Goal Plan of Care Note [code = 84468-7] Goal Plan of Care Note [code = 18007-5] Goal Plan of Care Note [code = 69886-2] Goal Plan of Care Note [code = 56569-3] Goal Plan of Care Note [code = 05788-6] Goal Plan of Care Note [code = 35329-5] Goal Plan of Care Note [code = 63580-6] Goal Plan of Care Note [code = 45985-5] Goal Plan of Care Note [code = 79655-4] Goal Plan of Care Note [code = 54887-5] Goal Plan of Care Note [code = 30192-4] Goal Plan of Care Note [code = 36074-9] Goal Plan of Care Note [code = 79714-4] Goal Plan of Care Note [code = 18209-3] Goal Plan of Care Note [code = 42150-0] Goal Plan of Care Note [code = 66090-4] Goal Plan of Care Note [code = 57865-0] Goal Plan of Care Note [code = 35839-8] Goal Plan of Care Note [code = 21216-4] Goal Plan of Care Note [code = 20107-7] Goal Plan of Care Note [code = 07128-8] Goal Plan of Care Note [code = 05257-9] Goal Plan of Care Note [code = 96243-6] Encounters Start End Encounter Admission Attending Care Care Encounter Source Date/Time Date/Time Type Type Clinicians Facility Department ID 2023-01-31 2023-01-31 Outpatient SFA DAV [id number] Odilon 13:06:35 13:06:35 0405 F Arthur 2022-11-23 2022-11-23 Outpatient SFA SFA 01719-7 023 Odilon 15:03:05 15:03:05 0126 F Arthur 2022-10-04 2022-10-04 Outpatient no514n4j- [id number] aa 825r0t-5 00:00:00 00:00:00 Visit 3267-4c5b 267-4c5b-9 -5gy4-797 bc8-009af0 hf4f6w68n d1e93f 2022-10-03 2022-10-03 Outpatient SFA SFA 97045-8 022 Od[place] 16:27:26 16:27:26 1206 F Arthur 2022-10-03 2022-10-03 Outpatient [id number]- [id number] 3c 5f12f9-7 00:00:00 00:00:00 Visit 7w74-9ma2 u08-7pj7-l -bed2-8d4 ed2-8d4dfc [id number] 013713 3074-11-08 2022-09-05 Outpatient [facility] [id number] 022 Odilon 10:56:55 10:56:55 1108 F Arthur 2022-08-30 2022-08-30 Outpatient SFA [facility] 07090-1 022 Odilon 11:05:02 11:05:02 1102 F Arthur 2022-08-30 2022-08-30 Outpatient [id number]- [id number] r822c4-7 00:00:00 00:00:00 Visit 50n9-21v4 7m5-79q4-f -hn8x-kj9 a1v-oi2t2n y3ae0o2dg f5e4ee 2022-05-16 2022-05-16 Outpatient 7q33f4v2- [id number] 1a 54t5b4-5 00:00:00 00:00:00 Visit 746b-4fb4 46b-4fb4-8 -877b-c0a 77b-d8i537 732x39301 j64182 2022-05-02 2022-05-02 Emergency [facility] E[facility] [id number] Univers 12:34:00 18:22:00 DAYO itabel [facility] 2022-05-02 2022-05-02 [facility] [id number] Univers 12:34:00 18:22:00 Dayo ALND 350.1.13.10 i ty [facility] 4.2.[place].2.[place] [id number] [address] 2021-03-16 2021-03-16 Outpatient Macho KLEIN [facility] [id number] Univers 09:00:00 09:00:00 SENDIL ity of [facility] 2021-03-14 2021-03-14 Telephone Sudhakar Taylor 1.2.840.114 [id number] Univers 00:00:00 00:00:00 , Bryanna Gomez 350.1.13.10 ity [place]2.686 [place] [id number] [address] 2021-03-01 2021-03-01 [facility] [id number] Univers 08:00:00 08:00:00 SENDIL ity [facility] 2021-02-02 2021-02-02 Office Ernie [facility] 1.2.840.114 [id number] Univers 08:12:10 09:56:16 Visit Sendil Gricelda [place] 350.1.13.10 ity of [place] 4[place]2.7.2.686 [place] Professio [phone] Mo dical [facility] 059 [facility] 2021-02-02 2021-02-02 Outpatient R ERNIE [facility] [id number] Univers 09:00:00 09:00:00 SENDIL ity [facility] 2021-01-26 2021-01-26 Orders Doctor SHAZIA [place]2.840.114 [id number] 00:00:00 00:00:00 Only Unassigned, DAVID 350.1.13.10 [facility] 4.2.7.2.686 [id number] 2021-01-26 2021-01-26 Orders Doctor SHAZIA [place]2.840.114 [id number] Univers 00:00:00 00:00:00 Only Unassigned, DAVID 350.1.13.10 ity of [facility] 4.2.7.2.686 Reg[place] as [phone] [address] 2020-12-22 2020-12-22 Orders Doctor SHAZIA Kaba.2.840.114 [id number] 00:00:00 00:00:00 Only Unassigned, DAVID 350.1.13.10 [facility] 4.2.7.2.686 [id number] 009 2020-12-22 2020-12-22 Orders Doctor SHAZIA Kaba.2.840.114 [id number] Univers 00:00:00 00:00:00 Only Unassigned, DAVID 350.1.13.10 [facility]y of [facility] 4.2.7.2.686 Reginaldo as [id number] [address] 2020-08-06 2020-08-06 Letter Doctor SHAZIA [place]2.840.114 [id number] 00:00:00 00:00:00 (Out) Unassigned, DAVID 350.1.13.10 [facility] 4.2.7.2.686 [id number] 044 2020-08-06 2020-08-06 Letter Doctor SHAZIA 1.2.840.114 [id number] 00:00:00 00:00:00 (Out) Unassigned, DAVID 350.1.13.10 [facility] 4.2.7.2.686 [id number] 044 2020-08-06 2020-08-06 Letter Doctor MCCRAY 1.2.840.114 [id number] Univers 00:00:00 00:00:00 (Out) Unassigned, DAVID 350.1.13.10 ity of [facility] 4.2.7.2.686 Reg[place]do as [phone] [address] 2020-08-06 2020-08-06 Letter Doctor MCCRAY 1.2.840.114 [id number] Univers 00:00:00 00:00:00 (Out) Unassigned, DAVID 350.1.13.10 ity of [facility] 4.2.7.2.686 Reginaldo as [id number] [address] 2019-07-07 2019-07-07 [place], [facility] 1.2.333.037 [id number] 11:16:20 12:14:00 [place] 350.1.13.10 [place] 4.2.7.2.686 [place] [id number] [facility] 2019-07-07 2019-07-07 Emergency [place], [facility] 1.2.446.569 [id number] [facility] 11:16:20 12:14:00 [place] 350.1.13.10 i ty of [place] 4.2.7.2.686 [facility] [id number] [address] Results Test Description Test Time Test Comments Results Result Comments Source CULTURE, URINE 2022-09-01 00:00:00 Test Item Value Reference Range Interpretation Comme nts CULTURE, URINE (test code = 39441) SPECIMEN NUMBER: [id number] CULTURE, [id number] 00:00:00 Test Item Value Reference Range Interpretation Comments CULTURE, URINE (test SPECIMEN NUMBER: code = 25407) [id number] CULTURE, [id number] 00:00:00 Test Item Value Reference Range Interpretation Comments CULTURE, URINE (test SPECIMEN NUMBER: code = 96651) [id number] CULTURE, [id number] 00:00:00 Test Item Value Reference Range Interpretation Comments CULTURE, URINE (test SPECIMEN NUMBER: code = 95299) [id number] SARS-CoV-2 (COVID-19), RT-PCR/[id number] 08:18:51 Test Item Value Reference Interpretation Comments Range SARS-CoV-2 NEGATIVE SEE NOTE SARS-CoV-2 RNA NOT INTERPRETATION DETECTEDNegat francoise (test code = 43559) results do not preclude SARS-CoV-2 infe ction [...] code = [place]: [place] [address]) Dixie Laurie [place] l-Time RT-PCR. The exp ected result or [...] see downloadable PD F fact sheet at:https://www. [employer] GI/COVID-19-RT -PCR UNLESS OTHERWIS E INDICATED, ALL TESTING PERFORMED [facility] PATHOLOGY [facility] [address] [place] [address] 4 LABORATORY DIRE CTOR: BERENICE COX M.D. CLIA NUMBER [id number] [facility] [place]. [id number] SARS-CoV-2 (COVID-19) by RT-PCR (HIGH RISK)2022-01-14 00:00:00 Test Item Value Reference Range Interpretation Comments SARS-CoV-2 INTERPRETATION (test NEGATIVE code = 10113) SOURCE (test code = 58391) NOT SPECIFIED SARS-CoV-2 (COVID-19) by RT-PCR (HIGH RISK)2022-01-14 00:00:00 Test Item Value Reference Range Interpretation Comments SARS-CoV-2 INTERPRETATION (test NEGATIVE code = 53958) SOURCE (test code = 15219) NOT SPECIFIED SARS-CoV-2 (COVID-19) by RT-PCR (HIGH RISK)2022-01-14 00:00:00 Test Item Value Reference Range Interpretation Comments SARS-CoV-2 INTERPRETATION (test NEGATIVE code = 75545) SOURCE (test code = 58025) NOT SPECIFIED SARS-CoV-2 (COVID-19) by RT-PCR (HIGH RISK)2022-01-14 00:00:00 Test Item Value Reference Range Interpretation Comments SARS-CoV-2 INTERPRETATION (test NEGATIVE code = 79454) SOURCE (test code = 97899) NOT SPECIFIED SARS-CoV-2 (COVID-19) by RT-PCR (HIGH RISK)2022-01-14 00:00:00 Test Item Value Reference Range Interpretation Comments SARS-CoV-2 INTERPRETATION (test NEGATIVE code = 10437) SOURCE (test code = 22132) NOT SPECIFIED SARS-CoV-2 (COVID-19) by RT-PCR (HIGH RISK)2022-01-14 00:00:00 Test Item Value Reference Range Interpretation Comments SARS-CoV-2 INTERPRETATION (test NEGATIVE code = 50305) SOURCE (test code = 64690) NOT SPECIFIED SARS-CoV-2 (COVID-19) by RT-PCR (HIGH RISK)2022-01-14 00:00:00 Test Item Value Reference Range Interpretation Comments SARS-CoV-2 INTERPRETATION (test NEGATIVE code = 71692) SOURCE (test code = 81262) NOT SPECIFIED SARS-CoV-2 (COVID-19), RT-PCR/[id number] 06:38:45 Test Item Value Reference Interpretation Comments Range SARS-CoV-2 NEGATIVE SEE NOTE SARS-CoV-2 RNA NOT INTERPRETATION DETECTEDNegat francoise (test code = 91832) results do not preclude SARS-C oV-2 infection [...] (test code = NASOPHARYNGEAL Note: [place] [address]) Dixie Laurie [place] l-Time RT-PCR. The exp ected result or [...] see downloadable PD F fact sheet at:https://www. [employer]/COVID-19-R T-PCR UNLESS OTHERWIS E INDICATED, ALL TESTING PERFORMED [facility] PATHOLOGY [facility]. [address] [place] [address] [facility] DIRECTOR: BERENICE ANN M.D. CLIA NUMBER [id number] CAP ACCREDITATION N O. [id number] SARS-CoV-2 (COVID-19) by RT-PCR (HIGH RISK)2021-12-29 00:00:00 Test Item Value Reference Range Interpretation Comments SARS-CoV-2 INTERPRETATION NEGATIVE (test code = 92997) SOURCE (test code = 04210) NASOPHARYNGEAL SARS-CoV-2 (COVID-19) by RT-PCR (HIGH RISK)2021-12-29 00:00:00 Test Item Value Reference Range Interpretation Comments SARS-CoV-2 INTERPRETATION NEGATIVE (test code = 85618) SOURCE (test code = 12824) NASOPHARYNGEAL SARS-CoV-2 (COVID-19) by RT-PCR (HIGH RISK)2021-12-29 00:00:00 Test Item Value Reference Range Interpretation Comments SARS-CoV-2 INTERPRETATION NEGATIVE (test code = 05274) SOURCE (test code = 27324) NASOPHARYNGEAL SARS-CoV-2 (COVID-19) by RT-PCR (HIGH RISK)2021-12-29 00:00:00 Test Item Value Reference Range Interpretation Comments SARS-CoV-2 INTERPRETATION NEGATIVE (test code = 03590) SOURCE (test code = 79704) NASOPHARYNGEAL SARS-CoV-2 (COVID-19) by RT-PCR (HIGH RISK)2021-12-29 00:00:00 Test Item Value Reference Range Interpretation Comments SARS-CoV-2 INTERPRETATION NEGATIVE (test code = 99654) SOURCE (test code = 88718) NASOPHARYNGEAL SARS-CoV-2 (COVID-19) by RT-PCR (HIGH RISK)2021-12-29 00:00:00 Test Item Value Reference Range Interpretation Comments SARS-CoV-2 INTERPRETATION NEGATIVE (test code = 11251) SOURCE (test code = 66126) NASOPHARYNGEAL SARS-CoV-2 (COVID-19) by RT-PCR (HIGH RISK)2021-12-29 00:00:00 Test Item Value Reference Range Interpretation Comments SARS-CoV-2 INTERPRETATION NEGATIVE (test code = 70043) SOURCE (test code = 19262) NASOPHARYNGEAL [id number] 00:00:00 Test Item Value Reference Range Interpretation Comments TSH, THIRD GENERATION (test code 1.250 UIU/ML = 2821) [id number] 00:00:00 Test Item Value Reference Range Interpretation Comments TSH, THIRD GENERATION (test code 1.250 UIU/ML = 2821) [id number] 00:00:00 Test Item Value Reference Range Interpretation Comments TSH, THIRD GENERATION (test code 1.250 UIU/ML = 2821) [id number] 00:00:00 Test Item Value Reference Range Interpretation Comments TSH, THIRD GENERATION (test code 1.250 UIU/ML = 2821) [id number] 00:00:00 Test Item Value Reference Range Interpretation Comments TSH, THIRD GENERATION (test code 1.250 UIU/ML = 2821) [id number] 00:00:00 Test Item Value Reference Range Interpretation Comments TSH, THIRD GENERATION (test code 1.250 UIU/ML = 2821) [id number] 00:00:00 Test Item Value Reference Range Interpretation Comments TSH, THIRD GENERATION (test code 1.250 UIU/ML = 2821) [id number] 00:00:00 Test Item Value Reference Range Interpretation Comments TSH, THIRD GENERATION (test code 1.250 UIU/ML = 2821) [id number] 00:00:00 Test Item Value Reference Range Interpretation Comments TSH, THIRD GENERATION (test code 1.250 UIU/ML = 2821) [id number] 00:00:00 Test Item Value Reference Range Interpretation Comments TSH, THIRD GENERATION (test code 1.250 UIU/ML = 2821) [id number] 00:00:00 Test Item Value Reference Range Interpretation Comments TSH, THIRD GENERATION (test code 1.250 UIU/ML = 2821) CBC W/AUTO [id number] 00:00:00 Test Item Value Reference Range Interpretation [...] code = 1015) 207 K/UL CBC W/AUTO [id number] 00:00:00 Test Item Value Reference Range Interpretation [...] code = 1015) 207 K/UL CBC W/AUTO [id number] 00:00:00 Test Item Value Reference Range Interpretation [...] code = 1015) 207 K/UL COMPREHENSIVE METABOLIC [id number] 00:00:00 Test Item Value Reference Range Interpretation Comments GLUCOSE (test code = 2217) 108 MG/DL BUN (test code = 2208) 8 MG/DL CREATININE (test code = 2214) 0.80 MG/DL eGFR AMER. (test code 112 ML/MIN/1.73 = 05724) eGFR NON- AMER. (test 97 ML/MIN/1.73 code = 67638) CALC BUN/CREAT (test code = 10 RATIO [...] code = 2219) 12 U/L COMPREHENSIVE METABOLIC [id number] 00:00:00 Test Item Value Reference Range Interpretation Comments GLUCOSE (test code = 2217) 108 MG/DL BUN (test code = 2208) 8 MG/DL CREATININE (test code = 2214) 0.80 MG/DL eGFR AMER. (test code 112 ML/MIN/1.73 = 83345) eGFR NON- AMER. (test 97 ML/MIN/1.73 code = 07762) CALC BUN/CREAT (test code = 10 RATIO [...] code = 2219) 12 U/L CBC W/AUTO [id number] 00:00:00 Test Item Value Reference Range Interpretation [...] code = 1015) 207 K/UL CBC W/AUTO [id number] 00:00:00 Test Item Value Reference Range Interpretation [...] code = 1015) 207 K/UL COMPREHENSIVE METABOLIC [id number] 00:00:00 Test Item Value Reference Range Interpretation Comments GLUCOSE (test code = 2217) 108 MG/DL BUN (test code = 2208) 8 MG/DL CREATININE (test code = 2214) 0.80 MG/DL eGFR AMER. (test code 112 ML/MIN/1.73 = 68888) eGFR NON- AMER. (test 97 ML/MIN/1.73 code = 54019) CALC BUN/CREAT (test code = 10 RATIO [...] code = 2219) 12 U/L CBC W/AUTO [id number] 00:00:00 Test Item Value Reference Range Interpretation [...] code = 1015) 207 K/UL CBC W/AUTO [id number] 00:00:00 Test Item Value Reference Range Interpretation [...] code = 1015) 207 K/UL CBC W/AUTO [id number] 00:00:00 Test Item Value Reference Range Interpretation [...] code = 1015) 207 K/UL COMPREHENSIVE METABOLIC [id number] 00:00:00 Test Item Value Reference Range Interpretation Comments GLUCOSE (test code = 2217) 108 MG/DL BUN (test code = 2208) 8 MG/DL CREATININE (test code = 2214) 0.80 MG/DL eGFR AMER. (test code 112 ML/MIN/1.73 = 72412) eGFR NON- AMER. (test 97 ML/MIN/1.73 code = 64231) CALC BUN/CREAT (test code = 10 RATIO [...] code = 2219) 12 U/L COMPREHENSIVE METABOLIC [id number] 00:00:00 Test Item Value Reference Range Interpretation Comments GLUCOSE (test code = 2217) 108 MG/DL BUN (test code = 2208) 8 MG/DL CREATININE (test code = 2214) 0.80 MG/DL eGFR AMER. (test code 112 ML/MIN/1.73 = 11384) eGFR NON- AMER. (test 97 ML/MIN/1.73 code = 13231) CALC BUN/CREAT (test code = 10 RATIO [...] code = 2219) 12 U/L CBC W/AUTO [id number] 00:00:00 Test Item Value Reference Range Interpretation [...] code = 1015) 207 K/UL CBC W/AUTO [id number] 00:00:00 Test Item Value Reference Range Interpretation [...] code = 1015) 207 K/UL CBC W/AUTO [id number] 00:00:00 Test Item Value Reference Range Interpretation [...] code = 1015) 207 K/UL COMPREHENSIVE METABOLIC [id number] 00:00:00 Test Item Value Reference Range Interpretation Comments GLUCOSE (test code = 2217) 108 MG/DL BUN (test code = 2208) 8 MG/DL CREATININE (test code = 2214) 0.80 MG/DL eGFR AMER. (test code 112 ML/MIN/1.73 = 76284) eGFR NON- AMER. (test 97 ML/MIN/1.73 code = 59124) CALC BUN/CREAT (test code = 10 RATIO [...] code = 2219) 12 U/L COMPREHENSIVE METABOLIC [id number] 00:00:00 Test Item Value Reference Range Interpretation Comments GLUCOSE (test code = 2217) 108 MG/DL BUN (test code = 2208) 8 MG/DL CREATININE (test code = 2214) 0.80 MG/DL eGFR AMER. (test code 112 ML/MIN/1.73 = 23375) eGFR NON- AMER. (test 97 ML/MIN/1.73 code = 98087) CALC BUN/CREAT (test code = 10 RATIO [...] = 2219) 12 U/L VAGINAL PATHOGENS DNA [id number] 00:00:00 Test Item Value Reference Range Interpretation Comments YRODY SPECIES (test code = ) NEGATIVE G. VAGINALIS (test code = 94828) POSITIVE T. VAGINALIS (test code = 36948) NEGATIVE VAGINAL PATHOGENS DNA [id number] 00:00:00 Test Item Value Reference Range Interpretation Comments YORDY SPECIES (test code = ) NEGATIVE G. VAGINALIS (test code = 94504) POSITIVE T. VAGINALIS (test code = 79787) NEGATIVE [id number] 00:00:00 Test Item Value Reference Range Interpretation Comments TESTOSTERONE (test code = 2830) 23 NG/DL [id number] 00:00:00 Test Item Value Reference Range Interpretation Comments TESTOSTERONE (test code = 2830) 23 NG/DL FSH + LH [id number] 00:00:00 Test Item Value Reference Range Interpretation Comments FOLLICLE STIM HORMONE (test code = 5.4 IU/L 2700) LUTEINIZING HORMONE (test code = 9.5 IU/L 2776) FSH + LH [id number] 00:00:00 Test Item Value Reference Range Interpretation Comments FOLLICLE STIM HORMONE (test code = 5.4 IU/L 2700) LUTEINIZING HORMONE (test code = 9.5 IU/L 2776) [id number] 00:00:00 Test Item Value Reference Range Interpretation Comments PROLACTIN (test code = 2800) 8.5 NG/ML [id number] 00:00:00 Test Item Value Reference Range Interpretation Comments PROLACTIN (test code = 2800) 8.5 NG/ML [id number] 00:00:00 Test Item Value Reference Range Interpretation Comments ESTRADIOL (test code = 2505) 59.4 PG/ML [id number] 00:00:00 Test Item Value Reference Range Interpretation Comments ESTRADIOL (test code = 2505) 59.4 PG/ML [id number] 00:00:00 Test Item Value Reference Range Interpretation Comments ESTRADIOL (test code = 2505) 59.4 PG/ML VAGINAL PATHOGENS DNA [id number] 00:00:00 Test Item Value Reference Range Interpretation Comments YORDY SPECIES (test code = ) NEGATIVE G. VAGINALIS (test code = 94273) POSITIVE T. VAGINALIS (test code = ) NEGATIVE [id number] 00:00:00 Test Item Value Reference Range Interpretation Comments TESTOSTERONE (test code = 2830) 23 NG/DL FSH + LH [id number] 00:00:00 Test Item Value Reference Range Interpretation Comments FOLLICLE STIM HORMONE (test code = 5.4 IU/L 2700) LUTEINIZING HORMONE (test code = 9.5 IU/L 2776) [id number] 00:00:00 Test Item Value Reference Range Interpretation Comments PROLACTIN (test code = 2800) 8.5 NG/ML [id number] 00:00:00 Test Item Value Reference Range Interpretation Comments ESTRADIOL (test code = 2505) 59.4 PG/ML [id number] 00:00:00 Test Item Value Reference Range Interpretation Comments ESTRADIOL (test code = 2505) 59.4 PG/ML VAGINAL PATHOGENS DNA [id number] 00:00:00 Test Item Value Reference Range Interpretation Comments YORDY SPECIES (test code = ) NEGATIVE G. VAGINALIS (test code = 84009) POSITIVE T. VAGINALIS (test code = 61782) NEGATIVE VAGINAL PATHOGENS DNA [id number] 00:00:00 Test Item Value Reference Range Interpretation Comments YORDY SPECIES (test code = 32716) NEGATIVE G. VAGINALIS (test code = 67951) POSITIVE T. VAGINALIS (test code = 74930) NEGATIVE [id number] 00:00:00 Test Item Value Reference Range Interpretation Comments TESTOSTERONE (test code = 2830) 23 NG/DL [id number] 00:00:00 Test Item Value Reference Range Interpretation Comments TESTOSTERONE (test code = 2830) 23 NG/DL FSH + LH [id number] 00:00:00 Test Item Value Reference Range Interpretation Comments FOLLICLE STIM HORMONE (test code = 5.4 IU/L 2700) LUTEINIZING HORMONE (test code = 9.5 IU/L 2776) FSH + LH [id number] 00:00:00 Test Item Value Reference Range Interpretation Comments FOLLICLE STIM HORMONE (test code = 5.4 IU/L 2700) LUTEINIZING HORMONE (test code = 9.5 IU/L 2776) [id number] 00:00:00 Test Item Value Reference Range Interpretation Comments PROLACTIN (test code = 2800) 8.5 NG/ML [id number] 00:00:00 Test Item Value Reference Range Interpretation Comments PROLACTIN (test code = 2800) 8.5 NG/ML [id number] 00:00:00 Test Item Value Reference Range Interpretation Comments ESTRADIOL (test code = 2505) 59.4 PG/ML [id number] 00:00:00 Test Item Value Reference Range Interpretation Comments ESTRADIOL (test code = 2505) 59.4 PG/ML [id number] 00:00:00 Test Item Value Reference Range Interpretation Comments ESTRADIOL (test code = 2505) 59.4 PG/ML VAGINAL PATHOGENS DNA [id number] 00:00:00 Test Item Value Reference Range Interpretation Comments YORDY SPECIES (test code = ) NEGATIVE G. VAGINALIS (test code = 01911) POSITIVE T. VAGINALIS (test code = 36181) NEGATIVE VAGINAL PATHOGENS DNA [id number] 00:00:00 Test Item Value Reference Range Interpretation Comments YORDY SPECIES (test code = 46744) NEGATIVE G. VAGINALIS (test code = 26309) POSITIVE T. VAGINALIS (test code = 01075) NEGATIVE [id number] 00:00:00 Test Item Value Reference Range Interpretation Comments TESTOSTERONE (test code = 2830) 23 NG/DL [id number] 00:00:00 Test Item Value Reference Range Interpretation Comments TESTOSTERONE (test code = 2830) 23 NG/DL FSH + LH [id number] 00:00:00 Test Item Value Reference Range Interpretation Comments FOLLICLE STIM HORMONE (test code = 5.4 IU/L 2700) LUTEINIZING HORMONE (test code = 9.5 IU/L 2776) FSH + LH [id number] 00:00:00 Test Item Value Reference Range Interpretation Comments FOLLICLE STIM HORMONE (test code = 5.4 IU/L 2700) LUTEINIZING HORMONE (test code = 9.5 IU/L 2776) [id number] 00:00:00 Test Item Value Reference Range Interpretation Comments PROLACTIN (test code = 2800) 8.5 NG/ML [id number] 00:00:00 Test Item Value Reference Range Interpretation Comments PROLACTIN (test code = 2800) 8.5 NG/ML [id number] 00:00:00 Test Item Value Reference Range Interpretation Comments ESTRADIOL (test code = 2505) 59.4 PG/ML [id number] 00:00:00 Test Item Value Reference Range Interpretation Comments ESTRADIOL (test code = 2505) 59.4 PG/ML [id number] 00:00:00 Test Item Value Reference Range Interpretation Comments ESTRADIOL (test code = 2505) 59.4 PG/ML PAP TEST, THINPREP, [id number] 00:00:00 Test Item Value Reference Range Interpretation Comments SOURCE: (test code = 8001) Cervical/Endocervi franca SLIDES: (test code = 8011) 1 LMP: (test code = 8021) 09/02/2020 SPECIMEN ADEQUACY: (test (NOTE) code = 15355) INTERPRETATION: (test code ASCUS/EPITH. = 84782) ABNORMALITY; SEE BELOW [employer] SUPERVISOR: (test Daisy code = 8101) GABRIELA Kay(ASCP)IAC PATHOLOGIST INTERPRETATION Aleksander Chen M.D. BY: (test code = 8122) LOCATION: (test code = (NOTE) 08954) CPT: (test code = 8140) (NOTE) PAP TEST, THINPREP, [id number] 00:00:00 Test Item Value Reference Range Interpretation Comments SOURCE: (test code = 8001) Cervical/Endocervi franca SLIDES: (test code = 8011) 1 LMP: (test code = 8021) 09/02/2020 SPECIMEN ADEQUACY: (test (NOTE) code = 45447) INTERPRETATION: (test code ASCUS/EPITH. = 69962) ABNORMALITY; SEE BELOW SPECIAL[employer] SUPERVISOR: (test Daisy code = 8101) GABRIELA Kay(ASCP)IAC PATHOLOGIST INTERPRETATION Aleksander Chen M.D. BY: (test code = 8122) LOCATION: (test code = (NOTE) 32097) CPT: (test code = 8140) (NOTE) PAP TEST, THINPREP, [id number] 00:00:00 Test Item Value Reference Range Interpretation Comments SOURCE: (test code = 8001) Cervical/Endocervi franca SLIDES: (test code = 8011) 1 LMP: (test code = 8021) 09/02/2020 SPECIMEN ADEQUACY: (test (NOTE) code = 82085) INTERPRETATION: (test code ASCUS/EPITH. = 16535) ABNORMALITY; SEE BELOW [employer] SUPERVISOR: (test Daisy code = 8101) GABRIELA Kay(ASCP)[facility] PATHOLOGIST INTERPRETATION Aleksander Chen M.D. BY: (test code = 8122) LOCATION: (test code = (NOTE) 26711) CPT: (test code = 8140) (NOTE) PAP TEST, THINPREP, [id number] 00:00:00 Test Item Value Reference Range Interpretation Comments SOURCE: (test code = 8001) Cervical/Endocervi franca SLIDES: (test code = 8011) 1 LMP: (test code = 8021) 09/02/2020 SPECIMEN ADEQUACY: (test (NOTE) code = 48970) INTERPRETATION: (test code ASCUS/EPITH. = 24175) ABNORMALITY; SEE BELOW [employer] SUPERVISOR: (test Daisy code = 8101) GABRIELA Kay(ASCP)IAC PATHOLOGIST INTERPRETATION Aleksander Chen M.D. BY: (test code = 8122) LOCATION: (test code = (NOTE) 40752) CPT: (test code = 8140) (NOTE) PAP TEST, THINPREP, [id number] 00:00:00 Test Item Value Reference Range Interpretation Comments SOURCE: (test code = 8001) Cervical/Endocervi franca SLIDES: (test code = 8011) 1 LMP: (test code = 8021) 09/02/2020 SPECIMEN ADEQUACY: (test (NOTE) code = 99072) INTERPRETATION: (test code ASCUS/EPITH. = 68548) ABNORMALITY; SEE BELOW [employer] SUPERVISOR: (test Daisy code = 8101) GABRIELA Kay(ASCP)IAC PATHOLOGIST INTERPRETATION Aleksander Chen M.D. BY: (test code = 8122) LOCATION: (test code = (NOTE) 53219) CPT: (test code = 8140) (NOTE) PAP TEST, THINPREP, [id number] 00:00:00 Test Item Value Reference Range Interpretation Comments SOURCE: (test code = 8001) Cervical/Endocervi franca SLIDES: (test code = 8011) 1 LMP: (test code = 8021) 09/02/2020 SPECIMEN ADEQUACY: (test (NOTE) code = 97922) INTERPRETATION: (test code ASCUS/EPITH. = 27869) ABNORMALITY; SEE BELOW [employer] SUPERVISOR: (test Daisy code = 8101) GABRIELA Kay(ASCP)IAC PATHOLOGIST INTERPRETATION Aleksander Chen M.D. BY: (test code = 8122) LOCATION: (test code = (NOTE) 17154) CPT: (test code = 8140) (NOTE) PAP TEST, THINPREP, [id number] 00:00:00 Test Item Value Reference Range Interpretation Comments SOURCE: (test code = 8001) Cervical/Endocervi franca SLIDES: (test code = 8011) 1 LMP: (test code = 8021) 09/02/2020 SPECIMEN ADEQUACY: (test (NOTE) code = 02877) INTERPRETATION: (test code ASCUS/EPITH. = 91936) ABNORMALITY; SEE BELOW [employer] SUPERVISOR: (test Daisy code = 8101) GABRIELA Kay(ASCP)IAC PATHOLOGIST INTERPRETATION Aleksander Chen M.D. BY: (test code = 8122) LOCATION: (test code = (NOTE) 35333) CPT: (test code = 8140) (NOTE) HIV 1/2 4TH GEN, RFLX CONF [ADDED]2020-09-21 00:00:00 Test Item Value Reference Range Interpretation Comments HIV 1/2 4TH GEN, RFLX CONF (test NON-REACTIVE code = 3514) HIV 1/2 4TH GEN, RFLX CONF [ADDED]2020-09-21 00:00:00 Test Item Value Reference Range Interpretation Comments HIV 1/2 4TH GEN, RFLX CONF (test NON-REACTIVE code = 3514) GC AND CHLAMYDIA AMPLIFIED, [id number] 00:00:00 Test Item Value Reference Range Interpretation Comments GONORRHEA, TMA (test code = 33793) NEGATIVE CHLAMYDIA, TMA (test code = 97325) NEGATIVE GC AND CHLAMYDIA AMPLIFIED, [id number] 00:00:00 Test Item Value Reference Range Interpretation Comments GONORRHEA, TMA (test code = 39391) NEGATIVE CHLAMYDIA, TMA (test code = 82376) NEGATIVE RPR [ADDED]2020-09-21 00:00:00 Test Item Value [...] ) NEGATIVE G. VAGINALIS (test code = 04291) POSITIVE T. VAGINALIS (test code = 27548) NEGATIVE VAGINAL PATHOGENS DNA PANEL [ADDED]2020-09-21 00:00:00 Test Item Value Reference Range Interpretation Comments YORDY SPECIES (test code = ) NEGATIVE G. VAGINALIS (test code = 48952) POSITIVE T. VAGINALIS (test code = 37106) NEGATIVE ADELA (ANTI-NUCLEAR AB) WITH REFLEX [id number] 00:00:00 Test Item Value Reference Range Interpretation Comments ANTI-NUCLEAR ANTIBODIES (test code = NEGATIVE 3506) HPV HIGH RISK WITH GENOTYPE, [id number] 00:00:00 Test Item Value Reference Range Interpretation Comments HPV HIGH RISK INTERP (test code = NEGATIVE 01971) HPV 16 (test code = 53372) NEGATIVE HPV 18 (test code = 94156) NEGATIVE HPV, HR, OTHER GENOTYPES (test code NEGATIVE = 82984) ADELA (ANTI-NUCLEAR AB) WITH REFLEX [id number] 00:00:00 Test Item Value Reference Range Interpretation Comments ANTI-NUCLEAR ANTIBODIES (test code = NEGATIVE 3506) HPV HIGH RISK WITH GENOTYPE, [id number] 00:00:00 Test Item Value Reference Range Interpretation Comments HPV HIGH RISK INTERP (test code = NEGATIVE 10906) HPV 16 (test code = 17417) NEGATIVE HPV 18 (test code = 36406) NEGATIVE HPV, HR, OTHER GENOTYPES (test code NEGATIVE = 87788) HIV 1/2 4TH GEN, RFLX CONF [ADDED]2020-09-21 00:00:00 Test Item Value Reference Range Interpretation Comments HIV 1/2 4TH GEN, RFLX CONF (test NON-REACTIVE code = 3514) GC AND CHLAMYDIA AMPLIFIED, [id number] 00:00:00 Test Item Value Reference Range Interpretation Comments GONORRHEA, TMA (test code = 20354) NEGATIVE CHLAMYDIA, TMA (test code = 55776) NEGATIVE RPR [ADDED]2020-09-21 00:00:00 Test Item Value [...] ) NEGATIVE ADELA (ANTI-NUCLEAR AB) WITH REFLEX [id number] 00:00:00 Test Item Value Reference Range Interpretation Comments ANTI-NUCLEAR ANTIBODIES (test code = NEGATIVE 3506) HPV HIGH RISK WITH GENOTYPE, [id number] 00:00:00 Test Item Value Reference Range Interpretation Comments HPV HIGH RISK INTERP (test code = NEGATIVE 82918) HPV 16 (test code = 60877) NEGATIVE HPV 18 (test code = 82181) NEGATIVE HPV, HR, OTHER GENOTYPES (test code NEGATIVE = 84289) HIV 1/2 4TH GEN, RFLX CONF [ADDED]2020-09-21 00:00:00 Test Item Value Reference Range Interpretation Comments HIV 1/2 4TH GEN, RFLX CONF (test NON-REACTIVE code = 3514) GC AND CHLAMYDIA AMPLIFIED, [id number] 00:00:00 Test Item Value Reference Range Interpretation Comments GONORRHEA, TMA (test code = 64719) NEGATIVE CHLAMYDIA, TMA (test code = 46462) NEGATIVE HIV 1/2 4TH GEN, RFLX CONF [ADDED]2020-09-21 00:00:00 Test Item Value Reference Range Interpretation Comments HIV 1/2 4TH GEN, RFLX CONF (test NON-REACTIVE code = 3514) GC AND CHLAMYDIA AMPLIFIED, [id number] 00:00:00 Test Item Value Reference Range Interpretation Comments GONORRHEA, TMA (test code = 00441) NEGATIVE CHLAMYDIA, TMA (test code = 67159) NEGATIVE RPR [ADDED]2020-09-21 00:00:00 Test Item Value [...] INDIC. TITER ADELA (ANTI-NUCLEAR AB) WITH REFLEX [id number] 00:00:00 Test Item Value Reference Range Interpretation Comments ANTI-NUCLEAR ANTIBODIES (test code = NEGATIVE 3506) HPV HIGH RISK WITH GENOTYPE, [id number] 00:00:00 Test Item Value Reference Range Interpretation Comments HPV HIGH RISK INTERP (test code = NEGATIVE 08102) HPV 16 (test code = 07104) NEGATIVE HPV 18 (test code = 23871) NEGATIVE HPV, HR, OTHER GENOTYPES (test code NEGATIVE = 96441) VAGINAL PATHOGENS DNA PANEL [ADDED]2020-09-21 00:00:00 Test Item Value Reference Range Interpretation Comments YORDY SPECIES (test code = ) NEGATIVE G. VAGINALIS (test code = ) POSITIVE T. VAGINALIS (test code = ) NEGATIVE ADELA (ANTI-NUCLEAR AB) WITH REFLEX [id number] 00:00:00 Test Item Value Reference Range Interpretation Comments ANTI-NUCLEAR ANTIBODIES (test code = NEGATIVE 3506) HPV HIGH RISK WITH GENOTYPE, [id number] 00:00:00 Test Item Value Reference Range Interpretation Comments HPV HIGH RISK INTERP (test code = NEGATIVE 79058) HPV 16 (test code = 52013) NEGATIVE HPV 18 (test code = 12937) NEGATIVE HPV, HR, OTHER GENOTYPES (test code NEGATIVE = 25763) VAGINAL PATHOGENS DNA PANEL [ADDED]2020-09-21 00:00:00 Test [...] code = 3514) GC AND CHLAMYDIA AMPLIFIED, [id number] 00:00:00 Test Item Value Reference Range Interpretation Comments GONORRHEA, TMA (test code = 39328) NEGATIVE CHLAMYDIA, TMA (test code = 62569) NEGATIVE GC AND CHLAMYDIA AMPLIFIED, [id number] 00:00:00 Test Item Value Reference Range Interpretation Comments GONORRHEA, TMA (test code = 38913) NEGATIVE CHLAMYDIA, TMA (test code = 79413) NEGATIVE RPR [ADDED]2020-09-21 00:00:00 Test Item Value [...] ) NEGATIVE ADELA (ANTI-NUCLEAR AB) WITH REFLEX [id number] 00:00:00 Test Item Value Reference Range Interpretation Comments ANTI-NUCLEAR ANTIBODIES (test code = NEGATIVE 3506) HPV HIGH RISK WITH GENOTYPE, [id number] 00:00:00 Test Item Value Reference Range Interpretation Comments HPV HIGH RISK INTERP (test code = NEGATIVE 71073) HPV 16 (test code = 81348) NEGATIVE HPV 18 (test code = 43542) NEGATIVE HPV, HR, OTHER GENOTYPES (test code NEGATIVE = 06745) ADELA (ANTI-NUCLEAR AB) WITH REFLEX [id number] 00:00:00 Test Item Value Reference Range Interpretation Comments ANTI-NUCLEAR ANTIBODIES (test code = NEGATIVE 3506) HPV HIGH RISK WITH GENOTYPE, [id number] 00:00:00 Test Item Value Reference Range Interpretation Comments HPV HIGH RISK INTERP (test code = NEGATIVE 51940) HPV 16 (test code = 56934) NEGATIVE HPV 18 (test code = 02458) NEGATIVE HPV, HR, OTHER GENOTYPES (test code NEGATIVE = 90172) [id number] 00:00:00 Test Item Value Reference Range Interpretation Comments TSH, THIRD GENERATION (test code 2.110 UIU/ML = 2821) [id number] 00:00:00 Test Item Value Reference Range Interpretation Comments TSH, THIRD GENERATION (test code 2.110 UIU/ML = 2821) [id number] 00:00:00 Test Item Value Reference Range Interpretation Comments TSH, THIRD GENERATION (test code 2.110 UIU/ML = 2821) [id number] 00:00:00 Test Item Value Reference Range Interpretation Comments TSH, THIRD GENERATION (test code 2.110 UIU/ML = 2821) [id number] 00:00:00 Test Item Value Reference Range Interpretation Comments TSH, THIRD GENERATION (test code 2.110 UIU/ML = 2821) [id number] 00:00:00 Test Item Value Reference Range Interpretation Comments TSH, THIRD GENERATION (test code 2.110 UIU/ML = 2821) [id number] 00:00:00 Test Item Value Reference Range Interpretation Comments TSH, THIRD GENERATION (test code 2.110 UIU/ML = 2821) [id number] 00:00:00 Test Item Value Reference Range Interpretation Comments TSH, THIRD GENERATION (test code 2.110 UIU/ML = 2821) [id number] 00:00:00 Test Item Value Reference Range Interpretation Comments TSH, THIRD GENERATION (test code 2.110 UIU/ML = 2821) [id number] 00:00:00 Test Item Value Reference Range Interpretation Comments TSH, THIRD GENERATION (test code 2.110 UIU/ML = 2821) [id number] 00:00:00 Test Item Value Reference Range Interpretation Comments TSH, THIRD GENERATION (test code 2.110 UIU/ML = 2821) COMPREHENSIVE METABOLIC [id number] 00:00:00 Test Item Value Reference Range Interpretation Comments GLUCOSE (test code = 2217) 90 MG/DL BUN (test code = 2208) 11 MG/DL CREATININE (test code = 2214) 0.89 MG/DL eGFR AMER. (test code 99 ML/MIN/1.73 = 55039) eGFR NON- AMER. (test 85 ML/MIN/1.73 code = 24864) CALC BUN/CREAT (test code = 12 RATIO [...] code = 2219) 58 U/L COMPREHENSIVE METABOLIC [id number] 00:00:00 Test Item Value Reference Range Interpretation Comments GLUCOSE (test code = 2217) 90 MG/DL BUN (test code = 2208) 11 MG/DL CREATININE (test code = 2214) 0.89 MG/DL eGFR AMER. (test code 99 ML/MIN/1.73 = 85485) eGFR NON- AMER. (test 85 ML/MIN/1.73 code = 77333) CALC BUN/CREAT (test code = 12 RATIO [...] (test code = 2219) 58 U/L LIPID [id number] 00:00:00 Test Item Value Reference Range Interpretation Comments CHOLESTEROL (test code = 2210) 221 MG/DL TRIGLYCERIDES (test code = 2232) 180 MG/DL HDL CHOLESTEROL (test code = 2220) 51 MG/DL CALC LDL CHOL (test code = 2237) 138 MG/DL RISK RATIO LDL/HDL (test code = 2.71 RATIO 2238) LIPID [id number] 00:00:00 Test Item Value Reference Range Interpretation Comments CHOLESTEROL (test code = 2210) 221 MG/DL TRIGLYCERIDES (test code = 2232) 180 MG/DL HDL CHOLESTEROL (test code = 2220) 51 MG/DL CALC LDL CHOL (test code = 2237) 138 MG/DL RISK RATIO LDL/HDL (test code = 2.71 RATIO 2238) CBC W/AUTO [id number] 00:00:00 Test Item Value Reference Range Interpretation [...] code = 1015) 233 K/UL CBC W/AUTO [id number] 00:00:00 Test Item Value Reference Range Interpretation [...] code = 1015) 233 K/UL CBC W/AUTO [id number] 00:00:00 Test Item Value Reference Range Interpretation [...] code = 1015) 233 K/UL COMPREHENSIVE METABOLIC [id number] 00:00:00 Test Item Value Reference Range Interpretation Comments GLUCOSE (test code = 2217) 90 MG/DL BUN (test code = 2208) 11 MG/DL CREATININE (test code = 2214) 0.89 MG/DL eGFR AMER. (test code 99 ML/MIN/1.73 = 65540) eGFR NON- AMER. (test 85 ML/MIN/1.73 code = 12671) CALC BUN/CREAT (test code = 12 RATIO [...] (test code = 2219) 58 U/L LIPID [id number] 00:00:00 Test Item Value Reference Range Interpretation Comments CHOLESTEROL (test code = 2210) 221 MG/DL TRIGLYCERIDES (test code = 2232) 180 MG/DL HDL CHOLESTEROL (test code = 2220) 51 MG/DL CALC LDL CHOL (test code = 2237) 138 MG/DL RISK RATIO LDL/HDL (test code = 2.71 RATIO 2238) CBC W/AUTO [id number] 00:00:00 Test Item Value Reference Range Interpretation [...] code = 1015) 233 K/UL CBC W/AUTO [id number] 00:00:00 Test Item Value Reference Range Interpretation [...] code = 1015) 233 K/UL COMPREHENSIVE METABOLIC [id number] 00:00:00 Test Item Value Reference Range Interpretation Comments GLUCOSE (test code = 2217) 90 MG/DL BUN (test code = 2208) 11 MG/DL CREATININE (test code = 2214) 0.89 MG/DL eGFR AMER. (test code 99 ML/MIN/1.73 = 72844) eGFR NON- AMER. (test 85 ML/MIN/1.73 code = 40207) CALC BUN/CREAT (test code = 12 RATIO [...] code = 2219) 58 U/L COMPREHENSIVE METABOLIC [id number] 00:00:00 Test Item Value Reference Range Interpretation Comments GLUCOSE (test code = 2217) 90 MG/DL BUN (test code = 2208) 11 MG/DL CREATININE (test code = 2214) 0.89 MG/DL eGFR AMER. (test code 99 ML/MIN/1.73 = 50071) eGFR NON- AMER. (test 85 ML/MIN/1.73 code = 51045) CALC BUN/CREAT (test code = 12 RATIO [...] (test code = 2219) 58 U/L LIPID [id number] 00:00:00 Test Item Value Reference Range Interpretation Comments CHOLESTEROL (test code = 2210) 221 MG/DL TRIGLYCERIDES (test code = 2232) 180 MG/DL HDL CHOLESTEROL (test code = 2220) 51 MG/DL CALC LDL CHOL (test code = 2237) 138 MG/DL RISK RATIO LDL/HDL (test code = 2.71 RATIO 2238) LIPID [id number] 00:00:00 Test Item Value Reference Range Interpretation Comments CHOLESTEROL (test code = 2210) 221 MG/DL TRIGLYCERIDES (test code = 2232) 180 MG/DL HDL CHOLESTEROL (test code = 2220) 51 MG/DL CALC LDL CHOL (test code = 2237) 138 MG/DL RISK RATIO LDL/HDL (test code = 2.71 RATIO 2238) CBC W/AUTO [id number] 00:00:00 Test Item Value Reference Range Interpretation [...] code = 1015) 233 K/UL CBC W/AUTO [id number] 00:00:00 Test Item Value Reference Range Interpretation [...] code = 1015) 233 K/UL CBC W/AUTO [id number] 00:00:00 Test Item Value Reference Range Interpretation [...] code = 1015) 233 K/UL COMPREHENSIVE METABOLIC [id number] 00:00:00 Test Item Value Reference Range Interpretation Comments GLUCOSE (test code = 2217) 90 MG/DL BUN (test code = 2208) 11 MG/DL CREATININE (test code = 2214) 0.89 MG/DL eGFR AMER. (test code 99 ML/MIN/1.73 = 77736) eGFR NON- AMER. (test 85 ML/MIN/1.73 code = 88758) CALC BUN/CREAT (test code = 12 RATIO [...] code = 2219) 58 U/L COMPREHENSIVE METABOLIC [id number] 00:00:00 Test Item Value Reference Range Interpretation Comments GLUCOSE (test code = 2217) 90 MG/DL BUN (test code = 2208) 11 MG/DL CREATININE (test code = 2214) 0.89 MG/DL eGFR AMER. (test code 99 ML/MIN/1.73 = 21488) eGFR NON- AMER. (test 85 ML/MIN/1.73 code = 69814) CALC BUN/CREAT (test code = 12 RATIO [...] (test code = 2219) 58 U/L LIPID [id number] 00:00:00 Test Item Value Reference Range Interpretation Comments CHOLESTEROL (test code = 2210) 221 MG/DL TRIGLYCERIDES (test code = 2232) 180 MG/DL HDL CHOLESTEROL (test code = 2220) 51 MG/DL CALC LDL CHOL (test code = 2237) 138 MG/DL RISK RATIO LDL/HDL (test code = 2.71 RATIO 2238) LIPID [id number] 00:00:00 Test Item Value Reference Range Interpretation Comments CHOLESTEROL (test code = 2210) 221 MG/DL TRIGLYCERIDES (test code = 2232) 180 MG/DL HDL CHOLESTEROL (test code = 2220) 51 MG/DL CALC LDL CHOL (test code = 2237) 138 MG/DL RISK RATIO LDL/HDL (test code = 2.71 RATIO 2238) CBC W/AUTO [id number] 00:00:00 Test Item Value Reference Range Interpretation [...] code = 1015) 233 K/UL CBC W/AUTO [id number] 00:00:00 Test Item Value Reference Range Interpretation [...] code = 1015) 233 K/UL CBC W/AUTO [id number] 00:00:00 Test Item Value Reference Range Interpretation [...] (test code = 1015) 233 K/UL RPR, [id number] 22:11:00 Test Item Value Reference Range Interpretation Comments RPR (test code = RPR) Non-Reactive Non-Reactive N Thyroid Stimulating Hormone (TSH)2017-03-08 09:46:00 Test Item Value Reference Range Interpretation Comments TSH (test code = TSH) 0.79 mIU/mL 0.270-4.200 N
[2023-04-18] MEDS ORDERED: METOCLOPRAMIDE 10 MG/2mL INJ ONE (01:12)
[2023-04-18] MEDS ORDERED: KETOROLAC 30 MG/ML INJ ONE (01:12)
[2023-04-18] MEDS ORDERED: DIPHENHYDRAMINE 50 MG/ML VIAL ONE (01:12)
[2023-04-18] MEDS ORDERED: NA CHLORIDE 0.9% 1,000 ML ONE (01:12)
[2023-04-18 01:18] LABS: Absolute Lymphocytes (CBC) 2.1 K/uL (0.7-4.9); Hematocrit 38.2 % (36.0-45.0); Lymphocytes % 18.6 % (15.3-44.8); MCV 92.2 fL (80-100); MPV 9.6 fL (7.6-11.3); RBC Red Blood Cell Count 4.14 M/uL (3.86-4.86)
[2023-04-18 01:28] LABS: Potassium 3.2 mEq/L (3.5-5.1)
--- NOTE | 2023-04-18 01:35 | ER ---
Nurse's Notes [facility] Name: Charis Padgett Age: 37 yrs Sex: Female : 1985 Arrival Date: 04/18/2023 Time: 00:55 Bed 7 Private MD: Diagnosis: Headache Presentation: 04/18 00:59 Chief complaint: Patient states: HEADACHE STARTED EARLIER TODAY CAUSING N/V. EMS jj7 states: HEADACHE,NAUSEA AND VOMITING. Coronavirus screen: At this time, the client does not indicate any symptoms associated with coronavirus-19. Ebola Screen: No symptoms or risks identified at this time. Initial Sepsis Screen: Does the patient meet any 2 criteria? No. Patient's initial sepsis screen is negative. Does the patient have a suspected source of infection? No. Patient's initial sepsis screen is negative. Risk Assessment: Do you want to hurt yourself or someone else? Patient reports no desire to harm self or others. Onset of symptoms was April 17, 2023. 00:59 Method Of Arrival: EMS: [facility] jj7 00:59 Acuity: KALYANI 3 jj7 Triage Assessment: 01:01 General: Appears in no apparent distress. uncomfortable, Behavior is calm, cooperative, jj7 appropriate for age. Neuro: Reports headache in right. GI: Reports nausea, vomiting. 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 - Social history:: Smoking status: Patient reports the use of cigarette tobacco products, denies chronic smoking, but will smoke occasionally, Patient uses alcohol, occasionally. Screenin:03 [facility] ED Fall Risk Assessment (Adult) History of falling in the last 3 months, jj7 including since admission No falls in past 3 months (0 pts) Confusion or Disorientation No (0 pts) Intoxicated or Sedated No (0 pts) Impaired Gait No (0 pts) Mobility Assist Device Used No (0 pt) Altered Elimination No (0 pt) Score/Fall Risk Level 0 - 2 = Low Risk Oriented to surroundings, Maintained a safe environment. Abuse screen: Denies threats or abuse. Nutritional screening: No deficits noted. Tuberculosis screening: No symptoms or risk factors identified. Assessment: 01:03 Reassessment: SEE TRIAGE ASSESSMENT. Pain: Complains of pain in right [facility]. [facility] 01:55 General: Appears in no apparent distress. comfortable, Behavior is calm, cooperative. lg3 Pain: Denies pain. Neuro: No deficits noted. [place] Agitation-Sedation Scale (RASS): 0 - Alert and Calm Level of Consciousness is awake, alert, obeys commands, Oriented to person, place, time, situation. Cardiovascular: No deficits noted. Denies chest pain, shortness of breath, Capillary refill < 3 seconds Clubbing of nail beds is absent JVD is absent Patient's skin is warm and dry. Respiratory: No deficits noted. Airway is patent Respiratory effort is even, unlabored, Respiratory pattern is regular, symmetrical. GI: No deficits noted. No signs and/or symptoms were reported involving the gastrointestinal system. Patient currently denies nausea. : No deficits noted. No signs and/or symptoms were reported regarding the genitourinary system. EENT: No deficits noted. No signs and/or symptoms were reported regarding the EENT system. Derm: No deficits noted. No signs and/or symptoms reported regarding the dermatologic system. Skin is intact, is healthy with good turgor, Skin is dry, Skin is normal, Skin temperature is warm. Musculoskeletal: No deficits noted. No signs and/or symptoms reported regarding the musculoskeletal system. Circulation, motion, and sensation intact. Range of motion: intact in all extremities. Vital Signs: 00:59 BP 113 / 100; Pulse 72; Resp 16; Temp 97.7; Pulse Ox 98% ; Weight 85.73 kg; Height 5 jj7 ft. 2 in. ; Pain 10/10; 01:55 BP 117 / 88; Pulse 66; Resp 17 S; Pulse Ox 99% on R/A; lg3 00:59 Body Mass Index 34.57 (85.73 kg, 157.48 cm) [facility] 00:59 Pain Scale: Adult j7 [place] Coma Score: 01:28 Eye Response: spontaneous(4). Motor Response: obeys commands(6). Verbal Response: kb oriented(5). Total: 15. ED Course: 00:58 Patient arrived in ED. rv 00:59 [facility]C [facility] kb 00:59 Cara Randle MD is Attending Physician. kb 01:00 Aylin Romero, MARGO is Primary Nurse. lg3 01:01 Triage completed. jj7 01:01 Arm band placed on right wrist. jj7 01:03 Patient has correct armband on for positive identification. Bed in low position. Call jj7 light in reach. Side rails up X 1. Lights dimmed. Warm blanket given. 01:03 No provider procedures requiring assistance completed. Inserted saline lock: 20 gauge jj7 in right antecubital area, using aseptic technique. Blood collected. 01:12 Basic Metabolic Panel Sent. as7 01:12 CBC with Diff Sent. as7 01:55 IV discontinued, intact, bleeding controlled, No redness/swelling at site. Pressure lg3 dressing applied. Administered Medications: 01:22 Drug: NS 0.9% IV 1000 ml Route: IV; Rate: 1000 ml; Site: right antecubital; lg3 01:54 Follow up: Response: No adverse reaction; IV Status: Completed infusion; IV Intake: lg3 300ml 01:22 Drug: metoCLOPramide IVP 10 mg Route: IVP; Site: right antecubital; lg3 01:54 Follow up: Response: No adverse reaction lg3 01:22 Drug: diphenhydrAMINE IVP 12.5 mg Route: IVP; Site: right antecubital; lg3 01:54 Follow up: Response: No adverse reaction lg3 01:22 Drug: Ketorolac IVP 15 mg Route: IVP; Site: right antecubital; lg3 01:54 Follow up: Response: No adverse reaction lg3 01:33 Drug: Potassium Chloride PO 40 mEq Route: PO; lg3 01:54 Follow up: Response: No adverse reaction lg3 Medication: 01:03 VIS not applicable for this client. jj7 Intake: 01:54 IV: 300ml; Total: 300ml. lg3 Outcome: 01:35 Discharge ordered by . kb 01:55 Discharged to home ambulatory. lg3 01:55 Condition: stable 01:55 Discharge instructions given to patient, Instructed on discharge instructions, follow up and referral plans. Demonstrated understanding of instructions, follow-up care. 01:57 Patient left the ED. lg3 Signatures: Jenny Holloway, FRANCINE-C HAND FOLDER-CkYuniel Edmondson RN RN Aylin Ellis RN RN lg3 Kimberly Pierre RN RN jj7 Elisa, Jeanine as7
--- NOTE | 2023-04-18 01:35 | EDPHYS ---
Physician Documentation [facility] Name: Charis Padgett Age: 37 yrs Sex: Female : 1985 Arrival Date: 04/18/2023 Time: 00:55 Bed 7 Private MD: ED Physician Cara Randle HPI: 04/18 01:25 This 37 yrs old Female presents to ER via EMS with complaints of headache. kb 01:25 The patient complains of pain to the right side of head. The patient describes the kb headache as constant, throbbing. Onset: The symptoms/episode began/occurred this morning. Associated signs and symptoms: Pertinent positives: nausea, Photophobia vomiting. Severity of symptoms: At its worst the pain was moderate, in the emergency department the pain is unchanged. Headache History: Denies prior headaches. The symptoms are alleviated by nothing. the symptoms are aggravated by nothing. The patient has not experienced similar symptoms in the past. The patient has not recently seen a physician. Pt states she woke up with a headache and it has gotten worse throughout the day. States she took tylenol a couple of hours ago without relief. Reports photophobia, nausea and vomiting. Reports she is currently being treated with antibiotics for a "gut infection." Denies fever. 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 - Social history:: Smoking status: Patient reports the use of cigarette tobacco products, denies chronic smoking, but will smoke occasionally, Patient uses alcohol, occasionally. ROS: 01:25 Constitutional: Negative for fever, chills, and weight loss. kb 01:25 Abdomen/GI: Positive for nausea, vomiting, and diarrhea, Negative for abdominal pain. 01:25 Neuro: Positive for headache. 01:25 All other systems are negative. Exam: 01:25 Constitutional: This is a well developed, well nourished patient who is awake, alert, kb and in no acute distress. Head/Face: Normocephalic, atraumatic. Eyes: Pupils equal round and reactive to light, extra-ocular motions intact. Lids and lashes normal. Conjunctiva and sclera are non-icteric and not injected. Cornea within normal limits. Periorbital areas with no swelling, redness, or edema. ENT: Moist Mucous membranes Cardiovascular: Regular rate and rhythm with a normal S1 and S2. No gallops, murmurs, or rubs. No pulse deficits. Respiratory: Respirations even and unlabored. No increased work of breathing. Talking in full sentences Abdomen/GI: Soft, non-tender. No distention Skin: Warm, dry with normal turgor. Normal color. MS/ Extremity: Pulses equal, no cyanosis. Neurovascular intact. Full, normal range of motion. Neuro: Awake and alert, GCS 15, oriented to person, place, time, and situation. Moves all extremities. Normal gait. Vital Signs: 00:59 BP 113 / 100; Pulse 72; Resp 16; Temp 97.7; Pulse Ox 98% ; Weight 85.73 kg; Height 5 jj7 ft. 2 in. ; Pain 10/10; 01:55 BP 117 / 88; Pulse 66; Resp 17 S; Pulse Ox 99% on R/A; lg3 00:59 Body Mass Index 34.57 (85.73 kg, 157.48 cm) [facility] 00:59 Pain Scale: Adult jj7 [place] Coma Score: 01:28 Eye Response: spontaneous(4). Motor Response: obeys commands(6). Verbal Response: kb oriented(5). Total: 15. MDM: 00:59 Patient medically screened. 01:28 Differential diagnosis: migraine, tension headache, dehydration, electrolyte imbalance. Data reviewed: vital signs, nurses notes. 01:34 Counseling: I had a detailed discussion with the patient and/or guardian regarding: the kb historical points, exam findings, and any diagnostic results supporting the discharge/admit diagnosis, lab results, the need for outpatient follow up, a family practitioner, to return to the emergency department if symptoms worsen or persist or if there are any questions or concerns that arise at home. Response to treatment: the patient's symptoms have resolved after treatment. 04/18 01: Order name: CBC with Diff; Complete Time: :28 kb 04/18 01:02 Order name: Basic Metabolic Panel; Complete Time: :29 kb 04/18 00:59 Order name: IV; Complete Time: 01:12 rv Administered Medications: 01:22 Drug: NS 0.9% IV 1000 ml Route: IV; Rate: 1000 ml; Site: right antecubital; lg3 01:54 Follow up: Response: No adverse reaction; IV Status: Completed infusion; IV Intake: lg3 300ml 01:22 Drug: metoCLOPramide IVP 10 mg Route: IVP; Site: right antecubital; lg3 01:54 Follow up: Response: No adverse reaction lg3 01:22 Drug: diphenhydrAMINE IVP 12.5 mg Route: IVP; Site: right antecubital; lg3 01:54 Follow up: Response: No adverse reaction lg3 01:22 Drug: Ketorolac IVP 15 mg Route: IVP; Site: right antecubital; lg3 01:54 Follow up: Response: No adverse reaction lg3 01:33 Drug: Potassium Chloride PO 40 mEq Route: PO; lg3 01:54 Follow up: Response: No adverse reaction lg3 Disposition Summary: 04/18/23 01:35 Discharge Ordered Location: Home kb Condition: Stable kb Diagnosis - Headache kb Followup: kb - With: Emergency Department - When: As needed - Reason: Worsening of condition Followup: kb - With: Private Physician - When: 2 - 3 days - Reason: Recheck today's complaints, Continuance of care, Re-evaluation by your physician Discharge Instructions: - Discharge Summary Sheet kb - General Headache Without Cause, [id number] kb Forms: - Medication Reconciliation Form kb - Thank You Letter kb - Antibiotic Education kb - Prescription Opioid Use kb Signatures: Dispatcher [employer] Jenny Burnett, FRANCINE-C BLACKJACK SUPERVISOR-Yuniel Muhammad RN RN rv Aylin Romero RN RN lg3 Kimberly Pierre RN RN jj7
[2023-04-18] MEDS ORDERED: POTASSIUM CL SA 10 MEQ TAB PO ONE (01:39)
[2023-04-18 02:05] VITALS: TEMP 97.7
[2023-04-18 02:06] VITALS: BP 117/88; O2SAT 99
== END 2023-04-18 01:57 | disposition home or self-care (01) ==
LOC: ER 00:55
DX: R51.9 Headache, unspecified (principal); R11.2 Nausea with vomiting, unspecified; F17.210 Nicotine dependence, cigarettes, uncomplicated; Z91.010 Allergy to peanuts; Z91.018 Allergy to other foods
CPT/HCPCS: 85025; 80048; 36415; J2765; J1200; J7030

== ENCOUNTER 2023-07-17 10:28 | Emergency (ER) | payer OTHER ==
--- OUTSIDE RECORDS SUMMARY | 2023-07-17 10:40 | XMS REPORT | Continuity of Care Document ---
:1985 Author Organization [facility] t Address [address] [facility] [address] [place] [address] Care Team Providers Name Role Phone UNKNOWN, REFFERING Primary Care Physician Unavailable DAYO VO Attending Clinician Unavailable Dayo Vo MD Attending Clinician MADI KLEIN K.H. Attending Clinician Unavailable Bryanna De La Fuente RN Attending Clinician Unavailable Ernie VALDEZ, Madi K.H. Attending Clinician Doctor Unassigned, [place] Attending Clinician Unavailable Kota Corey MD Attending Clinician PRISCA GARCIA Attending Clinician Unavailable PRISCA GARCIA Admitting Clinician Unavailable Payers Payer Name Policy Type Policy Number Effective Date Expiration Date [facility] [id number] 2020 00:00:00 Problems Condition Condition Condition Status Onset Resolution Last Treating Co mments Source Name Details Category Date Date Treatment Clinician Date No known No known Disease Unive rs active active ity of problems problems [facility] Allergies, Adverse Reactions, Alerts Allergy Allergy Status Severity Reaction(s) Onset Inactive Treating Comm ents Source Name Type Date Date Clinician Peanut Propensi Active Anaphylaxis Onions- Un amber ty to 6 uncooked ity of adverse 00:00: - rash [place] reaction [address] [place] [address] PEANUT DRUG Active Anaphylaxis Unive rs INGREDI 04-20 ity of 00:00: [address] Social History Social Habit Start Date Stop Date Quantity Comments Source Exposure to 2022-04-22 2022-05-02 Unable to assess Univers ity of SARS-CoV-2 00:00:00 12:29:00 [facility] (event) [place] Tobacco use and 2021-02-02 2021-02-02 Never used Universit y of exposure 00:00:00 00:00:00 [facility] Sex Assigned At [birth year] Universit y of 00:00:00 00:00:00 [facility] Smoking Status Start Date Stop Date Source Unknown if ever smoked [facility] Medical [place] Current some day smoker 2021-02-02 00:00:00 [facility] Medications Ordered Filled Start Stop [...] Medical 07/07/19 Branch at 1245, [facility] : KOTA COREY methocarbam Yes [id number] 500mg Take 1 Univers ol 9-09 tablet by ity of (ROBAXIN) 00:00: mouth 4 [place] 500 mg 00 (four) Medical tablet times Branch daily. methocarbam Yes [id number] 500mg Take 1 Univers ol 9-09 tablet by ity of (ROBAXIN) 00:00: mouth 4 [place] 500 mg 00 (four) Medical tablet times Branch daily. methocarbam Yes [id number] 500mg Take 1 Univers ol 9- tablet by ity of (ROBAXIN) 00:00: mouth 4 [place] 500 mg 00 (four) Medical tablet times Branch daily. methocarbam Yes [id number] 500mg Take 1 Univers ol 9- tablet by ity of (ROBAXIN) 00:00: mouth 4 [place] 500 mg 00 (four) Medical tablet times Branch daily. methocarbam Yes [id number] 500mg Take 1 Univers ol 9-09 tablet by ity of (ROBAXIN) 00:00: mouth 4 [place] 500 mg 00 (four) Medical tablet times Branch daily. methocarbam 2020- No [id number] 500mg Take 1 Univers ol 07-07- tablet by ity of (ROBAXIN) 00:00: 00:[place] 500 [place] :00 (four) Medical tablet times Branch daily. methocarbam 2020- No [id number] 500mg Take 1 Univers ol -07 02- tablet by ity of (ROBAXIN) 00:00: 00:[place] 500 [place] 00 :00 (four) Medical tablet times Branch daily. predniSONE 2019- No [id number] 40mg Take 2 Univers 20 mg 07-07-15 tablets by ity of tablet 00:00: 04:59 mouth [place] 00 :00 daily for Medical 5 days. Branch Vital Signs Vital Name Observation Time Observation Value Comments Source BMI 2022-05-02 17:32:00 36.85 kg/m2 [facility] [place] [facility] Oxygen saturation in 2022-05-02 17:32:00 99 /min University of Arterial blood by [place] [employer] [facility] Pulse oximetry Branch Systolic blood 2022-05-02 17:32:00 137 mm[Hg] Univer sity of pressure [place] [facility] Diastolic blood 2022-05-02 17:32:00 91 mm[Hg] Unive rsity of pressure [place] [facility] Heart rate 2022-05-02 17:32:00 100 /min [facility] [place] [facility] Body temperature 2022-05-02 17:32:00 37.33 Renetta [facility] [place] [facility] Respiratory rate 2022-05-02 17:32:00 18 /min [facility] [place] [facility] Body height 2022-05-02 17:32:00 160 cm [facility] [place] [facility] Body weight 2022-05-02 17:32:00 94.348 kg [facility] [place] [facility] Systolic blood 2021-02-02 13:54:00 123 mm[Hg] [facility] [place] [facility] Diastolic blood 2021-02-02 13:54:00 88 mm[Hg] Unive rsity [facility] [place] [facility] Heart rate 2021-02-02 13:54:00 81 /min [facility] [place] [facility] Respiratory rate 2021-02-02 13:54:00 19 /min [facility] [place] [facility] Body height 2021-02-02 13:54:00 158.8 cm [facility] [place] [facility] Body weight 2021-02-02 13:54:00 85.684 kg [facility] [place] [facility] BMI 2021-02-02 13:54:00 34.00 kg/m2 [facility] [place] [facility] Oxygen saturation in 2021-02-02 13:54:00 98 /min University of Arterial blood by [place] [employer] [facility] Pulse oximetry Branch Systolic blood 2019-07-07 16:13:00 132 mm[Hg] [facility] [place] [facility] Diastolic blood 2019-07-07 16:13:00 83 mm[Hg] Unive rsity [facility] [place] [facility] Heart rate 2019-07-07 16:13:00 99 /min [facility] [place] [facility] Body temperature 2019-07-07 16:13:00 36.72 Renetta [facility] [place] [facility] Respiratory rate 2019-07-07 16:13:00 20 /min [facility] [place] [facility] Body height 2019-07-07 16:13:00 160 cm [facility] [place] [facility] Body weight 2019-07-07 16:13:00 68.04 kg [facility] [place] [facility] BMI 2019-07-07 16:13:00 26.57 kg/m2 [facility] [place] [facility] Oxygen saturation in 2019-07-07 16:13:00 100 /min University of Arterial blood by [place] [employer] [place] Pulse oximetry Branch Systolic blood 2019-07-07 16:13:00 132 mm[Hg] [facility] [place] [facility] Diastolic blood 2019-07-07 16:13:00 83 mm[Hg] Unive [facility]ity [facility] [place] [facility] [place] Heart rate 2019-07-07 16:13:00 99 /min [facility] [place] [facility] Body temperature 2019-07-07 16:13:00 36.72 Renetta [facility] [place] [facility] Respiratory rate 2019-07-07 16:13:00 20 /min [facility] [place] [facility] Body height 2019-07-07 16:13:00 160 cm [facility] [place] [facility] Body weight 2019-07-07 16:13:00 68.04 kg [facility] [place] [facility] BMI 2019-07-07 16:13:00 26.57 kg/m2 [facility] [place] [facility] Oxygen saturation in 2019-07-07 16:13:00 100 /min University of Arterial blood by [facility] franca Pulse oximetry Branch BP Systolic 2022-10-04 [...] 2022-05-02 17:29:12 Doctor Unassigned, No Univ ersity [facility] PRACTICES Name Medical Branch CONSENT/REFUSAL FOR 2022-05-02 17:28:58 Doctor Unassigned, No Un iversity [facility] DIAGNOSIS AND Name Medical Branch TREATMENT REFERRAL- 2021-01-26 05:01:00 Doctor Unassigned, No [facility] [place] REQUEST/RESPONSE Name Medical Branch REFERRAL- 2020-12-22 06:01:00 Doctor Unassigned, No [facility] [place] REQUEST/RESPONSE Name Medical Branch NOTICE OF PRIVACY 2019-07-07 16:09:09 Doctor Unassigned, No [facility] [place] PRACTICES Name Medical Branch Plan of Care Planned Activity Planned Date Details Comments Source Goal Plan of Care Note [code = 82256-3] Goal Plan of Care Note [code = 16822-8] Goal Plan of Care Note [code = 95511-4] Goal Plan of Care Note [code = 00422-1] Goal Plan of Care Note [code = 63469-3] Goal Plan of Care Note [code = 24697-8] Goal Plan of Care Note [code = 89844-7] Goal Plan of Care Note [code = 93279-7] Goal Plan of Care Note [code = 65829-6] Goal Plan of Care Note [code = 34617-4] Goal Plan of Care Note [code = 16980-1] Goal Plan of Care Note [code = 36432-8] Goal Plan of Care Note [code = 99935-5] Goal Plan of Care Note [code = 36817-2] Goal Plan of Care Note [code = 34042-4] Goal Plan of Care Note [code = 28948-5] Goal Plan of Care Note [code = 64618-0] Goal Plan of Care Note [code = 07591-3] Goal Plan of Care Note [code = 11099-6] Goal Plan of Care Note [code = 10222-6] Goal Plan of Care Note [code = 14568-9] Goal Plan of Care Note [code = 32081-4] Goal Plan of Care Note [code = 68149-7] Goal Plan of Care Note [code = 21726-7] Goal Plan of Care Note [code = 05469-6] Goal Plan of Care Note [code = 39660-4] Goal Plan of Care Note [code = 68438-5] Goal Plan of Care Note [code = 57139-3] Goal Plan of Care Note [code = 74777-9] Goal Plan of Care Note [code = 61978-5] Goal Plan of Care Note [code = 98032-9] Goal Plan of Care Note [code = 46306-2] Goal Plan of Care Note [code = 33171-2] Goal Plan of Care Note [code = 00915-1] Goal Plan of Care Note [code = 89834-4] Goal Plan of Care Note [code = 05415-5] Goal Plan of Care Note [code = 31809-1] Goal Plan of Care Note [code = 90481-2] Goal Plan of Care Note [code = 58731-9] Goal Plan of Care Note [code = 37157-8] Goal Plan of Care Note [code = 65948-4] Goal Plan of Care Note [code = 33635-4] Goal Plan of Care Note [code = 97567-5] Goal Plan of Care Note [code = 67793-8] Goal Plan of Care Note [code = 32565-2] Goal Plan of Care Note [code = 30723-0] Goal Plan of Care Note [code = 42371-9] Goal Plan of Care Note [code = 54545-3] Goal Plan of Care Note [code = 95725-6] Goal Plan of Care Note [code = 66797-3] Goal Plan of Care Note [code = 44082-9] Goal Plan of Care Note [code = 59515-1] Goal Plan of Care Note [code = 90443-2] Goal Plan of Care Note [code = 27166-0] Goal Plan of Care Note [code = 24854-6] Goal Plan of Care Note [code = 04833-3] Goal Plan of Care Note [code = 32658-8] Goal Plan of Care Note [code = 38987-8] Goal Plan of Care Note [code = 99128-9] Goal Plan of Care Note [code = 31642-1] Goal Plan of Care Note [code = 67424-1] Goal Plan of Care Note [code = 25778-4] Goal Plan of Care Note [code = 82922-4] Goal Plan of Care Note [code = 20056-8] Goal Plan of Care Note [code = 26099-6] Goal Plan of Care Note [code = 78214-4] Goal Plan of Care Note [code = 24131-9] Goal Plan of Care Note [code = 12793-3] Goal Plan of Care Note [code = 16589-2] Goal Plan of Care Note [code = 26971-2] Goal Plan of Care Note [code = 24121-0] Goal Plan of Care Note [code = 41778-4] Goal Plan of Care Note [code = 66057-0] Goal Plan of Care Note [code = 81142-4] Goal Plan of Care Note [code = 56330-3] Goal Plan of Care Note [code = 01961-1] Goal Plan of Care Note [code = 40680-3] Goal Plan of Care Note [code = 69821-4] Goal Plan of Care Note [code = 77204-0] Goal Plan of Care Note [code = 83820-1] Goal Plan of Care Note [code = 92531-9] Goal Plan of Care Note [code = 51924-9] Goal Plan of Care Note [code = 30101-9] Goal Plan of Care Note [code = 99049-7] Goal Plan of Care Note [code = 97163-2] Goal Plan of Care Note [code = 01074-8] Goal Plan of Care Note [code = 71941-6] Goal Plan of Care Note [code = 27540-5] Goal Plan of Care Note [code = 41922-2] Goal Plan of Care Note [code = 19672-8] Goal Plan of Care Note [code = 21222-8] Goal Plan of Care Note [code = 81879-4] Goal Plan of Care Note [code = 93220-8] Goal Plan of Care Note [code = 66023-7] Goal Plan of Care Note [code = 06417-6] Goal Plan of Care Note [code = 38321-8] Goal Plan of Care Note [code = 05246-5] Goal Plan of Care Note [code = 15963-0] Goal Plan of Care Note [code = 21988-5] Goal Plan of Care Note [code = 51493-0] Goal Plan of Care Note [code = 79798-5] Goal Plan of Care Note [code = 16077-7] Goal Plan of Care Note [code = 05718-6] Goal Plan of Care Note [code = 96747-2] Goal Plan of Care Note [code = 50891-8] Goal Plan of Care Note [code = 95138-5] Goal Plan of Care Note [code = 91032-7] Goal Plan of Care Note [code = 22893-4] Goal Plan of Care Note [code = 46502-2] Goal Plan of Care Note [code = 05623-0] Goal Plan of Care Note [code = 79765-0] Goal Plan of Care Note [code = 21333-4] Goal Plan of Care Note [code = 06556-6] Goal Plan of Care Note [code = 49582-3] Goal Plan of Care Note [code = 99048-9] Goal Plan of Care Note [code = 86063-8] Goal Plan of Care Note [code = 98165-7] Goal Plan of Care Note [code = 80968-9] Goal Plan of Care Note [code = 77973-8] Goal Plan of Care Note [code = 65001-6] Goal Plan of Care Note [code = 50744-9] Goal Plan of Care Note [code = 21139-8] Goal Plan of Care Note [code = 67840-4] Goal Plan of Care Note [code = 79389-8] Goal Plan of Care Note [code = 84592-0] Goal Plan of Care Note [code = 90949-3] Goal Plan of Care Note [code = 75495-3] Goal Plan of Care Note [code = 19149-1] Goal Plan of Care Note [code = 77613-5] Goal Plan of Care Note [code = 34669-1] Goal Plan of Care Note [code = 32579-0] Goal Plan of Care Note [code = 19526-4] Goal Plan of Care Note [code = 59668-9] Goal Plan of Care Note [code = 83752-1] Goal Plan of Care Note [code = 17542-1] Goal Plan of Care Note [code = 46706-5] Goal Plan of Care Note [code = 68634-0] Goal Plan of Care Note [code = 42235-2] Goal Plan of Care Note [code = 72288-9] Goal Plan of Care Note [code = 32698-2] Goal Plan of Care Note [code = 08552-8] Goal Plan of Care Note [code = 72227-0] Goal Plan of Care Note [code = 05401-7] Goal Plan of Care Note [code = 91030-7] Goal Plan of Care Note [code = 00387-8] Goal Plan of Care Note [code = 78715-6] Goal Plan of Care Note [code = 16653-8] Goal Plan of Care Note [code = 89684-8] Goal Plan of Care Note [code = 98004-8] Goal Plan of Care Note [code = 74200-4] Goal Plan of Care Note [code = 62270-8] Encounters Start End Encounter Admission Attending Care Care Encounter Source Date/Time Date/Time Type Type Clinicians Facility Department ID 2023-06-27 2023-06-27 Outpatient SFA SFA [id number] 023 Od[place] 08:36:33 08:36:33 0830 F Arthur 2023-05-03 2023-05-03 Outpatient SFA SFA [id number] 023 [place] 15:06:03 15:06:03 0706 F Arthur 2023-01-31 2023-01-31 Outpatient SFA SFA [id number] 023 [place] 13:06:35 13:06:35 0405 F Arthur 2022-11-23 2022-11-23 Outpatient SFA SFA 12236-4 023 [place] 15:03:05 15:03:05 0126 F Arthur 2022-10-04 2022-10-04 Outpatient [id number]- [id number] [id number] 00:00:00 00:00:00 Visit 3267-4c5b 267-4c5b-9 -5om4-822 bc8-009af0 wc2u0t45l d1e93f 2022-10-03 2022-10-03 Outpatient SFA SFA [id number] 022 Odilon 16:27:26 16:27:26 1206 F Inman 2022-10-03 2022-10-03 Outpatient [id number]- [id number] 3c 5f28r9-2 00:00:00 00:00:00 Visit 0h36-0cp2 f23-4ee0-t -bed2-8d4 ed2-8d4dfc [id number] 5909-11-08 2022-09-05 Outpatient [facility] 19557-4 022 Odilon 10:56:55 10:56:55 1108 F Arthur 2022-08-30 2022-08-30 Outpatient [facility] [id number] 022 Odilon 11:05:02 11:05:02 1102 F Inman 2022-08-30 2022-08-30 Outpatient [id number]- [id number] b2 l745l6-2 00:00:00 00:00:00 Visit 64w7-76y8 1p0-34s6-i -mg5h-nh7 x7b-oe5q9h b2zl2j3jp f5e4ee 2022-05-16 2022-05-16 Outpatient 5p64z0g1- [id number] 1a 92w0n4-2 00:00:00 00:00:00 Visit 746b-4fb4 46b-4fb4-8 -877b-c0a 77b-k9z890 [id number] j87536 2022-05-02 2022-05-02 [facility] [id number] Univers 12:34:00 18:22:00 DAYO abel [facility] 2022-05-02 2022-05-02 [facility] [id number] Univers 12:34:00 18:22:00 Dayo [place] 350.1.13.[address] [facility] 4.2.7.2.686 [facility] [phone] [address] 2021-03-16 2021-03-16 Outpatient Macho KLEIN [facility] [id number] Univers 09:00:00 09:00:00 SENDIL mike [facility] 2021-03-14 2021-03-14 Telephone Sudhakar Taylor 1.2.840.114 [id number] Univers 00:00:00 00:00:00 , Bryanna Bruner Jason 350.1.13.10 ity [place] [id number] [address] 2021-03-01 2021-03-01 [facility] [id number] Univers 08:00:00 [facility]:00[facility] 2021-02-02 [facility] 1.2.840.114 [id number] Univers 08:12:10 09:56:16 Visit Sendil Gricelda [place] 350.1.13.10 ity [place].2.[place] [id number] [address] 2021-02-02 2021-02-02 [facility] [id number] Univers 09:00:00 09:00:00 SENDIL ity [facility] 2021-01-26 2021-01-26 Orders Doctor SHAZIA Kaba.2.840.114 [id number] 00:00:00 00:00:00 Only Unassigned, DAVID 350.1.13.10 [place] [facility] 4.2.7.2.686 [id number] [facility] 2021-01-26 2021-01-26 Orders Doctor MCCRAY 1.2.840.114 [id number] Univers 00:00:00 00:00:00 Only Unassigned, DAVID 350.1.13.10 ity of [place] [facility] 4.2.7.2.686 [place] as [phone] [address] 2020-12-22 2020-12-22 Orders Doctor SHAZIA [place]2.840.114 [id number] 00:00:00 00:00:00 Only Unassigned, DAVID 350.1.13.10 [place] [facility] 4.2.7.2.686 [id number] 009 2020-12-22 2020-12-22 Orders Doctor SHAZIA [place]2.840.114 [id number] Univers 00:00:00 00:00:00 Only Unassigned, DAVID 350.1.13.10 ity of [place] [facility] 4.2.7.2.686 Reginaldo as [phone] [address] 2020-08-06 2020-08-06 Letter Doctor SHAZIA 1.2.840.114 [id number] 00:00:00 00:00:00 (Out) Unassigned, DAVID 350.1.13.10 [place] [facility] 4.2.7.2.686 [id number] 044 2020-08-06 2020-08-06 Letter Doctor SHAZIA 1.2.840.114 [id number] 00:00:00 00:00:00 (Out) Unassigned, DAVID 350.1.13.10 [place] [facility] 4.2.7.2.686 [id number] [facility] 2020-08-06 2020-08-06 Letter Doctor MCCRAY 1.2.840.114 [id number] Univers 00:00:00 00:00:00 (Out) Unassigned, DAVID 350.1.13.10 ity of [place] [facility] 4.2.7.2.686 Reginaldo as [id number] [address] 2020-08-06 2020-08-06 Letter Doctor MCCRAY 1.2.840.114 [id number] Univers 00:00:00 00:00:00 (Out) Unassigned, DAVID 350.1.13.10 ity of [place] [facility] 4.2.7.2.686 Reg[place]do as [phone] [address] 2019-07-07 2019-07-07 Emergency Corey, [facility] 1.2.422.110 [id number] 11:16:20 12:14:00 [place] 350.1.13.10 [place] 4.2.7.2.686 [place] [id number] [facility] 2019-07-07 2019-07-07 Emergency Corey, [facility] [id number] [id number] [facility] 11:16:20 12:14:00 [place] 350.1.13.10 i ty of [place] 4.2.7.2.686 [place] [facility] [phone] [address] Results Test Description Test Time Test Comments Results Result Comments Source LIPID PANEL 2023-05-04 04:47:08 Test Item Value Reference Range Interpretation Comme nts CHOLESTEROL (test code = 2210) 302 MG/DL <200 H TRIGLYCERIDES (test code = 2232) 247 MG/DL <150 H HDL CHOLESTEROL (test code = 45 MG/DL >39 2219) CALC LDL CHOL (test code = 2237) 211 MG/DL <100 H NOTE: CALCULATED LDL IS BASED ON ADE-ROCK METHOD WHICHINCLUDES A DJUSTABLE TRIGLYCERIDE:VL DL CHOLESTEROL RATIO.THIS FACT OR VARIES BY MEASURED TRIGLY CERIDE AND NON-HDLCHOLESTE ROL CONCENTRATIONS WITH INCREASED CALCULATED LDL SEENIN HIGHER T RIGLYCERIDE OR LOWER NON-HDL S PECIMENS. FOR MOREINFORMATION , SEE CLIENT ANNOUNCEMENT AT [email or web address] RATIO LDL/HDL (test code = 4.69 RATIO <3.22 H 2237) COMPREHENSIVE METABOLIC [id number] 04:47:08 Test Item Value Reference Range Interpretation Comments GLUCOSE (test code = 88 MG/DL 70-99 2216) BUN (test code = 7 MG/DL 6-20 2207) CREATININE (test 0.84 MG/DL 0.60-1.30 code = 2214) eGFR (2020 CKD-EPI) 93 ML/MIN/1.73 >60 (test code = 88998) CALC BUN/CREAT (test 8 RATIO 6-28 code = 2235) SODIUM (test code = 138 MEQ/L 196-579 1388) POTASSIUM (test code 3.9 MEQ/L 3.5-5.4 = 2227) CHLORIDE (test code 102 MEQ/L 95-107 = 2214) CARBON DIOXIDE (test 22 MEQ/L 19-31 code = 2206) CALCIUM (test code = 10.0 MG/DL 8.5-10.5 2208) PROTEIN, TOTAL (test 7.5 G/DL 6.1-8.3 code = 222) ALBUMIN (test code = 5.1 G/DL 3.5-5.2 2200) CALC GLOBULIN (test 2.4 G/DL 1.9-3.7 code = 2240) CALC A/G RATIO (test 2.1 RATIO 1.0-2.6 code = 2234) BILIRUBIN, TOTAL 0.4 MG/DL See_Comment [Automated message] (test code = 2207) The syste m which generated this result transmit rayne reference range : <=1.2. The refe rence range was not u sed to interpret th is result as normal/abnormal . ALKALINE PHOSPHATASE 95 U/L 40-114 (test code = 2204) AST (test code = 15 U/L 9-40 2217) ALT (test code = 15 U/L 5-40 2218) VITAMIN D, 25 [id number] 03:20:05 Test Item Value Reference Range Interpretation Comments VITAMIN D, 25 31 NG/ML SEE BELOW EFFECTIVE 11/06/2022, [place] (test code PLEASE NOTE NE W METHODOLOGY = 4958) IS ELECTROCH EMILUMINESCENCE BINDING ASSAY. NOTE: 25-HYDROXYVITAM IN D ASSAY INCLUDES 25-HYD ROXYVITAMIN D2 AND D3. I NTERPRETIVE RANGES PED IATRIC (<17 YEARS) . . . . . . . . . . . NG/ML 20-100ADU LT: INSUFFICIENT . . . . . . . . . . . . . . NG/ML <20 SUBOP TIMAL . . . . . . . . . . . . . . . NG/ML 20-29 OPTIMAL . . . . . . . . . . . . . . . . . NG/ML 30-100 UNLESS OTHERWISE INDIC ATED, ALL TESTING PERFORM ED AT [facility], [facility]. [address] [place] [address] LABORATORY DIRE CTOR: Jonathan MUSTAFA PAULA NUMBER [id number] [place]. [id number] TSH, THIRD [id number] 03:19:25 Test Item Value Reference Range Interpretation Comments TSH, THIRD GENERATION (test code 1.390 UIU/ML 0.400-4.100 = 2821) HEMOGLOBIN [id number] 03:08:26 Test Item Value Reference Range Interpretation Comments HEMOGLOBIN A1c (test code = 21142) 5.5 % 4.2-5.6 CBC W/AUTO DIFF WITH [id number] 02:56:46 Test Item Value Reference Range Interpretation Comments WBC (test code = 12.1 K/UL 3.5-11.0 H 1001) RBC (test code = 4.59 M/UL 3.80-5.40 1002) HEMOGLOBIN (test code 14.2 G/DL 11.5-15.5 = 1003) HEMATOCRIT (test code 43.2 % 34.0-45.0 = 1004) MCV (test code = 94.1 fL 80.0-99.0 1005) MCH (test code = 30.9 PG 25.0-33.0 1006) MCHC (test code = 32.9 G/DL 31.0-36.0 1007) RDW (test code = 13.1 % 11.5-15.0 1038) NEUTROPHILS (test 70.0 % code = 1008) LYMPHOCYTES (test 23.0 % code = 1010) MONOCYTES (test code 5.4 % = 1011) EOSINOPHILS (test 0.7 % code = 1012) BASOPHILS (test code 0.6 % = 1013) IMMATURE GRANULOCYTES 0.3 % (test code = 1036) NUCLEATED RBCS (test 0.0 /100 WBC'S See_Comment [Aut omated code = 1065) message] The sy stem which generated this result transmitted reference range : 0.0. The refere nce range was not u sed to interpret th is result as normal/abnormal . PLATELET COUNT (test 265 K/UL 130-400 code = 1015) ABSOLUTE NEUTROPHILS 8.49 K/UL 1.50-7.50 H (test code = 1066) ABSOLUTE LYMPHOCYTES 2.79 K/UL 1.00-4.00 (test code = 1067) ABSOLUTE MONOCYTES 0.65 K/UL 0.20-1.00 (test code = 1068) ABSOLUTE EOSINOPHILS 0.08 K/UL 0.00-0.50 (test code = 1040) ABSOLUTE BASOPHILS 0.07 K/UL 0.00-0.20 (test code = 1069) ABS IMMATURE 0.04 K/UL 0.00-0.10 GRANULOCYTES (test code = 1020) ABS NUCLEATED RBCS 0.00 K/UL 0.00-0.11 (test code = 92397) CULTURE, [id number] 00:00:00 Test Item Value Reference Range Interpretation Comments CULTURE, URINE (test SPECIMEN NUMBER: code = 70737) [id number] CULTURE, [id number] 00:00:00 Test Item Value Reference Range Interpretation Comments CULTURE, URINE (test SPECIMEN NUMBER: code = 98226) [id number] CULTURE, [id number] 00:00:00 Test Item Value Reference Range Interpretation Comments CULTURE, URINE (test SPECIMEN NUMBER: code = 37329) [id number] CULTURE, [id number] 00:00:00 Test Item Value Reference Range Interpretation Comments CULTURE, URINE (test SPECIMEN NUMBER: code = 16020) [id number] SARS-CoV-2 (COVID-19), [id number] 08:18:51 Test Item Value Reference Interpretation Comments Range SARS-CoV-2 NEGATIVE SEE NOTE SARS-CoV-2 RNA NOT INTERPRETATION DETECTEDNegat francoise (test code = 10023) results do not preclude SARS-CoV-2 infe ction [...] code = [place]IF[place]: [place] [address]) Dixie Laurie Goldfield l-Time RT-PCR. The exp ected result or [...] provided by met hod given in report:[email or web address] Alternatively, see downloadable PD F fact sheet at:[email or web address] -PCR UNLESS OTHERWIS E INDICATED, ALL TESTING PERFORMED [facility], [facility]. [address] [place] [address] 4 LABORATORY DIRE CTOR: BERENICE COX M.D. CLIA NUMBER [id number] [facility] [place] [place]. [id number] SARS-CoV-2 (COVID-19) by RT-PCR (HIGH RISK)2022-01-14 00:00:00 Test Item Value Reference Range Interpretation Comments SARS-CoV-2 INTERPRETATION (test NEGATIVE code = 60764) SOURCE (test code = 45705) NOT SPECIFIED SARS-CoV-2 (COVID-19) by RT-PCR (HIGH RISK)2022-01-14 00:00:00 Test Item Value Reference Range Interpretation Comments SARS-CoV-2 INTERPRETATION (test NEGATIVE code = 04651) SOURCE (test code = 44627) NOT SPECIFIED SARS-CoV-2 (COVID-19) by RT-PCR (HIGH RISK)2022-01-14 00:00:00 Test Item Value Reference Range Interpretation Comments SARS-CoV-2 INTERPRETATION (test NEGATIVE code = 96980) SOURCE (test code = 51286) NOT SPECIFIED SARS-CoV-2 (COVID-19) by RT-PCR (HIGH RISK)2022-01-14 00:00:00 Test Item Value Reference Range Interpretation Comments SARS-CoV-2 INTERPRETATION (test NEGATIVE code = 29078) SOURCE (test code = 86377) NOT SPECIFIED SARS-CoV-2 (COVID-19) by RT-PCR (HIGH RISK)2022-01-14 00:00:00 Test Item Value Reference Range Interpretation Comments SARS-CoV-2 INTERPRETATION (test NEGATIVE code = 98598) SOURCE (test code = 72168) NOT SPECIFIED SARS-CoV-2 (COVID-19) by RT-PCR (HIGH RISK)2022-01-14 00:00:00 Test Item Value Reference Range Interpretation Comments SARS-CoV-2 INTERPRETATION (test NEGATIVE code = 77129) SOURCE (test code = 65541) NOT SPECIFIED SARS-CoV-2 (COVID-19) by RT-PCR (HIGH RISK)2022-01-14 00:00:00 Test Item Value Reference Range Interpretation Comments SARS-CoV-2 INTERPRETATION (test NEGATIVE code = 51736) SOURCE (test code = 72183) NOT SPECIFIED SARS-CoV-2 (COVID-19), RT-PCR/[id number] 06:38:45 Test Item Value Reference Interpretation Comments Range SARS-CoV-2 NEGATIVE SEE NOTE SARS-CoV-2 RNA NOT INTERPRETATION DETECTEDNegat francoise (test code = 04184) results do not preclude SARS-C oV-2 infection [...] (test code = NASOPHARYNGEAL Note: [place] [address]) Dixie Laurie Bernadine l-Time RT-PCR. The exp ected result or refer ence range is NEGATI VE (Not Detected). For more information reg arding COVID-19 testin g to include clinicalinforma tion, methodology det ail, intended use, F DA authorization andrecommended fact sheets for lavonne ents or healthcare prov iders, see NewL-3 [employer] Announcement: SARS-CoV-2 (COV ID-19) by NAAT at URL below (note,fact shee ts are provided by met hod given in report:https:// [email or web address] [email or web address] ient-[email or web address] ions/ Alternatively, see downloadable PD F fact sheet at:[email or web address]. [email or web address]/[email or web address]-R T-PCR UNLESS OTHERWIS E INDICATED, ALL TESTING PERFORMED [facility], [facility]. [address] [place] [address] [facility] DIRECTOR: BERENICE ANN M.D. CLIA NUMBER [id number] CAP ACCREDITATION N O. [id number] SARS-CoV-2 (COVID-19) by RT-PCR (HIGH RISK)2021-12-29 00:00:00 Test Item Value Reference Range Interpretation Comments SARS-CoV-2 INTERPRETATION NEGATIVE (test code = 71233) SOURCE (test code = 44136) NASOPHARYNGEAL SARS-CoV-2 (COVID-19) by RT-PCR (HIGH RISK)2021-12-29 00:00:00 Test Item Value Reference Range Interpretation Comments SARS-CoV-2 INTERPRETATION NEGATIVE (test code = 61465) SOURCE (test code = 13206) NASOPHARYNGEAL SARS-CoV-2 (COVID-19) by RT-PCR (HIGH RISK)2021-12-29 00:00:00 Test Item Value Reference Range Interpretation Comments SARS-CoV-2 INTERPRETATION NEGATIVE (test code = 38804) SOURCE (test code = 30642) NASOPHARYNGEAL SARS-CoV-2 (COVID-19) by RT-PCR (HIGH RISK)2021-12-29 00:00:00 Test Item Value Reference Range Interpretation Comments SARS-CoV-2 INTERPRETATION NEGATIVE (test code = 75172) SOURCE (test code = 64833) NASOPHARYNGEAL SARS-CoV-2 (COVID-19) by RT-PCR (HIGH RISK)2021-12-29 00:00:00 Test Item Value Reference Range Interpretation Comments SARS-CoV-2 INTERPRETATION NEGATIVE (test code = 89506) SOURCE (test code = 49113) NASOPHARYNGEAL SARS-CoV-2 (COVID-19) by RT-PCR (HIGH RISK)2021-12-29 00:00:00 Test Item Value Reference Range Interpretation Comments SARS-CoV-2 INTERPRETATION NEGATIVE (test code = 42693) SOURCE (test code = 83693) NASOPHARYNGEAL SARS-CoV-2 (COVID-19) by RT-PCR (HIGH RISK)2021-12-29 00:00:00 Test Item Value Reference Range Interpretation Comments SARS-CoV-2 INTERPRETATION NEGATIVE (test code = 95544) SOURCE (test code = 61262) NASOPHARYNGEAL [id number] 00:00:00 Test Item Value Reference Range Interpretation Comments TSH, THIRD GENERATION (test code 1.250 UIU/ML = 2821) [id number] 00:00:00 Test Item Value Reference Range Interpretation Comments TSH, THIRD GENERATION (test code 1.250 UIU/ML = 2821) [id number] 00:00:00 Test Item Value Reference Range Interpretation Comments TSH, THIRD GENERATION (test code 1.250 UIU/ML = 2821) [id number] 00:00:00 Test Item Value Reference Range Interpretation Comments TSH, THIRD GENERATION (test code 1.250 UIU/ML = 2821) [id number] 00:00:00 Test Item Value Reference Range Interpretation Comments TSH, THIRD GENERATION (test code 1.250 UIU/ML = 2821) [id number] 00:00:00 Test Item Value Reference Range Interpretation Comments TSH, THIRD GENERATION (test code 1.250 UIU/ML = 2821) [id number] 00:00:00 Test Item Value Reference Range Interpretation Comments TSH, THIRD GENERATION (test code 1.250 UIU/ML = 2821) [id number] 00:00:00 Test Item Value Reference Range Interpretation Comments TSH, THIRD GENERATION (test code 1.250 UIU/ML = 2821) [id number] 00:00:00 Test Item Value Reference Range Interpretation Comments TSH, THIRD GENERATION (test code 1.250 UIU/ML = 2821) [id number] 00:00:00 Test Item Value Reference Range Interpretation Comments TSH, THIRD GENERATION (test code 1.250 UIU/ML = 2821) [id number] 00:00:00 Test Item Value Reference Range Interpretation Comments TSH, THIRD GENERATION (test code 1.250 UIU/ML = 2821) CBC W/AUTO [id number] 00:00:00 Test Item Value Reference Range Interpretation [...] code = 1015) 207 K/UL CBC W/AUTO [id number] 00:00:00 Test Item Value Reference Range Interpretation [...] code = 1015) 207 K/UL CBC W/AUTO [id number] 00:00:00 Test Item Value Reference Range Interpretation [...] code = 1015) 207 K/UL COMPREHENSIVE METABOLIC [id number] 00:00:00 Test Item Value Reference Range Interpretation Comments GLUCOSE (test code = 2217) 108 MG/DL BUN (test code = 2208) 8 MG/DL CREATININE (test code = 2214) 0.80 MG/DL eGFR AMER. (test code 112 ML/MIN/1.73 = 12402) eGFR NON- AMER. (test 97 ML/MIN/1.73 code = 46063) CALC BUN/CREAT (test code = 10 RATIO [...] code = 2219) 12 U/L COMPREHENSIVE METABOLIC [id number] 00:00:00 Test Item Value Reference Range Interpretation Comments GLUCOSE (test code = 2217) 108 MG/DL BUN (test code = 2208) 8 MG/DL CREATININE (test code = 2214) 0.80 MG/DL eGFR AMER. (test code 112 ML/MIN/1.73 = 54468) eGFR NON- AMER. (test 97 ML/MIN/1.73 code = 51902) CALC BUN/CREAT (test code = 10 RATIO 2235) SODIUM (test code = 2231) 139 MEQ/L POTASSIUM (test code = 2228) 4.3 MEQ/L CHLORIDE (test code = 2215) 107 MEQ/L CARBON DIOXIDE (test code = 25 MEQ/L 220) CALCIUM (test code = 2209) 9.4 MG/DL PROTEIN, TOTAL (test code = 7.2 G/DL 2229) ALBUMIN (test code = 2201) 4.8 G/DL CALC GLOBULIN (test code = 2.4 G/DL 2240) CALC A/G RATIO (test code = 2.0 RATIO 2234) BILIRUBIN, TOTAL (test code = 0.3 MG/DL 2207) ALKALINE PHOSPHATASE (test 78 U/L code = 2204) AST (test code = 2218) 12 U/L ALT (test code = 2219) 12 U/L CBC W/AUTO [id number] 00:00:00 Test Item Value Reference Range Interpretation [...] code = 1015) 207 K/UL CBC W/AUTO [id number] 00:00:00 Test Item Value Reference Range Interpretation [...] code = 1015) 207 K/UL COMPREHENSIVE METABOLIC [id number] 00:00:00 Test Item Value Reference Range Interpretation Comments GLUCOSE (test code = 2217) 108 MG/DL BUN (test code = 2208) 8 MG/DL CREATININE (test code = 2214) 0.80 MG/DL eGFR AMER. (test code 112 ML/MIN/1.73 = 03687) eGFR NON- AMER. (test 97 ML/MIN/1.73 code = 94862) CALC BUN/CREAT (test code = 10 RATIO [...] code = 2219) 12 U/L CBC W/AUTO [id number] 00:00:00 Test Item Value Reference Range Interpretation [...] code = 1015) 207 K/UL CBC W/AUTO [id number] 00:00:00 Test Item Value Reference Range Interpretation [...] code = 1015) 207 K/UL CBC W/AUTO [id number] 00:00:00 Test Item Value Reference Range Interpretation [...] code = 1015) 207 K/UL COMPREHENSIVE METABOLIC [id number] 00:00:00 Test Item Value Reference Range Interpretation Comments GLUCOSE (test code = 2217) 108 MG/DL BUN (test code = 2208) 8 MG/DL CREATININE (test code = 2214) 0.80 MG/DL eGFR AMER. (test code 112 ML/MIN/1.73 = 83456) eGFR NON- AMER. (test 97 ML/MIN/1.73 code = 57107) CALC BUN/CREAT (test code = 10 RATIO [...] code = 2219) 12 U/L COMPREHENSIVE METABOLIC [id number] 00:00:00 Test Item Value Reference Range Interpretation Comments GLUCOSE (test code = 2217) 108 MG/DL BUN (test code = 2208) 8 MG/DL CREATININE (test code = 2214) 0.80 MG/DL eGFR AMER. (test code 112 ML/MIN/1.73 = 00078) eGFR NON- AMER. (test 97 ML/MIN/1.73 code = 81457) CALC BUN/CREAT (test code = 10 RATIO [...] code = 2219) 12 U/L CBC W/AUTO [id number] 00:00:00 Test Item Value Reference Range Interpretation [...] code = 1015) 207 K/UL CBC W/AUTO [id number] 00:00:00 Test Item Value Reference Range Interpretation [...] code = 1015) 207 K/UL CBC W/AUTO [id number] 00:00:00 Test Item Value Reference Range Interpretation [...] code = 1015) 207 K/UL COMPREHENSIVE METABOLIC [id number] 00:00:00 Test Item Value Reference Range Interpretation Comments GLUCOSE (test code = 2217) 108 MG/DL BUN (test code = 2208) 8 MG/DL CREATININE (test code = 2214) 0.80 MG/DL eGFR AMER. (test code 112 ML/MIN/1.73 = 07799) eGFR NON- AMER. (test 97 ML/MIN/1.73 code = 39040) CALC BUN/CREAT (test code = 10 RATIO 2235) SODIUM (test code = 2231) 139 MEQ/L POTASSIUM (test code = 2228) 4.3 MEQ/L CHLORIDE (test code = 2215) 107 MEQ/L CARBON DIOXIDE (test code = 25 MEQ/L 6) CALCIUM (test code = 2209) 9.4 MG/DL [...] code = 2219) 12 U/L COMPREHENSIVE METABOLIC [id number] 00:00:00 Test Item Value Reference Range Interpretation Comments GLUCOSE (test code = 2217) 108 MG/DL BUN (test code = 2208) 8 MG/DL CREATININE (test code = 2214) 0.80 MG/DL eGFR AMER. (test code 112 ML/MIN/1.73 = 24501) eGFR NON- AMER. (test 97 ML/MIN/1.73 code = 81264) CALC BUN/CREAT (test code = 10 RATIO [...] = 2219) 12 U/L VAGINAL PATHOGENS DNA [id number] 00:00:00 Test Item Value Reference Range Interpretation Comments YORDY SPECIES (test code = ) NEGATIVE G. VAGINALIS (test code = 09862) POSITIVE T. VAGINALIS (test code = 20059) NEGATIVE VAGINAL PATHOGENS DNA [id number] 00:00:00 Test Item Value Reference Range Interpretation Comments YORDY SPECIES (test code = 31176) NEGATIVE G. VAGINALIS (test code = 29465) POSITIVE T. VAGINALIS (test code = 70920) NEGATIVE [id number] 00:00:00 Test Item Value Reference Range Interpretation Comments TESTOSTERONE (test code = 2830) 23 NG/DL [id number] 00:00:00 Test Item Value Reference Range Interpretation Comments TESTOSTERONE (test code = 2830) 23 NG/DL FSH + LH [id number] 00:00:00 Test Item Value Reference Range Interpretation Comments FOLLICLE STIM HORMONE (test code = 5.4 IU/L 2700) LUTEINIZING HORMONE (test code = 9.5 IU/L 2776) FSH + LH [id number] 00:00:00 Test Item Value Reference Range Interpretation Comments FOLLICLE STIM HORMONE (test code = 5.4 IU/L 2700) LUTEINIZING HORMONE (test code = 9.5 IU/L 2776) [id number] 00:00:00 Test Item Value Reference Range Interpretation Comments PROLACTIN (test code = 2800) 8.5 NG/ML [id number] 00:00:00 Test Item Value Reference Range Interpretation Comments PROLACTIN (test code = 2800) 8.5 NG/ML [id number] 00:00:00 Test Item Value Reference Range Interpretation Comments ESTRADIOL (test code = 2505) 59.4 PG/ML [id number] 00:00:00 Test Item Value Reference Range Interpretation Comments ESTRADIOL (test code = 2505) 59.4 PG/ML [id number] 00:00:00 Test Item Value Reference Range Interpretation Comments ESTRADIOL (test code = 2505) 59.4 PG/ML VAGINAL PATHOGENS DNA [id number] 00:00:00 Test Item Value Reference Range Interpretation Comments YORDY SPECIES (test code = ) NEGATIVE G. VAGINALIS (test code = ) POSITIVE T. VAGINALIS (test code = ) NEGATIVE [id number] 00:00:00 Test Item Value Reference Range Interpretation Comments TESTOSTERONE (test code = 2830) 23 NG/DL FSH + LH [id number] 00:00:00 Test Item Value Reference Range Interpretation Comments FOLLICLE STIM HORMONE (test code = 5.4 IU/L 2700) LUTEINIZING HORMONE (test code = 9.5 IU/L 2776) [id number] 00:00:00 Test Item Value Reference Range Interpretation Comments PROLACTIN (test code = 2800) 8.5 NG/ML [id number] 00:00:00 Test Item Value Reference Range Interpretation Comments ESTRADIOL (test code = 2505) 59.4 PG/ML [id number] 00:00:00 Test Item Value Reference Range Interpretation Comments ESTRADIOL (test code = 2505) 59.4 PG/ML VAGINAL PATHOGENS DNA [id number] 00:00:00 Test Item Value Reference Range Interpretation Comments YORDY SPECIES (test code = ) NEGATIVE G. VAGINALIS (test code = 71796) POSITIVE T. VAGINALIS (test code = 77497) NEGATIVE VAGINAL PATHOGENS DNA [id number] 00:00:00 Test Item Value Reference Range Interpretation Comments YORDY SPECIES (test code = 57154) NEGATIVE G. VAGINALIS (test code = 42423) POSITIVE T. VAGINALIS (test code = 70310) NEGATIVE [id number] 00:00:00 Test Item Value Reference Range Interpretation Comments TESTOSTERONE (test code = 2830) 23 NG/DL [id number] 00:00:00 Test Item Value Reference Range Interpretation Comments TESTOSTERONE (test code = 2830) 23 NG/DL FSH + LH [id number] 00:00:00 Test Item Value Reference Range Interpretation Comments FOLLICLE STIM HORMONE (test code = 5.4 IU/L 2700) LUTEINIZING HORMONE (test code = 9.5 IU/L 2776) FSH + LH [id number] 00:00:00 Test Item Value Reference Range Interpretation Comments FOLLICLE STIM HORMONE (test code = 5.4 IU/L 2700) LUTEINIZING HORMONE (test code = 9.5 IU/L 2776) [id number] 00:00:00 Test Item Value Reference Range Interpretation Comments PROLACTIN (test code = 2800) 8.5 NG/ML [id number] 00:00:00 Test Item Value Reference Range Interpretation Comments PROLACTIN (test code = 2800) 8.5 NG/ML [id number] 00:00:00 Test Item Value Reference Range Interpretation Comments ESTRADIOL (test code = 2505) 59.4 PG/ML [id number] 00:00:00 Test Item Value Reference Range Interpretation Comments ESTRADIOL (test code = 2505) 59.4 PG/ML [id number] 00:00:00 Test Item Value Reference Range Interpretation Comments ESTRADIOL (test code = 2505) 59.4 PG/ML VAGINAL PATHOGENS DNA [id number] 00:00:00 Test Item Value Reference Range Interpretation Comments YORDY SPECIES (test code = ) NEGATIVE G. VAGINALIS (test code = 91978) POSITIVE T. VAGINALIS (test code = 94274) NEGATIVE VAGINAL PATHOGENS DNA [id number] 00:00:00 Test Item Value Reference Range Interpretation Comments YORDY SPECIES (test code = ) NEGATIVE G. VAGINALIS (test code = 08179) POSITIVE T. VAGINALIS (test code = 12005) NEGATIVE [id number] 00:00:00 Test Item Value Reference Range Interpretation Comments TESTOSTERONE (test code = 2830) 23 NG/DL [id number] 00:00:00 Test Item Value Reference Range Interpretation Comments TESTOSTERONE (test code = 2830) 23 NG/DL FSH + LH [id number] 00:00:00 Test Item Value Reference Range Interpretation Comments FOLLICLE STIM HORMONE (test code = 5.4 IU/L 2700) LUTEINIZING HORMONE (test code = 9.5 IU/L 2776) FSH + LH [id number] 00:00:00 Test Item Value Reference Range Interpretation Comments FOLLICLE STIM HORMONE (test code = 5.4 IU/L 2700) LUTEINIZING HORMONE (test code = 9.5 IU/L 2776) [id number] 00:00:00 Test Item Value Reference Range Interpretation Comments PROLACTIN (test code = 2800) 8.5 NG/ML [id number] 00:00:00 Test Item Value Reference Range Interpretation Comments PROLACTIN (test code = 2800) 8.5 NG/ML [id number] 00:00:00 Test Item Value Reference Range Interpretation Comments ESTRADIOL (test code = 2505) 59.4 PG/ML [id number] 00:00:00 Test Item Value Reference Range Interpretation Comments ESTRADIOL (test code = 2505) 59.4 PG/ML [id number] 00:00:00 Test Item Value Reference Range Interpretation Comments ESTRADIOL (test code = 2505) 59.4 PG/ML PAP TEST, THINPREP, [id number] 00:00:00 Test Item Value Reference Range Interpretation Comments SOURCE: (test code = 8001) Cervical/Endocervi franca SLIDES: (test code = 8011) 1 LMP: (test code = 8021) 09/02/2020 SPECIMEN ADEQUACY: (test (NOTE) code = 86549) INTERPRETATION: (test code ASCUS/EPITH. = 22132) ABNORMALITY; SEE BELOW SEAM CHECKER: (test Daisy code = 8101) GABRIELA Kay(ASCP)IAC PATHOLOGIST INTERPRETATION Aleksander Chen M.D. BY: (test code = 8122) LOCATION: (test code = (NOTE) 03059) CPT: (test code = 8140) (NOTE) PAP TEST, THINPREP, [id number] 00:00:00 Test Item Value Reference Range Interpretation Comments SOURCE: (test code = 8001) Cervical/Endocervi franca SLIDES: (test code = 8011) 1 LMP: (test code = 8021) 09/02/2020 SPECIMEN ADEQUACY: (test (NOTE) code = 20652) INTERPRETATION: (test code ASCUS/EPITH. = 19559) ABNORMALITY; SEE BELOW SEAM CHECKER: (test Daisy code = 8101) GABRIELA Kay(ASCP)[facility] PATHOLOGIST INTERPRETATION Aleksander Chen M.D. BY: (test code = 8122) LOCATION: (test code = (NOTE) 29640) CPT: (test code = 8140) (NOTE) PAP TEST, THINPREP, [id number] 00:00:00 Test Item Value Reference Range Interpretation Comments SOURCE: (test code = 8001) Cervical/Endocervi franca SLIDES: (test code = 8011) 1 LMP: (test code = 8021) 09/02/2020 SPECIMEN ADEQUACY: (test (NOTE) code = 08650) INTERPRETATION: (test code ASCUS/EPITH. = 53345) ABNORMALITY; SEE BELOW SEAM CHECKER: (test Daisy code = 8101) GABRIELA Kay(ASCP)[facility] PATHOLOGIST INTERPRETATION Aleksander Chen M.D. BY: (test code = 8122) LOCATION: (test code = (NOTE) 97348) CPT: (test code = 8140) (NOTE) PAP TEST, THINPREP, [id number] 00:00:00 Test Item Value Reference Range Interpretation Comments SOURCE: (test code = 8001) Cervical/Endocervi franca SLIDES: (test code = 8011) 1 LMP: (test code = 8021) 09/02/2020 SPECIMEN ADEQUACY: (test (NOTE) code = 39651) INTERPRETATION: (test code ASCUS/EPITH. = 89087) ABNORMALITY; SEE BELOW SEAM CHECKER: (test Daisy code = 8101) GABRIELA Kay(ASCP)[facility] PATHOLOGIST INTERPRETATION Aleksander Chen M.D. BY: (test code = 8122) LOCATION: (test code = (NOTE) 95193) CPT: (test code = 8140) (NOTE) PAP TEST, THINPREP, [id number] 00:00:00 Test Item Value Reference Range Interpretation Comments SOURCE: (test code = 8001) Cervical/Endocervi franca SLIDES: (test code = 8011) 1 LMP: (test code = 8021) 09/02/2020 SPECIMEN ADEQUACY: (test (NOTE) code = 67846) INTERPRETATION: (test code ASCUS/EPITH. = 98726) ABNORMALITY; SEE BELOW SEAM CHECKER: (test Daisy code = 8101) GABRIELA Kay(ASCP)IAC PATHOLOGIST INTERPRETATION Aleksander Chen M.D. BY: (test code = 8122) LOCATION: (test code = (NOTE) 68985) CPT: (test code = 8140) (NOTE) PAP TEST, THINPREP, [id number] 00:00:00 Test Item Value Reference Range Interpretation Comments SOURCE: (test code = 8001) Cervical/Endocervi franca SLIDES: (test code = 8011) 1 LMP: (test code = 8021) 09/02/2020 SPECIMEN ADEQUACY: (test (NOTE) code = 37495) INTERPRETATION: (test code ASCUS/EPITH. = 06299) ABNORMALITY; SEE BELOW SEAM CHECKER: (test Daisy code = 8101) GABRIELA Kay(ASCP)[facility] PATHOLOGIST INTERPRETATION Aleksander Chen M.D. BY: (test code = 8122) LOCATION: (test code = (NOTE) 49020) CPT: (test code = 8140) (NOTE) PAP TEST, THINPREP, [id number] 00:00:00 Test Item Value Reference Range Interpretation Comments SOURCE: (test code = 8001) Cervical/Endocervi franca SLIDES: (test code = 8011) 1 LMP: (test code = 8021) 09/02/2020 SPECIMEN ADEQUACY: (test (NOTE) code = 61468) INTERPRETATION: (test code ASCUS/EPITH. = 93164) ABNORMALITY; SEE BELOW SEAM CHECKER: (test Daisy code = 8101) GABRIELA Kay(ASCP)[facility] PATHOLOGIST INTERPRETATION Aleksander Chen M.D. BY: (test code = 8122) LOCATION: (test code = (NOTE) 07405) CPT: (test code = 8140) (NOTE) HIV 1/2 4TH GEN, RFLX CONF [ADDED]2020-09-21 00:00:00 Test Item Value Reference Range Interpretation Comments HIV 1/2 4TH GEN, RFLX CONF (test NON-REACTIVE code = 3514) HIV 1/2 4TH GEN, RFLX CONF [ADDED]2020-09-21 00:00:00 Test Item Value Reference Range Interpretation Comments HIV 1/2 4TH GEN, RFLX CONF (test NON-REACTIVE code = 3514) GC AND CHLAMYDIA AMPLIFIED, [id number] 00:00:00 Test Item Value Reference Range Interpretation Comments GONORRHEA, TMA (test code = 93331) NEGATIVE CHLAMYDIA, TMA (test code = 41144) NEGATIVE GC AND CHLAMYDIA AMPLIFIED, [id number] 00:00:00 Test Item Value Reference Range Interpretation Comments GONORRHEA, TMA (test code = 10466) NEGATIVE CHLAMYDIA, TMA (test code = 16724) NEGATIVE RPR [ADDED]2020-09-21 00:00:00 Test Item Value [...] ) NEGATIVE G. VAGINALIS (test code = 95602) POSITIVE T. VAGINALIS (test code = ) NEGATIVE ADELA (ANTI-NUCLEAR AB) WITH REFLEX [id number] 00:00:00 Test Item Value Reference Range Interpretation Comments ANTI-NUCLEAR ANTIBODIES (test code = NEGATIVE 3506) HPV HIGH RISK WITH GENOTYPE, [id number] 00:00:00 Test Item Value Reference Range Interpretation Comments HPV HIGH RISK INTERP (test code = NEGATIVE 46821) HPV 16 (test code = 50241) NEGATIVE HPV 18 (test code = 30658) NEGATIVE HPV, HR, OTHER GENOTYPES (test code NEGATIVE = 46766) ADELA (ANTI-NUCLEAR AB) WITH REFLEX [id number] 00:00:00 Test Item Value Reference Range Interpretation Comments ANTI-NUCLEAR ANTIBODIES (test code = NEGATIVE 3506) HPV HIGH RISK WITH GENOTYPE, [id number] 00:00:00 Test Item Value Reference Range Interpretation Comments HPV HIGH RISK INTERP (test code = NEGATIVE 98136) HPV 16 (test code = 94287) NEGATIVE HPV 18 (test code = 36918) NEGATIVE HPV, HR, OTHER GENOTYPES (test code NEGATIVE = 81072) HIV 1/2 4TH GEN, RFLX CONF [ADDED]2020-09-21 00:00:00 Test Item Value Reference Range Interpretation Comments HIV 1/2 4TH GEN, RFLX CONF (test NON-REACTIVE code = 3514) GC AND CHLAMYDIA AMPLIFIED, [id number] 00:00:00 Test Item Value Reference Range Interpretation Comments GONORRHEA, TMA (test code = 03225) NEGATIVE CHLAMYDIA, TMA (test code = 11853) NEGATIVE RPR [ADDED]2020-09-21 00:00:00 Test Item Value [...] ) NEGATIVE ADELA (ANTI-NUCLEAR AB) WITH REFLEX [id number] 00:00:00 Test Item Value Reference Range Interpretation Comments ANTI-NUCLEAR ANTIBODIES (test code = NEGATIVE 3506) HPV HIGH RISK WITH GENOTYPE, [id number] 00:00:00 Test Item Value Reference Range Interpretation Comments HPV HIGH RISK INTERP (test code = NEGATIVE 51221) HPV 16 (test code = 37874) NEGATIVE HPV 18 (test code = 84466) NEGATIVE HPV, HR, OTHER GENOTYPES (test code NEGATIVE = 71672) HIV 1/2 4TH GEN, RFLX CONF [ADDED]2020-09-21 00:00:00 Test Item Value Reference Range Interpretation Comments HIV 1/2 4TH GEN, RFLX CONF (test NON-REACTIVE code = 3514) GC AND CHLAMYDIA AMPLIFIED, [id number] 00:00:00 Test Item Value Reference Range Interpretation Comments GONORRHEA, TMA (test code = 08181) NEGATIVE CHLAMYDIA, TMA (test code = 23972) NEGATIVE HIV 1/2 4TH GEN, RFLX CONF [ADDED]2020-09-21 00:00:00 Test Item Value Reference Range Interpretation Comments HIV 1/2 4TH GEN, RFLX CONF (test NON-REACTIVE code = 3514) GC AND CHLAMYDIA AMPLIFIED, [id number] 00:00:00 Test Item Value Reference Range Interpretation Comments GONORRHEA, TMA (test code = 00130) NEGATIVE CHLAMYDIA, TMA (test code = 01934) NEGATIVE RPR [ADDED]2020-09-21 00:00:00 Test Item Value [...] INDIC. TITER ADELA (ANTI-NUCLEAR AB) WITH REFLEX [id number] 00:00:00 Test Item Value Reference Range Interpretation Comments ANTI-NUCLEAR ANTIBODIES (test code = NEGATIVE 3506) HPV HIGH RISK WITH GENOTYPE, [id number] 00:00:00 Test Item Value Reference Range Interpretation Comments HPV HIGH RISK INTERP (test code = NEGATIVE 69092) HPV 16 (test code = 83666) NEGATIVE HPV 18 (test code = 76410) NEGATIVE HPV, HR, OTHER GENOTYPES (test code NEGATIVE = 65165) VAGINAL PATHOGENS DNA PANEL [ADDED]2020-09-21 00:00:00 Test Item Value Reference Range Interpretation Comments YORDY SPECIES (test code = ) NEGATIVE G. VAGINALIS (test code = ) POSITIVE T. VAGINALIS (test code = ) NEGATIVE ADELA (ANTI-NUCLEAR AB) WITH REFLEX [id number] 00:00:00 Test Item Value Reference Range Interpretation Comments ANTI-NUCLEAR ANTIBODIES (test code = NEGATIVE 3506) HPV HIGH RISK WITH GENOTYPE, [id number] 00:00:00 Test Item Value Reference Range Interpretation Comments HPV HIGH RISK INTERP (test code = NEGATIVE 10990) HPV 16 (test code = 39307) NEGATIVE HPV 18 (test code = 25825) NEGATIVE HPV, HR, OTHER GENOTYPES (test code NEGATIVE = 11208) VAGINAL PATHOGENS DNA PANEL [ADDED]2020-09-21 00:00:00 Test [...] code = 3514) GC AND CHLAMYDIA AMPLIFIED, [id number] 00:00:00 Test Item Value Reference Range Interpretation Comments GONORRHEA, TMA (test code = 98315) NEGATIVE CHLAMYDIA, TMA (test code = 81979) NEGATIVE GC AND CHLAMYDIA AMPLIFIED, [id number] 00:00:00 Test Item Value Reference Range Interpretation Comments GONORRHEA, TMA (test code = 02834) NEGATIVE CHLAMYDIA, TMA (test code = 64069) NEGATIVE RPR [ADDED]2020-09-21 00:00:00 Test Item Value [...] ) NEGATIVE ADELA (ANTI-NUCLEAR AB) WITH REFLEX [id number] 00:00:00 Test Item Value Reference Range Interpretation Comments ANTI-NUCLEAR ANTIBODIES (test code = NEGATIVE 3506) HPV HIGH RISK WITH GENOTYPE, [id number] 00:00:00 Test Item Value Reference Range Interpretation Comments HPV HIGH RISK INTERP (test code = NEGATIVE 37722) HPV 16 (test code = 09031) NEGATIVE HPV 18 (test code = 97963) NEGATIVE HPV, HR, OTHER GENOTYPES (test code NEGATIVE = 18964) ADELA (ANTI-NUCLEAR AB) WITH REFLEX [id number] 00:00:00 Test Item Value Reference Range Interpretation Comments ANTI-NUCLEAR ANTIBODIES (test code = NEGATIVE 3506) HPV HIGH RISK WITH GENOTYPE, [id number] 00:00:00 Test Item Value Reference Range Interpretation Comments HPV HIGH RISK INTERP (test code = NEGATIVE 71915) HPV 16 (test code = 34244) NEGATIVE HPV 18 (test code = 76258) NEGATIVE HPV, HR, OTHER GENOTYPES (test code NEGATIVE = 30410) [id number] 00:00:00 Test Item Value Reference Range Interpretation Comments TSH, THIRD GENERATION (test code 2.110 UIU/ML = 2821) [id number] 00:00:00 Test Item Value Reference Range Interpretation Comments TSH, THIRD GENERATION (test code 2.110 UIU/ML = 2821) [id number] 00:00:00 Test Item Value Reference Range Interpretation Comments TSH, THIRD GENERATION (test code 2.110 UIU/ML = 2821) [id number] 00:00:00 Test Item Value Reference Range Interpretation Comments TSH, THIRD GENERATION (test code 2.110 UIU/ML = 2821) [id number] 00:00:00 Test Item Value Reference Range Interpretation Comments TSH, THIRD GENERATION (test code 2.110 UIU/ML = 2821) [id number] 00:00:00 Test Item Value Reference Range Interpretation Comments TSH, THIRD GENERATION (test code 2.110 UIU/ML = 2821) [id number] 00:00:00 Test Item Value Reference Range Interpretation Comments TSH, THIRD GENERATION (test code 2.110 UIU/ML = 2821) [id number] 00:00:00 Test Item Value Reference Range Interpretation Comments TSH, THIRD GENERATION (test code 2.110 UIU/ML = 2821) [id number] 00:00:00 Test Item Value Reference Range Interpretation Comments TSH, THIRD GENERATION (test code 2.110 UIU/ML = 2821) [id number] 00:00:00 Test Item Value Reference Range Interpretation Comments TSH, THIRD GENERATION (test code 2.110 UIU/ML = 2821) [id number] 00:00:00 Test Item Value Reference Range Interpretation Comments TSH, THIRD GENERATION (test code 2.110 UIU/ML = 2821) COMPREHENSIVE METABOLIC [id number] 00:00:00 Test Item Value Reference Range Interpretation Comments GLUCOSE (test code = 2217) 90 MG/DL BUN (test code = 2208) 11 MG/DL CREATININE (test code = 2214) 0.89 MG/DL eGFR AMER. (test code 99 ML/MIN/1.73 = 63327) eGFR NON- AMER. (test 85 ML/MIN/1.73 code = 18952) CALC BUN/CREAT (test code = 12 RATIO 5) SODIUM (test code = 2231) 140 MEQ/L [...] code = 2219) 58 U/L COMPREHENSIVE METABOLIC [id number] 00:00:00 Test Item Value Reference Range Interpretation Comments GLUCOSE (test code = 2217) 90 MG/DL BUN (test code = 2208) 11 MG/DL CREATININE (test code = 2214) 0.89 MG/DL eGFR AMER. (test code 99 ML/MIN/1.73 = 38173) eGFR NON- AMER. (test 85 ML/MIN/1.73 code = 86575) CALC BUN/CREAT (test code = 12 RATIO [...] (test code = 2219) 58 U/L LIPID [id number] 00:00:00 Test Item Value Reference Range Interpretation Comments CHOLESTEROL (test code = 2210) 221 MG/DL TRIGLYCERIDES (test code = 2232) 180 MG/DL HDL CHOLESTEROL (test code = 2220) 51 MG/DL CALC LDL CHOL (test code = 2237) 138 MG/DL RISK RATIO LDL/HDL (test code = 2.71 RATIO 2238) LIPID [id number] 00:00:00 Test Item Value Reference Range Interpretation Comments CHOLESTEROL (test code = 2210) 221 MG/DL TRIGLYCERIDES (test code = 2232) 180 MG/DL HDL CHOLESTEROL (test code = 2220) 51 MG/DL CALC LDL CHOL (test code = 2237) 138 MG/DL RISK RATIO LDL/HDL (test code = 2.71 RATIO 2238) CBC W/AUTO [id number] 00:00:00 Test Item Value Reference Range Interpretation [...] code = 1015) 233 K/UL CBC W/AUTO [id number] 00:00:00 Test Item Value Reference Range Interpretation [...] code = 1015) 233 K/UL CBC W/AUTO [id number] 00:00:00 Test Item Value Reference Range Interpretation [...] code = 1015) 233 K/UL COMPREHENSIVE METABOLIC [id number] 00:00:00 Test Item Value Reference Range Interpretation Comments GLUCOSE (test code = 2217) 90 MG/DL BUN (test code = 2208) 11 MG/DL CREATININE (test code = 2214) 0.89 MG/DL eGFR AMER. (test code 99 ML/MIN/1.73 = 34426) eGFR NON- AMER. (test 85 ML/MIN/1.73 code = 92581) CALC BUN/CREAT (test code = 12 RATIO [...] (test code = 2219) 58 U/L LIPID [id number] 00:00:00 Test Item Value Reference Range Interpretation Comments CHOLESTEROL (test code = 2210) 221 MG/DL TRIGLYCERIDES (test code = 2232) 180 MG/DL HDL CHOLESTEROL (test code = 2220) 51 MG/DL CALC LDL CHOL (test code = 2237) 138 MG/DL RISK RATIO LDL/HDL (test code = 2.71 RATIO 2238) CBC W/AUTO [id number] 00:00:00 Test Item Value Reference Range Interpretation [...] code = 1015) 233 K/UL CBC W/AUTO [id number] 00:00:00 Test Item Value Reference Range Interpretation [...] code = 1015) 233 K/UL COMPREHENSIVE METABOLIC [id number] 00:00:00 Test Item Value Reference Range Interpretation Comments GLUCOSE (test code = 2217) 90 MG/DL BUN (test code = 2208) 11 MG/DL CREATININE (test code = 2214) 0.89 MG/DL eGFR AMER. (test code 99 ML/MIN/1.73 = 89828) eGFR NON- AMER. (test 85 ML/MIN/1.73 code = 14174) CALC BUN/CREAT (test code = 12 RATIO [...] code = 2219) 58 U/L COMPREHENSIVE METABOLIC [id number] 00:00:00 Test Item Value Reference Range Interpretation Comments GLUCOSE (test code = 2217) 90 MG/DL BUN (test code = 2208) 11 MG/DL CREATININE (test code = 2214) 0.89 MG/DL eGFR AMER. (test code 99 ML/MIN/1.73 = 95130) eGFR NON- AMER. (test 85 ML/MIN/1.73 code = 19828) CALC BUN/CREAT (test code = 12 RATIO [...] (test code = 2219) 58 U/L LIPID [id number] 00:00:00 Test Item Value Reference Range Interpretation Comments CHOLESTEROL (test code = 2210) 221 MG/DL TRIGLYCERIDES (test code = 2232) 180 MG/DL HDL CHOLESTEROL (test code = 2220) 51 MG/DL CALC LDL CHOL (test code = 2237) 138 MG/DL RISK RATIO LDL/HDL (test code = 2.71 RATIO 2238) LIPID [id number] 00:00:00 Test Item Value Reference Range Interpretation Comments CHOLESTEROL (test code = 2210) 221 MG/DL TRIGLYCERIDES (test code = 2232) 180 MG/DL HDL CHOLESTEROL (test code = 2220) 51 MG/DL CALC LDL CHOL (test code = 2237) 138 MG/DL RISK RATIO LDL/HDL (test code = 2.71 RATIO 2238) CBC W/AUTO [id number] 00:00:00 Test Item Value Reference Range Interpretation [...] code = 1015) 233 K/UL CBC W/AUTO [id number] 00:00:00 Test Item Value Reference Range Interpretation [...] code = 1015) 233 K/UL CBC W/AUTO [id number] 00:00:00 Test Item Value Reference Range Interpretation [...] code = 1015) 233 K/UL COMPREHENSIVE METABOLIC [id number] 00:00:00 Test Item Value Reference Range Interpretation Comments GLUCOSE (test code = 2217) 90 MG/DL BUN (test code = 2208) 11 MG/DL CREATININE (test code = 2214) 0.89 MG/DL eGFR AMER. (test code 99 ML/MIN/1.73 = 95302) eGFR NON- AMER. (test 85 ML/MIN/1.73 code = 04049) CALC BUN/CREAT (test code = 12 RATIO [...] code = 2219) 58 U/L COMPREHENSIVE METABOLIC [id number] 00:00:00 Test Item Value Reference Range Interpretation Comments GLUCOSE (test code = 2217) 90 MG/DL BUN (test code = 2208) 11 MG/DL CREATININE (test code = 2214) 0.89 MG/DL eGFR AMER. (test code 99 ML/MIN/1.73 = 82460) eGFR NON- AMER. (test 85 ML/MIN/1.73 code = 77397) CALC BUN/CREAT (test code = 12 RATIO [...] (test code = 2219) 58 U/L LIPID [id number] 00:00:00 Test Item Value Reference Range Interpretation Comments CHOLESTEROL (test code = 2210) 221 MG/DL TRIGLYCERIDES (test code = 2232) 180 MG/DL HDL CHOLESTEROL (test code = 2220) 51 MG/DL CALC LDL CHOL (test code = 2237) 138 MG/DL RISK RATIO LDL/HDL (test code = 2.71 RATIO 2238) LIPID [id number] 00:00:00 Test Item Value Reference Range Interpretation Comments CHOLESTEROL (test code = 2210) 221 MG/DL TRIGLYCERIDES (test code = 2232) 180 MG/DL HDL CHOLESTEROL (test code = 2220) 51 MG/DL CALC LDL CHOL (test code = 2237) 138 MG/DL RISK RATIO LDL/HDL (test code = 2.71 RATIO 2238) CBC W/AUTO [id number] 00:00:00 Test Item Value Reference Range Interpretation [...] code = 1015) 233 K/UL CBC W/AUTO [id number] 00:00:00 Test Item Value Reference Range Interpretation [...] code = 1015) 233 K/UL CBC W/AUTO [id number] 00:00:00 Test Item Value Reference Range Interpretation [...] (test code = 1015) 233 K/UL RPR, [id number] 22:11:00 Test Item Value Reference Range Interpretation Comments RPR (test code = RPR) Non-Reactive Non-Reactive N Thyroid Stimulating Hormone (TSH)2017-03-08 09:46:00 Test Item Value Reference Range Interpretation Comments TSH (test code = TSH) 0.79 mIU/mL 0.270-4.200 N
--- NOTE | 2023-07-17 12:04 | RAD REPORT ---
EXAM DESCRIPTION: [facility] Pa And Lat (2 Views)07/17/2023 11:44 am CLINICAL HISTORY: COUGH COMPARISON: Chest Single View dated 04/09/2023; Chest Single View dated 03/16/2022; Chest Pa And Lat ( 2 Views) dated 12/28/2019; Chest Single View dated 05/23/2016 TECHNIQUE: PA and lateral views of the chest. FINDINGS: The lungs are clear. No pneumothorax or effusion. The cardiomediastinal contours are unre markable. IMPRESSION: No acute cardiopulmonary process.
[2023-07-17] MEDS ORDERED: IBUPROFEN 200 MG TAB PO ONE (12:05)
[2023-07-17] MEDS ORDERED: IBUPROFEN 400 MG TAB ONE (12:05)
--- NOTE | 2023-07-17 12:26 | EDPHYS ---
Physician Documentation [facility] Name: Charis Padgett Age: 38 yrs Sex: Female : 1985 Arrival Date: 07/17/2023 Time: 10:28 Bed 10 Private MD: ED Physician Vinod Gonzales HPI: 07/17 11:02 This 38 yrs old Female presents to ER via Unassigned with complaints of Cough, Body ms3 Aches. 11:02 38-year-old female with past medical history of pulmonary nodules, depression presents ms3 for 3 days of cough and body aches. Patient denies fever, vomiting, or diarrhea. Patient endorses nausea and chills. Patient states her discomfort is a 6/10 and described as aching. Patient denies sick contacts.. 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 - Social history:: Smoking status: Reported history of juuling and/or vaping. ROS: 11:02 Neck: Negative for injury, pain, and swelling, Cardiovascular: Negative for chest pain, ms3 and palpitations. 11:02 Abdomen/GI: Negative for abdominal pain, nausea, vomiting, diarrhea, and constipation, MS/Extremity: Negative for injury and deformity, Skin: Negative for injury, rash, and discoloration, 11:02 Constitutional: Positive for body aches, chills, 11:02 Respiratory: Positive for cough, 11:02 All other systems are negative, Exam: 11:02 Constitutional: This is a well developed, well nourished patient who is awake, alert, ms3 and in no acute distress. Head/Face: Normocephalic, atraumatic. Chest/axilla: Normal chest wall appearance and motion. Nontender with no deformity. Cardiovascular: Regular rate and rhythm with a normal S1 and S2. No gallops, murmurs, or rubs. Normal PMI, no JVD. No pulse deficits. Respiratory: Lungs have equal breath sounds bilaterally, clear to auscultation and percussion. No rales, rhonchi or wheezes noted. No increased work of breathing, no retractions or nasal flaring. Abdomen/GI: Soft, non-tender, with normal bowel sounds. No distension or tympany. No guarding or rebound. No evidence of tenderness throughout. Skin: Warm, dry with normal turgor. Normal color with no rashes, no lesions, and no evidence of cellulitis. MS/ Extremity: Pulses equal, no cyanosis. Neurovascular intact. Full, normal range of motion. Vital Signs: 11:03 BP 147 / 106; Pulse 84; Resp 17; Temp 98.1; Pulse Ox 100% ; jl7 12:44 BP 140 / 89; Pulse 80; Resp 15; Pulse Ox 100% ; jl7 MDM: 10:56 Patient medically screened. ms3 11:02 Differential Diagnosis: Bronchitis Influenza Upper Respiratory Infection Viral Syndrome ms3 Pneumonia Other COVID versus flu. 12:25 Data reviewed: vital signs, nurses notes, lab test result(s), radiologic studies, and ms3 as a result, I will discharge patient. I considered the following discharge prescriptions or medication management in the emergency department Medications were administered in the Emergency Department. See MAR. Independent interpretation of the following test(s) in the Emergency Department X-Ray: My interpretation is Chest x-ray images reviewed by me do not reveal pneumonia. Counseling: I had a detailed discussion with the patient and/or guardian regarding the historical points, exam findings, and any diagnostic results supporting the discharge/admit diagnosis, lab results, radiology results, the need for outpatient follow up, to return to the emergency department if symptoms worsen or persist or if there are any questions or concerns that arise at home. ED course: Discussed labs, chest x-ray with patient. Patient to follow-up with primary care physician as discussed. All questions were answered. Return precautions discussed include worsening symptoms, or any other concerns. On reevaluation patient improved, alert and orient x4, no apparent distress, nontoxic-appearing.. 07/17 10:56 Order name: COVID-19 SARS RT PCR; Complete Time: 12:11 ms3 07/17 10:56 Order name: Flu; Complete Time: 12:11 ms3 07/17 10:56 Order name: Chest Pa And Lat (2 Views) XRAY; Complete Time: 12:11 ms3 Administered Medications: 11:52 Drug: Ibuprofen PO 600 mg PO once Route: PO; vg2 Disposition: 19:46 Chart complete. ms3 Disposition Summary: 07/17/23 12:25 Discharge Ordered Notes: Location: Home ms3 Condition: Stable ms3 Diagnosis - Acute upper respiratory infection, unspecified ms3 Followup: ms3 - With: Arash Randle DO - When: 2 - 3 days - Reason: Recheck today's complaints Discharge Instructions: - Discharge Summary Sheet ms3 - Upper Respiratory Infection, Adult ms3 Forms: - Medication Reconciliation Form ms3 - Thank You Letter ms3 - Antibiotic Education ms3 - Prescription Opioid Use ms3 - Patient Portal Instructions ms3 - Leadership Thank You Letter ms3 Prescriptions: - benzonatate 200 mg Oral capsule - take 1 capsule ORAL route 3 times per day as needed for cough; 20 capsule; ms3 Refills: 0, Product Selection Permitted Signatures: Dispatcher [employer] Geeta Mcintosh RN RN jl7 Vinod Gonzales DO DO ms3 Heidi Valverde, RN RN vg2
--- NOTE | 2023-07-17 12:26 | ER ---
Nurse's Notes [facility] Name: Charis Padgett Age: 38 yrs Sex: Female : 1985 Arrival Date: 07/17/2023 Time: 10:28 Bed 10 Private MD: Diagnosis: Acute upper respiratory infection, unspecified Presentation: 07/17 11:03 Chief complaint: Patient states: Cough, congestion, body aches x 3 days. Coronavirus jl7 screen: Client presents with at least one sign or symptom that may indicate coronavirus-19. Ebola Screen: No symptoms or risks identified at this time. Initial Sepsis Screen: Does the patient meet any 2 criteria? No. Patient's initial sepsis screen is negative. Does the patient have a suspected source of infection? No. Patient's initial sepsis screen is negative. Risk Assessment: Do you want to hurt yourself or someone else? Patient reports no desire to harm self or others. Onset of symptoms was July 14, 2023. 11:03 Method Of Arrival: Ambulatory jl7 11:03 Acuity: KALYANI 4 jl7 Triage Assessment: 11:07 General: Appears in no apparent distress. uncomfortable, Behavior is calm, cooperative, jl7 appropriate for age. Pain: Complains of pain in body aches. 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 - Social history:: Smoking status: Reported history of juuling and/or vaping. Vital Signs: 11:03 BP 147 / 106; Pulse 84; Resp 17; Temp 98.1; Pulse Ox 100% ; jl7 12:44 BP 140 / 89; Pulse 80; Resp 15; Pulse Ox 100% ; jl7 ED Course: 10:30 Patient arrived in ED. rg4 10:36 Vinod Gonzales DO is Attending Physician. ms3 11:02 Flu Sent. vg2 11:02 COVID-19 SARS RT PCR Sent. vg2 11:07 Triage completed. jl7 11:08 Arm band placed on right wrist. Patient placed in waiting room, Patient notified of jl7 wait time. 11:18 Geeta Mensah, RN is Primary Nurse. jl7 11:43 Chest Pa And Lat (2 Views) XRAY In Process Unspecified. EDMS 12:24 Arash Randle DO is Referral Physician. ms3 12:44 No provider procedures requiring assistance completed. Patient did not have IV access jl7 during this emergency room visit. Administered Medications: 11:52 Drug: Ibuprofen PO 600 mg PO once Route: PO; vg2 Medication: 12:44 VIS not applicable for this client. jl7 Outcome: 12:25 Discharge ordered by MD. ms3 12:44 Discharged to home ambulatory, jl7 12:44 Condition: stable 12:44 Discharge instructions given to patient, Instructed on discharge instructions, follow up and referral plans. medication usage, Demonstrated understanding of instructions, follow-up care, medications, Prescriptions given X 1, 12:45 Patient left the ED. jl7 Signatures: Dispatcher [employer] EDMI Jannet Valverde rg4 Geeta Mensah, RN RN jl7 Vinod Gonzales DO DO ms3 Heidi Valverde, RN RN vg2
[2023-07-17 13:24] VITALS: TEMP 98.1; O2SAT 100
[2023-07-17 13:26] VITALS: BP 140/89
== END 2023-07-17 12:45 | disposition home or self-care (01) ==
LOC: ER 10:28
DX: J06.9 Acute upper respiratory infection, unspecified (principal); Z20.822 Contact with and (suspected) exposure to COVID-19; Z91.010 Allergy to peanuts; Z91.018 Allergy to other foods
CPT/HCPCS: 71046; 87635; 87804

== ENCOUNTER 2024-07-11 10:14 | Emergency (ER) | payer OTHER ==
--- OUTSIDE RECORDS SUMMARY | 2024-07-11 10:19 | XMS REPORT | Continuity of Care Document ---
Author Name Unknown Address [address] [facility] [address] [place] [address] [facility] thconnect Address [address] [facility] [place] [address] Care Team Providers Care Beater And Pulper Feeder Name Role Phone UNKNOWN, REFFERING Primary Care Physician DAYO Mccollum Attending Clinician Unavailable Dayo Vo MD Attending Clinician [phone] ERNIE SENDSID K.H. Attending Clinician Bryanna No RN Attending Clinician Pam Klein MD, Sendil K.H. Attending Clinician [phone] Doctor Unassigned, [place] Attending Clinician U Kota Allen MD Attending Clinician [phone] PRISCA GARCIA Attending Clinician Unavailable PRISCA GARCIA Admitting Clinician Unavailable Payers Payer Name Policy Type Policy Number Effective Date Expirati on Date Source [facility] STAR [id number] 2020 00:00:00 Problems Condition Name Condition Details Condition Category Status Onset Date Resolution Date Last Treatment Date Treating Clinician Comments Source No known active problems No known active problems Disease [facility] Allergies, Adverse Reactions, Alerts Allergy Name Allergy Type Status Severity Reaction(s) Onset Date Inactive Date Treating Clinician Comments Source Peanut Propensi ty to adverse reaction s Active Anaphylaxis 04-20 00:00: 00 Onions- uncooked - rash [facility] PEANUT DRUG INGREDI Active Anaphylaxis 04-20 00:00: 00 [facility] Social History Social Habit Start Date Stop Date Quantity Comments Source Exposure to SARS-CoV-2 (event) 2022-04-22 00:00:00 2022-05-02 12:29:00 Unable to assess [facility] Tobacco use and exposure 2021-02-02 00:00:00 2021-02-02 00:00:00 Never used [facility] Sex Assigned At 1985 00:00:00 1985 00:00:00 [facility] Smoking Status Start Date Stop Date Source Unknown if ever smoked [facility] Current some day smoker 2021-02-02 00:00:00 [facility] Medications Ordered Medication Name Filled Medication Name Start Date Stop Date Current Medication? Ordering Clinician Indication Dosage Frequency Signature (SIG) Comments Components Source TAKE 1 TABLET TWICE DAILY. 2021-10 00:00: 00 No 50 MIRTAZAPINE 7.5 MG TABS 2021-10 00:00: 00 No 75 BENZONATATE 200 MG CAPS 9-20 00:00: 00 No BENZONATATE 200 MG CAPS 9-20 00:00: 00 No BENZONATATE 200 MG CAPS 8-17 00:00: 00 No 200 BENZONATATE 200 MG CAPS 8-17 00:00: 00 No 200 TAKE 1 TABLET NEEDED. 06-08 00:00: 00 No 50 TAKE 1 TABLET NEEDED. 06-08 00:00: 00 No 50 TAKE 2 TABLETS BY MOUTH ON DAY 1, THEN 1 TABLET DAILY ON DAYS 2 TO 5. 06-06 00:00: 00 No 250 TAKE 2 TABLETS BY MOUTH ON DAY 1, THEN 1 TABLET DAILY ON DAYS 2 TO 5. 06-06 00:00: 00 No 250 TAKE 1 TABLET EVERY 6 TO 8 HOURS NEEDED NAUSEA. 06-05 00:00: 00 No 125 &lt 0 06-05 00:00: 00 No 250 &lt 0 06-05 00:00: 00 No 100 INSTILL TWO (2) SPRAYS IN THE NOSTRILS DAILY. 06-05 00:00: 00 No &lt 0 06-05 00:00: 00 No 10 TAKE ONE (1) TABLET(S) BY MOUTH DAILY NEEDED FOR ANXIETY. 06-05 00:00: 00 No 50 &lt 2021-0 06-05 00:00: 00 No TAKE 1 AND 1/2 TABLETS DAILY. 06-05 00:00: 00 No 10 TAKE 1 TABLET EVERY 6 TO 8 HOURS NEEDED NAUSEA. 06-05 00:00: 00 No 125 &lt 0 06-05 00:00: 00 No 250 &lt 2-0 06-05 00:00: 00 No 100 INSTILL TWO (2) SPRAYS IN THE NOSTRILS DAILY. 06-05 00:00: 00 No &lt 2021-0 06-05 00:00: 00 No 10 TAKE ONE (1) TABLET(S) BY MOUTH DAILY NEEDED FOR ANXIETY. 06-05 00:00: 00 No 50 &lt 2021-0 06-05 00:00: 00 No TAKE 1 AND 1/2 TABLETS DAILY. 06-05 00:00: 00 No 10 &lt 2021-0 06-01 00:00: 00 No TAKE 1 TABLET EVERY 6 TO 8 HOURS NEEDED NAUSEA. 06-01 00:00: 00 No 125 TAKE 2 TABLETS BY MOUTH ON DAY 1, THEN 1 TABLET DAILY ON DAYS 2 TO 5. 06-01 00:00: 00 No 250 Dose Unknown 0 06-01 00:00: 00 No 20 &lt 2021-0 06-01 00:00: 00 No TAKE 1 TABLET EVERY 6 TO 8 HOURS NEEDED NAUSEA. 06-01 00:00: 00 No 125 TAKE 2 TABLETS BY MOUTH ON DAY 1, THEN 1 TABLET DAILY ON DAYS 2 TO 5. 06-01 00:00: 00 No 250 Dose Unknown 06-01 00:00: 00 No 20 TAKE 2 TABLETS BY MOUTH ON DAY 1, THEN 1 TABLET DAILY ON DAYS 2 TO 5. 05-31 00:00: 00 No 250 &lt 2-0 8 00:00: 00 No 100 &lt 2-0 05-31 00:00: 00 No 150 &lt 2022-0 8-03 00:00: 00 No 10 &lt 2022-0 8-03 00:00: 00 No 150 &lt 2022-0 8-03 00:00: 00 No 20 TAKE 2 TABLETS BY MOUTH ON DAY 1, THEN 1 TABLET DAILY ON DAYS 2 TO 5. 2022-0 8-03 00:00: 00 No 250 &lt 2022-0 8-03 00:00: 00 No 100 &lt 2022-0 8-03 00:00: 00 No 150 &lt 2022-0 8-03 00:00: 00 No 10 &lt 2022-0 8-03 00:00: 00 No 150 &lt 2022-0 8-03 00:00: 00 No 20 Dose Unknown 2022-0 7-19 00:00: 00 No Dose Unknown 2022-0 7-19 00:00: 00 No Dose Unknown 2022-0 7-19 00:00: 00 No Dose Unknown 2022-0 7-19 00:00: 00 No Dose Unknown 2022-0 7-19 00:00: 00 No Dose Unknown 2022-0 7-19 00:00: 00 No Dose Unknown 2022-0 7-13 00:00: 00 No Dose Unknown 2022-0 7-13 00:00: 00 No Dose Unknown 2022-0 7-13 00:00: 00 No Wellbutrin XL 150 mg 24 hr tablet, extended release 2-0 6-15 00:00: 00 No 1mg hydroxyzine HCl 50 mg tablet 2-0 6-15 00:00: 00 No 1mg mirtazapine 7.5 mg tablet 2-0 6-15 00:00: 00 No 1mg escitalopra m 10 mg tablet 2-0 6-15 00:00: 00 No 1mg Wellbutrin XL 150 mg 24 hr tablet, extended release 2-0 6-15 00:00: 00 No 1mg hydroxyzine HCl 50 mg tablet 2-0 6-15 00:00: 00 No 1mg mirtazapine 7.5 mg tablet 2-0 6-15 00:00: 00 No 1mg escitalopra m 10 mg tablet 2-0 6-15 00:00: 00 No 1mg Wellbutrin XL 150 mg 24 hr tablet, extended release 2-0 5-17 00:00: 00 No 1mg hydroxyzine HCl 50 mg tablet 2-0 5-17 00:00: 00 No 1mg escitalopra m 10 mg tablet 2-0 5-17 00:00: 00 No 1mg mirtazapine 7.5 mg tablet 2-0 5-17 00:00: 00 No 1mg Wellbutrin XL 150 mg 24 hr tablet, extended release 2-0 5-17 00:00: 00 No 1mg hydroxyzine HCl 50 mg tablet 2-0 5-17 00:00: 00 No 1mg escitalopra m 10 mg tablet 2-0 5-17 00:00: 00 No 1mg mirtazapine 7.5 mg tablet 2-0 5-17 00:00: 00 No 1mg Wellbutrin XL 150 mg 24 hr tablet, extended release 2021-0 5-17 00:00: 00 No 1mg hydroxyzine HCl 50 mg tablet 2021-0 5-17 00:00: 00 No 1mg escitalopra m 10 mg tablet 2021-0 5-17 00:00: 00 No 1mg mirtazapine 7.5 mg tablet 2021-0 5-17 00:00: 00 No 1mg Dose Unknown 2-0 4-22 00:00: 00 No Dose Unknown 2-0 4-22 00:00: 00 No Dose Unknown 2-0 4-22 00:00: 00 No Dose Unknown 2-0 4-21 00:00: 00 No Dose Unknown 2-0 4-21 00:00: 00 No Dose Unknown 2-0 4-21 00:00: 00 No Rozerem 8 mg tablet 2-0 4-19 00:00: 00 No 1mg Dose Unknown 2-0 4-19 00:00: 00 No Dose Unknown 2-0 4-19 00:00: 00 No hydroxyzine HCl 50 mg tablet 2-0 4-19 00:00: 00 No 1mg Wellbutrin XL 150 mg 24 hr tablet, extended release 2-0 4-19 00:00: 00 No 1mg escitalopra m 10 mg tablet 2-0 4-19 00:00: 00 No 1mg Rozerem 8 mg tablet 2-0 4-19 00:00: 00 No 1mg Dose Unknown 0 4- 00:00: 00 No Dose Unknown 0 02-14 00:00: 00 No hydroxyzine HCl 50 mg tablet 0 - 00:00: 00 No 1mg Wellbutrin XL 150 mg 24 hr tablet, extended release 0 02-14 00:00: 00 No 1mg escitalopra m 10 mg tablet 0 02-14 00:00: 00 No 1mg Rozerem 8 mg tablet 0 02-14 00:00: 00 No 1mg Dose Unknown 02-14 00:00: 00 No Dose Unknown 02-14 00:00: 00 No hydroxyzine HCl 50 mg tablet 0 02-14 00:00: 00 No 1mg Wellbutrin XL 150 mg 24 hr tablet, extended release 02-14 00:00: 00 No 1mg escitalopra m 10 mg tablet 0 02-14 00:00: 00 No 1mg Claritin 10 mg tablet 0 02-08 00:00: 00 No 1mg azithromyci n 250 mg tablet 0 4- 00:00: 00 No mg fluticasone propionate 50 mcg/actuati on nasal spray,suspe nsion 0 - 00:00: 00 No 2mcg/ac tuation Claritin 10 mg tablet 0 4-13 00:00: 00 No 1mg azithromyci n 250 mg tablet 0 4- 00:00: 00 No mg fluticasone propionate 50 mcg/actuati on nasal spray,suspe nsion 0 - 00:00: 00 No 2mcg/ac tuation Claritin 10 mg tablet 0 4-13 00:00: 00 No 1mg azithromyci n 250 mg tablet 4-13 00:00: 00 No mg fluticasone propionate 50 mcg/actuati on nasal spray,suspe nsion 0 4-13 00:00: 00 No 2mcg/ac tuation Bromfed DM 2 mg-30 mg-10 mg/5 mL oral syrup 2022-0 3-18 00:00: 00 No 10mg/5 mL Bromfed DM 2 mg-30 mg-10 mg/5 mL oral syrup 2022-0 3-18 00:00: 00 No 10mg/5 mL Bromfed DM 2 mg-30 mg-10 mg/5 mL oral syrup 2022-0 3-18 00:00: 00 No 10mg/5 mL Dose Unknown 2022-0 3-16 00:00: 00 No Dose Unknown 2022-0 3-16 00:00: 00 No Dose Unknown 2022-0 3-16 00:00: 00 No Dose Unknown 2022-0 3-16 00:00: 00 No Dose Unknown 2022-0 3-16 00:00: 00 No trazodone 50 mg tablet 2022-0 3-16 00:00: 00 No 12mg Dose Unknown 2022-0 3-16 00:00: 00 No Dose Unknown 2022-0 3-16 00:00: 00 No Dose Unknown 2022-0 3-16 00:00: 00 No Dose Unknown 2022-0 3-16 00:00: 00 No Dose Unknown 2022-0 3-16 00:00: 00 No trazodone 50 mg tablet 2022-0 3-16 00:00: 00 No 12mg Dose Unknown 2022-0 3-16 00:00: 00 No Dose Unknown 2022-0 3-16 00:00: 00 No Dose Unknown 2022-0 3-16 00:00: 00 No Dose Unknown 2022-0 3-16 00:00: 00 No Dose Unknown 2022-0 3-16 00:00: 00 No trazodone 50 mg tablet 2022-0 3-16 00:00: 00 No 12mg Dose Unknown 2022-0 3-04 00:00: 00 No Dose Unknown 2022-0 3-04 00:00: 00 No Dose Unknown 2022-0 3-04 00:00: 00 No Dose Unknown 2022-0 3-04 00:00: 00 No Dose Unknown 2022-0 3-04 00:00: 00 No Dose Unknown 2022-0 3-04 00:00: 00 No Dose Unknown 2022-0 3-04 00:00: 00 No Dose Unknown 2022-0 3-04 00:00: 00 No Dose Unknown 2022-0 3-04 00:00: 00 No Dose Unknown 2022-0 3-04 00:00: 00 No Dose Unknown 2022-0 3-04 00:00: 00 No Dose Unknown 2022-0 3-04 00:00: 00 No Dose Unknown 2022-0 3-04 00:00: 00 No Dose Unknown 2022-0 3-04 00:00: 00 No Dose Unknown 2022-0 3-04 00:00: 00 No Dose Unknown 2022-0 3-04 00:00: 00 No Dose Unknown 2022-0 3-04 00:00: 00 No Dose Unknown 2022-0 3-04 00:00: 00 No Dose Unknown 2022-0 3-04 00:00: 00 No Dose Unknown 2022-0 3-04 00:00: 00 No Dose Unknown 2022-0 3-04 00:00: 00 No Dose Unknown 2022-0 3-04 00:00: 00 No Dose Unknown 2022-0 3-04 00:00: 00 No Dose Unknown 2022-0 3-04 00:00: 00 No Dose Unknown 2022-0 3-04 00:00: 00 No Dose Unknown 2022-0 3-04 00:00: 00 No Dose Unknown 2022-0 3-04 00:00: 00 No Dose Unknown 2022-0 3-04 00:00: 00 No Dose Unknown 2022-0 3-04 00:00: 00 No Dose Unknown 2022-0 3-04 00:00: 00 No Dose Unknown 2022-0 3-03 00:00: 00 No Dose Unknown 2022-0 3-03 00:00: 00 No Dose Unknown 2022-0 3-03 00:00: 00 No Dose Unknown 2022-0 3-03 00:00: 00 No Dose Unknown 2022-0 3-03 00:00: 00 No Dose Unknown 2022-0 3-03 00:00: 00 No Dose Unknown 2022-0 3-03 00:00: 00 No Dose Unknown 2022-0 3-03 00:00: 00 No Dose Unknown 2022-0 3-03 00:00: 00 No Dose Unknown 2022-0 3-03 00:00: 00 No Dose Unknown 2022-0 3-03 00:00: 00 No Dose Unknown 2022-0 3-03 00:00: 00 No Dose Unknown 2022-0 3-03 00:00: 00 No Dose Unknown 2022-0 3-03 00:00: 00 No Dose Unknown 2022-0 3-03 00:00: 00 No Dose Unknown 2022-0 3-03 00:00: 00 No Dose Unknown 2022-0 3-03 00:00: 00 No Dose Unknown 2022-0 3-03 00:00: 00 No Dose Unknown 2022-0 3-03 00:00: 00 No Dose Unknown 2022-0 3-03 00:00: 00 No Dose Unknown 2022-0 3-03 00:00: 00 No Dose Unknown 2022-0 3-03 00:00: 00 No Dose Unknown 2022-0 3-03 00:00: 00 No Dose Unknown 2022-0 3-03 00:00: 00 No Dose Unknown 2022-0 3-03 00:00: 00 No Dose Unknown 2022-0 3-03 00:00: 00 No Dose Unknown 2022-0 3-03 00:00: 00 No Dose Unknown 2022-0 3-03 00:00: 00 No Dose Unknown 2022-0 3-03 00:00: 00 No Dose Unknown 2022-0 3-03 00:00: 00 No metronidazo le 500 mg tablet 2022-0 3-02 00:00: 00 No 1mg dicyclomine 20 mg tablet 2022-0 3-02 00:00: 00 No 1mg metronidazo le 500 mg tablet 2022-0 3-02 00:00: 00 No 1mg dicyclomine 20 mg tablet 2022-0 3-02 00:00: 00 No 1mg metronidazo le 500 mg tablet 2022-0 3-02 00:00: 00 No 1mg dicyclomine 20 mg tablet 2022-0 3-02 00:00: 00 No 1mg Dose Unknown 2022-0 2-16 00:00: 00 No Dose Unknown 2022-0 2-16 00:00: 00 No trazodone 100 mg tablet 2022-0 2-16 00:00: 00 No 1mg Dose Unknown 2022-0 2-16 00:00: 00 No Dose Unknown 2022-0 2-16 00:00: 00 No trazodone 100 mg tablet 20220 2-16 00:00: 00 No 1mg Dose Unknown 0 2-16 00:00: 00 No Dose Unknown 0 2-16 00:00: 00 No trazodone 100 mg tablet 0 2-16 00:00: 00 No 1mg benzonatate 100 mg capsule 0 2-14 00:00: 00 No 1mg benzonatate 100 mg capsule 2021-0 2-14 00:00: 00 No 1mg benzonatate 100 mg capsule 0 2-14 00:00: 00 No 1mg hydroxyzine HCl 50 mg tablet 0 1-14 00:00: 00 No mg hydroxyzine HCl 50 mg tablet 2021-0 1-14 00:00: 00 No mg hydroxyzine HCl 50 mg tablet 0 1-14 00:00: 00 No mg Wellbutrin XL 150 mg 24 hr tablet, extended release 0 1-12 00:00: 00 No 1mg Dose Unknown 0 1-12 00:00: 00 No Dose Unknown 0 1-12 00:00: 00 No Wellbutrin XL 150 mg 24 hr tablet, extended release 0 1-12 00:00: 00 No 1mg Dose Unknown 0 1-12 00:00: 00 No Dose Unknown 0 1-12 00:00: 00 No escitalopra m 10 mg tablet 2021-0 1-12 00:00: 00 No 1mg escitalopra m 10 mg tablet 2021-0 1-12 00:00: 00 No 1mg Wellbutrin XL 150 mg 24 hr tablet, extended release 2021-0 1-12 00:00: 00 No 1mg Dose Unknown 0 1-12 00:00: 00 No Dose Unknown 0 1-12 00:00: 00 No escitalopra m 10 mg tablet 2021-0 1-12 00:00: 00 No 1mg promethazin e 12.5 mg tablet 2021-0 1-09 00:00: 00 No 1mg prednisone 20 mg tablet 2021-0 1-09 00:00: 00 No mg benzonatate 200 mg capsule 2021-0 1-09 00:00: 00 No 1mg promethazin e 12.5 mg tablet - 00:00: 00 No 1mg prednisone 20 mg tablet - 00:00: 00 No mg benzonatate 200 mg capsule - 00:00: 00 No 1mg promethazin e 12.5 mg tablet - 00:00: 00 No 1mg prednisone 20 mg tablet - 00:00: 00 No mg benzonatate 200 mg capsule - 00:00: 00 No 1mg Wellbutrin XL 150 mg 24 hr tablet, extended release 2020-10- 00:00: 00 No 1mg escitalopra m 10 mg tablet 2020-10 2- 00:00: 00 No 1mg Dose Unknown 2020-10 00:00: 00 No Wellbutrin XL 150 mg 24 hr tablet, extended release 2020-10 00:00: 00 No 1mg escitalopra m 10 mg tablet 2020-10 2 00:00: 00 No 1mg Dose Unknown 2020-10 00:00: 00 No Wellbutrin XL 150 mg 24 hr tablet, extended release 2020-10 00:00: 00 No 1mg escitalopra m 10 mg tablet 2020-10 2 00:00: 00 No 1mg Dose Unknown 2020-10 2- 00:00: 00 No Dose Unknown 2020-10 2- 00:00: 00 No escitalopra m 10 mg tablet 2020-10 2- 00:00: 00 No 1mg Dose Unknown 2020-10 2- 00:00: 00 No escitalopra m 10 mg tablet 2020-10 2- 00:00: 00 No 1mg Dose Unknown 2020-10 2- 00:00: 00 No escitalopra m 10 mg tablet 2020-10 2- 00:00: 00 No 1mg Wellbutrin SR 150 mg tablet, 12 hr sustained-r elease 2020-10- 00:00: 00 No 1mg Wellbutrin SR 150 mg tablet, 12 hr sustained-r elease 2020-10 00:00: 00 No 1mg Wellbutrin SR 150 mg tablet, 12 hr sustained-r elease 2020-10 00:00: 00 No 1mg ibuprofen 600 mg tablet 2020-10 00:00: 00 No 1mg ibuprofen 600 mg tablet 2020-10 00:00: 00 No 1mg ibuprofen 600 mg tablet 2020-10 00:00: 00 No 1mg Wellbutrin SR 150 mg tablet, 12 hr sustained-r elease 2020-10 0 00:00: 00 No 1mg Wellbutrin SR 150 mg tablet, 12 hr sustained-r elease 2020-10 00:00: 00 No 1mg Wellbutrin SR 150 mg tablet, 12 hr sustained-r elease 2020-10 00:00: 00 No 1mg Zofran 4 mg tablet 07-25 00:00: 00 No 12mg amoxicillin 500 mg capsule 0 07-25 00:00: 00 No 2mg Dose Unknown 07-25 00:00: 00 No amoxicillin 500 mg capsule 07-25 00:00: 00 No 2mg Dose Unknown 07-25 00:00: 00 No amoxicillin 500 mg capsule 07-25 00:00: 00 No 2mg Wellbutrin SR 150 mg tablet, 12 hr sustained-r elease 07-11 00:00: 00 No 1mg Wellbutrin SR 150 mg tablet, 12 hr sustained-r elease 07-11 00:00: 00 No 1mg Wellbutrin SR 150 mg tablet, 12 hr sustained-r elease 07-11 00:00: 00 No 1mg hydroxyzine HCl 50 mg tablet 0 07-06 00:00: 00 No 1mg benzonatate 200 mg capsule 0 07-06 00:00: 00 No 1mg hydroxyzine HCl 50 mg tablet 0 07-06 00:00: 00 No 1mg benzonatate 200 mg capsule 0 07-06 00:00: 00 No 1mg hydroxyzine HCl 50 mg tablet 0 07-06 00:00: 00 No 1mg benzonatate 200 mg capsule 0 07-06 00:00: 00 No 1mg Wellbutrin SR 150 mg tablet, 12 hr sustained-r elease 0 6-17 00:00: 00 No 1mg Wellbutrin SR 150 mg tablet, 12 hr sustained-r elease 0 6-17 00:00: 00 No 1mg Wellbutrin SR 150 mg tablet, 12 hr sustained-r elease 0 6-17 00:00: 00 No 1mg Wellbutrin SR 150 mg tablet, 12 hr sustained-r elease 4-19 00:00: 00 No 1mg Wellbutrin SR 150 mg tablet, 12 hr sustained-r elease - 00:00: 00 No 1mg Wellbutrin SR 150 mg tablet, 12 hr sustained-r elease 4- 00:00: 00 No 1mg buPROPion SR (WELLBUTRIN SR) 150 mg SR tablet - 13:56: 12 Yes 150mg Take 150 mg by mouth 2 (two) times daily. [facility] buPROPion SR (WELLBUTRIN SR) 150 mg SR tablet 02-02 08:56: 12 Yes 150mg Take 150 mg by mouth 2 (two) times daily. [facility] Diflucan 150 mg tablet 2-24 00:00: 00 No 1mg clindamycin HCl 300 mg capsule 0 2-24 00:00: 00 No 1mg Diflucan 150 mg tablet 0 2-24 00:00: 00 No 1mg clindamycin HCl 300 mg capsule 0 2-24 00:00: 00 No 1mg Diflucan 150 mg tablet 0 2-24 00:00: 00 No 1mg clindamycin HCl 300 mg capsule 0 2-24 00:00: 00 No 1mg Wellbutrin SR 150 mg tablet, 12 hr sustained-r elease 0 2-22 00:00: 00 No 1mg Wellbutrin SR 150 mg tablet, 12 hr sustained-r elease 0 2-22 00:00: 00 No 1mg Wellbutrin SR 150 mg tablet, 12 hr sustained-r elease 2-22 00:00: 00 No 1mg Flagyl 500 mg tablet 0 1-16 00:00: 00 No 1mg Diflucan 150 mg tablet 11-13 00:00: 00 No 1mg Flagyl 500 mg tablet 11-13 00:00: 00 No 1mg Flagyl 500 mg tablet 11-13 00:00: 00 No 1mg Diflucan 150 mg tablet 11-13 00:00: 00 No 1mg Diflucan 150 mg tablet 11-13 00:00: 00 No 1mg Flagyl 500 mg tablet 2019-10 00:00: 00 No 1mg Flagyl 500 mg tablet 2019-10 00:00: 00 No 1mg Flagyl 500 mg tablet 2019-10 00:00: 00 No 1mg Wellbutrin XL 150 mg 24 hr tablet, extended release 2019-10 00:00: 00 No 1mg Wellbutrin XL 150 mg 24 hr tablet, extended release 2019-10 00:00: 00 No 1mg Wellbutrin XL 150 mg 24 hr tablet, extended release 2019-10 00:00: 00 No 1mg methocarbam ol (ROBAXIN) tablet 500 mg 07-07 17:45: 00 07-07 16:50 :00 No 500mg 500 mg, Oral, ONCE, 1 dose, Sun07/07/19 at 1245, VARINDER [facility] ketorolac (TORADOL) injection 30 mg 07-07 17:45: 00 07-07 16:50 :00 No 30mg 30 mg, Intramuscu lar, ONCE, 1 dose, Sun07/07/19 at 1245, VARINDER
Fa culty member approving Restricted medication : KOTA COREY [facility] methocarbam ol (ROBAXIN) 500 mg tablet 07-07 00:00: 00 02-02 00:00 :00 No [id number] 500mg Take 1 tablet by mouth 4 (four) times daily. [facility] predniSONE 20 mg tablet 07-07 00:00: 00 07-13 04:59 :00 No [id number] 40mg Take 2 tablets by mouth daily for 5 days. [facility] Vital Signs Vital Name Observation Time Observation Value Comments S ource Body temperature 2022-05-02 17:32:00 37.33 [place] [facility] Respiratory rate 2022-05-02 17:32:00 18 /min [facility] Body height 2022-05-02 17:32:00 160 cm [facility] Body weight 2022-05-02 17:32:00 94.348 [facility] BMI 2022-05-02 17:32:00 36.85 kg/m2 [facility] Oxygen saturation in Arterial blood by Pulse oximetry 2022-05-02 17:32:00 99 /min [facility] Systolic blood pressure 2022-05-02 17:32:00 137 mm[Hg] [facility] Diastolic blood pressure 2022-05-02 17:32:00 91 mm[Hg] [facility] Heart rate 2022-05-02 17:32:00 100 /min [facility] Systolic blood pressure 2021-02-02 13:54:00 123 mm[Hg] [facility] Diastolic blood pressure 2021-02-02 13:54:00 88 mm[Hg] [facility] Heart rate 2021-02-02 13:54:00 81 /min [facility] Respiratory rate 2021-02-02 13:54:00 19 /min [facility] Body height 2021-02-02 13:54:00 158.8 cm [facility] Body weight 2021-02-02 13:54:00 85.684 kg [facility] BMI 2021-02-02 13:54:00 34.00 kg/m2 [facility] Oxygen saturation in Arterial blood by Pulse oximetry 2021-02-02 13:54:00 98 /min [facility] Systolic blood pressure 2019-07-07 16:13:00 132 mm[Hg] [facility] Diastolic blood pressure 2019-07-07 16:13:00 83 mm[Hg] [facility] Heart rate 2019-07-07 16:13:00 99 /min [facility] Body temperature 2019-07-07 16:13:00 36.72 [place] [facility] Respiratory rate 2019-07-07 16:13:00 20 /min [facility] Body height 2019-07-07 16:13:00 160 cm [facility] Body weight 2019-07-07 16:13:00 68.04 kg [facility] BMI 2019-07-07 16:13:00 26.57 kg/m2 [facility] Oxygen saturation in Arterial blood by Pulse oximetry 2019-07-07 16:13:00 100 /min [facility] Systolic blood pressure 2019-07-07 16:13:00 132 mm[Hg] [facility] Diastolic blood pressure 2019-07-07 16:13:00 83 mm[Hg] [facility] Heart rate 2019-07-07 16:13:00 99 /min [facility] Body temperature 2019-07-07 16:13:00 36.72 [place] [facility] Respiratory rate 2019-07-07 16:13:00 20 /min [facility] Body height 2019-07-07 16:13:00 160 cm [facility] Body weight 2019-07-07 16:13:00 68.04 kg [facility] BMI 2019-07-07 16:13:00 26.57 kg/m2 [facility] Oxygen saturation in Arterial blood by Pulse oximetry 2019-07-07 16:13:00 100 /min [facility] BP Systolic 2022-10-04 13:42:00 114 mm[Hg] BP [...] Procedures Procedure Date / Time Performed Performing Clinicia n Source NOTICE OF PRIVACY PRACTICES 2022-05-02 17:29:12 Doctor Unassigned, [place] [facility] CONSENT/REFUSAL FOR DIAGNOSIS AND TREATMENT 2022-05-02 17:28:58 Doctor Unassigned, [place] [facility] REFERRAL- REQUEST/RESPONSE 2021-01-26 05:01:00 Doctor Unassigned, [place] [facility] REFERRAL- REQUEST/RESPONSE 2020-12-22 06:01:00 Doctor Unassigned, [place] [facility] NOTICE OF PRIVACY PRACTICES 2019-07-07 16:09:09 Doctor Unassigned, [place] [facility] Plan of Care Planned Activity Planned Date Details Comments Source Goal Plan of Care Note [code = 98961-9] Goal Plan of Care Note [code = 23430-0] Goal Plan of Care Note [code = 20157-4] Goal Plan of Care Note [code = 79114-3] Goal Plan of Care Note [code = 55231-6] Goal Plan of Care Note [code = 49814-2] Goal Plan of Care Note [code = 97771-3] Goal Plan of Care Note [code = 86775-1] Goal Plan of Care Note [code = 12585-5] Goal Plan of Care Note [code = 06712-9] Goal Plan of Care Note [code = 35380-4] Goal Plan of Care Note [code = 45284-5] Goal Plan of Care Note [code = 29506-0] Goal Plan of Care Note [code = 60249-5] Goal Plan of Care Note [code = 72468-2] Goal Plan of Care Note [code = 15948-7] Goal Plan of Care Note [code = 69748-5] Goal Plan of Care Note [code = 03139-3] Goal Plan of Care Note [code = 54124-5] Goal Plan of Care Note [code = 47937-0] Goal Plan of Care Note [code = 89968-5] Goal Plan of Care Note [code = 67064-6] Goal Plan of Care Note [code = 67319-9] Goal Plan of Care Note [code = 31302-3] Goal Plan of Care Note [code = 26087-3] Goal Plan of Care Note [code = 22300-8] Goal Plan of Care Note [code = 99572-8] Goal Plan of Care Note [code = 46505-2] Goal Plan of Care Note [code = 38517-9] Goal Plan of Care Note [code = 53902-1] Goal Plan of Care Note [code = 39223-3] Goal Plan of Care Note [code = 16481-9] Goal Plan of Care Note [code = 49893-8] Goal Plan of Care Note [code = 58947-7] Goal Plan of Care Note [code = 78302-3] Goal Plan of Care Note [code = 56277-0] Goal Plan of Care Note [code = 93894-4] Goal Plan of Care Note [code = 79342-4] Goal Plan of Care Note [code = 96901-4] Goal Plan of Care Note [code = 68260-3] Goal Plan of Care Note [code = 92654-8] Goal Plan of Care Note [code = 63824-8] Goal Plan of Care Note [code = 54492-1] Goal Plan of Care Note [code = 01281-7] Goal Plan of Care Note [code = 50705-3] Goal Plan of Care Note [code = 23693-3] Goal Plan of Care Note [code = 45762-7] Goal Plan of Care Note [code = 41678-0] Goal Plan of Care Note [code = 23272-8] Goal Plan of Care Note [code = 92295-6] Goal Plan of Care Note [code = 58341-3] Goal Plan of Care Note [code = 51046-3] Goal Plan of Care Note [code = 31606-4] Goal Plan of Care Note [code = 28888-9] Goal Plan of Care Note [code = 34337-4] Goal Plan of Care Note [code = 11260-5] Goal Plan of Care Note [code = 01261-5] Goal Plan of Care Note [code = 74249-4] Goal Plan of Care Note [code = 89513-2] Goal Plan of Care Note [code = 86560-2] Goal Plan of Care Note [code = 72763-6] Goal Plan of Care Note [code = 15081-0] Goal Plan of Care Note [code = 77143-0] Goal Plan of Care Note [code = 00136-7] Goal Plan of Care Note [code = 63563-5] Goal Plan of Care Note [code = 64809-0] Goal Plan of Care Note [code = 77417-7] Goal Plan of Care Note [code = 49494-8] Goal Plan of Care Note [code = 44455-2] Goal Plan of Care Note [code = 15225-6] Goal Plan of Care Note [code = 61121-5] Goal Plan of Care Note [code = 18241-6] Goal Plan of Care Note [code = 41924-3] Goal Plan of Care Note [code = 49711-4] Goal Plan of Care Note [code = 27324-5] Goal Plan of Care Note [code = 84010-6] Goal Plan of Care Note [code = 50363-1] Goal Plan of Care Note [code = 83022-2] Goal Plan of Care Note [code = 81541-3] Goal Plan of Care Note [code = 50841-2] Goal Plan of Care Note [code = 66136-3] Goal Plan of Care Note [code = 28510-0] Goal Plan of Care Note [code = 48924-2] Goal Plan of Care Note [code = 70159-1] Goal Plan of Care Note [code = 45531-9] Goal Plan of Care Note [code = 97952-8] Goal Plan of Care Note [code = 29021-7] Goal Plan of Care Note [code = 67673-9] Goal Plan of Care Note [code = 47343-6] Goal Plan of Care Note [code = 81378-8] Goal Plan of Care Note [code = 22479-7] Goal Plan of Care Note [code = 35953-0] Goal Plan of Care Note [code = 90835-6] Goal Plan of Care Note [code = 08027-3] Goal Plan of Care Note [code = 86235-4] Goal Plan of Care Note [code = 67943-2] Goal Plan of Care Note [code = 80785-3] Goal Plan of Care Note [code = 35144-6] Goal Plan of Care Note [code = 80885-4] Goal Plan of Care Note [code = 14502-5] Goal Plan of Care Note [code = 90457-5] Goal Plan of Care Note [code = 33692-6] Goal Plan of Care Note [code = 27154-1] Goal Plan of Care Note [code = 64566-7] Goal Plan of Care Note [code = 08386-0] Goal Plan of Care Note [code = 04255-0] Goal Plan of Care Note [code = 15112-8] Goal Plan of Care Note [code = 75565-8] Goal Plan of Care Note [code = 88449-0] Goal Plan of Care Note [code = 77755-2] Goal Plan of Care Note [code = 45424-8] Goal Plan of Care Note [code = 65527-0] Goal Plan of Care Note [code = 91261-8] Goal Plan of Care Note [code = 70459-0] Goal Plan of Care Note [code = 71024-3] Goal Plan of Care Note [code = 90657-7] Goal Plan of Care Note [code = 25472-5] Goal Plan of Care Note [code = 37096-1] Goal Plan of Care Note [code = 50076-0] Goal Plan of Care Note [code = 84240-4] Goal Plan of Care Note [code = 94728-4] Goal Plan of Care Note [code = 94263-2] Goal Plan of Care Note [code = 62372-0] Goal Plan of Care Note [code = 86933-7] Goal Plan of Care Note [code = 39244-0] Goal Plan of Care Note [code = 83313-8] Goal Plan of Care Note [code = 69928-8] Goal Plan of Care Note [code = 59357-0] Goal Plan of Care Note [code = 67479-9] Goal Plan of Care Note [code = 32602-1] Goal Plan of Care Note [code = 63814-3] Goal Plan of Care Note [code = 56357-4] Goal Plan of Care Note [code = 16549-0] Goal Plan of Care Note [code = 02367-1] Goal Plan of Care Note [code = 49900-0] Goal Plan of Care Note [code = 80229-7] Goal Plan of Care Note [code = 83562-0] Goal Plan of Care Note [code = 26637-3] Goal Plan of Care Note [code = 20138-7] Goal Plan of Care Note [code = 72815-4] Goal Plan of Care Note [code = 06412-6] Goal Plan of Care Note [code = 88183-1] Goal Plan of Care Note [code = 37414-6] Goal Plan of Care Note [code = 92787-0] Goal Plan of Care Note [code = 95282-0] Goal Plan of Care Note [code = 24090-5] Goal Plan of Care Note [code = 30229-9] Goal Plan of Care Note [code = 16884-1] Goal Plan of Care Note [code = 57999-7] Goal Plan of Care Note [code = 56327-4] Goal Plan of Care Note [code = 86895-1] Encounters Start Date/Time End Date/Time Encounter Type Admission Type Attending [facility] Care Department Encounter ID Source 2024-02-26 11:41:36 2024-02-26 11:41:36 Outpatient [facility] [id number] Odilon Gibson 2023-10-12 14:05:40 2023-10-12 14:05:40 Outpatient [facility] [id number] Odilon Gonzalez Arthur 2023-09-11 13:51:27 2023-09-11 13:51:27 Outpatient [facility] [id number] Odilon Gonzalez Arthur 2023-06-27 08:36:33 2023-06-27 08:36:33 Outpatient [facility] [id number] Odilon Gonzalez Arthur 2023-05-03 15:06:03 2023-05-03 15:06:03 Outpatient [facility] [id number] Odilon Gonzalez Arthur 2023-01-31 13:06:35 2023-01-31 13:06:35 Outpatient [facility] [id number] Odilon Gibson 2022-11-23 15:03:05 2022-11-23 15:03:05 Outpatient [facility] [id number] Odilon Gibson 2022-10-04 00:00:00 2022-10-04 00:00:00 Outpatient Visit [id number] [id number] -[id number] [id number] [id number]-2 267-4c5b-9 bc8-009af0 d1e93f 2022-10-03 16:27:26 2022-10-03 16:27:26 Outpatient [facility] [id number] Odilon Gibson 2022-10-03 00:00:00 2022-10-03 00:00:00 Outpatient Visit [id number] [id number] -bed2-8d4 [id number] [id number]-f ed2-8d4dfc [id number] 4805-11-08 10:56:55 2022-09-05 10:56:55 Outpatient [facility] [id number] 1108 Odilon Gibson 2022-08-30 11:05:02 2022-08-30 11:05:02 Outpatient [facility] [id number] Odilon Gibson 2022-08-30 00:00:00 2022-08-30 00:00:00 Outpatient Visit [id number] [id number] -sn1l-to6 e1ue0o0ji [id number] 7c7-74m0-q y1b-kt9m4r f5e4ee 2022-05-16 00:00:00 2022-05-16 00:00:00 Outpatient Visit [id number] 746b-4fb4 -877b-c0a [id number] 46b-4fb4-8 77b-k7w048 [id number] 2022-05-02 12:34:00 2022-05-02 18:22:00 Emergency X DAYO VO [facility] ERT [id number] [facility] 2022-05-02 12:34:00 2022-05-02 18:22:00 Emergency Dayo Vo [facility] 1.2.840.114 350.1.13.10 4.2.7.2.686 [id number] [facility] 2021-03-16 09:00:00 2021-03-16 09:00:00 Outpatient R [facility] [id number] [facility] 2021-03-14 00:00:00 2021-03-14 00:00:00 Telephone Sudhakar Bryannaruddy Taylor Jason Perez 1.20.114 350.1.13.10 4.2.7.2.686 [id number] [facility] 2021-03-01 08:00:00 2021-03-01 08:00:00 Outpatient R [facility] [id number] [facility] 2021-02-02 08:12:10 2021-02-02 09:56:16 Office Visit Madi Klein [facility] 1.2.114 350.1.13.10 4.2.7.2.686 [id number] [facility] 2021-02-02 09:00:00 2021-02-02 09:00:[address] [facility] [id number] [facility] 2021-01-26 00:00:00 2021-01-26 00:00:00 Orders Only Doctor Unassigned, [place] [facility] 1.2840.114 350.1.13.10 4.2.7.2.686 [id number] 2021-01-26 00:00:00 2021-01-26 00:00:00 Orders Only Doctor Unassigned, [place] [facility] 1.2840.114 350.1.13.10 4.2.7.2.686 [id number] [facility] 2020-12-22 00:00:00 2020-12-22 00:00:00 Orders Only Doctor Unassigned, [place] [facility] 1.2840.114 350.1.13.10 4.2.7.2.686 [id number] 2020-12-22 00:00:00 2020-12-22 00:00:00 Orders Only Doctor Unassigned, [place] [facility] 1.2.840.114 350.1.13.10 4.2.7.2.686 [id number] [facility] 2020-08-06 00:00:00 2020-08-06 00:00:00 Letter (Out) Doctor Unassigned, [place] [facility] 1.2.840.114 350.1.13.10 4.2.7.2.686 [id number] 2020-08-06 00:00:00 2020-08-06 00:00:00 Letter (Out) Doctor Unassigned, [place] [facility] 1.2.840.114 350.1.13.10 4.2.7.2.686 [id number] 2020-08-06 00:00:00 2020-08-06 00:00:00 Letter (Out) Doctor Unassigned, [place] [facility] 1.2.840.114 350.1.13.10 4.2.7.2.686 [id number] [facility] 2020-08-06 00:00:00 2020-08-06 00:00:00 Letter (Out) Doctor Unassigned, [place] [facility] 1.2.840.114 350.1.13.10 4.2.7.2.686 [id number] 044 [id number] [facility] 2019-07-07 11:16:20 2019-07-07 12:14:00 [facility] 1.2.840.114 350.1.13.10 4.2.7.2.686 [id number] 2019-07-07 11:16:20 2019-07-07 12:14:00 [facility] 1.2.840.114 350.1.13.10 4.2.7.2.686 [id number] 084 [id number] [facility] Results Test Description Test Time Test Comments Results Result Co mments Source LIPID [id number] 04:47:08* Test Item Value Reference Range Interpretation Comme nts CHOLESTEROL (test code = 2210) 302 MG/DL <200 H TRIGLYCERIDES (test code = 2232) 247 MG/DL <150 H HDL CHOLESTEROL (test code = 2220) 45 MG/DL >39 CALC LDL CHOL (test code = 2237) 211 MG/DL <100 H NOTE: CALCULATED LDL IS BASED ON ADE-ROCK METHOD WHICHINCLUDES ADJUSTABLE TRIGLYCERIDE:VLDL CHOLESTEROL RATIO.THIS FACTOR VARIES BY MEASURED TRIGLYCERIDE AND NON-HDLCHOLESTEROL CONCENTRATIONS WITH INCREASED CALCULATED LDL SEENIN HIGHER TRIGLYCERIDE OR LOWER NON-HDL SPECIMENS. FOR MOREINFORMATION, SEE CLIENT ANNOUNCEMENT AT [email or web address] RISK RATIO LDL/HDL (test code = 2238) 4.69 RATIO <3.22 H VITAMIN D, 25 [id number] 03:20:05* Test Item Value Reference Range Interpretation Comme nts VITAMIN D, 25 OH (test code = 4958) 31 NG/ML SEE BELOW EFFECTIVE 06/2023, PLEASE NOTE NEW METHODOLOGY IS ELECTROCHEMILUMINESCENCE BINDING ASSAY. NOTE: 25-HYDROXYVITAMIN D ASSAY INCLUDES 25-HYDROXYVITAMIN D2 AND D3. INTERPRETIVE RANGES PEDIATRIC (<17 YEARS) . . . . . . . . . . . NG/ML 20-100ADULT: INSUFFICIENT . . . . . . . . . . . . . . NG/ML <20 SUBOPTIMAL . . . . . . . . . . . . . . . NG/ML 20-29 OPTIMAL . . . . . . . . . . . . . . . . . NG/ML 30-100 UNLESS OTHERWISE INDICATED, ALL TESTING PERFORMED AT [facility] [address] [place] [address] TRAFFIC ENGINEERING DIRECTOR: CALE SALINAS M.D. CLIA NUMBER [id number] [place]. [id number] TSH, THIRD [id number] 03:19:25* Test Item Value Reference Range Interpretation Comme nts TSH, THIRD GENERATION (test code = 2821) 1.390 UIU/ML 0.400-4.100 HEMOGLOBIN [id number] 03:08:26* Test Item Value Reference Range Interpretation Comme nts HEMOGLOBIN A1c (test code = 41964) 5.5 % 4.2-5.6 CBC W/AUTO DIFF WITH [id number] 02:56:46* Test Item Value Reference Range Interpretation Comme nts WBC (test code = 1001) 12.1 K/UL 3.5-11.0 H RBC (test code = 1002) 4.59 M/UL 3.80-5.40 HEMOGLOBIN (test code = 1003) 14.2 G/DL 11.5-15.5 HEMATOCRIT (test code = 1004) 43.2 % 34.0-45.0 MCV (test code = 1005) 94.1 fL 80.0-99.0 MCH (test code = 1006) 30.9 PG 25.0-33.0 MCHC (test code = 1007) 32.9 G/DL 31.0-36.0 RDW (test code = 1038) 13.1 % 11.5-15.0 NEUTROPHILS (test code = 1008) 70.0 % LYMPHOCYTES (test code = 1010) 23.0 % MONOCYTES (test code = 1011) 5.4 % EOSINOPHILS (test code = 1012) 0.7 % BASOPHILS (test code = 1013) 0.6 % IMMATURE GRANULOCYTES (test code = 1036) 0.3 % NUCLEATED RBCS (test code = 1065) 0.0 /100 WBC'S See_Comment [Automated [place] ge] The system which generated this result transmitted reference range: 0.0. The reference range was not used to interpret this result as normal/abnormal. PLATELET COUNT (test code = 1015) 265 K/UL 130-400 ABSOLUTE NEUTROPHILS (test code = 1066) 8.49 K/UL 1.50-7.50 H ABSOLUTE LYMPHOCYTES (test code = 1067) 2.79 K/UL 1.00-4.00 ABSOLUTE MONOCYTES (test code = 1068) 0.65 K/UL 0.20-1.00 ABSOLUTE EOSINOPHILS (test code = 1040) 0.08 K/UL 0.00-0.50 ABSOLUTE BASOPHILS (test code = 1069) 0.07 K/UL 0.00-0.20 ABS IMMATURE GRANULOCYTES (test code = 1020) 0.04 K/UL 0.00-0.10 ABS NUCLEATED RBCS (test code = 64538) 0.00 K/UL 0.00-0.11 CULTURE, [id number] 00:00:00* Test Item Value Reference Range Interpretation Comme nts CULTURE, URINE (test code = 44780) SPECIMEN NUMBER: [id number] CULTURE, [id number] 00:00:00* Test Item Value Reference Range Interpretation Comme nts CULTURE, URINE (test code = 78364) SPECIMEN NUMBER: [id number] SARS-CoV-2 (COVID-19), RT-PCR/[id number] 08:18:51* Test Item Value Reference Range Interpretation Comments SARS-CoV-2 INTERPRETATION (test code = 87630) NEGATIVE SEE NOTE SARS-CoV-2 R NA NOT DETECTEDNegative results do not preclude SARS-CoV-2 infection and should notbe used as the sole basis for patient management decisions. Negativeresults must be combined with clinical observations, patient history,and epidemiological information. Optimum specimen types and timingfor peak viral levels during infections caused by SARS-CoV-2 have notbeen determined. Collection of multiple specimens or types ofspecimens may be necessary to detect virus. Improper specimencollection and handling, sequence variability under primers/probes,or organism present below the limit of detection may lead to falsenegative results. Positive and negative predictive values oftesting are highly dependent on prevalence. False negative testresults are more likely when prevalence is high. EFFECTIVE 01/09/2022, SPUTUM SPECIMENS CAN NO LONGER BE TESTED WITHTHIS ORDER CODE. FOR SALIVA, ORAL FLUID TESTING AND SPECIMENREQUIREMENTS, PLEASE REFER TO ORDER CODE 3509. SOURCE (test code = 05143) NOT SPECIFIED Note: Methodolog y is Dixie Laurie Real-Time RT-PCR. The expected result or reference range is NEGATIVE (Not Detected). For more information regarding COVID-19 testing to include clinicalinformation, methodology detail, intended use, FDA authorization andrecommended fact sheets for patients or healthcare providers, see [employer] Announcement: SARS-CoV-2 (COVID-19) by NAAT at URL below (note,fact sheets are provided by method given in report:[email or web address] Alternatively, see downloadable PDF fact sheet at:https://www.[employer]. [employer]/CPRJA-42-HZ-PCR UNLESS OTHERWISE INDICATED, [facility] [employer], [facility]. [address] [place] [address] TRAFFIC ENGINEERING DIRECTOR: BERENICE ANN M.D. CLIA NUMBER [id number] [facility] [place]. [id number] SARS-CoV-2 (COVID-19) by RT-PCR (HIGH RISK)2022-01-14 00:00:00* Test Item Value Reference Range Interpretation Comme nts SARS-CoV-2 INTERPRETATION (t est code = 60803) NEGATIVE SOURCE (test code = 69187) NOT SPECIFIED SARS-CoV-2 (COVID-19) by RT-PCR (HIGH RISK)2022-01-14 00:00:00* Test Item Value Reference Range Interpretation Comme nts SARS-CoV-2 INTERPRETATION (t est code = 00066) NEGATIVE SOURCE (test code = 27501) NOT SPECIFIED SARS-CoV-2 (COVID-19) by RT-PCR (HIGH RISK)2022-01-14 00:00:00* Test Item Value Reference Range Interpretation Comme nts SARS-CoV-2 INTERPRETATION (t est code = 81051) NEGATIVE SOURCE (test code = 50343) NOT SPECIFIED SARS-CoV-2 (COVID-19) by RT-PCR (HIGH RISK)2022-01-14 00:00:00* Test Item Value Reference Range Interpretation Comme nts SARS-CoV-2 INTERPRETATION (t est code = 26232) NEGATIVE SOURCE (test code = 89819) NOT SPECIFIED SARS-CoV-2 (COVID-19), RT-PCR/[id number] 06:38:45* Test Item Value Reference Range Interpretation Comments SARS-CoV-2 INTERPRETATION (test code = 49864) NEGATIVE SEE NOTE SARS-CoV-2 R NA NOT DETECTEDNegative results do not preclude SARS-CoV-2 infection and should notbe used as the sole basis for patient management decisions. Negativeresults must be combined with clinical observations, patient history,and epidemiological information. Optimum specimen types and timingfor peak viral levels during infections caused by SARS-CoV-2 have notbeen determined. Collection of multiple specimens or types ofspecimens may be necessary to detect virus. Improper specimencollection and handling, sequence variability under primers/probes,or organism present below the limit of detection may lead to falsenegative results. Positive and negative predictive values oftesting are highly dependent on prevalence. False negative testresults are more likely when prevalence is high. EFFECTIVE 01/09/2022, SPUTUM SPECIMENS CAN NO LONGER BE TESTED WITHTHIS ORDER CODE. FOR SALIVA, ORAL FLUID TESTING AND SPECIMENREQUIREMENTS, PLEASE REFER TO ORDER CODE 3509. SOURCE (test code = 73832) NASOPHARYNGEAL Note: Methodolog y is Dixie Laurie Real-Time RT-PCR. The expected result or reference range is NEGATIVE (Not Detected). For more information regarding COVID-19 testing to include clinicalinformation, methodology detail, intended use, FDA authorization andrecommended fact sheets for patients or healthcare providers, see [employer] Announcement: SARS-CoV-2 (COVID-19) by NAAT at URL below (note,fact sheets are provided by method given in report:[email or web address] Alternatively, see downloadable PDF fact sheet at:https://www.[employer]RHSXY-24-AE-PCR UNLESS OTHERWISE INDICATED, ALL TESTING PERFORMED [facility] [address] [place] [address] TRAFFIC ENGINEERING DIRECTOR: BERENICE ANN M.D. [place] NUMBER [id number] [facility] [place] [place]. [id number] SARS-CoV-2 (COVID-19) by RT-PCR (HIGH RISK)2021-12-29 00:00:00* Test Item Value Reference Range Interpretation Comme nts SARS-CoV-2 INTERPRETATION (test code = 53082) NEGATIVE SOURCE (test code = 51522) NASOPHARYNGEAL SARS-CoV-2 (COVID-19) by RT-PCR (HIGH RISK)2021-12-29 00:00:00* Test Item Value Reference Range Interpretation Comme nts SARS-CoV-2 INTERPRETATION (test code = 22358) NEGATIVE SOURCE (test code = 54933) NASOPHARYNGEAL SARS-CoV-2 (COVID-19) by RT-PCR (HIGH RISK)2021-12-29 00:00:00* Test Item Value Reference Range Interpretation Comme nts SARS-CoV-2 INTERPRETATION (test code = 69146) NEGATIVE SOURCE (test code = 32407) NASOPHARYNGEAL SARS-CoV-2 (COVID-19) by RT-PCR (HIGH RISK)2021-12-29 00:00:00* Test Item Value Reference Range Interpretation Comme nts SARS-CoV-2 INTERPRETATION (test code = 96480) NEGATIVE SOURCE (test code = 47801) NASOPHARYNGEAL [id number] 00:00:00* Test Item Value Reference Range Interpretation Comme nts TSH, THIRD GENERATION (test code = 2821) 1.250 UIU/ML [id number] 00:00:00* Test Item Value Reference Range Interpretation Comme nts TSH, THIRD GENERATION (test code = 2821) 1.250 UIU/ML [id number] 00:00:00* Test Item Value Reference Range Interpretation Comme nts TSH, THIRD GENERATION (test code = 2821) 1.250 UIU/ML [id number] 00:00:00* Test Item Value Reference Range Interpretation Comme nts TSH, THIRD GENERATION (test code = 2821) 1.250 UIU/ML CBC W/AUTO [id number] 00:00:00* Test Item Value Reference Range Interpretation Comme nts WBC (test code = 1001) 13.6 K/UL [...] code = 1015) 207 K/UL COMPREHENSIVE METABOLIC [id number] 00:00:00* Test Item Value Reference Range Interpretation Comme nts GLUCOSE (test code = 2217) 108 MG/DL BUN (test code = 2208) 8 MG/DL CREATININE (test code = 2214) 0.80 MG/DL eGFR AMER. (test cod e = 85402) 112 ML/MIN/1.73 eGFR NON- AMER. (test code = 54335) 97 ML/MIN/1.73 CALC BUN/CREAT (test code = 2235) 10 RATIO SODIUM (test code = 2231) 139 MEQ/L POTASSIUM (test code = 2228) 4.3 MEQ/L CHLORIDE (test code = 2215) 107 MEQ/L CARBON DIOXIDE (test code = 2206) 25 MEQ/L CALCIUM (test code = 2209) 9.4 MG/DL PROTEIN, TOTAL (test code = 2229) 7.2 G/DL ALBUMIN (test code = 2201) 4.8 G/DL CALC GLOBULIN (test code = 2240) 2.4 G/DL CALC A/G RATIO (test code = 2234) 2.0 RATIO BILIRUBIN, TOTAL (test code = 2207) 0.3 MG/DL ALKALINE PHOSPHATASE (test code = 2204) 78 U/L AST (test code = 2218) 12 U/L ALT (test code = 2219) 12 U/L CBC W/AUTO [id number] 00:00:00* Test Item Value Reference Range Interpretation Comme nts WBC (test code = 1001) 13.6 K/UL [...] code = 1015) 207 K/UL COMPREHENSIVE METABOLIC [id number] 00:00:00* Test Item Value Reference Range Interpretation Comme nts GLUCOSE (test code = 2217) 108 MG/DL BUN (test code = 2208) 8 MG/DL CREATININE (test code = 2214) 0.80 MG/DL eGFR AMER. (test cod e = 32982) 112 ML/MIN/1.73 eGFR NON- AMER. (test code = 39355) 97 ML/MIN/1.73 CALC BUN/CREAT (test code = 2235) 10 RATIO SODIUM (test code = 2231) 139 MEQ/L POTASSIUM (test code = 2228) 4.3 MEQ/L CHLORIDE (test code = 2215) 107 MEQ/L CARBON DIOXIDE (test code = 2206) 25 MEQ/L CALCIUM (test code = 2209) 9.4 MG/DL PROTEIN, TOTAL (test code = 2229) 7.2 G/DL ALBUMIN (test code = 2201) 4.8 G/DL CALC GLOBULIN (test code = 2240) 2.4 G/DL CALC A/G RATIO (test code = 2234) 2.0 RATIO BILIRUBIN, TOTAL (test code = 2207) 0.3 MG/DL ALKALINE PHOSPHATASE (test code = 2204) 78 U/L AST (test code = 2218) 12 U/L ALT (test code = 2219) 12 U/L CBC W/AUTO [id number] 00:00:00* Test Item Value Reference Range Interpretation Comme nts WBC (test code = 1001) 13.6 K/UL [...] code = 1015) 207 K/UL COMPREHENSIVE METABOLIC [id number] 00:00:00* Test Item Value Reference Range Interpretation Comme nts GLUCOSE (test code = 2217) 108 MG/DL BUN (test code = 2208) 8 MG/DL CREATININE (test code = 2214) 0.80 MG/DL eGFR AMER. (test cod e = 51617) 112 ML/MIN/1.73 eGFR NON- AMER. (test code = 09864) 97 ML/MIN/1.73 CALC BUN/CREAT (test code = 2235) 10 RATIO SODIUM (test code = 2231) 139 MEQ/L POTASSIUM (test code = 2228) 4.3 MEQ/L CHLORIDE (test code = 2215) 107 MEQ/L CARBON DIOXIDE (test code = 2206) 25 MEQ/L CALCIUM (test code = 2209) 9.4 MG/DL PROTEIN, TOTAL (test code = 2229) 7.2 G/DL ALBUMIN (test code = 2201) 4.8 G/DL CALC GLOBULIN (test code = 2240) 2.4 G/DL CALC A/G RATIO (test code = 2234) 2.0 RATIO BILIRUBIN, TOTAL (test code = 2207) 0.3 MG/DL ALKALINE PHOSPHATASE (test code = 2204) 78 U/L AST (test code = 2218) 12 U/L ALT (test code = 2219) 12 U/L CBC W/AUTO [id number] 00:00:00* Test Item Value Reference Range Interpretation Comme nts WBC (test code = 1001) 13.6 K/UL [...] code = 1015) 207 K/UL COMPREHENSIVE METABOLIC [id number] 00:00:00* Test Item Value Reference Range Interpretation Comme nts GLUCOSE (test code = 2217) 108 MG/DL BUN (test code = 2208) 8 MG/DL CREATININE (test code = 2214) 0.80 MG/DL eGFR AMER. (test cod e = 76016) 112 ML/MIN/1.73 eGFR NON- AMER. (test code = 81420) 97 ML/MIN/1.73 CALC BUN/CREAT (test code = 2235) 10 RATIO SODIUM (test code = 2231) 139 MEQ/L POTASSIUM (test code = 2228) 4.3 MEQ/L CHLORIDE (test code = 2215) 107 MEQ/L CARBON DIOXIDE (test code = 2206) 25 MEQ/L CALCIUM (test code = 2209) 9.4 MG/DL PROTEIN, TOTAL (test code = 2229) 7.2 G/DL ALBUMIN (test code = 2201) 4.8 G/DL CALC GLOBULIN (test code = 2240) 2.4 G/DL CALC A/G RATIO (test code = 2234) 2.0 RATIO BILIRUBIN, TOTAL (test code = 2207) 0.3 MG/DL ALKALINE PHOSPHATASE (test code = 2204) 78 U/L AST (test code = 2218) 12 U/L ALT (test code = 2219) 12 U/L VAGINAL PATHOGENS DNA [id number] 00:00:00* Test Item Value Reference Range Interpretation Comme nts YORDY SPECIES (test code = ) NEGATIVE G. VAGINALIS (test code = 97951) POSITIVE T. VAGINALIS (test code = 75267) NEGATIVE [id number] 00:00:00* Test Item Value Reference Range Interpretation Comme nts TESTOSTERONE (test code = 2830) 23 NG/DL FSH + LH [id number] 00:00:00* Test Item Value Reference Range Interpretation Comme nts FOLLICLE STIM HORMONE (test code = 2700) 5.4 IU/L LUTEINIZING HORMONE (test co de = 2776) 9.5 IU/L [id number] 00:00:00* Test Item Value Reference Range Interpretation Comme nts PROLACTIN (test code = 2800) 8.5 NG/ML [id number] 00:00:00* Test Item Value Reference Range Interpretation Comme nts ESTRADIOL (test code = 2505) 59.4 PG/ML VAGINAL PATHOGENS DNA [id number] 00:00:00* Test Item Value Reference Range Interpretation Comme nts YORDY SPECIES (test code = ) NEGATIVE G. VAGINALIS (test code = 89120) POSITIVE T. VAGINALIS (test code = 86472) NEGATIVE [id number] 00:00:00* Test Item Value Reference Range Interpretation Comme nts TESTOSTERONE (test code = 2830) 23 NG/DL FSH + LH [id number] 00:00:00* Test Item Value Reference Range Interpretation Comme nts FOLLICLE STIM HORMONE (test code = 2700) 5.4 IU/L LUTEINIZING HORMONE (test co de = 2776) 9.5 IU/L [id number] 00:00:00* Test Item Value Reference Range Interpretation Comme nts PROLACTIN (test code = 2800) 8.5 NG/ML [id number] 00:00:00* Test Item Value Reference Range Interpretation Comme nts ESTRADIOL (test code = 2505) 59.4 PG/ML VAGINAL PATHOGENS DNA [id number] 00:00:00* Test Item Value Reference Range Interpretation Comme nts YORDY SPECIES (test code = ) NEGATIVE G. VAGINALIS (test code = 24934) POSITIVE T. VAGINALIS (test code = ) NEGATIVE [id number] 00:00:00* Test Item Value Reference Range Interpretation Comme nts TESTOSTERONE (test code = 2830) 23 NG/DL FSH + LH [id number] 00:00:00* Test Item Value Reference Range Interpretation Comme nts FOLLICLE STIM HORMONE (test code = 2700) 5.4 IU/L LUTEINIZING HORMONE (test co de = 2776) 9.5 IU/L [id number] 00:00:00* Test Item Value Reference Range Interpretation Comme nts PROLACTIN (test code = 2800) 8.5 NG/ML [id number] 00:00:00* Test Item Value Reference Range Interpretation Comme nts ESTRADIOL (test code = 2505) 59.4 PG/ML VAGINAL PATHOGENS DNA [id number] 00:00:00* Test Item Value Reference Range Interpretation Comme nts YORDY SPECIES (test code = ) NEGATIVE G. VAGINALIS (test code = 52726) POSITIVE T. VAGINALIS (test code = 94038) NEGATIVE [id number] 00:00:00* Test Item Value Reference Range Interpretation Comme nts TESTOSTERONE (test code = 2830) 23 NG/DL FSH + LH [id number] 00:00:00* Test Item Value Reference Range Interpretation Comme nts FOLLICLE STIM HORMONE (test code = 2700) 5.4 IU/L LUTEINIZING HORMONE (test co de = 2776) 9.5 IU/L [id number] 00:00:00* Test Item Value Reference Range Interpretation Comme nts PROLACTIN (test code = 2800) 8.5 NG/ML [id number] 00:00:00* Test Item Value Reference Range Interpretation Comme nts ESTRADIOL (test code = 2505) 59.4 PG/ML PAP TEST, THINPREP, [id number] 00:00:00* Test Item Value Reference Range Interpretation Comme nts SOURCE: (test code = 8001) Cervical/Endo cervi franca SLIDES: (test code = 8011) 1 LMP: (test code = 8021) 09/02/2020 SPECIMEN ADEQUACY: (test code = 13527) (NOTE) INTERPRETATION: (test code = 81586) ASCUS/EPITH. ABNORMALITY; SEE BELOW NARCOTICS AND VICE DETECTIVE: (test code = 8101) GABRIELA Coe(ASC)[facility] PATHOLOGIST INTERPRETATION BY: (test code = 8122) Aleksander Chen M.D. LOCATION: (test code = 11152) (NOTE) CPT: (test code = 8140) (NOTE) PAP TEST, THINPREP, [id number] 00:00:00* Test Item Value Reference Range Interpretation Comme [facility] SOURCE: (test code = 8001) Cervical/Endo cervi franca SLIDES: (test code = 8011) 1 LMP: (test code = 8021) 09/02/2020 SPECIMEN ADEQUACY: (test code = 08995) (NOTE) INTERPRETATION: (test code = 66419) ASCUS/EPITH. ABNORMALITY; SEE BELOW NARCOTICS AND VICE DETECTIVE: (test code = 8101) GABRIELA Coe(ASC)[facility] PATHOLOGIST INTERPRETATION BY: (test code = 8122) Aleksander Chen M.D. LOCATION: (test code = 53601) (NOTE) CPT: (test code = 8140) (NOTE) PAP TEST, THINPREP, [id number] 00:00:00* Test Item Value Reference Range Interpretation Comme nts SOURCE: (test code = 8001) Cervical/Endo cervi franca SLIDES: (test code = 8011) 1 LMP: (test code = 8021) 09/02/2020 SPECIMEN ADEQUACY: (test code = 15260) (NOTE) INTERPRETATION: (test code = 36305) ASCUS/EPITH. ABNORMALITY; SEE BELOW NARCOTICS AND VICE DETECTIVE: (test code = 8101) GABRIELA Coe(ASCP)[facility] PATHOLOGIST INTERPRETATION BY: (test code = 8122) Aleksander Chen M.D. LOCATION: (test code = 63970) (NOTE) CPT: (test code = 8140) (NOTE) PAP TEST, THINPREP, [id number] 00:00:00* Test Item Value Reference Range Interpretation Comme nts SOURCE: (test code = 8001) Cervical/Endo cervi franca SLIDES: (test code = 8011) 1 LMP: (test code = 8021) 09/02/2020 SPECIMEN ADEQUACY: (test code = 04623) (NOTE) INTERPRETATION: (test code = 45105) ASCUS/EPITH. ABNORMALITY; SEE BELOW NARCOTICS AND VICE DETECTIVE: (test code = 8101) GABRIELA Coe(ASC)[facility] PATHOLOGIST INTERPRETATION BY: (test code = 8122) Aleksander Chen M.D. LOCATION: (test code = 61858) (NOTE) CPT: (test code = 8140) (NOTE) HIV 1/2 4TH GEN, RFLX CONF [ADDED]2020-09-21 00:00:00* Test Item Value Reference Range Interpretation Comme nts HIV 1/2 4TH GEN, RFLX CONF ( test code = 3514) NON-REACTIVE GC AND CHLAMYDIA AMPLIFIED, [id number] 00:00:00* Test Item Value Reference Range Interpretation Comme nts GONORRHEA, TMA (test code = 33023) NEGATIVE CHLAMYDIA, TMA (test code = 98704) NEGATIVE RPR [ADDED]2020-09-21 00:00:00* Test Item Value Reference Range Interpretation Comme nts RPR RESULT (test code = 3501) NON-REACTIVE RPR TITER (test code = 3500) NOT INDIC. TITER VAGINAL PATHOGENS DNA PANEL [ADDED]2020-09-21 00:00:00* Test Item Value Reference Range Interpretation Comme nts YORDY SPECIES (test code = ) NEGATIVE G. VAGINALIS (test code = ) POSITIVE T. VAGINALIS (test code = ) NEGATIVE ADELA (ANTI-NUCLEAR AB) WITH REFLEX [id number] 00:00:00* Test Item Value Reference Range Interpretation Comme nts ANTI-NUCLEAR ANTIBODIES (sommer t code = 3506) NEGATIVE HPV HIGH RISK WITH GENOTYPE, [id number] 00:00:00* Test Item Value Reference Range Interpretation Comme nts HPV HIGH RISK INTERP (test c ode = 04940) NEGATIVE HPV 16 (test code = 51061) NEGATIVE HPV 18 (test code = 67105) NEGATIVE HPV, HR, OTHER GENOTYPES (te st code = 46172) NEGATIVE HIV 1/2 4TH GEN, RFLX CONF [ADDED]2020-09-21 00:00:00* Test Item Value Reference Range Interpretation Comme nts HIV 1/2 4TH GEN, RFLX CONF ( test code = 3514) NON-REACTIVE GC AND CHLAMYDIA AMPLIFIED, [id number] 00:00:00* Test Item Value Reference Range Interpretation Comme nts GONORRHEA, TMA (test code = 79145) NEGATIVE CHLAMYDIA, TMA (test code = 03204) NEGATIVE RPR [ADDED]2020-09-21 00:00:00* Test Item Value Reference Range Interpretation Comme nts RPR RESULT (test code = 3501) NON-REACTIVE RPR TITER (test code = 3500) NOT INDIC. TITER VAGINAL PATHOGENS DNA PANEL [ADDED]2020-09-21 00:00:00* Test Item Value Reference Range Interpretation Comme nts YORDY SPECIES (test code = 14014) NEGATIVE G. VAGINALIS (test code = 13263) POSITIVE T. VAGINALIS (test code = 33611) NEGATIVE ADELA (ANTI-NUCLEAR AB) WITH REFLEX [id number] 00:00:00* Test Item Value Reference Range Interpretation Comme nts ANTI-NUCLEAR ANTIBODIES (sommer t code = 3506) NEGATIVE HPV HIGH RISK WITH GENOTYPE, [id number] 00:00:00* Test Item Value Reference Range Interpretation Comme nts HPV HIGH RISK INTERP (test c ode = 83311) NEGATIVE HPV 16 (test code = 44466) NEGATIVE HPV 18 (test code = 28498) NEGATIVE HPV, HR, OTHER GENOTYPES (te st code = 95082) NEGATIVE HIV 1/2 4TH GEN, RFLX CONF [ADDED]2020-09-21 00:00:00* Test Item Value Reference Range Interpretation Comme nts HIV 1/2 4TH GEN, RFLX CONF ( test code = 3514) NON-REACTIVE GC AND CHLAMYDIA AMPLIFIED, [id number] 00:00:00* Test Item Value Reference Range Interpretation Comme nts GONORRHEA, TMA (test code = 30416) NEGATIVE CHLAMYDIA, TMA (test code = 19924) NEGATIVE RPR [ADDED]2020-09-21 00:00:00* Test Item Value Reference Range Interpretation Comme nts RPR RESULT (test code = 3501) NON-REACTIVE RPR TITER (test code = 3500) NOT INDIC. TITER ADELA (ANTI-NUCLEAR AB) WITH REFLEX [id number] 00:00:00* Test Item Value Reference Range Interpretation Comme nts ANTI-NUCLEAR ANTIBODIES (sommer t code = 3506) NEGATIVE HPV HIGH RISK WITH GENOTYPE, [id number] 00:00:00* Test Item Value Reference Range Interpretation Comme nts HPV HIGH RISK INTERP (test c ode = 72239) NEGATIVE HPV 16 (test code = 78780) NEGATIVE HPV 18 (test code = 41037) NEGATIVE HPV, HR, OTHER GENOTYPES (te st code = 71490) NEGATIVE VAGINAL PATHOGENS DNA PANEL [ADDED]2020-09-21 00:00:00* Test Item Value Reference Range Interpretation Comme nts YORDY SPECIES (test code = ) NEGATIVE G. VAGINALIS (test code = 93551) POSITIVE T. VAGINALIS (test code = 29519) NEGATIVE HIV 1/2 4TH GEN, RFLX CONF [ADDED]2020-09-21 00:00:00* Test Item Value Reference Range Interpretation Comme nts HIV 1/2 4TH GEN, RFLX CONF ( test code = 3514) NON-REACTIVE GC AND CHLAMYDIA AMPLIFIED, [id number] 00:00:00* Test Item Value Reference Range Interpretation Comme nts GONORRHEA, TMA (test code = 85931) NEGATIVE CHLAMYDIA, TMA (test code = 81122) NEGATIVE RPR [ADDED]2020-09-21 00:00:00* Test Item Value Reference Range Interpretation Comme nts RPR RESULT (test code = 3501) NON-REACTIVE RPR TITER (test code = 3500) NOT INDIC. TITER VAGINAL PATHOGENS DNA PANEL [ADDED]2020-09-21 00:00:00* Test Item Value Reference Range Interpretation Comme nts YORDY SPECIES (test code = 12412) NEGATIVE G. VAGINALIS (test code = 65944) POSITIVE T. VAGINALIS (test code = 39021) NEGATIVE ADELA (ANTI-NUCLEAR AB) WITH REFLEX [id number] 00:00:00* Test Item Value Reference Range Interpretation Comme nts ANTI-NUCLEAR ANTIBODIES (sommer t code = 3506) NEGATIVE HPV HIGH RISK WITH GENOTYPE, [id number] 00:00:00* Test Item Value Reference Range Interpretation Comme nts HPV HIGH RISK INTERP (test c ode = 50219) NEGATIVE HPV 16 (test code = 13322) NEGATIVE HPV 18 (test code = 02724) NEGATIVE HPV, HR, OTHER GENOTYPES (te st code = 90081) NEGATIVE [id number] 00:00:00* Test Item Value Reference Range Interpretation Comme nts TSH, THIRD GENERATION (test code = 2821) 2.110 UIU/ML [id number] 00:00:00* Test Item Value Reference Range Interpretation Comme nts TSH, THIRD GENERATION (test code = 2821) 2.110 UIU/ML [id number] 00:00:00* Test Item Value Reference Range Interpretation Comme nts TSH, THIRD GENERATION (test code = 2821) 2.110 UIU/ML [id number] 00:00:00* Test Item Value Reference Range Interpretation Comme nts TSH, THIRD GENERATION (test code = 2821) 2.110 UIU/ML COMPREHENSIVE METABOLIC [id number] 00:00:00* Test Item Value Reference Range Interpretation Comme nts GLUCOSE (test code = 2217) 90 MG/DL BUN (test code = 2208) 11 MG/DL CREATININE (test code = 2214) 0.89 MG/DL eGFR AMER. (test cod e = 91547) 99 ML/MIN/1.73 eGFR NON- AMER. (test code = 86709) 85 ML/MIN/1.73 CALC BUN/CREAT (test code = 2235) 12 RATIO SODIUM (test code = 2231) 140 MEQ/L POTASSIUM (test code = 2228) 4.1 MEQ/L CHLORIDE (test code = 2215) 103 MEQ/L CARBON DIOXIDE (test code = 2206) 24 MEQ/L CALCIUM (test code = 2209) 9.7 MG/DL PROTEIN, TOTAL (test code = 2229) 7.5 G/DL ALBUMIN (test code = 2201) 4.9 G/DL CALC GLOBULIN (test code = 2240) 2.6 G/DL CALC A/G RATIO (test code = 2234) 1.9 RATIO BILIRUBIN, TOTAL (test code = 2207) 0.3 MG/DL ALKALINE PHOSPHATASE (test code = 2204) 93 U/L AST (test code = 2218) 20 U/L ALT (test code = 2219) 58 U/L LIPID [id number] 00:00:00* Test Item Value Reference Range Interpretation Comme nts CHOLESTEROL (test code = 2210) 221 MG/DL TRIGLYCERIDES (test code = 2232) 180 MG/DL HDL CHOLESTEROL (test code = 2220) 51 MG/DL CALC LDL CHOL (test code = 2237) 138 MG/DL RISK RATIO LDL/HDL (test cod e = 2238) 2.71 RATIO CBC W/AUTO [id number] 00:00:00* Test Item Value Reference Range Interpretation Comme nts WBC (test code = 1001) 11.9 K/UL [...] code = 1015) 233 K/UL COMPREHENSIVE METABOLIC [id number] 00:00:00* Test Item Value Reference Range Interpretation Comme nts GLUCOSE (test code = 2217) 90 MG/DL BUN (test code = 2208) 11 MG/DL CREATININE (test code = 2214) 0.89 MG/DL eGFR AMER. (test cod e = 07702) 99 ML/MIN/1.73 eGFR NON- AMER. (test code = 24255) 85 ML/MIN/1.73 CALC BUN/CREAT (test code = 2235) 12 RATIO SODIUM (test code = 2231) 140 MEQ/L POTASSIUM (test code = 2228) 4.1 MEQ/L CHLORIDE (test code = 2215) 103 MEQ/L CARBON DIOXIDE (test code = 2206) 24 MEQ/L CALCIUM (test code = 2209) 9.7 MG/DL PROTEIN, TOTAL (test code = 2229) 7.5 G/DL ALBUMIN (test code = 2201) 4.9 G/DL CALC GLOBULIN (test code = 2240) 2.6 G/DL CALC A/G RATIO (test code = 2234) 1.9 RATIO BILIRUBIN, TOTAL (test code = 2207) 0.3 MG/DL ALKALINE PHOSPHATASE (test code = 2204) 93 U/L AST (test code = 2218) 20 U/L ALT (test code = 2219) 58 U/L LIPID [id number] 00:00:00* Test Item Value Reference Range Interpretation Comme nts CHOLESTEROL (test code = 2210) 221 MG/DL TRIGLYCERIDES (test code = 2232) 180 MG/DL HDL CHOLESTEROL (test code = 2220) 51 MG/DL CALC LDL CHOL (test code = 2237) 138 MG/DL RISK RATIO LDL/HDL (test cod e = 2238) 2.71 RATIO CBC W/AUTO [id number] 00:00:00* Test Item Value Reference Range Interpretation Comme nts WBC (test code = 1001) 11.9 K/UL [...] code = 1015) 233 K/UL COMPREHENSIVE METABOLIC [id number] 00:00:00* Test Item Value Reference Range Interpretation Comme nts GLUCOSE (test code = 2217) 90 MG/DL BUN (test code = 2208) 11 MG/DL CREATININE (test code = 2214) 0.89 MG/DL eGFR AMER. (test cod e = 21962) 99 ML/MIN/1.73 eGFR NON- AMER. (test code = 64066) 85 ML/MIN/1.73 CALC BUN/CREAT (test code = 2235) 12 RATIO SODIUM (test code = 2231) 140 MEQ/L POTASSIUM (test code = 2228) 4.1 MEQ/L CHLORIDE (test code = 2215) 103 MEQ/L CARBON DIOXIDE (test code = 2206) 24 MEQ/L CALCIUM (test code = 2209) 9.7 MG/DL PROTEIN, TOTAL (test code = 2229) 7.5 G/DL ALBUMIN (test code = 2201) 4.9 G/DL CALC GLOBULIN (test code = 2240) 2.6 G/DL CALC A/G RATIO (test code = 2234) 1.9 RATIO BILIRUBIN, TOTAL (test code = 2207) 0.3 MG/DL ALKALINE PHOSPHATASE (test code = 2204) 93 U/L AST (test code = 2218) 20 U/L ALT (test code = 2219) 58 U/L LIPID [id number] 00:00:00* Test Item Value Reference Range Interpretation Comme nts CHOLESTEROL (test code = 2210) 221 MG/DL TRIGLYCERIDES (test code = 2232) 180 MG/DL HDL CHOLESTEROL (test code = 2220) 51 MG/DL CALC LDL CHOL (test code = 2237) 138 MG/DL RISK RATIO LDL/HDL (test cod e = 2238) 2.71 RATIO CBC W/AUTO [id number] 00:00:00* Test Item Value Reference Range Interpretation Comme nts WBC (test code = 1001) 11.9 K/UL [...] code = 1015) 233 K/UL COMPREHENSIVE METABOLIC [id number] 00:00:00* Test Item Value Reference Range Interpretation Comme nts GLUCOSE (test code = 2217) 90 MG/DL BUN (test code = 2208) 11 MG/DL CREATININE (test code = 2214) 0.89 MG/DL eGFR AMER. (test cod e = 80153) 99 ML/MIN/1.73 eGFR NON- AMER. (test code = 90887) 85 ML/MIN/1.73 CALC BUN/CREAT (test code = 2235) 12 RATIO SODIUM (test code = 2231) 140 MEQ/L POTASSIUM (test code = 2228) 4.1 MEQ/L CHLORIDE (test code = 2215) 103 MEQ/L CARBON DIOXIDE (test code = 2206) 24 MEQ/L CALCIUM (test code = 2209) 9.7 MG/DL PROTEIN, TOTAL (test code = 2229) 7.5 G/DL ALBUMIN (test code = 2201) 4.9 G/DL CALC GLOBULIN (test code = 2240) 2.6 G/DL CALC A/G RATIO (test code = 2234) 1.9 RATIO BILIRUBIN, TOTAL (test code = 2207) 0.3 MG/DL ALKALINE PHOSPHATASE (test code = 2204) 93 U/L AST (test code = 2218) 20 U/L ALT (test code = 2219) 58 U/L LIPID [id number] 00:00:00* Test Item Value Reference Range Interpretation Comme nts CHOLESTEROL (test code = 2210) 221 MG/DL TRIGLYCERIDES (test code = 2232) 180 MG/DL HDL CHOLESTEROL (test code = 2220) 51 MG/DL CALC LDL CHOL (test code = 2237) 138 MG/DL RISK RATIO LDL/HDL (test cod e = 2238) 2.71 RATIO CBC W/AUTO [id number] 00:00:00* Test Item Value Reference Range Interpretation Comme nts WBC (test code = 1001) 11.9 K/UL [...] (test code = 1015) 233 K/UL RPR, [id number] 22:11:00* Test Item Value Reference Range Interpretation Comme nts RPR (test code = RPR) Non-Reactive Non-Reactive N Thyroid Stimulating Hormone (TSH)2017-03-08 09:46:00* Test Item Value Reference Range Interpretation Comme nts TSH (test code = TSH) 0.79 mIU/mL 0.270-4.200 N
[2024-07-11] MEDS ORDERED: predniSONE 20 MG TAB ONE (11:06)
[2024-07-11] MEDS ORDERED: hydrOXYzine HCL 25 MG TAB ONE (11:06)
[2024-07-11] MEDS ORDERED: FAMOTIDINE 20 MG TAB ONE (11:06)
--- NOTE | 2024-07-11 11:12 | ER ---
Nurse's Notes [facility] Name: Charis Padgett Age: 39 yrs Sex: Female : 1985 Arrival Date: 07/11/2024 Time: 10:14 Bed 13 Private MD: Diagnosis: Rash and other nonspecific skin eruption;Allergic contact dermatitis due to other agents Presentation: 07/11 10:32 Chief complaint: Patient states: "I got poison asael and it's spreading". aa5 10:32 Coronavirus screen: At this time, the client does not indicate any symptoms associated aa5 with coronavirus-19. Ebola Screen: Patient denies travel to an Ebola-affected area in the 21 days before illness onset. Initial Sepsis Screen: Does the patient meet any 2 criteria? No. Patient's initial sepsis screen is negative. Does the patient have a suspected source of infection? No. Patient's initial sepsis screen is negative. Risk Assessment: Do you want to hurt yourself or someone else? Patient reports no desire to harm self or others. Onset of symptoms was July 10, 2024. 10:32 Acuity: KALYANI 4 aa5 10:32 Method Of Arrival: Ambulatory aa5 Historical: - Allergies: 10:37 Onion; aa5 10:37 Peanut (Legumes); aa5 - PMHx: 10:37 Anxiety; depressive disorder; PTSD; pulmonary nodules; aa5 - PSHx: 10:37 section; Ligation of fallopian tube; aa5 - Immunization history:: Adult Immunizations unknown. - Infectious Disease History:: Denies. - Social history:: Smoking status: Reported history of juuling and/or vaping. - Family history:: not pertinent. Screenin:00 [facility] ED Fall Risk Assessment (Adult) History of falling in the last 3 months, ph including since admission No falls in past 3 months (0 pts) Confusion or Disorientation No (0 pts) Intoxicated or Sedated No (0 pts) Impaired Gait No (0 pts) Mobility Assist Device Used No (0 pt) Altered Elimination No (0 pt) Score/Fall Risk Level 0 - 2 = Low Risk Oriented to surroundings, Maintained a safe environment, Hourly rounding (assess needs \\T\\ fall precautionary measures) done. Abuse screen: Denies threats or abuse. Denies injuries from another. Nutritional screening: No deficits noted. Tuberculosis screening: No symptoms or risk factors identified. Assessment: 11:00 General: Appears in no apparent distress. comfortable, Behavior is calm, cooperative. ph Pain: Denies pain. Neuro: Level of Consciousness is awake, alert, obeys commands, Oriented to person, place, time, situation. Derm: Skin is pink, warm \\T\\ dry. Rash noted that is itchy, red, on left arm and neck. Vital Signs: 10:32 BP 124 / 95; Pulse 58; Resp 16 S; Temp 97.8(TE); Pulse Ox 98% on R/A; Weight 68.04 kg aa5 (R); Height 5 ft. 3 in. (R); 12:10 BP 118 / 72; Pulse 59; Resp 18; Temp 97.6; Pulse Ox 98% on R/A; ph 10:32 Body Mass Index 26.57 (68.04 kg, 160.02 cm) aa5 ED Course: 10:16 Patient arrived in ED. im 10:19 Benjie Hilliard MD is Attending Physician. rosalind 10:32 Arm band placed on Patient placed in an exam room, on a stretcher. aa5 10:38 Triage completed. aa5 11:00 Patient has correct armband on for positive identification. Bed in low position. Call light in reach. 11:11 Maite Webster, RN is Primary Nurse. ph 12:11 No provider procedures requiring assistance completed. Patient did not have IV access ph during this emergency room visit. Administered Medications: 11:11 Drug: predniSONE PO 60 mg PO once Route: PO; ph 12:00 Follow up: Response: No adverse reaction ph 11:11 Drug: Famotidine PO 40 mg PO once Route: PO; ph 12:00 Follow up: Response: No adverse reaction ph 11:11 Drug: hydrOXYzine PO 50 mg PO once Route: PO; ph 12:00 Follow up: Response: No adverse reaction ph Medication: 11:00 VIS not applicable for this client. ph Outcome: 11:12 Discharge ordered by . rosalind 12:11 Patient left the ED. ph 12:11 Discharged to home ambulatory, with significant other, ph 12:11 Condition: good 12:11 Discharge instructions given to patient, Instructed on discharge instructions, follow up and referral plans. medication usage, Demonstrated understanding of instructions, follow-up care, medications, Prescriptions given X 2, Signatures: Benjie Hilliard MD MD cha Calderon, Audri RN RN aa5 Maite Webster RN RN Mary Camacho Corrections: (The following items were deleted from the chart) 10:38 10:37 PMHx: PSD; aa5 aa5
--- NOTE | 2024-07-11 11:12 | EDPHYS ---
Physician Documentation [facility] Name: Charis Padgett Age: 39 yrs Sex: Female : 1985 Arrival Date: 07/11/2024 Time: 10:14 Bed 13 Private MD: ED Physician Benjie Hilliard HPI: 07/11 10:58 This 39 yrs old Female presents to ER via Ambulatory with complaints of Rash. rosalind 10:58 Onset: The symptoms/episode began/occurred just prior to arrival, today. [facility] signs and symptoms: Pertinent positives: burning sensation, itching, Pain. Severity of symptoms: At their worst the symptoms were mild moderate in the emergency department the symptoms are unchanged. The patient has not experienced similar symptoms in the past. Historical: - Allergies: 10:37 Onion; aa5 10:37 Peanut (Legumes); aa5 - PMHx: 10:37 Anxiety; depressive disorder; PTSD; pulmonary nodules; aa5 - PSHx: 10:37 section; Ligation of fallopian tube; aa5 - Immunization history:: Adult Immunizations unknown. - Infectious Disease History:: Denies. - Social history:: Smoking status: Reported history of juuling and/or vaping. - Family history:: not pertinent. ROS: 10:58 Constitutional: Negative for fever, chills, and weight loss, Eyes: Negative for injury, rosalind pain, redness, and discharge, ENT: Negative for injury, pain, and discharge, Neck: Negative for injury, pain, and swelling, Cardiovascular: Negative for chest pain, palpitations, and edema, Respiratory: Negative for shortness of breath, cough, wheezing, and pleuritic chest pain, Abdomen/GI: Negative for abdominal pain, nausea, vomiting, diarrhea, and constipation, Back: Negative for injury and pain, : Negative for injury, bleeding, discharge, and swelling, MS/Extremity: Negative for injury and deformity, Skin: Negative for injury, rash, and discoloration, Neuro: Negative for headache, weakness, numbness, tingling, and seizure, Psych: Negative for depression, anxiety, suicide ideation, homicidal ideation, and hallucinations, Allergy/Immunology: Negative for hives, rash, and allergies, Endocrine: Negative for neck swelling, polydipsia, polyuria, polyphagia, and marked weight changes, Hematologic/Lymphatic: Negative for swollen nodes, abnormal bleeding, and unusual bruising, Exam: 10:58 Constitutional: This is a well developed, well nourished patient who is awake, alert, rosalind and in no acute distress. Head/Face: Normocephalic, atraumatic. Eyes: Pupils equal round and reactive to light, extra-ocular motions intact. Lids and lashes normal. Conjunctiva and sclera are non-icteric and not injected. Cornea within normal limits. Periorbital areas with no swelling, redness, or edema. ENT: Nares patent. No nasal discharge, no septal abnormalities noted. Tympanic membranes are normal and external auditory canals are clear. Oropharynx with no redness, swelling, or masses, exudates, or evidence of obstruction, uvula midline. Mucous membranes moist. Neck: Trachea midline, no thyromegaly or masses palpated, and no cervical lymphadenopathy. Supple, full range of motion without nuchal rigidity, or vertebral point tenderness. No Meningismus. Chest/axilla: Normal chest wall appearance and motion. Nontender with no deformity. No lesions are appreciated. Cardiovascular: Regular rate and rhythm with a normal S1 and S2. No gallops, murmurs, or rubs. Normal PMI, no JVD. No pulse deficits. Respiratory: Lungs have equal breath sounds bilaterally, clear to auscultation and percussion. No rales, rhonchi or wheezes noted. No increased work of breathing, no retractions or nasal flaring. Abdomen/GI: Soft, non-tender, with normal bowel sounds. No distension or tympany. No guarding or rebound. No evidence of tenderness throughout. Back: No spinal tenderness. No costovertebral tenderness. Full range of motion. Skin: Warm, dry with normal turgor. Normal color with no rashes, no lesions, and no evidence of cellulitis. MS/ Extremity: Pulses equal, no cyanosis. Neurovascular intact. Full, normal range of motion. Neuro: Awake and alert, GCS 15, oriented to person, place, time, and situation. Cranial nerves II-XII grossly intact. Motor strength 5/5 in all extremities. Sensory grossly intact. Cerebellar exam normal. Normal gait. Psych: Awake, alert, with orientation to person, place and time. Behavior, mood, and affect are within normal limits. Vital Signs: 10:32 BP 124 / 95; Pulse 58; Resp 16 S; Temp 97.8(TE); Pulse Ox 98% on R/A; Weight 68.04 kg aa5 (R); Height 5 ft. 3 in. (R); 12:10 BP 118 / 72; Pulse 59; Resp 18; Temp 97.6; Pulse Ox 98% on R/A; ph 10:32 Body Mass Index 26.57 (68.04 kg, 160.02 cm) aa5 MDM: 10:19 Patient medically screened. rosalind 11:07 Differential diagnosis: impetigo, varicella, parasite infection. Data reviewed: [facility] signs, nurses notes. I considered the following discharge prescriptions or medication management in the emergency department Medications were administered in the Emergency Department. See MAR. Independent interpretation of the following test(s) in the Emergency Department. Test considered but Not performed: Labs: no labs. Care significantly affected by the following chronic conditions: pulmonary nodules, anxiety, depressive. Administered Medications: 11:11 Drug: predniSONE PO 60 mg PO once Route: PO; ph 12:00 Follow up: Response: No adverse reaction ph 11:11 Drug: Famotidine PO 40 mg PO once Route: PO; ph 12:00 Follow up: Response: No adverse reaction ph 11:11 Drug: hydrOXYzine PO 50 mg PO once Route: PO; ph 12:00 Follow up: Response: No adverse reaction ph Disposition Summary: 07/11/24 11:12 Discharge Ordered Notes: Location: Home rosalind Problem: new rosalind Symptoms: have improved rosalind Condition: Stable rosalind Diagnosis - Rash and other nonspecific skin eruption rosalind - Allergic contact dermatitis due to other agents rosalind Followup: rosalind - With: Private Physician - When: 2 - 3 days - Reason: Recheck today's complaints, Continuance of care, Re-evaluation by your physician Discharge Instructions: - Discharge Summary Sheet rosalind - Rash, Adult rosalind - Rash, Adult, [id number] rosalind Forms: - Medication Reconciliation Form rosalind - Antibiotic Education rosalind - Prescription Opioid Use rosalind - Patient Portal Instructions rosalind - Leadership Thank You Letter rosalind - Work release form eb Prescriptions: - Pepcid 40 mg Oral tablet - take 1 tablet ORAL route every 12 hours; 20 tablet; Refills: 0, Product rosalind Selection Permitted - Hydroxyzine HCl 50 mg Oral Tablet - take 1 tablet ORAL route every 8 hours As needed; 20 tablet; Refills: 0, rosalind Product Selection Permitted - Prednisone 20 mg Oral Tablet - take 2 tablets ORAL route once daily for 5 days; 10 tablet; Refills: 0, Product [facility] Selection Permitted Signatures: Benjie Hilliard MD MD cha Calderon, Audri, RN RN aa5 Maite Webster RN RN ph Corrections: (The following items were deleted from the chart) 10:38 10:37 PMHx: PSD; aa5 aa5
[2024-07-11 12:15] VITALS: BP 124/95; TEMP 97.8; O2SAT 98
== END 2024-07-11 12:11 | disposition home or self-care (01) ==
LOC: ER 10:14
DX: L23.89 Allergic contact dermatitis due to other agents (principal); Z91.010 Allergy to peanuts; Z91.018 Allergy to other foods
CPT/HCPCS: 99283; J7512

== ENCOUNTER 2024-09-23 11:27 | Emergency (ER) | payer OTHER ==
--- OUTSIDE RECORDS SUMMARY | 2024-09-23 11:32 | XMS REPORT | Continuity of Care Document ---
Author Name Unknown Address [address] [facility] [address] [place] [address] [facility] thconnect Address [address] [facility] [address] [place] [address] Care Team Providers Care Health Physicist Name Role Phone UNKNOWN, REFFERING Primary Care Physician DEEJAY Hicks Attending Clinician Unavailable DEEJAY PLASENCIA Attending Clinician Unavailable Deejay Plasencia MD Attending Clinician [phone] DAYO VO Attending Clinician Unavailable Dayo Vo MD Attending Clinician [phone] MADI KLEIN K.H. Attending Clinician Unavailcarloz De La Fuente RN, Bryanna Bruner Attending Clinician Pam Klein MD, Madi K.H. Attending Clinician [phone] Doctor Unassigned, Wade Hampton Attending Clinician Kota Burns MD Attending Clinician [phone] PRISCA GARCIA Attending Clinician Unavailable PRISCA GARCIA Admitting Clinician Unavailable Payers Payer Name Policy Type Policy Number Effective Date Expirati on Date Source [facility] [id number] 2022 00:00:00 Problems Condition Name Condition Details Condition Category Status Onset Date Resolution Date Last Treatment Date Treating Clinician Comments Source No known active problems No known active problems Disease [facility] Allergies, Adverse Reactions, Alerts Allergy Name Allergy Type Status Severity Reaction(s) Onset Date Inactive Date Treating Clinician Comments Source Peanut Propensi ty to adverse reaction s Active Anaphylaxis 04-20 00:00: 00 Onions- uncooked - rash [facility] PEANUT DRUG INGREDI Active Anaphylaxis 04-20 00:00: 00 [facility] Social History Social Habit Start Date Stop Date Quantity Comments Source History of tobacco use Occasional tobacco smoker [facility] to SARS-CoV-2 (event) 2022-04-22 00:00:00 2022-05-02 12:29:00 Unable to assess [facility] History of Social function 2021-02-02 00:00:00 2021-02-02 00:00:00 [facility] Tobacco use and exposure 2021-02-02 00:00:00 2021-02-02 00:00:00 Smokeless tobacco non-user [facility] Sex assigned at 1985 00:00:00 1985 00:00:00 [facility] Smoking Status Start Date Stop Date Source Unknown if ever smoked [facility] Occasional tobacco smoker 2021-02-02 00:00:00 [facility] Medications Ordered Medication Name Filled Medication Name Start Date Stop Date Current Medication? Ordering Clinician Indication Dosage Frequency Signature (SIG) Comments Components Source TAKE 1 TABLET TWICE DAILY. 2021-10 00:00: 00 No 50 MIRTAZAPINE 7.5 MG TABS 2021-10 00:00: 00 No 75 BENZONATATE 200 MG CAPS - 00:00: 00 No BENZONATATE 200 MG CAPS 20 00:00: 00 No BENZONATATE 200 MG CAPS 06-14 00:00: 00 No 200 BENZONATATE 200 MG CAPS 06-14 00:00: 00 No 200 TAKE 1 TABLET [...] NAUSEA. 06-05 00:00: 00 No 125 &lt 2021-0 06-05 00:00: 00 No 250 &lt 2021-0 06-05 00:00: 00 No 100 INSTILL TWO [...] NAUSEA. 06-05 00:00: 00 No 125 &lt 2021-0 06-05 00:00: 00 No 250 &lt 2021-0 06-05 00:00: 00 No 100 INSTILL TWO (2) SPRAYS IN THE NOSTRILS DAILY. 06-05 00:00: 00 No &lt 2021-0 06-05 00:00: 00 No 10 TAKE ONE (1) TABLET(S) BY MOUTH DAILY NEEDED FOR ANXIETY. 06-05 00:00: 00 No 50 &lt 2021-0 06-05 00:00: 00 No TAKE 1 AND 1/2 TABLETS DAILY. 06-05 00:00: 00 No 10 &lt 0 06-01 00:00: 00 No TAKE 1 TABLET EVERY 6 TO 8 HOURS NEEDED NAUSEA. 06-01 00:00: 00 No 125 TAKE 2 TABLETS BY MOUTH ON DAY 1, THEN 1 TABLET DAILY ON DAYS 2 TO 5. 06-01 00:00: 00 No 250 Dose Unknown 06-01 00:00: 00 No 20 &lt 2021-0 06-01 00:00: 00 No TAKE 1 TABLET EVERY 6 TO 8 HOURS NEEDED NAUSEA. 06-01 00:00: 00 No 125 TAKE 2 TABLETS BY MOUTH ON DAY 1, THEN 1 TABLET DAILY ON DAYS 2 TO 5. 2022-0 8-04 00:00: 00 No 250 Dose Unknown 2022-0 8-04 00:00: 00 No 20 TAKE 2 TABLETS [...] 1mg hydroxyzine HCl 50 mg tablet 2021-0 6-15 00:00: 00 No 1mg mirtazapine 7.5 mg tablet 2-0 6-15 00:00: 00 No 1mg escitalopra m 10 mg tablet 2021-0 6-15 00:00: 00 No 1mg Wellbutrin XL 150 mg 24 hr tablet, extended release 2022-0 6-15 00:00: 00 No 1mg hydroxyzine HCl [...] tablet 2-0 5-17 00:00: 00 No 1mg Dose Unknown [...] 2-0 4-19 00:00: 00 No Dose Unknown 0 - 00:00: 00 No hydroxyzine HCl 50 mg tablet 0 4-19 00:00: 00 No 1mg Wellbutrin XL 150 mg 24 hr tablet, extended release 0 - 00:00: 00 No 1mg escitalopra m 10 mg tablet 0 02-14 00:00: 00 No 1mg Rozerem 8 mg tablet 0 - 00:00: 00 No 1mg Dose Unknown 0 - 00:00: 00 No Dose Unknown 0 02-14 00:00: 00 No hydroxyzine HCl 50 mg tablet 0 02-14 00:00: 00 No 1mg Wellbutrin XL 150 mg 24 hr tablet, extended release 0 - 00:00: 00 No 1mg escitalopra m 10 mg tablet 0 02-14 00:00: 00 No 1mg Rozerem 8 mg tablet 0 02-14 00:00: 00 No 1mg Dose Unknown 0 02-14 00:00: 00 No Dose Unknown 0 02-14 00:00: 00 No hydroxyzine HCl 50 mg tablet 0 - 00:00: 00 No 1mg Wellbutrin XL 150 mg 24 hr tablet, extended release 0 02-14 00:00: 00 No 1mg escitalopra m 10 mg tablet 0 02-14 00:00: 00 No 1mg Claritin 10 mg tablet 0 02-08 00:00: 00 No 1mg azithromyci n 250 mg tablet 0 - 00:00: 00 No mg fluticasone propionate 50 mcg/actuati on nasal spray,suspe nsion 0 02-08 00:00: 00 No 2mcg/ac tuation Claritin 10 mg tablet 0 02-08 00:00: 00 No 1mg azithromyci n 250 mg tablet 0 02-08 00:00: 00 No mg fluticasone propionate 50 mcg/actuati on nasal spray,suspe nsion 0 02-08 00:00: 00 No 2mcg/ac tuation Claritin 10 mg tablet 2022-0 4-13 00:00: 00 No 1mg azithromyci n 250 mg tablet 2021-0 4-13 00:00: 00 No mg fluticasone propionate 50 mcg/actuati on nasal spray,suspe nsion 2021-0 4-13 00:00: 00 No 2mcg/ac tuation Bromfed DM 2 mg-30 mg-10 mg/5 mL oral syrup 2-0 3-18 00:00: 00 No 10mg/5 mL Bromfed DM 2 mg-30 mg-10 mg/5 mL oral syrup 2-0 3-18 00:00: 00 No 10mg/5 mL Bromfed DM 2 mg-30 mg-10 mg/5 mL oral syrup 2021-0 3-18 00:00: 00 No 10mg/5 mL Dose Unknown 2022-0 3-16 00:00: 00 No Dose Unknown 2022-0 3-16 00:00: 00 No Dose Unknown 2022-0 3-16 00:00: 00 No Dose Unknown 2022-0 3-16 00:00: 00 No Dose Unknown 2022-0 3-16 00:00: 00 No trazodone 50 mg tablet 2-0 3-16 00:00: 00 No 12mg Dose Unknown 2022-0 3-16 00:00: 00 No Dose Unknown 2022-0 3-16 00:00: 00 No Dose Unknown 2022-0 3-16 00:00: 00 No Dose Unknown 2022-0 3-16 00:00: 00 No Dose Unknown 2022-0 3-16 00:00: 00 No trazodone 50 mg tablet 2-0 3-16 00:00: 00 No 12mg Dose Unknown 2022-0 3-16 00:00: 00 No Dose Unknown 2022-0 3-16 00:00: 00 No Dose Unknown 2022-0 3-16 00:00: 00 No Dose Unknown 2022-0 3-16 00:00: 00 No Dose Unknown 2022-0 3-16 00:00: 00 No trazodone 50 mg tablet 2-0 3-16 00:00: 00 No 12mg Dose Unknown [...] 3-02 00:00: 00 No 1mg Dose Unknown 2-0 2-16 00:00: 00 No Dose Unknown 2-0 2-16 00:00: 00 No trazodone 100 mg tablet 2-0 2-16 00:00: 00 No 1mg Dose Unknown 2-0 2-16 00:00: 00 No Dose Unknown 2-0 2-16 00:00: 00 No trazodone 100 mg tablet 2-0 2-16 00:00: 00 No 1mg Dose Unknown 2021-0 2-16 00:00: 00 No Dose Unknown 2021-0 2-16 00:00: 00 No trazodone 100 mg tablet 2-0 2-16 00:00: 00 No 1mg benzonatate 100 mg capsule 2-0 2-14 00:00: 00 No 1mg benzonatate 100 mg capsule 2021-0 2-14 00:00: 00 No 1mg benzonatate 100 mg capsule 2-0 2-14 00:00: 00 No 1mg hydroxyzine HCl 50 mg tablet 2021-0 1-14 00:00: 00 No mg hydroxyzine HCl 50 mg tablet 2-0 1-14 00:00: 00 No mg hydroxyzine HCl 50 mg tablet 2-0 1-14 00:00: 00 No mg Wellbutrin XL 150 mg 24 hr tablet, extended release 2-0 1-12 00:00: 00 No 1mg Dose Unknown 2021-0 1-12 00:00: 00 No Dose Unknown 2021-0 1-12 00:00: 00 No Wellbutrin XL 150 mg 24 hr tablet, extended release 2-0 1-12 00:00: 00 No 1mg Dose Unknown 2021-0 1-12 00:00: 00 No Dose Unknown 2-0 1-12 00:00: 00 No escitalopra m 10 mg tablet 2-0 1-12 00:00: 00 No 1mg escitalopra m 10 mg tablet 2-0 1-12 00:00: 00 No 1mg Wellbutrin XL 150 mg 24 hr tablet, extended release 2-0 1-12 00:00: 00 No 1mg Dose Unknown 2021-0 1-12 00:00: 00 No Dose Unknown 2021-0 1-12 00:00: 00 No escitalopra m 10 mg tablet - 00:00: 00 No 1mg promethazin e 12.5 mg tablet - 00:00: 00 No 1mg prednisone 20 mg tablet - 00:00: 00 No mg benzonatate 200 mg capsule - 00:00: 00 No 1mg promethazin e 12.5 mg tablet - 00:00: 00 No 1mg prednisone 20 mg tablet 11-06 00:00: 00 No mg benzonatate 200 mg capsule 11-06 00:00: 00 No 1mg promethazin e 12.5 mg tablet 11-06 00:00: 00 No 1mg prednisone 20 mg tablet 11-06 00:00: 00 No mg benzonatate 200 mg capsule 11-06 00:00: 00 No 1mg Wellbutrin XL 150 mg 24 hr tablet, extended release 2020-10- 00:00: 00 No 1mg escitalopra m 10 mg tablet 2020-10 2 00:00: 00 No 1mg Dose Unknown 2020-10 2 00:00: 00 No Wellbutrin XL 150 mg 24 hr tablet, extended release 2020-10 00:00: 00 No 1mg escitalopra m 10 mg tablet 2020-10 2 00:00: 00 No 1mg Dose Unknown 2020-10 2- 00:00: 00 No Wellbutrin XL 150 mg [...] No escitalopra m 10 mg tablet 2020-10 00:00: 00 No 1mg [...] 00 No 12mg amoxicillin 500 mg capsule 07-25 00:00: 00 [...] No 1mg hydroxyzine HCl 50 mg tablet 07-06 00:00: 00 No 1mg benzonatate 200 mg capsule 07-06 00:00: 00 No 1mg hydroxyzine HCl 50 mg tablet 0 - 00:00: 00 No 1mg benzonatate 200 mg capsule 0 9- 00:00: 00 No 1mg hydroxyzine HCl 50 mg tablet 0 - 00:00: 00 No 1mg benzonatate 200 mg capsule 0 07-06 00:00: 00 No 1mg Wellbutrin SR 150 mg tablet, 12 hr sustained-r elease 2020-0 6-17 00:00: 00 No 1mg Wellbutrin SR 150 mg tablet, 12 hr sustained-r elease 0 - 00:00: 00 No 1mg Wellbutrin SR 150 mg tablet, 12 hr sustained-r elease 0 - 00:00: 00 No 1mg Wellbutrin SR 150 mg tablet, 12 hr sustained-r elease -19 00:00: 00 No 1mg Wellbutrin SR 150 mg tablet, 12 hr sustained-r elease 0 - 00:00: 00 No 1mg Wellbutrin SR 150 mg tablet, 12 hr sustained-r elease 0 - 00:00: 00 No 1mg buPROPion SR (WELLBUTRIN SR) 150 mg SR tablet 02-02 13:56: 12 Yes 150mg Take 150 mg by mouth 2 (two) times daily. [facility] buPROPion SR (WELLBUTRIN SR) 150 mg SR tablet 02-02 08:56: 12 Yes 150mg Take 150 mg by mouth 2 (two) times daily. [facility] Diflucan 150 mg tablet - 00:00: 00 No 1mg clindamycin HCl 300 [...] 150 mg tablet, 12 hr sustained-r elease 2- 00:00: 00 No 1mg Wellbutrin SR 150 mg tablet, 12 hr sustained-r elease 2- 00:00: 00 No 1mg Wellbutrin SR 150 mg tablet, 12 hr sustained-r elease 2- 00:00: 00 No 1mg Flagyl 500 mg [...] ONCE, 1 dose, Sun07/07/19 at 1245, VARINDER [facility] ketorolac (TORADOL) injection 30 mg 07-07 17:45: 00 07-07 16:50 :00 No 30mg 30 mg, Intramuscu lar, ONCE, 1 dose, Sun07/07/19 at 1245, VARINDER
Fa culty member approving Restricted medication : KOTA LEE [facility] methocarbam ol (ROBAXIN) 500 mg tablet 07-07 00:00: 00 02-02 00:00 :00 No [id number] 500mg Take 1 tablet by mouth 4 (four) times daily. [facility] predniSONE 20 mg tablet 07-07 00:00: 00 07-13 04:59 :00 No [id number] 40mg Take 2 tablets by mouth daily for 5 days. [facility] Vital Signs Vital Name Observation Time Observation Value Comments S ource Heart rate 2024-07-14 23:59:00 85 /min [facility] Body temperature 2024-07-14 23:59:00 37.11 Renetta [facility] Respiratory rate 2024-07-14 23:59:00 20 /min [facility] Body height 2024-07-14 23:59:00 157.5 cm [facility] Body weight 2024-07-14 23:59:00 70.308 kg [facility] BMI 2024-07-14 23:59:00 28.35 kg/m2 [facility] Oxygen saturation in Arterial blood by Pulse oximetry 2024-07-14 23:59:00 100 /min [facility] Body weight 2022-05-02 17:32:00 94.348 kg [facility] BMI 2022-05-02 17:32:00 36.85 kg/m2 [facility] Oxygen saturation in Arterial blood by Pulse oximetry 2022-05-02 17:32:00 99 /min [facility] Systolic blood pressure 2022-05-02 17:32:00 137 mm[Hg] [facility] Diastolic blood pressure 2022-05-02 17:32:00 91 mm[Hg] [facility] Heart rate 2022-05-02 17:32:00 100 /min [facility] Body temperature 2022-05-02 17:32:00 37.33 Renetta [facility] Respiratory rate 2022-05-02 17:32:00 18 /min [facility] Body height 2022-05-02 17:32:00 160 cm [facility] Systolic blood pressure 2021-02-02 13:54:00 123 mm[Hg] [facility] Diastolic blood pressure 2021-02-02 13:54:00 88 mm[Hg] [facility] Heart rate 2021-02-02 13:54:00 81 /min [facility] Respiratory rate 2021-02-02 13:54:00 19 /min [facility] Body height 2021-02-02 13:54:00 158.8 cm [facility] Body weight 2021-02-02 13:54:00 85.684 kg [facility] BMI 2021-02-02 13:54:00 34.00 kg/m2 [facility] Oxygen saturation in Arterial blood by Pulse oximetry 2021-02-02 13:54:00 98 /min [facility] Systolic blood pressure 2019-07-07 16:13:00 132 mm[Hg] [facility] Diastolic blood pressure 2019-07-07 16:13:00 83 mm[Hg] [facility] Heart rate 2019-07-07 16:13:00 99 /min [facility] Body temperature 2019-07-07 16:13:00 36.72 Renetta [facility] Respiratory rate 2019-07-07 16:13:00 20 /min [facility] Body height 2019-07-07 16:13:00 160 cm [facility] Body weight 2019-07-07 16:13:00 68.04 kg [facility] BMI 2019-07-07 16:13:00 26.57 kg/m2 [facility] Oxygen saturation in Arterial blood by Pulse oximetry 2019-07-07 16:13:00 100 /min [facility] Systolic blood pressure 2019-07-07 16:13:00 132 mm[Hg] [facility] Diastolic blood pressure 2019-07-07 16:13:00 83 mm[Hg] [facility] Heart rate 2019-07-07 16:13:00 99 /min [facility] Body temperature 2019-07-07 16:13:00 36.72 Renetta [facility] Respiratory rate 2019-07-07 16:13:00 20 /min [facility] Body height 2019-07-07 16:13:00 160 cm [facility] Body weight 2019-07-07 16:13:00 68.04 kg [facility] BMI 2019-07-07 16:13:00 26.57 kg/m2 [facility] Oxygen saturation in Arterial blood by Pulse oximetry 2019-07-07 16:13:00 100 /min [facility] BP Systolic 2022-10-04 13:42:00 114 mm[Hg] [...] OF PRIVACY PRACTICES 2022-05-02 17:29:12 Doctor Unassigned, Wade Hampton [facility] CONSENT/REFUSAL FOR DIAGNOSIS AND TREATMENT 2022-05-02 17:28:58 Doctor Unassigned, Wade Hampton [facility] REFERRAL- REQUEST/RESPONSE 2021-01-26 05:01:00 Doctor Unassigned, Wade Hampton [facility] REFERRAL- REQUEST/RESPONSE 2020-12-22 06:01:00 Doctor Unassigned, Wade Hampton [facility] NOTICE OF PRIVACY PRACTICES 2019-07-07 16:09:09 Doctor Unassigned, Wade Hampton [facility] Plan of Care Planned Activity Planned Date Details Comments Source Goal Plan of Care Note [code = 90469-7] Goal Plan of Care Note [code = 07293-6] Goal Plan of Care Note [code = 83663-7] Goal Plan of Care Note [code = 75013-9] Goal Plan of Care Note [code = 81331-9] Goal Plan of Care Note [code = 43120-4] Goal Plan of Care Note [code = 57504-0] Goal Plan of Care Note [code = 65166-2] Goal Plan of Care Note [code = 40897-7] Goal Plan of Care Note [code = 18093-8] Goal Plan of Care Note [code = 93887-6] Goal Plan of Care Note [code = 38070-8] Goal Plan of Care Note [code = 41194-8] Goal Plan of Care Note [code = 74980-5] Goal Plan of Care Note [code = 51923-7] Goal Plan of Care Note [code = 25171-7] Goal Plan of Care Note [code = 99013-9] Goal Plan of Care Note [code = 27206-2] Goal Plan of Care Note [code = 81613-2] Goal Plan of Care Note [code = 90517-8] Goal Plan of Care Note [code = 37533-3] Goal Plan of Care Note [code = 96013-7] Goal Plan of Care Note [code = 68032-3] Goal Plan of Care Note [code = 97365-5] Goal Plan of Care Note [code = 91604-1] Goal Plan of Care Note [code = 65115-1] Goal Plan of Care Note [code = 58664-3] Goal Plan of Care Note [code = 50699-1] Goal Plan of Care Note [code = 17572-6] Goal Plan of Care Note [code = 72939-4] Goal Plan of Care Note [code = 58322-3] Goal Plan of Care Note [code = 43430-4] Goal Plan of Care Note [code = 63602-8] Goal Plan of Care Note [code = 21860-1] Goal Plan of Care Note [code = 91043-0] Goal Plan of Care Note [code = 77452-2] Goal Plan of Care Note [code = 35197-3] Goal Plan of Care Note [code = 43774-2] Goal Plan of Care Note [code = 97290-4] Goal Plan of Care Note [code = 97233-8] Goal Plan of Care Note [code = 02985-5] Goal Plan of Care Note [code = 87497-5] Goal Plan of Care Note [code = 64706-9] Goal Plan of Care Note [code = 29375-7] Goal Plan of Care Note [code = 61577-4] Goal Plan of Care Note [code = 48928-7] Goal Plan of Care Note [code = 13734-4] Goal Plan of Care Note [code = 58193-2] Goal Plan of Care Note [code = 14440-8] Goal Plan of Care Note [code = 67723-7] Goal Plan of Care Note [code = 55669-7] Goal Plan of Care Note [code = 75248-0] Goal Plan of Care Note [code = 42739-7] Goal Plan of Care Note [code = 89451-2] Goal Plan of Care Note [code = 15628-4] Goal Plan of Care Note [code = 66425-0] Goal Plan of Care Note [code = 28860-9] Goal Plan of Care Note [code = 06525-5] Goal Plan of Care Note [code = 85232-4] Goal Plan of Care Note [code = 68992-4] Goal Plan of Care Note [code = 49489-7] Goal Plan of Care Note [code = 87147-2] Goal Plan of Care Note [code = 21435-1] Goal Plan of Care Note [code = 88237-1] Goal Plan of Care Note [code = 49129-8] Goal Plan of Care Note [code = 13997-2] Goal Plan of Care Note [code = 49932-1] Goal Plan of Care Note [code = 89916-3] Goal Plan of Care Note [code = 72828-9] Goal Plan of Care Note [code = 20273-8] Goal Plan of Care Note [code = 94920-7] Goal Plan of Care Note [code = 15949-4] Goal Plan of Care Note [code = 09163-5] Goal Plan of Care Note [code = 62538-1] Goal Plan of Care Note [code = 00063-8] Goal Plan of Care Note [code = 73494-3] Goal Plan of Care Note [code = 95396-9] Goal Plan of Care Note [code = 63073-3] Goal Plan of Care Note [code = 37792-8] Goal Plan of Care Note [code = 59332-0] Goal Plan of Care Note [code = 76121-7] Goal Plan of Care Note [code = 03355-4] Goal Plan of Care Note [code = 00141-9] Goal Plan of Care Note [code = 27480-5] Goal Plan of Care Note [code = 59838-2] Goal Plan of Care Note [code = 53960-4] Goal Plan of Care Note [code = 26087-1] Goal Plan of Care Note [code = 19655-9] Goal Plan of Care Note [code = 62348-6] Goal Plan of Care Note [code = 85584-1] Goal Plan of Care Note [code = 42950-2] Goal Plan of Care Note [code = 87256-8] Goal Plan of Care Note [code = 87958-3] Goal Plan of Care Note [code = 27068-1] Goal Plan of Care Note [code = 07878-1] Goal Plan of Care Note [code = 86302-8] Goal Plan of Care Note [code = 71374-6] Goal Plan of Care Note [code = 20967-9] Goal Plan of Care Note [code = 16765-3] Goal Plan of Care Note [code = 12314-0] Goal Plan of Care Note [code = 66862-1] Goal Plan of Care Note [code = 59862-9] Goal Plan of Care Note [code = 74225-1] Goal Plan of Care Note [code = 36457-2] Goal Plan of Care Note [code = 95514-1] Goal Plan of Care Note [code = 28157-3] Goal Plan of Care Note [code = 33523-6] Goal Plan of Care Note [code = 65869-6] Goal Plan of Care Note [code = 55095-4] Goal Plan of Care Note [code = 94277-2] Goal Plan of Care Note [code = 18438-3] Goal Plan of Care Note [code = 52945-2] Goal Plan of Care Note [code = 01403-5] Goal Plan of Care Note [code = 70331-5] Goal Plan of Care Note [code = 16847-6] Goal Plan of Care Note [code = 98697-4] Goal Plan of Care Note [code = 04511-5] Goal Plan of Care Note [code = 89795-1] Goal Plan of Care Note [code = 49869-8] Goal Plan of Care Note [code = 33346-1] Goal Plan of Care Note [code = 33154-2] Goal Plan of Care Note [code = 88512-4] Goal Plan of Care Note [code = 85933-3] Goal Plan of Care Note [code = 51168-0] Goal Plan of Care Note [code = 05333-9] Goal Plan of Care Note [code = 39480-5] Goal Plan of Care Note [code = 14067-7] Goal Plan of Care Note [code = 53245-8] Goal Plan of Care Note [code = 88840-0] Goal Plan of Care Note [code = 22497-0] Goal Plan of Care Note [code = 74742-9] Goal Plan of Care Note [code = 16642-4] Goal Plan of Care Note [code = 42838-7] Goal Plan of Care Note [code = 98467-8] Goal Plan of Care Note [code = 13411-1] Goal Plan of Care Note [code = 12296-9] Goal Plan of Care Note [code = 73588-0] Goal Plan of Care Note [code = 33552-0] Goal Plan of Care Note [code = 77765-5] Goal Plan of Care Note [code = 85589-8] Goal Plan of Care Note [code = 25579-5] Goal Plan of Care Note [code = 63872-4] Goal Plan of Care Note [code = 84718-0] Goal Plan of Care Note [code = 11000-1] Goal Plan of Care Note [code = 40201-5] Goal Plan of Care Note [code = 82427-7] Goal Plan of Care Note [code = 09685-4] Goal Plan of Care Note [code = 08550-5] Goal Plan of Care Note [code = 00403-9] Goal Plan of Care Note [code = 58968-6] Goal Plan of Care Note [code = 42824-4] Encounters Start Date/Time End Date/Time Encounter Type Admission Type Attending [facility] Care Facility Care Department Encounter ID Source 2024-07-14 19:03:00 2024-07-14 21:20:00 Emergency X GREGORY, WADEEJAY ALATORRE [facility] ERT [id number] [facility] 2024-07-14 19:03:00 2024-07-14 21:20:00 Emergency Cj Plasenciajuan Sarah [facility] [id number] [facility] 2024-02-26 11:41:36 2024-02-26 11:41:36 Outpatient SFA SFA [id number] Odilon Gibson 2023-10-12 14:05:40 2023-10-12 14:05:40 Outpatient SFA SFA [id number] Odilon Gibson 2023-09-11 13:51:27 2023-09-11 13:51:27 Outpatient SFA SFA [id number] Odilon Gibson 2023-06-27 08:36:33 2023-06-27 08:36:33 Outpatient SFA SFA [id number] Odilon Gibson 2023-05-03 15:06:03 2023-05-03 15:06:03 Outpatient SFA SFA [id number] Odilon Gibson 2023-01-31 13:06:35 2023-01-31 13:06:35 Outpatient SFA SFA [id number] Odilon Gibson 2022-11-23 15:03:05 2022-11-23 15:03:05 Outpatient SFA SFA [id number] Odilon Gibson 2022-10-04 00:00:00 2022-10-04 00:00:00 Outpatient Visit [id number] 2022-10-03 16:27:26 2022-10-03 16:27:26 Outpatient SFA SFA [id number] Odilon Gibson 2022-10-03 00:00:00 2022-10-03 00:00:00 Outpatient Visit [id number] 2026-11-08 10:56:55 2022-09-05 10:56:55 Outpatient [facility] [id number] Odilon Gibson 2022-08-30 11:05:02 2022-08-30 11:05:02 Outpatient [facility] [id number] Odilon Gibson 2022-08-30 00:00:00 2022-08-30 00:00:00 Outpatient Visit [id number] 2022-05-16 00:00:00 2022-05-16 00:00:00 Outpatient Visit [id number] 2022-05-02 12:34:00 2022-05-02 18:22:00 Emergency X DAYO VO [facility] ERT [id number] [facility] 2022-05-02 12:34:00 2022-05-02 18:22:00 Emergency Dayo Vo [facility] ..840.114 [id number] [id number] [facility] 2021-03-16 09:00:00 2021-03-16 09:00:00 Outpatient MADI [facility] [id number] [facility] 2021-03-14 00:00:00 2021-03-14 00:00:00 Telephone Bryanna De La Fuente ..840.114 [id number] [id number] [facility] 2021-03-01 08:00:00 2021-03-01 08:00:00 Outpatient MADI W[facility]TON [facility] [id number] [facility] 2021-02-02 08:12:10 2021-02-02 09:56:16 Office Visit Madi Klein [facility] [id number] [facility] 2021-02-02 09:00:00 2021-02-02 09:00:00 Outpatient MADI W[facility]TON [facility] [id number] [facility] 2021-01-26 00:00:00 2021-01-26 00:00:00 Orders Only Doctor Unassigned, Wade Hampton [place] [id number] 350.1.13.10 4.2.7.2.686 [id number] 009 [id number] 2021-01-26 00:00:00 2021-01-26 00:00:00 Orders Only Doctor Unassigned, Wade Hampton [place] [address].2.840.114 350.1.13.10 4.2.7.2.686 [id number] 009 [id number] [facility] 2020-12-22 00:00:00 2020-12-22 00:00:00 Orders Only Doctor Unassigned, Wade Hampton [place] [id number] 350.1.13.10 4.2.7.2.686 [id number] 009 [id number] 2020-12-22 00:00:00 2020-12-22 00:00:00 Orders Only Doctor Unassigned, Wade Hampton [address]2.840.114 350.1.13.10 4.2.7.2.686 [id number] 009 [id number] [facility] 2020-08-06 00:00:00 2020-08-06 00:00:00 Letter (Out) Doctor Unassigned, Wade Hampton [facility] 1.2.840.114 350.1.13.10 4.2.7.2.686 [id number] 2020-08-06 00:00:00 2020-08-06 00:00:00 Letter (Out) Doctor Unassigned, Wade Hampton [facility] 1.2.840.114 350.1.13.10 4.2.7.2.686 [id number] 2020-08-06 00:00:00 2020-08-06 00:00:00 Letter (Out) Doctor Unassigned, Wade Hampton [facility] 1.2.840.114 350.1.13.10 4.2.7.2.686 [id number] 044 [id number] [facility] 2020-08-06 00:00:00 2020-08-06 00:00:00 Letter (Out) Doctor Unassigned, Wade Hampton [facility] 1.2.840.114 350.1.13.10 4.2.7.2.686 [id number] 044 [id number] [facility] 2019-07-07 11:16:20 2019-07-07 12:14:00 Emergency [facility] 1.2.840.114 350.1.13.10 4.2.7.2.686 [id number] 084 [id number] 2019-07-07 11:16:20 2019-07-07 12:14:00 Emergency [facility] 1.2.840.114 350.1.13.10 4.2.7.2.686 [id number] 084 [id number] [facility] Results Test Description Test Time Test Comments Results Result Co mments Source LIPID [id number] 04:47:08* Test Item Value Reference Range Interpretation [...] SPECIMENS. FOR MOREINFORMATION, SEE CLIENT ANNOUNCEMENT AT [email or web address] RISK RATIO LDL/HDL (test code = 2238) 4.69 RATIO <3.22 H VITAMIN D, 25 [id number] 03:20:05* Test Item Value Reference Range Interpretation [...] TESTING PERFORMED AT [facility] [address] [place] [address] SILK SNAPPER: CALE SALINAS M.D. [place] NUMBER [id number] [facility] [place]. [id number] TSH, THIRD [id number] 03:19:25* Test Item Value Reference Range Interpretation Comme nts TSH, THIRD GENERATION (test code = 2821) 1.390 UIU/ML 0.400-4.100 HEMOGLOBIN [id number] 03:08:26* Test Item Value Reference Range Interpretation Comme nts HEMOGLOBIN A1c (test code = 07245) 5.5 % 4.2-5.6 CBC W/AUTO DIFF WITH [id number] 02:56:46* Test Item Value Reference Range Interpretation [...] = 1065) 0.0 /100 WBC'S See_Comment [Automated messa ge] The system which generated this result [...] 0.00-0.10 ABS NUCLEATED RBCS (test code = 01967) 0.00 K/UL 0.00-0.11 CULTURE, [id number] 00:00:00* Test Item Value Reference Range Interpretation Comme nts CULTURE, URINE (test code = 68244) SPECIMEN NUMBER: [id number] CULTURE, [id number] 00:00:00* Test Item Value Reference Range Interpretation Comme nts CULTURE, URINE (test code = 64161) SPECIMEN NUMBER: [id number] SARS-CoV-2 (COVID-19), RT-PCR/[id number] 08:18:51* Test Item Value Reference Range Interpretation Comments SARS-CoV-2 INTERPRETATION (test code = 32626) NEGATIVE SEE NOTE SARS-CoV-2 R NA NOT [...] ORDER CODE 3509. SOURCE (test code = 64189) NOT SPECIFIED Note: Methodolog y is Dixie Laurie Real-Time RT-PCR. The expected result or reference range is NEGATIVE (Not Detected). For more information regarding COVID-19 testing to include clinicalinformation, methodology detail, intended use, FDA authorization andrecommended fact sheets for patients or healthcare providers, see [employer] Announcement: SARS-CoV-2 (COVID-19) by NAAT at URL below (note,fact sheets are provided by method given in report:[email or web address] Alternatively, see downloadable PDF fact sheet at:[email or web address] UNLESS OTHERWISE INDICATED, ALL TESTING PERFORMED [facility] [employer] [address] [place] [address] SILK SNAPPER: BERENICE ANN M.D. CLIA NUMBER [id number] [place]. [id number] SARS-CoV-2 (COVID-19) by RT-PCR (HIGH RISK)2022-01-14 00:00:00* Test Item Value Reference Range Interpretation Comme nts SARS-CoV-2 INTERPRETATION (t est code = 45227) NEGATIVE SOURCE (test code = 91031) NOT SPECIFIED SARS-CoV-2 (COVID-19) by RT-PCR (HIGH RISK)2022-01-14 00:00:00* Test Item Value Reference Range Interpretation Comme nts SARS-CoV-2 INTERPRETATION (t est code = 73461) NEGATIVE SOURCE (test code = 30365) NOT SPECIFIED SARS-CoV-2 (COVID-19) by RT-PCR (HIGH RISK)2022-01-14 00:00:00* Test Item Value Reference Range Interpretation Comme nts SARS-CoV-2 INTERPRETATION (t est code = 17018) NEGATIVE SOURCE (test code = 78153) NOT SPECIFIED SARS-CoV-2 (COVID-19) by RT-PCR (HIGH RISK)2022-01-14 00:00:00* Test Item Value Reference Range Interpretation Comme nts SARS-CoV-2 INTERPRETATION (t est code = 14590) NEGATIVE SOURCE (test code = 22375) NOT SPECIFIED SARS-CoV-2 (COVID-19), RT-PCR/[id number] 06:38:45* Test Item Value Reference Range Interpretation Comments SARS-CoV-2 INTERPRETATION (test code = 34053) NEGATIVE SEE NOTE SARS-CoV-2 R NA NOT [...] ORDER CODE 3509. SOURCE (test code = 32139) NASOPHARYNGEAL Note: Methodolog y is Dixie Laurie Real-Time RT-PCR. The expected result or reference range is NEGATIVE (Not Detected). For more information regarding COVID-19 testing to include clinicalinformation, methodology detail, intended use, FDA authorization andrecommended fact sheets for patients or healthcare providers, see [employer] Announcement: SARS-CoV-2 (COVID-19) by NAAT at URL below (note,fact sheets are provided by method given in report:[email or web address] Alternatively, see downloadable PDF fact sheet at:[email or web address] UNLESS OTHERWISE INDICATED, ALL TESTING PERFORMED [facility] [employer], [facility]. [address] [place] [address] SILK SNAPPER: BERENICE ANN M.D. CLIA NUMBER [id number] [facility] [place]. [id number] SARS-CoV-2 (COVID-19) by RT-PCR (HIGH RISK)2021-12-29 00:00:00* Test Item Value Reference Range Interpretation Comme nts SARS-CoV-2 INTERPRETATION (test code = 81434) NEGATIVE SOURCE (test code = 83591) NASOPHARYNGEAL SARS-CoV-2 (COVID-19) by RT-PCR (HIGH RISK)2021-12-29 00:00:00* Test Item Value Reference Range Interpretation Comme nts SARS-CoV-2 INTERPRETATION (test code = 25375) NEGATIVE SOURCE (test code = 63991) NASOPHARYNGEAL SARS-CoV-2 (COVID-19) by RT-PCR (HIGH RISK)2021-12-29 00:00:00* Test Item Value Reference Range Interpretation Comme nts SARS-CoV-2 INTERPRETATION (test code = 21349) NEGATIVE SOURCE (test code = 07640) NASOPHARYNGEAL SARS-CoV-2 (COVID-19) by RT-PCR (HIGH RISK)2021-12-29 00:00:00* Test Item Value Reference Range Interpretation Comme nts SARS-CoV-2 INTERPRETATION (test code = 78055) NEGATIVE SOURCE (test code = 87203) NASOPHARYNGEAL [id number] 00:00:00* Test Item Value Reference Range Interpretation Comme nts TSH, THIRD GENERATION (test code = 2821) 1.250 UIU/ML [id number] 00:00:00* Test Item Value Reference Range Interpretation Comme nts TSH, THIRD GENERATION (test code = 2821) 1.250 UIU/ML [id number] 00:00:00* Test Item Value Reference Range Interpretation Comme nts TSH, THIRD GENERATION (test code = 2821) 1.250 UIU/ML [id number] 00:00:00* Test Item Value Reference Range Interpretation Comme nts TSH, THIRD GENERATION (test code = 2821) 1.250 UIU/ML CBC W/AUTO [id number] 00:00:00* Test Item Value Reference Range Interpretation [...] code = 1015) 207 K/UL COMPREHENSIVE METABOLIC [id number] 00:00:00* Test Item Value Reference Range Interpretation Comme nts GLUCOSE (test code = 2217) 108 MG/DL BUN (test code = 2208) 8 MG/DL CREATININE (test code = 2214) 0.80 MG/DL eGFR AMER. (test cod e = 72189) 112 ML/MIN/1.73 eGFR NON- AMER. (test code = 86020) 97 ML/MIN/1.73 CALC BUN/CREAT (test code = [...] code = 2219) 12 U/L CBC W/AUTO [id number] 00:00:00* Test Item Value Reference Range Interpretation [...] code = 1015) 207 K/UL COMPREHENSIVE METABOLIC [id number] 00:00:00* Test Item Value Reference Range Interpretation Comme nts GLUCOSE (test code = 2217) 108 MG/DL BUN (test code = 2208) 8 MG/DL CREATININE (test code = 2214) 0.80 MG/DL eGFR AMER. (test cod e = 59888) 112 ML/MIN/1.73 eGFR NON- AMER. (test code = 66436) 97 ML/MIN/1.73 CALC BUN/CREAT (test code = [...] code = 2219) 12 U/L CBC W/AUTO [id number] 00:00:00* Test Item Value Reference Range Interpretation [...] code = 1015) 207 K/UL COMPREHENSIVE METABOLIC [id number] 00:00:00* Test Item Value Reference Range Interpretation Comme nts GLUCOSE (test code = 2217) 108 MG/DL BUN (test code = 2208) 8 MG/DL CREATININE (test code = 2214) 0.80 MG/DL eGFR AMER. (test cod e = 28457) 112 ML/MIN/1.73 eGFR NON- AMER. (test code = 58485) 97 ML/MIN/1.73 CALC BUN/CREAT (test code = [...] code = 2219) 12 U/L CBC W/AUTO [id number] 00:00:00* Test Item Value Reference Range Interpretation [...] code = 1015) 207 K/UL COMPREHENSIVE METABOLIC [id number] 00:00:00* Test Item Value Reference Range Interpretation Comme nts GLUCOSE (test code = 2217) 108 MG/DL BUN (test code = 2208) 8 MG/DL CREATININE (test code = 2214) 0.80 MG/DL eGFR AMER. (test cod e = 99560) 112 ML/MIN/1.73 eGFR NON- AMER. (test code = 23720) 97 ML/MIN/1.73 CALC BUN/CREAT (test code = [...] = 2219) 12 U/L VAGINAL PATHOGENS DNA [id number] 00:00:00* Test Item Value Reference Range Interpretation Comme nts YORDY SPECIES (test code = ) NEGATIVE G. VAGINALIS (test code = ) POSITIVE T. VAGINALIS (test code = ) NEGATIVE [id number] 00:00:00* Test Item Value Reference Range Interpretation Comme nts TESTOSTERONE (test code = 2830) 23 NG/DL FSH + LH [id number] 00:00:00* Test Item Value Reference Range Interpretation Comme nts FOLLICLE STIM HORMONE (test code = 2700) 5.4 IU/L LUTEINIZING HORMONE (test co de = 2776) 9.5 IU/L [id number] 00:00:00* Test Item Value Reference Range Interpretation Comme nts PROLACTIN (test code = 2800) 8.5 NG/ML [id number] 00:00:00* Test Item Value Reference Range Interpretation Comme nts ESTRADIOL (test code = 2505) 59.4 PG/ML VAGINAL PATHOGENS DNA [id number] 00:00:00* Test Item Value Reference Range Interpretation Comme nts YORDY SPECIES (test code = ) NEGATIVE G. VAGINALIS (test code = 84288) POSITIVE T. VAGINALIS (test code = 95747) NEGATIVE [id number] 00:00:00* Test Item Value Reference Range Interpretation Comme nts TESTOSTERONE (test code = 2830) 23 NG/DL FSH + LH [id number] 00:00:00* Test Item Value Reference Range Interpretation Comme nts FOLLICLE STIM HORMONE (test code = 2700) 5.4 IU/L LUTEINIZING HORMONE (test co de = 2776) 9.5 IU/L [id number] 00:00:00* Test Item Value Reference Range Interpretation Comme nts PROLACTIN (test code = 2800) 8.5 NG/ML [id number] 00:00:00* Test Item Value Reference Range Interpretation Comme nts ESTRADIOL (test code = 2505) 59.4 PG/ML VAGINAL PATHOGENS DNA [id number] 00:00:00* Test Item Value Reference Range Interpretation Comme nts YORDY SPECIES (test code = ) NEGATIVE G. VAGINALIS (test code = 97120) POSITIVE T. VAGINALIS (test code = 80206) NEGATIVE [id number] 00:00:00* Test Item Value Reference Range Interpretation Comme nts TESTOSTERONE (test code = 2830) 23 NG/DL FSH + LH [id number] 00:00:00* Test Item Value Reference Range Interpretation Comme nts FOLLICLE STIM HORMONE (test code = 2700) 5.4 IU/L LUTEINIZING HORMONE (test co de = 2776) 9.5 IU/L [id number] 00:00:00* Test Item Value Reference Range Interpretation Comme nts PROLACTIN (test code = 2800) 8.5 NG/ML [id number] 00:00:00* Test Item Value Reference Range Interpretation Comme nts ESTRADIOL (test code = 2505) 59.4 PG/ML VAGINAL PATHOGENS DNA [id number] 00:00:00* Test Item Value Reference Range Interpretation Comme nts YORDY SPECIES (test code = ) NEGATIVE G. VAGINALIS (test code = 24037) POSITIVE T. VAGINALIS (test code = 51755) NEGATIVE [id number] 00:00:00* Test Item Value Reference Range Interpretation Comme nts TESTOSTERONE (test code = 2830) 23 NG/DL FSH + LH [id number] 00:00:00* Test Item Value Reference Range Interpretation Comme nts FOLLICLE STIM HORMONE (test code = 2700) 5.4 IU/L LUTEINIZING HORMONE (test co de = 2776) 9.5 IU/L [id number] 00:00:00* Test Item Value Reference Range Interpretation Comme nts PROLACTIN (test code = 2800) 8.5 NG/ML [id number] 00:00:00* Test Item Value Reference Range Interpretation Comme nts ESTRADIOL (test code = 2505) 59.4 PG/ML PAP TEST, THINPREP, [id number] 00:00:00* Test Item Value Reference Range Interpretation Comme nts SOURCE: (test code = 8001) Cervical/Endo cervi franca SLIDES: (test code = 8011) 1 LMP: (test code = 8021) 09/02/2020 SPECIMEN ADEQUACY: (test code = 95364) (NOTE) INTERPRETATION: (test code = 66283) ASCUS/EPITH. ABNORMALITY; SEE BELOW WELL DRILL OPERATOR ROTARY DRILL: (test code = 8101) GABRIELA Coe(ASCP)[facility] PATH[facility] INTERPRETATION BY: (test code = 8122) Aleksander Chen M.D. LOCATION: (test code = [facility]) (NOTE) CPT: (test code = 8140) (NOTE) PAP TEST, THINPREP, [id number] 00:00:00* Test Item Value Reference Range Interpretation Comme [facility] SOURCE: (test code = 8001) Cervical/Endo cervi franca SLIDES: (test code = 8011) 1 LMP: (test code = 8021) 09/02/2020 SPECIMEN ADEQUACY: (test code = 58965) (NOTE) INTERPRETATION: (test code = 12726) ASCUS/EPITH. ABNORMALITY; SEE BELOW WELL DRILL OPERATOR ROTARY DRILL: (test code = 8101) GABRIELA Coe(ASCP)[facility] PATH[facility] INTERPRETATION BY: (test code = 8122) Aleksander Chen M.D. LOCATION: (test code = 50654) (NOTE) CPT: (test code = 8140) (NOTE) PAP TEST, THINPREP, [id number] 00:00:00* Test Item Value Reference Range Interpretation Comme [facility] SOURCE: (test code = 8001) Cervical/Endo cervi franca SLIDES: (test code = 8011) 1 LMP: (test code = 8021) 09/02/2020 SPECIMEN ADEQUACY: (test code = 98815) (NOTE) INTERPRETATION: (test code = 36823) ASCUS/EPITH. ABNORMALITY; SEE BELOW WELL DRILL OPERATOR ROTARY DRILL: (test code = 8101) GABRIELA Coe(ASCP)[facility] INTERPRETATION BY: (test code = 8122) Aleksander Chen M.D. LOCATION: (test code = 21054) (NOTE) CPT: (test code = 8140) (NOTE) PAP TEST, THINPREP, [id number] 00:00:00* Test Item Value Reference Range Interpretation Comme nts SOURCE: (test code = 8001) Cervical/Endo cervi franca SLIDES: (test code = 8011) 1 LMP: (test code = 8021) 09/02/2020 SPECIMEN ADEQUACY: (test code = 30476) (NOTE) INTERPRETATION: (test code = 66513) ASCUS/EPITH. ABNORMALITY; SEE BELOW WELL DRILL OPERATOR ROTARY DRILL: (test code = 8101) GABRIELA Coe(ASCP)[facility] PATHOLOGIST INTERPRETATION BY: (test code = 8122) Aleksander Chen M.D. LOCATION: (test code = 60454) (NOTE) CPT: (test code = 8140) (NOTE) HIV 1/2 4TH GEN, RFLX CONF [ADDED]2020-09-21 00:00:00* Test Item Value Reference Range Interpretation Comme nts HIV 1/2 4TH GEN, RFLX CONF ( test code = 3514) NON-REACTIVE GC AND CHLAMYDIA AMPLIFIED, [id number] 00:00:00* Test Item Value Reference Range Interpretation Comme nts GONORRHEA, TMA (test code = 36879) NEGATIVE CHLAMYDIA, TMA (test code = 97564) NEGATIVE RPR [ADDED]2020-09-21 00:00:00* Test Item Value Reference Range Interpretation Comme nts RPR RESULT (test code = 3501) NON-REACTIVE RPR TITER (test code = 3500) NOT INDIC. TITER VAGINAL PATHOGENS DNA PANEL [ADDED]2020-09-21 00:00:00* Test Item Value Reference Range Interpretation Comme nts YORDY SPECIES (test code = 99266) NEGATIVE G. VAGINALIS (test code = 31391) POSITIVE T. VAGINALIS (test code = 82885) NEGATIVE ADELA (ANTI-NUCLEAR AB) WITH REFLEX [id number] 00:00:00* Test Item Value Reference Range Interpretation Comme nts ANTI-NUCLEAR ANTIBODIES (sommer t code = 3506) NEGATIVE HPV HIGH RISK WITH GENOTYPE, [id number] 00:00:00* Test Item Value Reference Range Interpretation Comme nts HPV HIGH RISK INTERP (test c ode = 77775) NEGATIVE HPV 16 (test code = 22840) NEGATIVE HPV 18 (test code = 80625) NEGATIVE HPV, HR, OTHER GENOTYPES (te st code = 40426) NEGATIVE HIV 1/2 4TH GEN, RFLX CONF [ADDED]2020-09-21 00:00:00* Test Item Value Reference Range Interpretation Comme nts HIV 1/2 4TH GEN, RFLX CONF ( test code = 3514) NON-REACTIVE GC AND CHLAMYDIA AMPLIFIED, [id number] 00:00:00* Test Item Value Reference Range Interpretation Comme nts GONORRHEA, TMA (test code = 23899) NEGATIVE CHLAMYDIA, TMA (test code = 69508) NEGATIVE RPR [ADDED]2020-09-21 00:00:00* Test Item Value Reference Range Interpretation Comme nts RPR RESULT (test code = 3501) NON-REACTIVE RPR TITER (test code = 3500) NOT INDIC. TITER VAGINAL PATHOGENS DNA PANEL [ADDED]2020-09-21 00:00:00* Test Item Value Reference Range Interpretation Comme nts YORDY SPECIES (test code = 96248) NEGATIVE G. VAGINALIS (test code = ) POSITIVE T. VAGINALIS (test code = ) NEGATIVE ADELA (ANTI-NUCLEAR AB) WITH REFLEX [id number] 00:00:00* Test Item Value Reference Range Interpretation Comme nts ANTI-NUCLEAR ANTIBODIES (sommer t code = 3506) NEGATIVE HPV HIGH RISK WITH GENOTYPE, [id number] 00:00:00* Test Item Value Reference Range Interpretation Comme nts HPV HIGH RISK INTERP (test c ode = 66077) NEGATIVE HPV 16 (test code = 70809) NEGATIVE HPV 18 (test code = 20288) NEGATIVE HPV, HR, OTHER GENOTYPES (te st code = 64628) NEGATIVE HIV 1/2 4TH GEN, RFLX CONF [ADDED]2020-09-21 00:00:00* Test Item Value Reference Range Interpretation Comme nts HIV 1/2 4TH GEN, RFLX CONF ( test code = 3514) NON-REACTIVE GC AND CHLAMYDIA AMPLIFIED, [id number] 00:00:00* Test Item Value Reference Range Interpretation Comme nts GONORRHEA, TMA (test code = 44257) NEGATIVE CHLAMYDIA, TMA (test code = 71348) NEGATIVE RPR [ADDED]2020-09-21 00:00:00* Test Item Value Reference Range Interpretation Comme nts RPR RESULT (test code = 3501) NON-REACTIVE RPR TITER (test code = 3500) NOT INDIC. TITER ADELA (ANTI-NUCLEAR AB) WITH REFLEX [id number] 00:00:00* Test Item Value Reference Range Interpretation Comme nts ANTI-NUCLEAR ANTIBODIES (sommer t code = 3506) NEGATIVE HPV HIGH RISK WITH GENOTYPE, [id number] 00:00:00* Test Item Value Reference Range Interpretation Comme nts HPV HIGH RISK INTERP (test c ode = 37031) NEGATIVE HPV 16 (test code = 75338) NEGATIVE HPV 18 (test code = 36003) NEGATIVE HPV, HR, OTHER GENOTYPES (te st code = 14624) NEGATIVE VAGINAL PATHOGENS DNA PANEL [ADDED]2020-09-21 00:00:00* Test Item Value Reference Range Interpretation Comme nts YORDY SPECIES (test code = ) NEGATIVE G. VAGINALIS (test code = 41479) POSITIVE T. VAGINALIS (test code = 34985) NEGATIVE HIV 1/2 4TH GEN, RFLX CONF [ADDED]2020-09-21 00:00:00* Test Item Value Reference Range Interpretation Comme nts HIV 1/2 4TH GEN, RFLX CONF ( test code = 3514) NON-REACTIVE GC AND CHLAMYDIA AMPLIFIED, [id number] 00:00:00* Test Item Value Reference Range Interpretation Comme nts GONORRHEA, TMA (test code = 55450) NEGATIVE CHLAMYDIA, TMA (test code = 80227) NEGATIVE RPR [ADDED]2020-09-21 00:00:00* Test Item Value Reference Range Interpretation Comme nts RPR RESULT (test code = 3501) NON-REACTIVE RPR TITER (test code = 3500) NOT INDIC. TITER VAGINAL PATHOGENS DNA PANEL [ADDED]2020-09-21 00:00:00* Test Item Value Reference Range Interpretation Comme nts YORDY SPECIES (test code = ) NEGATIVE G. VAGINALIS (test code = 82304) POSITIVE T. VAGINALIS (test code = 56550) NEGATIVE ADELA (ANTI-NUCLEAR AB) WITH REFLEX [id number] 00:00:00* Test Item Value Reference Range Interpretation Comme nts ANTI-NUCLEAR ANTIBODIES (sommer t code = 3506) NEGATIVE HPV HIGH RISK WITH GENOTYPE, [id number] 00:00:00* Test Item Value Reference Range Interpretation Comme nts HPV HIGH RISK INTERP (test c ode = 30748) NEGATIVE HPV 16 (test code = 14989) NEGATIVE HPV 18 (test code = 87820) NEGATIVE HPV, HR, OTHER GENOTYPES (te st code = 10124) NEGATIVE [id number] 00:00:00* Test Item Value Reference Range Interpretation Comme nts TSH, THIRD GENERATION (test code = 2821) 2.110 UIU/ML [id number] 00:00:00* Test Item Value Reference Range Interpretation Comme nts TSH, THIRD GENERATION (test code = 2821) 2.110 UIU/ML [id number] 00:00:00* Test Item Value Reference Range Interpretation Comme nts TSH, THIRD GENERATION (test code = 2821) 2.110 UIU/ML [id number] 00:00:00* Test Item Value Reference Range Interpretation Comme nts TSH, THIRD GENERATION (test code = 2821) 2.110 UIU/ML COMPREHENSIVE METABOLIC [id number] 00:00:00* Test Item Value Reference Range Interpretation Comme nts GLUCOSE (test code = 2217) 90 MG/DL BUN (test code = 2208) 11 MG/DL CREATININE (test code = 2214) 0.89 MG/DL eGFR AMER. (test cod e = 02686) 99 ML/MIN/1.73 eGFR NON- AMER. (test code = 29487) 85 ML/MIN/1.73 CALC BUN/CREAT (test code = [...] (test code = 2219) 58 U/L LIPID [id number] 00:00:00* Test Item Value Reference Range Interpretation Comme nts CHOLESTEROL (test code = 2210) 221 MG/DL TRIGLYCERIDES (test code = 2232) 180 MG/DL HDL CHOLESTEROL (test code = 2220) 51 MG/DL CALC LDL CHOL (test code = 2237) 138 MG/DL RISK RATIO LDL/HDL (test cod e = 2238) 2.71 RATIO CBC W/AUTO [id number] 00:00:00* Test Item Value Reference Range Interpretation [...] code = 1015) 233 K/UL COMPREHENSIVE METABOLIC [id number] 00:00:00* Test Item Value Reference Range Interpretation Comme nts GLUCOSE (test code = 2217) 90 MG/DL BUN (test code = 2208) 11 MG/DL CREATININE (test code = 2214) 0.89 MG/DL eGFR AMER. (test cod e = 21430) 99 ML/MIN/1.73 eGFR NON- AMER. (test code = 24145) 85 ML/MIN/1.73 CALC BUN/CREAT (test code = [...] (test code = 2219) 58 U/L LIPID [id number] 00:00:00* Test Item Value Reference Range Interpretation Comme nts CHOLESTEROL (test code = 2210) 221 MG/DL TRIGLYCERIDES (test code = 2232) 180 MG/DL HDL CHOLESTEROL (test code = 2220) 51 MG/DL CALC LDL CHOL (test code = 2237) 138 MG/DL RISK RATIO LDL/HDL (test cod e = 2238) 2.71 RATIO CBC W/AUTO [id number] 00:00:00* Test Item Value Reference Range Interpretation [...] code = 1015) 233 K/UL COMPREHENSIVE METABOLIC [id number] 00:00:00* Test Item Value Reference Range Interpretation Comme nts GLUCOSE (test code = 2217) 90 MG/DL BUN (test code = 2208) 11 MG/DL CREATININE (test code = 2214) 0.89 MG/DL eGFR AMER. (test cod e = 31871) 99 ML/MIN/1.73 eGFR NON- AMER. (test code = 60631) 85 ML/MIN/1.73 CALC BUN/CREAT (test code = [...] (test code = 2219) 58 U/L LIPID [id number] 00:00:00* Test Item Value Reference Range Interpretation Comme nts CHOLESTEROL (test code = 2210) 221 MG/DL TRIGLYCERIDES (test code = 2232) 180 MG/DL HDL CHOLESTEROL (test code = 2220) 51 MG/DL CALC LDL CHOL (test code = 2237) 138 MG/DL RISK RATIO LDL/HDL (test cod e = 2238) 2.71 RATIO CBC W/AUTO [id number] 00:00:00* Test Item Value Reference Range Interpretation [...] code = 1015) 233 K/UL COMPREHENSIVE METABOLIC [id number] 00:00:00* Test Item Value Reference Range Interpretation Comme nts GLUCOSE (test code = 2217) 90 MG/DL BUN (test code = 2208) 11 MG/DL CREATININE (test code = 2214) 0.89 MG/DL eGFR AMER. (test cod e = 15579) 99 ML/MIN/1.73 eGFR NON- AMER. (test code = 77362) 85 ML/MIN/1.73 CALC BUN/CREAT (test code = [...] (test code = 2219) 58 U/L LIPID [id number] 00:00:00* Test Item Value Reference Range Interpretation Comme nts CHOLESTEROL (test code = 2210) 221 MG/DL TRIGLYCERIDES (test code = 2232) 180 MG/DL HDL CHOLESTEROL (test code = 2220) 51 MG/DL CALC LDL CHOL (test code = 2237) 138 MG/DL RISK RATIO LDL/HDL (test cod e = 2238) 2.71 RATIO CBC W/AUTO [id number] 00:00:00* Test Item Value Reference Range Interpretation [...] (test code = 1015) 233 K/UL RPR, [id number] 22:11:00* Test Item Value Reference Range Interpretation Comme nts RPR (test code = RPR) Non-Reactive Non-Reactive N Thyroid Stimulating Hormone (TSH)2017-03-08 09:46:00* Test Item Value Reference Range Interpretation Comme nts TSH (test code = TSH) 0.79 mIU/mL 0.270-4.200 N Notes Date/Time Note Provider Source 2024-07-14 21:14:32 Called pt again to complete orders. Pt is no longer in the ED. T [facility] 2024-07-14 20:33:47 Called pt to complete orders and she was not in lobby. Will try again @ a later time. [facility] 2024-07-14 18:58:23 Pt arrives ambulatory to ED c/o dizziness x5 days. States it comes and goes worsen when talking. Says that she feels as though she is going to pass out when it happens. [facility] Aliyah Haynes RN [facility]
[2024-09-23] MEDS ORDERED: ONDANSETRON 4 MG/2 ML VIAL ONE (12:43)
[2024-09-23] MEDS ORDERED: MECLIZINE HCL 12.5 MG TAB ONE (12:44)
[2024-09-23] MEDS ORDERED: NA CHLORIDE 0.9% 1,000 ML ONE (12:44)
[2024-09-23 13:13] LABS: Absolute Basophils 0.1 K/uL (0-0.5); Absolute Eosinophils 0.1 K/uL (0-0.5); Absolute Lymphocytes (CBC) 2.3 K/uL (0.7-4.9); Absolute Monocytes 0.4 K/uL (0.1-1.3); Absolute Neutrophil 5.9 K/uL (1.8-8.0); Basophils % 0.9 % (0-1.3); Hematocrit 41.1 % (36.0-45.0); Hemoglobin 13.7 g/dL (12.0-15.0); Lymphocytes % 26.5 % (15.3-44.8); MCH 32.5 pg (27.0-35.0); MCHC 33.4 g/dL (32.0-36.0); MCV 97.2 fL (80-100); Monocytes % 4.6 % (3.3-12.3); Platelets 197 thou/uL (152-406); RBC Red Blood Cell Count 4.23 M/uL (3.86-4.86); Red Cell Distribution Width 12.5 % (12.1-15.2)
[2024-09-23 13:27] LABS: ALT/SGPT 22 U/L (13-56); AST/SGOT < 10 U/L (15-37); Albumin 3.9 g/dL (3.4-5.0); Albumin/Globulin Ratio 1.2 (1.1-1.8); Alkaline Phosphatase 64 U/L (45-117); Anion Gap 7.3 mEq/L (5.0-15.0); BUN Blood Urea Nitrogen 15 mg/dL (7-18); Bicarbonate 27 mEq/L (21-32); Bilirubin Total 0.4 mg/dL (0.2-1.0); Globulin 3.2 g/dL (2.3-3.5); Glomerular Filtration Rate 74 ml/min (=/>90); Glucose Level 101 mg/dL (74-106); Potassium 4.3 mEq/L (3.5-5.1); Protein, Total 7.1 g/dL (6.4-8.2); Sodium Level 136 mEq/L (136-145)
--- NOTE | 2024-09-23 13:54 | ER ---
Nurse's Notes [facility] Name: Charis Padgett Age: 39 yrs Sex: Female : 1985 Arrival Date: 09/23/2024 Time: 11:27 Bed 20 Private MD: Diagnosis: Anxiety disorder, unspecified;Adverse effect of unspecified drugs, medicaments and biological substances;Palpitations Presentation: 09/23 11:38 Chief complaint: Patient states: dizziness intermittent X 3 days, worse today , stopped iw taking her Paxil a week ago, is now taking Wellbutrin. Coronavirus screen: At this time, the client does not indicate any symptoms associated with coronavirus-19. Ebola Screen: No symptoms or risks identified at this time. Initial Sepsis Screen: Does the patient meet any 2 criteria? No. Patient's initial sepsis screen is negative. Does the patient have a suspected source of infection? No. Patient's initial sepsis screen is negative. Risk Assessment: Do you want to hurt yourself or someone else? Patient reports no desire to harm self or others. Onset of symptoms was September 20, 2024. 11:38 Method Of Arrival: Ambulatory iw 11:38 Acuity: KALYANI 3 iw Triage Assessment: 11:39 General: Appears in no apparent distress. Behavior is calm, cooperative. Pain: Denies iw pain. 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 - Infectious Disease History:: Denies. - Social history:: Smoking status: Reported history of juuling and/or vaping. - Family history:: not pertinent. Screenin:56 [facility] ED Fall Risk Assessment (Adult) History of falling in the last 3 months, db including since admission No falls in past 3 months (0 pts) Confusion or Disorientation No (0 pts) Intoxicated or Sedated No (0 pts) Impaired Gait No (0 pts) Mobility Assist Device Used No (0 pt) Altered Elimination No (0 pt) Score/Fall Risk Level 0 - 2 = Low Risk Oriented to surroundings, Maintained a safe environment. Abuse screen: Denies threats or abuse. Denies injuries from another. Nutritional screening: No deficits noted. Tuberculosis screening: No symptoms or risk factors identified. Assessment: 12:56 Reassessment: Patient appears in no apparent distress at this time. Patient and/or db family updated on plan of care and expected duration. Pain level reassessed. Patient is alert, oriented x 3, equal unlabored respirations, skin warm/dry/pink. DIZZINESS X 1 MONTH GETTING WORSE. STARTED NEW MEDICATION PAXIL. General: Appears in no apparent distress. comfortable, Behavior is calm, cooperative. Neuro: Level of Consciousness is awake, alert, obeys commands, Oriented to person, place, time, situation. 14:12 Reassessment: Patient appears in no apparent distress at this time. Patient and/or db family updated on plan of care and expected duration. Pain level reassessed. Patient is alert, oriented x 3, equal unlabored respirations, skin warm/dry/pink. PATIENT DC PENDING FLUIDS. Vital Signs: 11:38 BP 148 / 100; Pulse 90; Resp 16; Temp 98.1; Pulse Ox 100% on R/A; Pain 0/10; iw 12:42 BP 146 / 89; Pulse 79; Resp 16; Pulse Ox 100% ; db 14:00 BP 138 / 95; Pulse 80; Resp 16; Pulse Ox 100% on R/A; db 11:38 Pain Scale: Adult iw ED Course: 11:30 Patient arrived in ED. ra3 11:39 Triage completed. iw 11:39 Arm band placed on. iw 11:40 Benjie Hilliard MD is Attending Physician. [facility] 12:37 Erika Thornton, RN is Primary Nurse. db 12:56 Patient has correct armband on for positive identification. Bed in low position. Call db light in reach. Side rails up X 1. Provided Education on:. Pulse ox on. NIBP on. Pillow given. 12:56 Initial lab(s) drawn, by me, sent to lab. Inserted saline lock: 20 gauge in right db antecubital area, using aseptic technique. Blood collected. Flushed with 10 mL NS. 14:42 No provider procedures requiring assistance completed. IV discontinued, intact, db bleeding controlled, No redness/swelling at site. Administered Medications: 12:56 Drug: NS 0.9% IV 1000 ml IV at 1000 ml once; to be given as a bolus over 60 minutes db Route: IV; Rate: 1000 ml; Site: right antecubital; 14:42 Follow up: Response: No adverse reaction; IV Status: Completed infusion; IV Intake: db 1000ml 12:56 Drug: Meclizine PO 50 mg PO once Route: PO; db 14:11 Follow up: Response: No adverse reaction db 12:56 Drug: Ondansetron IVP 4 mg IVP once; over 2 minutes Route: IVP; Site: right antecubital;db 14:11 Follow up: Response: No adverse reaction db 13:59 Drug: Ativan IVP 1 mg IVP once Route: IVP; Site: right antecubital; db 14:42 Follow up: Response: No adverse reaction db Medication: 12:56 VIS not applicable for this client. db Intake: 14:42 IV: 1000ml; Total: 1000ml. db Outcome: 13:54 Discharge ordered by MD. boyer 14:42 Discharged to home ambulatory, with family, db 14:42 Condition: stable 14:42 Discharge instructions given to patient, family, Instructed on discharge instructions, follow up and referral plans. Prescriptions given X 1, 14:43 Patient left the ED. ph Signatures: Benjie Hilliard MD MD cha Williams, Irene, RN MARGO Maite Webster RN RN ph Benton, Danielle, RN RN Rowena Stafford ra3 Corrections: (The following items were deleted from the chart) 11:40 11:38 Chief complaint: Patient states: dizziness intermittent X 3 days, worse today iw iw 11:40 11:38 BP 148 / 100; Pulse 90bpm; Resp 16bpm; Pulse Ox 100% RA; Temp 98.1F; iw iw
--- NOTE | 2024-09-23 13:55 | EDPHYS ---
Physician Documentation [facility] Name: Charis Padgett Age: 39 yrs Sex: Female : 1985 Arrival Date: 09/23/2024 Time: 11:27 Bed 20 Private MD: ED Physician Benjie Hilliard HPI: 09/23 12:10 This 39 yrs old Female presents to ER via Ambulatory with complaints of rosalind Dizziness. 12:10 The patient presents with dizziness, feeling faint, generalized weakness. Onset: The rosalind symptoms/episode began/occurred 2 day(s) ago. Context: occurred at home. Modifying factors: The symptoms are alleviated by nothing, the symptoms are aggravated by nothing. Associated signs and symptoms: Pertinent positives: nausea. Severity of symptoms: At their worst the symptoms were mild moderate in the emergency department the symptoms are unchanged. Patient's baseline: Neuro: alert and fully oriented. The patient has not experienced similar symptoms in the past. 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 - Infectious Disease History:: Denies. - Social history:: Smoking status: Reported history of juuling and/or vaping. - Family history:: not pertinent. ROS: 12:10 Constitutional: Negative for fever, chills, and weight loss, Eyes: Negative for injury, rosalind pain, redness, and discharge, ENT: Negative for injury, pain, and discharge, Neck: Negative for injury, pain, and swelling, Respiratory: Negative for shortness of breath, cough, wheezing, and pleuritic chest pain, Abdomen/GI: Negative for abdominal pain, nausea, vomiting, diarrhea, and constipation, Back: Negative for injury and pain, : Negative for injury, bleeding, discharge, and swelling, MS/Extremity: Negative for injury and deformity, Skin: Negative for injury, rash, and discoloration, Neuro: Negative for headache, weakness, numbness, tingling, and seizure, Psych: Negative for depression, anxiety, suicide ideation, homicidal ideation, and hallucinations, Allergy/Immunology: Negative for hives, rash, and allergies, Endocrine: Negative for neck swelling, polydipsia, polyuria, polyphagia, and marked weight changes, Hematologic/Lymphatic: Negative for swollen nodes, abnormal bleeding, and unusual bruising, 12:10 Cardiovascular: Positive for palpitations, Exam: 12:10 Constitutional: This is a well developed, well nourished patient who is awake, alert, rosalind and in no acute distress. Head/Face: Normocephalic, atraumatic. Eyes: Pupils equal round and reactive to light, extra-ocular motions intact. Lids and lashes normal. Conjunctiva and sclera are non-icteric and not injected. Cornea within normal limits. Periorbital areas with no swelling, redness, or edema. ENT: Nares patent. No nasal discharge, no septal abnormalities noted. Tympanic membranes are normal and external auditory canals are clear. Oropharynx with no redness, swelling, or masses, exudates, or evidence of obstruction, uvula midline. Mucous membranes moist. Neck: Trachea midline, no thyromegaly or masses palpated, and no cervical lymphadenopathy. Supple, full range of motion without nuchal rigidity, or vertebral point tenderness. No Meningismus. Chest/axilla: Normal chest wall appearance and motion. Nontender with no deformity. No lesions are appreciated. Cardiovascular: Regular rate and rhythm with a normal S1 and S2. No gallops, murmurs, or rubs. Normal PMI, no JVD. No pulse deficits. Respiratory: Lungs have equal breath sounds bilaterally, clear to auscultation and percussion. No rales, rhonchi or wheezes noted. No increased work of breathing, no retractions or nasal flaring. Abdomen/GI: Soft, non-tender, with normal bowel sounds. No distension or tympany. No guarding or rebound. No evidence of tenderness throughout. Back: No spinal tenderness. No costovertebral tenderness. Full range of motion. Skin: Warm, dry with normal turgor. Normal color with no rashes, no lesions, and no evidence of cellulitis. MS/ Extremity: Pulses equal, no cyanosis. Neurovascular intact. Full, normal range of motion. Neuro: Awake and alert, GCS 15, oriented to person, place, time, and situation. Cranial nerves II-XII grossly intact. Motor strength 5/5 in all extremities. Sensory grossly intact. Cerebellar exam normal. Normal gait. Psych: Awake, alert, with orientation to person, place and time. Behavior, mood, and affect are within normal limits. 12:10 ECG was reviewed by the Attending Physician. 13:17 ECG was reviewed by the Attending Physician. [facility] Vital Signs: 11:38 BP 148 / 100; Pulse 90; Resp 16; Temp 98.1; Pulse Ox 100% on R/A; Pain 0/10; iw 12:42 BP 146 / 89; Pulse 79; Resp 16; Pulse Ox 100% ; db 14:00 BP 138 / 95; Pulse 80; Resp 16; Pulse Ox 100% on R/A; db 11:38 Pain Scale: Adult iw MDM: 11:40 Medical Screening Exam initiated [facility] 12:13 Differential diagnosis: cardiac arrhythmia, generalized weakness, hypovolemia, rosalind near-syncope, vertigo. Data reviewed: vital signs, nurses notes, lab test result(s), EKG, radiologic studies, plain films. Consideration of Admission/Observation Escalation of care including admission/observation considered. I considered the following discharge prescriptions or medication management in the emergency department Medications were administered in the Emergency Department. See MAR. Independent interpretation of the following test(s) in the Emergency Department EKG: See my EKG interpretation above. Test considered but Not performed: Ultrasound NO [address]: NO CT HEAD. Care significantly affected by the following chronic conditions: PTSD, DEPRESSION, PULMONARY NODULES, ANXIETY. 09/23 11:42 Order name: CBC with Diff; Complete Time: 13:29 [facility] 09/23 11:42 Order name: Comprehensive Metabolic Panel; Complete Time: 13:29 [facility] 09/23 12:07 Order name: Troponin High Sensitivity; Complete Time: 13:54 [facility] 09/23 12:07 Order name: EKG; Complete Time: 12:08 [facility] 09/23 12:07 Order name: EKG - Nurse/Tech; Complete Time: 12:59 [facility] EC: Rate is 71 beats/min. Rhythm is regular. QRS [place] is Normal. [place] interval is normal. QRS rosalind interval is normal. QT interval is normal. No Q waves. T waves are Normal. No ST changes noted. Clinical impression: Normal ECG and No evidence of ischemia. Interpreted by me. Reviewed by me. Administered Medications: 12:56 Drug: NS 0.9% IV 1000 ml IV at 1000 ml once; to be given as a bolus over 60 minutes db Route: IV; Rate: 1000 ml; Site: right antecubital; 14:42 Follow up: Response: No adverse reaction; IV Status: Completed infusion; IV Intake: db 1000ml 12:56 Drug: Meclizine PO 50 mg PO once Route: PO; db 14:11 Follow up: Response: No adverse reaction db 12:56 Drug: Ondansetron IVP 4 mg IVP once; over 2 minutes Route: IVP; Site: right antecubital;db 14:11 Follow up: Response: No adverse reaction db 13:59 Drug: Ativan IVP 1 mg IVP once Route: IVP; Site: right antecubital; db 14:42 Follow up: Response: No adverse reaction db Disposition Summary: 09/23/24 13:54 Discharge Ordered Notes: Location: Home rosalind Problem: new rosalind Symptoms: have improved rosalind Condition: Stable rosalind Diagnosis - Anxiety disorder, unspecified rosalind - Adverse effect of unspecified drugs, medicaments and biological substances rosalind - Palpitations rosalind Followup: rosalind - With: Private Physician - When: 2 - 3 days - Reason: Recheck today's complaints, Continuance of care, Re-evaluation by your physician Discharge Instructions: - Discharge Summary Sheet rosalind - Palpitations rosalind - Panic Attack, [id number] rosalind - Palpitations, [id number] rosalind - Managing Anxiety, Adult rosalind Forms: - Medication Reconciliation Form rosalind - Antibiotic Education rosalind - Prescription Opioid Use rosalind - Patient Portal Instructions rosalind - Leadership Thank You Letter [facility] Prescriptions: - Hydroxyzine HCl 25 mg Oral Tablet - take 1 tablet ORAL route every 6 hours As needed; 30 tablet; Refills: 0, rosalind Product Selection Permitted Signatures: Dispatcher [employer] EDMS Benjie Hilliard MD MD cha Williams, Irene, RN RN iw Erika Thornton RN RN db Corrections: (The following items were deleted from the chart) 11:43 11:43 CBC+H.LAB.BRZ ordered. EDMS EDMS 11:43 11:43 COMPREHENSIVE METABOLIC PANEL+C.LAB.BRZ ordered. EDMS EDMS 11:43 11:43 Urinalysis+U.LAB.BRZ ordered. EDMS EDMS
[2024-09-23] MEDS ORDERED: LORazepam 2 MG/ML VIAL ONE (14:02)
[2024-09-23 18:11] VITALS: TEMP 98.1; O2SAT 100
[2024-09-23 18:13] VITALS: BP 138/95
--- NOTE | 2024-09-24 11:34 | EKG ---
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
== END 2024-09-23 14:43 | disposition home or self-care (01) ==
LOC: ER 11:27
DX: F41.9 Anxiety disorder, unspecified (principal); T50.905A Adverse effect of unspecified drugs, medicaments and biological substances, initial encounter; F43.10 Post-traumatic stress disorder, unspecified
CPT/HCPCS: 96361; 93005; 85025; 36415; 84484; 80053; 96375; 96374; 99284; J8597; J2405; J7030